=== PATIENT | male | born 1950 | race African-American/Black ===

== ENCOUNTER 2020-04-14 18:52 | Inpatient (IN) | payer MEDICARE, SELFPAY ==
[2020-04-14] VITALS (9 sets, daily range): BP systolic 111–223; BP diastolic 57–116; PULSE 92–128; RESP 15–22; TEMP 36.1–37.1; O2SAT 95–100; BMI 18.6
--- NOTE | ~2020-04-14 | CT_ITS ---
EXAMINATION: CTA brain carotid DATE: 04/14/2020 20:13 INDICATION: Altered mental status. TECHNIQUE: Computed tomographic angiography (CTA) of the head was performed with 100 mL Omnipaque-350 intravenous contrast. CTA of the neck was performed with intravenous contrast. Automated exposure co ntrol and iterative reconstruction technique were employed. The dose-length product was 1192.40 mGy-c m. Maximum intensity projection and volume rendered 3D-reconstructions were created by the [employer] st on a separate workstation. COMPARISON: Head CT 04/14/2020 FINDINGS: HEAD CTA: There are scattered areas of low attenuation in the cerebral white matter, which is within normal limits for the patient's age. There is no intracranial hemorrhage, acute infarction, or abnorm al intracranial mass lesion. The ventricles are normal in size. There is mild mucosal thickening in t he paranasal sinuses. The mastoid air cells are normal. The orbits are normal. Left vertebral artery is dominant. There is no significant stenosis of basilar artery or the posterior cerebral arteries. T here is no significant stenosis of the intracranial internal carotid arteries or anterior or middle c erebral arteries. Anterior communicating artery is normal. The posterior communicating arteries are n ormal. There is no aneurysm. NECK CTA: There is mild scarring at the lung apices. There are no pathologically enlarged lymph nodes . There is no significant stenosis of the vertebral arteries. There is plaque in the proximal interna l carotid arteries. There is 0% stenosis of the proximal right internal carotid artery relative to no rmal distal artery lumen diameter (NASCET criteria). There is 0% stenosis of the proximal left consulting intern al carotid artery relative to normal distal artery lumen diameter. There is severe cervical spondylos is. IMPRESSION: 1. Mild nonspecific cerebral white matter disease, which likely represents chronic small vessel ische [place] disease. 2. No aneurysm or significant intracranial arterial stenosis. 3. 0% stenosis of the proximal internal carotid arteries relative to normal distal artery lumen diame ters (NASCET criteria). Reviewed, dictated and finalized at location A. IMPRESSION: 1. 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 2. No aneurysm or significant intracranial arterial stenosis. 3. 0% stenosis of the proximal internal carotid arteries relative to normal dis pepe artery lumen diameters (NASCET criteria).
--- NOTE | ~2020-04-14 | US_ITS ---
EXAMINATION: US carotid duplex BI DATE: 04/15/2020 14:16 INDICATION: Transient ischemic attack. TECHNIQUE: Grayscale, color Doppler, and pulsed Doppler images of the cervical carotid arteries were obtained. The degree of vessel stenosis is placed in one of the following categories: normal, <50%, 5 0-69%, >=70% but less than near-occlusion, near-occlusion, or total occlusion. Note that percent sten osis relative to normal distal artery lumen diameter is indirectly measured from velocity measurement s as described by Pedro, et al. Radiology 2003; 229:340-346. COMPARISON: CTA 04/14/2020 FINDINGS: RIGHT: The right common carotid artery (CCA) peak systolic velocity (PSV) is 106 cm/s. The right internal ca rotid artery (ICA) PSV is 108 cm/s. The right ICA end-diastolic velocity (EDV) is 13 cm/s. The right ICA/CCA PSV ratio is 1.0. Grayscale and color Doppler images yield an estimate of <50% diameter reduc tion from plaque in the ICA. There is antegrade flow in the right vertebral artery. LEFT: The left CCA PSV is 152 cm/s. The left ICA PSV is 107 cm/s. The left ICA EDV is 16 cm/s. The left ICA /CCA PSV ratio is 0.7. Grayscale and color Doppler images yield an estimate of <50% diameter reductio n from plaque in the ICA. There is antegrade flow in the left vertebral artery. IMPRESSION: 1. <50% stenosis in the right internal carotid artery. 2. <50% stenosis in the left internal carotid artery. Reviewed, dictated and finalized at location A.
--- NOTE | ~2020-04-14 | CT_ITS ---
EXAMINATION: CT brain wo con DATE: 04/14/2020 19:28 INDICATION: Sudden onset of balance and coordination difficulties TECHNIQUE: Computed tomography (CT) of the head was performed without intravenous contrast. The mA wa s adjusted according to patient size. Iterative reconstruction technique was employed. Exam dose: 60 5.33 mGy-cm total exam DLP. COMPARISON: None FINDINGS: No intracranial mass lesion or hemorrhage or cerebrovascular accident is detected. There is no midline shift or mass effect. Normal ventricular size. No subdural or epidural hematoma. Cerebral atherosclerosis is noted. There is nonspecific diminished attenuation of the cerebral white matter, likely due to chronic small vessel ischemic changes. No fracture or bone destruction of the cranial vault. There is mild soft tissue thickening at some of the ethmoid septae. IMPRESSION: No acute intracranial finding Cerebral atherosclerosis and chronic small vessel ischemic changes of the cerebral white matter Reviewed, dictated and finalized at Location [facility]. Reviewed, dictated and finalized at location A. IMPRESSION: No acute intracranial finding Cerebral atherosclerosis and chronic small vessel ischemic changes of the cereb ral white matter
--- NOTE | ~2020-04-14 | XR_ITS ---
XR chest 1V portable DATE: 04/14/2020 19:55 INDICATION: Transient alteration of awareness. Loss of balance. TECHNIQUE: Portable upright AP chest on 04/14/2020 at 1955 hours COMPARISON: None FINDINGS: There is mild bibasilar atelectasis. No pleural effusion or pulmonary vascular congestion o r pneumothorax. Heart size is likely within upper limits of normal. Diffuse osteopenia. IMPRESSION: Mild bibasilar atelectasis Reviewed, dictated and finalized at location A. IMPRESSION: Mild bibasilar atelectasis
--- NOTE | 2020-04-14 19:12 | ECG_ITS ---
Measurements Intervals [place] Rate: 110 P: 78 NV: 148 QRS: 52 QRSD: 88 T: 43 QT: 340 QTc: 460 Interpretive Statements SINUS TACHYCARDIA POSSIBLE LEFT ATRIAL ENLARGEMENT RSR' IN V1 OR V2, CONSIDER RIGHT VENTRICULAR HYPERTROPHY OR RIGHT VCD BORDERLINE ECG Electronically Signed On 04-15-2020 7:53:37 CDT by Omari Murphy D.O.
--- NOTE | 2020-04-14 19:16 | ED.AMS ---
HPI - Altered Mental Status General Chief Complaint: Altered Mental Status Stated Complaint: ams Time Seen by Provider: 04/14/20 19:16 Source: patient and family Mode of arrival: ambulatory Limitations: no limitations History of Present Illness HPI narrative: Patient is a 70-year-old male who presents for evaluation of altered mental status. History is mostly provided by . She states that they were at dinner this evening when she noticed her had a shuffling gait and was not coordinated. He was having difficulty speaking. She did not notice any facial droop, arm or specific leg weakness. Patient was able to ambulate, and they left the restaurant. Patient was then driven here in private vehicle and was able to ambulate inside. Here, patient is not able to provide much history. He does state he has a history of hypertension, initially he identifies his as his daughter, but then corrects himself and states that she is his . He does not know the year but knows the president. The patient's states that he has had no history of alcohol use, no history of drug use. He has a history of untreated hypertension. He has a history of TIA. Related Data Home Medications Medication Instructions Recorded Confirmed naproxen sodium 220 mg PO BID PRN 04/14/20 Allergies Allergy/AdvReac Type Severity Reaction Status Date / Time diphenhydramine Allergy Unknown Abdominal Verified 04/14/20 20:26 [From Benadryl] Pain Review of Systems Review of Systems: Narrative: Unable to obtain, secondary to altered mental status PMFSH Past Medical History Medical History Amputation finger Carpal tunnel syndrome GERD (gastroesophageal reflux disease) Hematuria High blood pressure Tendinitis Family History Family History (Updated 08/17/19 @ 10:53 by Rohan Keane) Other Diabetes mellitus Heart disease Social History Social History Smoking status: Never smoker Gender identity (if verbalized by the patient): Male Exam Narrative: Exam Narrative: GENERAL: Awake, alert HEAD: Normocephalic, atraumatic. EYES: 2+ PERRLA and EOMI. ENT: Nares clear, no rhinorrhea or epistaxis. Mucous membranes moist. NECK: Supple. CHEST: No respiratory distress, breathing even and non labored HEART: Regular rate, sinus rhythm ABDOMEN:Non distended, non tender EXTREMITIES: Normal range of motion. No edema. SKIN: Warm, dry, no rash. NEURO:No focal deficits. Alert and oriented x2, patient is able to state his name, able to identify his and the president. He is not able to provide the date. When asked he states he thinks it is 1990. [id number] testing is intact, slowed bilaterally. Bilateral upper extremity strength is 5 out of 5. Bilateral lower extremity strength is 5 out of 5. Grimace is intact and symmetric. Shoulder shrug intact and symmetric bilaterally. Patient cannot complete [id number] due to difficulty following command. No arm drift. Course Vital Signs Vital signs: Vital Signs Temperature 36.8 C 04/14/20 19:05 Pulse Rate 110 H 04/14/20 19:05 Respiratory Rate 19 04/14/20 19:05 Blood Pressure 165/89 H 04/14/20 19:05 Pulse Oximetry 100 04/14/20 19:05 Temperature 37.1 C 04/14/20 20:55 Pulse Rate 113 H 04/14/20 20:55 Respiratory Rate 21 H 04/14/20 21:03 Blood Pressure 184/92 H 04/14/20 20:55 Pulse Oximetry 96 04/14/20 21:03 MDM - Altered Mental Status MDM Narrative Medical decision making narrative: Patient presented for evaluation of altered mental status, gait difficulty. At the time of assessment, patient is hypertensive, otherwise ABCs are intact. Physical exam is notable for a slightly altered patient, who can identify his name, not place or time. He states that his is his daughter, patient thinks the year is initially 1950. Otherwise no focal def
[2020-04-14 19:18] LABS: Glucose Point of Care 87 (65-105)
[2020-04-14 19:23] LABS: Basophils Percent Auto 0.2 % (0.2-1.2); Eosinophils Absolute Auto 0.1 K/mm3 (0-0.3); Eosinophils Percent Auto 1.4 % (0-4.4); Hematocrit 38.3 % (42.0-52.0); Hemoglobin 13.4 g/dL (14.0-18.0); Immature Granulocyte Absolute 0.01 K/mm3 (0.00-0.031); Immature Granulocyte Percent A 0.2 % (0-0.5); Lymphocytes Absolute Auto 1.71 K/mm3 (0.9-3.2); Lymphocytes Percent Auto 39.2 % (18.3-44.2); Mean Corpuscular Hemoglobin 26.8 pg (26-34); Mean Corpuscular Volume 76.6 fl (80-100); Mean Platelet Volume 9.8 fl (7.4-10.4); Monocytes Percent Auto 22.5 % (2.6-8.5); Neutrophils Absolute Auto 1.6 K/mm3 (1.3-6.7); Neutrophils Percent Auto 36.5 % (45.5-73.1); Nucleated Red Blood Cells Perc 0.7 % (0.0-0.2); Platelet Count Result 249 k/mm3 (150-375); Red Cell Distribution Width 16.2 % (11.5-14.5); White Blood Count 4.4 K/mm3 (4.5-10.0)
[2020-04-14 19:33] LABS: Prothrombin Time 13.2 Seconds (11.1-14.7)
[2020-04-14 19:34] LABS: Partial Thromboplastin Time 24.5 SECONDS (22.3-36.8)
[2020-04-14 19:35] LABS: Anion Gap 6 mmol/L (8-16); Blood Urea Nitrogen 14 mg/dL (9-20); Carbon Dioxide 26 mmol/L (22-30); Chloride 103 mmol/L (98-107); Estimated CRCL calculation 48 ml/min; Estimated Glomerular Filt Rate > 60; Glucose 102 mg/dL (75-110); Sodium 135 mmol/L (137-145)
[2020-04-14 19:37] LABS: Alveolar/Arterial O2 Gradient 11.7 mmHg; Base Excess ABG 1.5 mEq/l (+/-2.0); Fractional Inspired Oxygen 21 %; HCO3 ABG 25.6 mEq/l (22.0-26.0); Methemoglobin ABG 0.4 %THb (0-1.5); Oxygen Content ABG 18.6 %vol (16.0-22.0); Oxygen Saturation ABG 97.3 % (95.0-100.0); Oxyhemoglobin 96.1 % THb (90.0-100.0); PCO2 ABG 38.8 mmHg (35.0-45.0); PO2 ABG 91.6 mmHg (80.0-100.0); PO2 FiO2 Ratio Arterial Blood 4.36 %; Reduced Hemoglobin 3.5 %THb (0-5.0); Total Hemoglobin 13.7 g/dL (12.0-18.0); pH ABG 7.438 (7.350-7.450)
[2020-04-14 19:38] LABS: Device ROOM AIR; Modified Allen's Test Pass; Site Drawn RIGHT RADIAL
[2020-04-14 19:46] LABS: Troponin I 0.033 ng/mL (0.000-0.034)
[2020-04-14 19:56] LABS: Basophils Percent Auto 0.5 % (0.2-1.2); Eosinophils Absolute Auto 0.1 K/mm3 (0-0.3); Eosinophils Percent Auto 1.1 % (0-4.4); Hematocrit 37.1 % (42.0-52.0); Immature Granulocyte Absolute 0.01 K/mm3 (0.00-0.031); Immature Granulocyte Percent A 0.2 % (0-0.5); Lymphocytes Absolute Auto 1.83 K/mm3 (0.9-3.2); Lymphocytes Percent Auto 41.4 % (18.3-44.2); Mean Corpuscular Hemoglobin 26.7 pg (26-34); Mean Corpuscular Volume 76.2 fl (80-100); Monocytes Absolute Auto 0.8 K/mm3 (0.1-0.6); Monocytes Percent Auto 18.8 % (2.6-8.5); Neutrophils Absolute Auto 1.7 K/mm3 (1.3-6.7); Platelet Count Result 246 k/mm3 (150-375); Red Blood Count 4.87 M/mm3 (4.6-6.20); Red Cell Distribution Width 16.5 % (11.5-14.5); White Blood Count 4.4 K/mm3 (4.5-10.0)
[2020-04-14 19:58] LABS: Add Urine Microscopic? NO; Appearance Urine Clear (Clear); Bilirubin Urine Negative (Negative); Blood Urine Negative (Negative); Color Urine Straw (Yellow); Glucose Urine UA Negative (Negative); Ketones Urine Negative (Negative); Leukocyte Esterase Ur Negative LEU/UL (Negative); Nitrate Urine Negative (Negative); Protein Urine Negative (Negative); Urobilinogen Urine Negative mg/dL (<2.0)
--- NOTE | 2020-04-14 19:58 | PC.NURSE ---
Patient is able to perform all measures of the NIHSS. He does have difficulty starting procedures and is having difficulty following some commands. Directions must be repeated multiple times for some tasks. Additionally he is having difficulty recalling the year and has referred to his as his daughter. He is slow to answer questions. He is able to tell me where he is as well as what day and month it is. He is not able to articulate what he was doing that caused his to bring him into the hospital but he is able to tell me that he was out to dinner at the time. These symptoms seem to be unchanged in severity from when he arrived in the room until this time.
[2020-04-14 20:08] LABS: Ammonia < 9 umol/L (9-30); Ethanol < 10 mg/dL (<10); Lactic Acid Reflex 1.2 mmol/L (0.7-2.1)
[2020-04-14 20:15] LABS: Alanine Aminotransferase 44 U/L (4-50); Alkaline Phosphatase 51 U/L (38-126); Anion Gap 6 mmol/L (8-16); Aspartate Amino Transferase 43 U/L (17-59); Bilirubin,Total 0.6 mg/dL (0.2-1.3); Blood Urea Nitrogen 13 mg/dL (9-20); CRP 0.6 mg/dL (<1.0); Calcium 8.9 mg/dL (8.4-10.2); Carbon Dioxide 26 mmol/L (22-30); Chloride 104 mmol/L (98-107); Estimated CRCL calculation 48 ml/min; Estimated Glomerular Filt Rate > 60; Glucose 93 mg/dL (75-110); Potassium 3.9 mmol/L (3.4-5.0); Sodium 136 mmol/L (137-145)
[2020-04-14] MEDS: SODIUM CHLORIDE 0.9% IV 1,000 ML 999 ML IV CONT (20:20)
[2020-04-14] MEDS: hydrALAZINE HCL 20 MG/ML VIAL 10 MG IV PUSH ×2 (20:20→21:02)
[2020-04-14 20:25] LABS: Troponin I 0.032 ng/mL (0.000-0.034)
--- NOTE | 2020-04-14 22:03 | PM.IMHP ---
H&P: HPI History of Present Illness Date/Time: 04/14/20 22:03 Chief complaint: Altered mental status Narrative: This is a 70 year old male with known untreated HTN for the past 3 years who presented to the hospital with a complaint of acute altered mental status. Today was the patient's birthday and he went out to eat dinner with his . He was last seen at his baseline around 5:45 pm. While out at dinner with his she noticed that he was having difficulty ambulating as they decided to change their seating from outside to going inside. She realized he was walking with a shuffling gait. After he sat down he continued to have coordination difficulties as his noticed that he was having a hard time eating and was dropping his fork and knife multiple times. When she asked him what was wrong he attributed his symptoms to arthritis. He stated to his , I need to think, give me a moment . She realized that he was figiditing with is glasses and was not acting like himself. She didn't notice any signficiant dysarthria or aphasia. He denies any recent head trauma, falls, passing out, seizure like activity, fevers, chills, nausea, vomiting, coughing, shortness of breath, chest pain, abdominal pain, dysuria, hematuria, rectal bleeding, diarrhea or LE swelling. Additionally he also denies any neck stiffness, headache, focal weakness, numbness or tingling. No visual disturbances are reported. He has a history of a previous TIA about 7 years ago. The patient was evaluated in the ER tonight and found to have severely elevated blood pressure. His symptoms seemed to improve and resolve after being treated with IV hydralazine. On my encounter with the patient his confirms that he is now back to his baseline. He denies any other symptoms at this time. ER provider has consulted Neurology and we have been asked to admit him to the hospital for his likely hypertensive urgency. Review of Systems Review of Systems: All systems reviewed & are unremarkable except as noted in HPI and below PMFSH Past Medical History Medical History (Updated 04/15/20 @ 06:34 by Manish Schmidt MD) Amputation finger Carpal tunnel syndrome GERD (gastroesophageal reflux disease) Hematuria High blood pressure Tendinitis Surgical History Surgical History (Updated 04/14/20 @ 22:12 by Manish Schmidt MD) Hx of carpal tunnel repair Family History Family History (Updated 04/14/20 @ 23:22 by Laquita Xiao RN) Mother Alzheimer disease Sibling Heart disease Social History Social History Years smoked: 5 Smoking status: Former smoker Tobacco type: cigarettes Second hand tobacco smoke exposure: No Alcohol intake: former Substance use: never Substance use type: does not use Gender identity (if verbalized by the patient): Male Spiritual care concerns: No Meds Home Medications and Allergies Home Medications Medication Instructions Recorded Confirmed Type No Home Medications 04/14/20 04/14/20 History Allergies Allergy/AdvReac Type Severity Reaction Status Date / Time No Known Allergies Allergy Verified 04/14/20 23:53 Vital Signs Vital Signs - 24 hr 04/14/20 19:05 04/14/20 19:40 04/14/20 20:15 Temperature 36.8 C 37.0 C 37.1 C Pulse Rate 110 H 94 92 Respiratory Rate 19 21 H 18 Blood Pressure 165/89 H 190/98 H 184/116 H Pulse Oximetry 100 100 100 04/14/20 20:25 04/14/20 20:55 04/14/20 21:03 Temperature 37.1 C Pulse Rate 94 113 H Respiratory Rate 18 20 21 H Blood Pressure 223/99 H 184/92 H Pulse Oximetry 98 96 96 04/14/20 21:53 Temperature 36.9 C Pulse Rate 128 H Respiratory Rate 22 H Blood Pressure 118/64 Pulse Oximetry 95 Exam Const: General: cooperative, no acute distress, alert and awake Nutritional Appearance: well nourished Orientation/consciousness: patient oriented x3 HENMT: Head: normal to inspection Gen
--- NOTE | 2020-04-14 22:59 | PC.NURSE ---
Patient's : Lorrie Mark: [phone]
--- NOTE | 2020-04-14 23:04 | PC.NURSE ---
This patient, Frederick Flores, was admitted to IMU Room 232-01 at 2257. Patient/family oriented to hospital policies and general routines including ID bracelet, bed and alarms, visiting hours, pain management, procedures, bathroom and other care routines, personal items, smoking policy, room service/diet, and visiting hours. Valuables list has been completed. Information on how to activate the Rapid Response Team has been discussed. Patient/Family are encouraged to report perceived risks to care and to ask questions if they do not understand what they are told or what they should do.
[2020-04-14] MEDS: SODIUM CHLORIDE 0.45% 1,000 ML 100 ML IV CONT (23:41)
[2020-04-15] VITALS (15 sets, daily range): BP systolic 123–148; BP diastolic 63–99; PULSE 62–103; RESP 14–18; TEMP 35.9–36.7; O2SAT 98–100
[2020-04-15 01:22] LABS: Troponin I 0.246 ng/mL (0.000-0.034)
[2020-04-15 04:53] LABS: Basophils Percent Auto 0.4 % (0.2-1.2); Eosinophils Absolute Auto 0.1 K/mm3 (0-0.3); Eosinophils Percent Auto 1.4 % (0-4.4); Hematocrit 38.4 % (42.0-52.0); Hemoglobin 13.3 g/dL (14.0-18.0); Immature Granulocyte Absolute 0.01 K/mm3 (0.00-0.031); Immature Granulocyte Percent A 0.2 % (0-0.5); Lymphocytes Absolute Auto 1.68 K/mm3 (0.9-3.2); Lymphocytes Percent Auto 33.1 % (18.3-44.2); Mean Corpuscular HGB Conc 34.6 g/dl (32-36); Mean Corpuscular Hemoglobin 26.8 pg (26-34); Mean Corpuscular Volume 77.3 fl (80-100); Mean Platelet Volume 10.1 fl (7.4-10.4); Monocytes Absolute Auto 0.8 K/mm3 (0.1-0.6); Monocytes Percent Auto 16.5 % (2.6-8.5); Neutrophils Absolute Auto 2.5 K/mm3 (1.3-6.7); Neutrophils Percent Auto 48.4 % (45.5-73.1); Platelet Count Result 240 k/mm3 (150-375); Red Blood Count 4.97 M/mm3 (4.6-6.20); Red Cell Distribution Width 16.3 % (11.5-14.5); White Blood Count 5.1 K/mm3 (4.5-10.0)
[2020-04-15 05:04] LABS: Anion Gap 5 mmol/L (8-16); Blood Urea Nitrogen 11 mg/dL (9-20); Calcium 8.8 mg/dL (8.4-10.2); Carbon Dioxide 23 mmol/L (22-30); Chloride 110 mmol/L (98-107); Cholesterol 157 mg/dL (0-200); Estimated CRCL calculation 52 ml/min; Estimated Glomerular Filt Rate > 60; Glucose 91 mg/dL (75-110); HDL Direct 46 mg/dL; Potassium 3.9 mmol/L (3.4-5.0); Sodium 138 mmol/L (137-145); Triglycerides 68 mg/dL (<150)
[2020-04-15 05:15] LABS: LDL Cholesterol Direct 73 mg/dL
[2020-04-15 05:40] LABS: Troponin I 0.596 ng/mL (0.000-0.034)
[2020-04-15 05:54] LABS: Free T4 Free Thyroxine 0.87 ng/mL (0.78-2.19)
[2020-04-15 08:15] LABS: Troponin I 0.655 ng/mL (0.000-0.034)
[2020-04-15 08:43] LABS: Iron 49 ug/dL (49-181)
[2020-04-15 08:44] LABS: Cholesterol 155 mg/dL (0-200); HDL Direct 44 mg/dL; Triglycerides 70 mg/dL (<150)
[2020-04-15 08:52] LABS: Percent Iron Saturation 20 % (20-50)
[2020-04-15 08:55] LABS: LDL Cholesterol Direct 73 mg/dL
[2020-04-15] MEDS: METOPROLOL TARTRATE 25 MG TABLET PO ×2 (09:05→20:33)
[2020-04-15] MEDS: ASPIRIN 81 MG ENTERIC TABLET PO (09:05)
--- NOTE | 2020-04-15 10:51 | PM.CNCAR ---
Assessment and Plan Additional Plan 70-year-old gentleman presenting with symptoms concerning for a TIA. He was quite hypertensive upon arrival that is now much improved with the addition of a beta-antonio. For reasons that are not evident to me or explained in the chart a series of troponins were done with results as detailed above. There is no clinical or electrocardiographic evidence of an acute coronary syndrome and as such there is no indication to initiate an ischemia workup during this hospitalization. Please call me if further cardiac input is necessary James Chen MD [facility] History of Present Illness History of Present Illness Consult date/time: date of service:04/15/20 10:51 Reason For Visit: Altered mental status Narrative: This is a 70-year-old man I am seeing at the request of the hospitalist because of abnormalities on troponin levels that were done presumably on the order of the ED staff. He was brought to the emergency room last evening when he was noted to be having neurological symptoms when he was out to dinner with his . Apparently he was having difficulty ambulating in the restaurant and then having difficulty dropping his utensils. He also apparently by the description in the chart was having difficulty choosing words to say in response to questions. In any event he was brought to the emergency room he was not reporting any chest pain of any kind according to the notes or according to the patient at this time. His electrocardiogram showed sinus rhythm without any acute ST segment changes indicative of ischemia or injury. For reasons that are not evident a troponin series was done with levels of 0.03 rising to 0.6. He was sleeping comfortably quietly in the room when I entered the room to see him. Upon arousing he offers no complaints. He denies any history of any cardiac problems. He does have a history of longstanding hypertension he has a primary care physician and Michael who has prescribed medication for this which the patient is not taking. He has been started on a beta-antonio his blood pressure is much better. He is a retired fabrication welder he does not exercise regularly but leads an active lifestyle and does not report any knowledge or observations of exertional chest pain. He denies any symptoms of palpitations syncope orthopnea PND or accumulating edema. Review of Systems Constitutional: Constitutional: Reports no additional constitutional complaints Eyes: Eyes: Reports no additional eye complaints ENT: Reports system reviewed and no additional complaints, except as documented Cardiovascular: Cardiovascular: Reports no additional cardiovascular complaints Respiratory: Respiratory: Reports no additional respiratory complaints Gastrointestinal: Gastrointestinal: Reports no additional gastrointestinal complaints Musculoskeletal: Musculoskeletal: Reports no additional musculoskeletal complaints Integumentary/Breasts: Skin/Breast: Reports system reviewed and no additional complaints, except as docu Neurologic: Reports as per HPI Psychiatric: Psychiatric: Reports no additional psychiatric complaints Endocrine: Endocrine: Reports no additional endocrine complaints Hematologic/Lymphatic: Hematologic/Lymphatic: Reports no additional hematologic/lymphatic complaints Allergic/Immunologic: Allergic/Immunologic: Reports no additional allergic/immunologic complaints [facility] Past Medical History Medical History (Updated 04/15/20 @ 06:34 by Manish Schmidt MD) Amputation finger Carpal tunnel syndrome GERD (gastroesophageal reflux disease) Hematuria High blood pressure Tendinitis Surgical History Surgical History (Updated 04/14/20 @ 22:12 by Manish Schmidt MD) Hx of carpal tunnel repair Family History Family History (Updated 04/14/20 @ 23:22 by Laquita Xiao RN) Mother Alzheimer disease Sibling Heart disease Social History Social History (Reviewed 04/14/20 @ 22:11 by Manish Kruger
[2020-04-15] MEDS: ACETAMINOPHEN 325 MG TABLET 650 MG PO (13:20)
--- NOTE | 2020-04-15 18:11 | PC.NURSE ---
This patient, Frederick Flores, was received from [facility] on 04/15/20 at 1811. Personal belongings list checked and signed. Patient/family oriented to unit policies and routines. Report received from JASMEET Garza.
--- NOTE | 2020-04-15 18:15 | PM.IMPN ---
Progress Note: A&P Assessment and Plan (1) Altered mental status: Qualifiers: Altered mental status type: transient alteration of awareness Qualified Code(s): R40.4 - Transient alteration of awareness Code(s): R41.82 - Altered mental status, unspecified Status: Acute Assessment and Plan: Likely secondary to uncontrolled HTN. symptoms have resolved and workup today is negative with echo pending. (2) Hypertensive emergency: Code(s): I16.1 - Hypertensive emergency Status: Acute Assessment and Plan: symptoms resolved so low-dose beta-antonio has been started with good results. (3) Nonadherence to medical treatment: Code(s): Z91.19 - Patient's noncompliance with other medical treatment and regimen Status: Acute Assessment and Plan: Dr Schmidt counseled the patient on the importance of being compliant with his home medications. (4) Elevated troponin: Code(s): R79.89 - Other specified abnormal findings of blood chemistry Status: Acute Assessment and Plan: Likely secondary to tachycardia from hydralazine. The patient has not had any chest pain tonight. Cardiology feels no ischemic workup is indicated which I agree. Low-dose beta-antonio and aspirin have been started Subjective Date/time seen: 04/15/20 18:15 Interval history: date of visit 04/15. 70-year-old male with history of hypertension on treated for the past 2-3 years presented to the emergency room with balance issues and trouble focusing found to have accelerated hypertension with systolic above 200. Was given labetalol and hydralazine and pressure decrease in symptoms resolved. He feels well this a.m. with no residual symptoms Exam Narrative: Exam Narrative: blood pressure 124/64 pulse 66 saturating 100% on room air pupils equal reactive to light sclera anicteric lungs clear CV no murmurs or gallops heard abdomen is soft nontender extremities without edema cranial nerves 2-12 are intact no focal deficits, alert and oriented x4 Objective Data Vital Signs Vital Signs: Vital Signs - 24 hr 04/14/20 19:05 04/14/20 19:40 04/14/20 20:15 Temperature 36.8 C 37.0 C 37.1 C Pulse Rate 110 H 94 92 Respiratory Rate 19 21 H 18 Blood Pressure 165/89 H 190/98 H 184/116 H Pulse Oximetry 100 100 100 04/14/20 20:25 04/14/20 20:55 04/14/20 21:03 Temperature 37.1 C Pulse Rate 94 113 H Respiratory Rate 18 20 21 H Blood Pressure 223/99 H 184/92 H Pulse Oximetry 98 96 96 04/14/20 21:53 04/14/20 22:57 04/14/20 23:07 Temperature 36.9 C 36.7 C 36.1 C L Pulse Rate 128 H 108 H 121 H Respiratory Rate 22 H 15 18 Blood Pressure 118/64 111/60 124/57 L Pulse Oximetry 95 95 100 04/15/20 00:00 04/15/20 02:00 04/15/20 04:00 Temperature 36.1 C L Pulse Rate 103 H 91 87 Respiratory Rate 16 16 Blood Pressure 148/80 H 139/76 Pulse Oximetry 100 100 04/15/20 06:00 04/15/20 08:00 04/15/20 08:23 Temperature 35.9 C L Pulse Rate 82 75 74 Respiratory Rate 16 Blood Pressure 147/99 H Pulse Oximetry 100 04/15/20 09:05 04/15/20 09:52 04/15/20 11:30 Temperature 36.2 C L Pulse Rate 84 75 70 Respiratory Rate 18 Blood Pressure 130/68 Pulse Oximetry 100 04/15/20 12:00 04/15/20 14:00 04/15/20 16:09 Temperature 35.9 C L Pulse Rate 62 73 66 Respiratory Rate 16 Blood Pressure 123/64 Pulse Oximetry 100 Intake/Output Intake/Output: Intake & Output 04/12/20 04/13/20 04/14/20 04/15/20 23:59 23:59 23:59 23:59 Intake Total 1000 1490 Output Total 750 1125 Balance 250 365 Meds/Results Medications: Active Medications Generic Name Dose Route Start Last Admin Trade Name Freq PRN Reason Stop Dose Admin Acetaminophen 650 mg 04/14/20 22:27 04/15/20 13:20 Tylenol Tablet PO 650 mg Q4H PRN Administration Mild Pain (1-3) or Fever Aspirin 81 mg 04/15/20 09:00 04/15/20 09:05 [facility]in Ec [facility]
[2020-04-15] MEDS: ENOXAPARIN 40 MG/0.4 ML SYRINGE SUB-Q (20:35)
--- NOTE | 2020-04-16 | ECHO_ITS ---
Patient Info Name: Frederick Flores Age: 70 years : 1950 Gender: Male Ht: 72 in Wt: 136 lbs BSA: 1.76 m2 HR: 80 bpm BP: 146 / 70 mmHg Heart Rhythm: Sinus Rhythm Technical Quality: Good Exam Date: 04/16/2020 8:01 AM Exam Location: [facility] Pulmonary Patient Status: Inpatient Admit Date: 04/15/2020 Staff Ordering Physician: Arvind Benitez MD Roustabout Pusher: Kellie Palomo RDCS Attending Provider: Manish Schmidt MD Referring Physician: Eli LEE; Exam Type: CA echo doppler color flow Study Info Indications I10 - Essential (primary) hypertension - elevated troponin Complete two-dimensional, color flow and Doppler transthoracic echocardiogram is performed. Summary 1. There is moderate concentric increased left ventricular wall thickness. 2. Left ventricular systolic function is normal, estimated at 65-70%. 3. Trivial mitral and tricuspid regurgitation. 4. 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 Left Ventricle Left ventricular chamber dimension is normal. Left ventricular systolic function is normal, estimated at 65-70%. There is moderate concentric increased left ventricular wall thickness. The left ventricular diastolic function is grade I diastolic dysfunction. Right Ventricle Right ventricular chamber dimension is normal. Left Atria Left atrial chamber dimension is mildly enlarged. Right Atria Right atrial chamber dimension is normal. Aortic Valve The aortic valve is normal. Pulmonic Valve The pulmonic valve is normal. Mitral Valve The mitral valve has normal leaflets. Tricuspid Valve The tricuspid valve leaflets are normal. Pericardium/Pleural The pericardium appears normal. Aorta The aortic root size at the sinus of Valsalva is normal. Left Ventricular Outflow Tract Name Value Normal LVOT 2D LVOT Diameter 2.0 cm LVOT Doppler LVOT Peak Gradient 4 mmHg LVOT Mean Gradient 2 mmHg LVOT VTI 20 cm LVOT VTI/AV VTI Ratio 0.8 LVOT Stroke Volume 64 ml LVOT CO 4.4 l/min LVOT CI 2.5 l/min/m2 Pulmonic Valve Name Value Normal RVOT Doppler RVOT Peak Gradient 4 mmHg PV Doppler PV Peak Gradient 5 mmHg Mitral Valve Name Value Normal MV Doppler MV Decel Zapata 314 cm/s2 MV PHT
[2020-04-16 02:50] VITALS: BP 146/70; PULSE 72; RESP 16; TEMP 36.8; O2SAT 98
[2020-04-16] MEDS: ACETAMINOPHEN 325 MG TABLET 650 MG PO (04:49)
--- NOTE | 2020-04-16 06:25 | CONS_ITS ---
DATE OF CONSULTATION: HISTORY OF PRESENT ILLNESS: This 70 years old right-handed male has been admitted to the hospital through the emergency room with the complaint of change in mental status. Reportedly, this was the patient's birthday and he went out to eat dinner with his . He was last seen at the [facility] around 5:45 p.m. While out at dinner, his noted that he was having difficulties with ambulation, walking with a shuffling gait and hard time eating and dropping fork and knife multiple times. He attributed his symptoms to the arthritis and told his that he needed towait and asked for a moment, was fighting with the glasses, not acting by himself, though she did not notice any dysarthria or difficulties in his speech. There was no history of recent or remote trauma, seizure-like activity, or recent travel. He has had a previous TIA about 7 years ago, when he was evaluated in the emergency room and was found to be severely hypertensive. 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 FAMILY HISTORY: Mother suffers from Alzheimer disease. Sibling has heart disease. SOCIAL HISTORY: He himself is a former smoker. He smoked for about 5 years and he is a former drinker as well. No substance abuser. ALLERGIES: HE IS NOT ALLERGIC TO ANY MEDICATION. MEDICATIONS: At present, he is not taking any medication. PHYSICAL EXAMINATION: VITAL SIGNS: Initial evaluation documented him to be afebrile, pulse of 110, respiration 19, blood pressure 165/89. GENERAL: Examination revealed him to be awake, alert, cooperative, in no obvious acute distress. HEENT: Head normocephalic with no cranial bruit. Ears, nose, throat examination normal. NECK: Supple with no cervical bruit. No thyromegaly. No lymphadenopathy. HEART: Regular with no murmur. LUNGS: Clear to auscultation. ABDOMEN: Soft with normal bowel sounds. No organomegaly. NEUROLOGICAL: He is awake, alert, oriented x3. Pupils round, regular. Angela of vision full. Extraocular movements full. Face symmetrical. Tongue midline. Motor examination revealed him to have no drift of 1 side or the other side. Reflexes sluggish but symmetrical. Plantars are downgoing. There is no evidence of gross cerebellar deficit. LABORATORY DATA: Evaluation up until now includes normal CBC, normal basic metabolic panel, normal troponin. Hepatic enzymes normal. UA negative. IMAGING: Chest x-ray with mild bibasilar atelectasis. CT of the head, no acute bleed, chronic small-vessel ischemic changes. IMPRESSION AND PLAN: At this stage, the patient is receiving metoprolol 25 mg q.12h, aspirin 81 mg daily, Lovenox 40 mg subcu. We will obtain the complete studies that is the MRI of the brain, Doppler study of the carotid, echocardiogram, and cardiology consultation as well. As per the Cardiology consultation, because of his abnormal troponin level at the time of admission, troponin series was done with the rising levels up to 0.6. He was started on beta antonio. Blood pressure was improving, and further care will be provided accordingly. ANNALISA FORRESTER M.D. ARCHITECTURAL DRAFTER ARCHITECTURAL DRAFTER D I MT: Lala MEDLEY
[2020-04-16 07:46] LABS: Glucose Point of Care 98 (65-105)
[2020-04-16 08:45] VITALS: PULSE 68
[2020-04-16] MEDS: METOPROLOL TARTRATE 25 MG TABLET PO (08:45)
[2020-04-16] MEDS: ASPIRIN 81 MG ENTERIC TABLET PO (08:45)
[2020-04-16 10:00] VITALS: BP 139/73; PULSE 62; RESP 17; TEMP 36.5; O2SAT 100
--- NOTE | 2020-04-16 10:45 | PCDIET ---
Dietitian Screen for BMI 18.5. Patient states UBW is around 150 ibs. He states to being at that weight for years. He drinks Ensure at home and states to eating 1 meal per day. He states to not being a breakfast person. I did order his lunch meal today and diet supplement of Ensure Enlive providing an additional 350 kcals and 20 gms protein. Patient currently on the heart healthy diet-no diet concerns at this time. No further nutritional interventions needed.
--- NOTE | 2020-04-22 07:58 | PM.DS ---
DS: Admitting Diagnosis Admitting Diagnosis Admitting Diagnosis: Altered mental status DS: Discharge Diagnosis Discharge Diagnosis (1) Altered mental status: Qualifiers: Altered mental status type: transient alteration of awareness Qualified Code(s): R40.4 - Transient alteration of awareness Code(s): R41.82 - Altered mental status, unspecified Status: Acute Assessment and Plan: Likely secondary to uncontrolled HTN. symptoms resolved and workup was negative with echo LVH, CTA carotids and brain normal D/c with asa and metoprolollx 25 qd. and may consider statin in the future (2) Hypertensive emergency: Code(s): I16.1 - Hypertensive emergency Status: Acute Assessment and Plan: symptoms resolved so low-dose beta-antonio was started with good results. (3) Nonadherence to medical treatment: Code(s): Z91.19 - Patient's noncompliance with other medical treatment and regimen Status: Acute Assessment and Plan: Dr Schmidt counseled the patient on the importance of being compliant with his home medications. (4) Elevated troponin: Code(s): R79.89 - Other specified abnormal findings of blood chemistry Status: Acute Assessment and Plan: Likely secondary to tachycardia from hydralazine. The patient did not have any chest pain . Cardiology felt no ischemic workup was indicated which I agree. Low-dose beta-antonio and aspirin were started as above. DS: Summary Hospital Course Hospital Course: 70-year-old gentleman with history of hypertension admitted altered mental status.. No definite focal deficits on admission but blood pressure was over 200 systolic. With treatment pressure fell and symptoms quickly subsided. Echocardiogram showed EF 65% with left ventricular hypertrophy and CT a of neck and brain was negative. Patient placed on aspirin 81 mg daily and metoprolol XL 25 daily with good control of blood pressure will follow-up with primary in may consider statin in the future Time Spent with Patient Time attestation: Total time spent providing and/or coordinating discharge services:35 minutes Exam Narrative: Exam Narrative: Condition on discharge blood pressure 132/72 pulse 62 saturating 100% on room air afebrile lungs clear CV regular rate rhythm no murmurs Abd soft and nontender extrem no edema Neuro no focal deficits , alert and oriented x4 Discharge Plan Discharge Attending physician on discharge: Arvind Benitez Consulting providers: Yrn Espino ; James Chen ; Omari Murphy ; José Hansen ; Brandon Yuen V. Discharging Clinician: Arvind Benitez Patient Disposition: Home, Self-Care Activity: as tolerated Diet: low sodium Patient Instructions: Metoprolol (By mouth), Chronic Hypertension (DC), Altered Mental Status (GEN) Stand Alone Forms: General Discharge Information Follow-up/Referrals: Alverto,Manish Schmid MD [Primary Care Provider] - 2 Weeks Discharge Medications: New aspirin 81 mg Tablet,Delayed Release (Dr/Ec) 81 mg PO QAM Qty: 30 RF: 0 metoprolol succinate [Toprol XL] 25 mg tablet extended release 24 hr 25 mg PO HS Qty: 30 RF: 0 No Action No Home Medications RF: 0 Date of admission: 04/15/20 10:15 Primary Care Provider: JeffryManish Admitting Provider: Manish Schmidt Discharge Date/Time: 04/16/20 11:45 Attending physician on admission: Arvind Benitez Condition: Stable Quality VTE Prophylaxis VTE prophylaxis: mechanical ordered
== END 2020-04-16 11:45 | disposition home or self-care (01) | DRG 305 ==
LOC: ANHED 21:33 → ANHIMU 22:01 → ANH2MED 04-16 02:01 → ANHIMU 04-19 13:37
PROVIDERS: Emergency Medicine; Admitting Provider Family Medicine; Emergency Provider Emergency Medicine; PCP Family Medicine Sports Medicine; Visit Provider Internal Medicine
DX: I16.1 Hypertensive emergency (principal); G93.49 Other encephalopathy; R79.89 Other specified abnormal findings of blood chemistry; R00.0 Tachycardia, unspecified; T46.5X5A Adverse effect of other antihypertensive drugs, initial encounter; K21.9 Gastro-esophageal reflux disease without esophagitis; G56.00 Carpal tunnel syndrome, unspecified upper limb; Z91.19 Patient's noncompliance with other medical treatment and regimen; Z86.73 Personal history of transient ischemic attack (TIA), and cerebral infarction without residual deficits; Z87.891 Personal history of nicotine dependence
CPT/HCPCS: 36415; 36600; 70450; 70496; 70498; 71045; 80048; 80053; 80061; 80307; 81003; 82140; 82375; 82728; 82805; 82948; 83050; 83540; 83550; 83605; 84439; 84443; 84484; 85025; 85610; 85730; 86140; 87040; 93005; 93306; 93880; 96361; 96374; 96376; 99285; A9270; G0378; J0360; J1650; J7030; Q9967

== ENCOUNTER 2024-08-31 18:26 | Emergency (ER) | payer OTHER, SELFPAY ==
--- NOTE | ~2024-08-31 | CT_ITS ---
EXAMINATION: CT cervical spine wo con DATE: 08/31/2024 19:44 INDICATION: fall TECHNIQUE: Computed tomography (CT) of the cervical spine was performed without intravenous contrast. Automated exposure control and iterative reconstruction technique were employed. The dose-length pro duct was 131.25 mGy-cm. COMPARISON: CTA brain carotid 04/14/2020. FINDINGS: Vertebral Body Alignment: Intact. Trace multilevel degenerative listheses, stable. Craniocervical and atlantoaxial alignment: Moderate degenerative change. Alignment intact. Osseous structures/fracture: No evidence of a lytic or blastic process in the visualized spine. No e vidence of acute fracture. Mild stable chronic height loss at C5, C6, and C7. Cervical soft tissues: The paraspinal soft tissues planes are maintained. Degenerative changes: Degenerative changes, without severe neural foraminal or central canal narrowin g. IMPRESSION: No acute fracture or traumatic malalignment in the cervical spine. Reviewed, dictated and finalized at location K. FEATHER MACHINE OPERATOR
--- NOTE | ~2024-08-31 | XR_ITS ---
EXAMINATION: XR chest 2V Exam Date/Time: 08/31/2024 21:13 DRIVER SALESMAN HISTORY: generalized weakness, multiple falls Comparison: 04/14/2020. RESULT: Lines, tubes, and devices: None. Lungs and pleura: Ill-defined subsegmental bilateral lower lung airspace disease best seen in the la teral view. Cardiomediastinal silhouette: Aortic ectasia. Normal heart size. Other: No acute osseous or upper abdominal finding. IMPRESSION: Subsegmental bilateral atelectasis/consolidation. Reviewed, dictated and finalized at location K. ER SALESMAN
--- NOTE | ~2024-08-31 | CT_ITS ---
EXAMINATION: CT brain wo con DATE: 08/31/2024 19:44 INDICATION: fall . TECHNIQUE: Computed tomography (CT) of the head was performed without intravenous contrast. The mA wa s adjusted according to patient size. Iterative reconstruction technique was employed. The dose-lengt h product was 605.33 mGy-cm. COMPARISON: 04/14/2020. FINDINGS: No acute intracranial hemorrhage or extra-axial fluid collection. No hydrocephalus, mass, or herniation. No acute ischemic infarct. Unremarkable dural venous sinus attenuation. No acute osseous abnormality. The aerated spaces are clear. Mild atrophy and chronic white matter change. Atherosclerotic intracranial calcification. IMPRESSION: No acute intracranial process. Reviewed, dictated and finalized at location K. AL CHAIR ASSEMBLER
[2024-08-31 18:40] VITALS: BP 115/48; PULSE 94; RESP 16; TEMP 36.4; O2SAT 92
--- NOTE | 2024-08-31 20:16 | ECG_ITS ---
Test Date: 2024-08-31 20:23:35 Measurements Intervals [place] Rate: 77 P: 72 MO: 146 QRS: 25 QRSD: 85 T: 35 QT: 370 QTc: 420 Interpretive Statements SINUS RHYTHM VOLTAGE CRITERIA FOR LVH [MEETS CRITERIA IN ONE OF: R(aVL), S(V1), R(V5), R(V5/V6)+S(V1)] No previous ECG available for comparison Electronically Signed On 09-05-2024 10:25:00 TAPERING MACHINE OPERATOR by Evaristo Azevedo M.D.
[2024-08-31 20:49] VITALS: BP 152/86; PULSE 76; RESP 14; O2SAT 97
[2024-08-31 21:04] LABS: Basophils Percent Auto 0.2 % (0.2-1.2); Hematocrit 31.9 % (42.0-52.0); Hemoglobin 11.4 g/dL (14.0-18.0); Immature Granulocyte Absolute 0.02 K/mm3 (0.00-0.031); Immature Granulocyte Percent A 0.2 % (0-0.5); Lymphocytes Absolute Auto 0.98 K/mm3 (0.9-3.2); Lymphocytes Percent Auto 11.5 % (18.3-44.2); Mean Corpuscular HGB Conc 35.7 g/dl (32-36); Mean Corpuscular Hemoglobin 29.5 pg (26-34); Mean Corpuscular Volume 82.4 fl (80-100); Mean Platelet Volume 10.1 fl (7.4-10.4); Monocytes Absolute Auto 0.6 K/mm3 (0.1-0.6); Monocytes Percent Auto 6.8 % (2.6-8.5); Neutrophils Percent Auto 81.3 % (45.5-73.1); Platelet Count Result 219 k/mm3 (150-375); Red Blood Count 3.87 M/mm3 (4.6-6.20); Red Cell Distribution Width 15.8 % (11.5-14.5); White Blood Count 8.6 K/mm3 (4.5-10.0)
[2024-08-31 21:15] LABS: Alanine Aminotransferase 18 U/L (6-50); Albumin Level 4.5 g/dL (3.5-5.1); Alkaline Phosphatase 65 U/L (38-126); Anion Gap 6 mmol/L (4-12); Aspartate Amino Transferase 41 U/L (17-59); Bilirubin,Total 1.1 mg/dL (0.2-1.3); Blood Urea Nitrogen 32 mg/dL (9-20); Calcium 9.5 mg/dL (8.4-10.2); Carbon Dioxide 30 mmol/L (22-30); Chloride 104 mmol/L (98-107); Estimated CRCL calculation 27 ml/min; Estimated Glomerular Filt Rate 48; Glucose 104 mg/dL (65-110); Potassium 4.3 mmol/L (3.4-5.0); Sodium 140 mmol/L (137-145)
[2024-08-31 21:18] LABS: Add Urine Microscopic? YES; Appearance Urine Clear (Clear); Bacteria Urine None Seen /hpf; Bilirubin Urine Negative (Negative); Blood Urine Negative (Negative); Color Urine Yellow (Yellow); Glucose Urine UA Negative (Negative); Hyaline Casts Urine Present /lpf; Ketones Urine Trace mg/dL (Negative); Leukocyte Esterase Ur Negative LEU/UL (Negative); Nitrate Urine Negative (Negative); Protein Urine 1+ mg/dL (Negative); Specific Grav Ur 1.014 (1.001-1.035); Squamous Epithelial Cell Urine None Seen /hpf (Few); WBC Urine 0-5 /hpf (0-3); pH Urine 6.5 (5.0-9.0)
--- NOTE | 2024-08-31 21:52 | ED_ITS ---
HPI - Weakness General Chief complaint: Weakness Stated complaint: fall-possible head injury Time Seen by Provider: 08/31/24 20:57 Source: patient and family Mode of arrival: wheelchair Limitations: dementia History of Present Illness HPI Narrative: This is a 74 year old male that presents to the ER for generalized weakness. Family report he has had increasing falls the last month. He had several falls today which prompted them to bring him in for evaluation. Patient is unsure of what is causing him to fall. He does have trouble with dizziness chronically. Related Data Home Medications ?Medication ?Instructions ?Recorded ?Confirmed ?Last Taken ?Type No Home Medications 04/14/20 04/14/20 Unknown History Allergies Allergy/AdvReac Type Severity Reaction Status Date / Time No Known Allergies Allergy Verified 04/14/20 23:53 Review of Systems 2 Review of Systems: CONSTITUTIONAL: Denies fever CARDIOVASCULAR: Denies chest pain RESPIRATORY: Denies dyspnea. GASTROINTESTINAL: Denies abdominal pain, nausea, vomiting GENITOURINARY: Denies dysuria MUSCULOSKELETAL: Denies back pain, joint pain, or myalgia. All systems reviewed & are unremarkable except as noted in HPI and below PMFSH Past Medical History Medical History (Updated 08/31/24 @ 22:50 by Laquita Amador PA-C) Amputation finger Hematuria Carpal tunnel syndrome Tendinitis GERD (gastroesophageal reflux disease) High blood pressure Surgical History Surgical History (Updated 04/14/20 @ 22:12 by Manish SchmidtMD) Hx of carpal tunnel repair Family History Family History (Updated 04/14/20 @ 23:22 by Laquita Xiao RN) Mother Alzheimer disease Sibling Heart disease Social History Social History Years smoked: 5 Smoking status: Former smoker Tobacco type: cigarettes Second hand tobacco smoke exposure: No Alcohol intake: former Substance use: never Substance use type: does not use Gender identity (if verbalized by the patient): Male Spiritual care concerns: No Exam 2 Narrative: GENERAL: Elderly, well-nourished, and in no acute distress. HEAD: Normocephalic, atraumatic. EYES: PERRLA and EOMI. ENT: Nares clear, no rhinorrhea or epistaxis. Mucous membranes moist. Oropharynx without tonsillar hypertrophy exudate or other lesions. Bilateral TMs pearly beltran non-bulging NECK: Supple. No adenopathy or masses. CHEST: Clear to auscultation. No respiratory distress. No wheezes rales or rhonchi HEART: Regular rate and rhythm. No murmur heard. Normal peripheral pulses. ABDOMEN: Soft, nontender, nondistended, normal active bowel sounds. EXTREMITIES: Normal range of motion. No edema. Strength equal in bilateral upper and lower extremities (5/5) SKIN: Warm, dry, no rash. NEURO: No focal deficits. Alert and oriented x2. CN II-XII grossly intact PSYCH: Normal mood and affect Course Course Emergency Course: Patient and family updated on workup. Offered admission for further management of acute kidney injury, possible placement. They would like to take patient home at this time. They will follow-up with his primary doctor Vital Signs Vital signs: Vital Signs Temperature 97.6 F 08/31/24 18:40 Pulse Rate 94 08/31/24 18:40 Respiratory Rate 16 08/31/24 18:40 Blood Pressure 115/48 L 08/31/24 18:40 Pulse Oximetry 92 08/31/24 18:40 Oxygen Delivery Room Air 08/31/24 18:40 Temperature 97.6 F 08/31/24 18:40 Pulse Rate 76 08/31/24 20:49 Respiratory Rate 14 08/31/24 20:49 Blood Pressure 152/86 H 08/31/24 20:49 Pulse Oximetry 97 08/31/24 20:49 Oxygen Delivery Room Air 08/31/24 18:40 MDM - Weakness MDM Narrative Medical decision making narrative: Patient presents to the emergency department for multiple falls and generalized weakness. Patient is afebrile and nontoxic appearing. His vitals are stable. Neurologically intact at baseline. Cbc without leukocytosis. Shows normocytic anemia which appears chronic. Metabolic panel with possible acute kidney injury. I do not have any recent blood work for comparison. Urine without evidence of infection. CT brain and cervical spine without acute findings. Chest x-ray shows atelectasis. Patient and family updated on workup. Offered admission for further management of acute kidney injury, possible placement. They would like to take patient home at this time. They will follow-up with his primary doctor. They were given warnings to return to the ER Differential Diagnosis Differential diagnosis: Likely anemia, dehydration and other (Infection, concussion, subdural hematoma, UTI) Lab Data Attestation: I reviewed the patient's lab results. 08/31/24 20:38 08/31/24 20:38 Labs: Lab Results 08/31/24 08/31/24 Range/Units 20:38 21:36 WBC 8.6 (4.5-10.0) K/mm3 RBC 3.87 L (4.6-6.20) M/mm3 Hgb 11.4 L (14.0-18.0) g/dL Hct 31.9 L (42.0-52.0) % MCV 82.4 (80-100) fl MCH 29.5 (26-34) pg MCHC 35.7 (32-36) g/dl RDW 15.8 H (11.5-14.5) % Plt Count 219 (150-375) k/mm3 MPV 10.1 (7.4-10.4) fl Immature Gran % (Auto) 0.2 (0-0.5) % Neut % (Auto) 81.3 H (45.5-73.1) % Lymph % (Auto) 11.5 L (18.3-44.2) % [place] % (Auto) 6.8 (2.6-8.5) % Eos % (Auto) 0.0 (0-4.4) % Baso % (Auto) 0.2 (0.2-1.2) % Lymph # (Auto) 0.98 (0.9-3.2) K/mm3 [place] # (Auto) 0.6 (0.1-0.6) K/mm3 Eos # (Auto) 0.0 (0-0.3) K/mm3 Baso # (Auto) 0.0 (0.0-0.1) K/mm3 Abs Immat Gran (auto) 0.02 (0.00-0.031) K/mm3 Absolute Neuts (auto) 7.0 H (1.3-6.7) K/mm3 Absolute Nucleated RBC 0.000 (0.0-0.012) K/mm3 Nucleated RBC % 0.0 (0.0-0.2) % Sodium 140 (137-145) mmol/L Potassium 4.3 (3.4-5.0) mmol/L Chloride 104 (98-107) mmol/L Carbon Dioxide 30 (22-30) mmol/L Anion Gap 6 (4-12) mmol/L BUN 32 H D (9-20) mg/dL Creatinine 1.70 H (0.7-1.3) mg/dL Estim Creat Clear Calc 27 ml/min Estimated GFR 48 L (59 - ) Glucose 104 (65-110) mg/dL Calcium 9.5 (8.4-10.2) mg/dL Total Bilirubin 1.1 (0.2-1.3) mg/dL AST 41 (17-59) U/L ALT 18 (6-50) U/L Alkaline Phosphatase 65 (38-126) U/L Total Protein 9.0 H (6.3-8.2) g/dL Albumin 4.5 (3.5-5.1) g/dL Urine Color Yellow (Yellow) Urine Appearance Clear (Clear) Urine pH 6.5 (5.0-9.0) Ur Specific [place] 1.014 (1.001-1.035) Urine Protein 1+ H (Negative) mg/dL Urine Glucose (UA) Negative (Negative) mg/dL Urine Ketones Trace H (Negative) mg/dL Ur Blood (Man) Negative (Negative) Urine Nitrate Negative (Negative) Urine Bilirubin Negative (Negative) Urine Urobilinogen 1.0 (<2.0) mg/dL Leukocyte Esterase Rfl Negative (Negative) ASHLEY/UL Urine RBC 3-5 H (0-2) /hpf Urine WBC 0-5 (0-3) /hpf Ur Squamous Epith Cells None seen (Few) /hpf Urine Bacteria None seen /hpf Urine Casts 6-10 Hyaline Casts Present (None) /lpf Influenza A (RT-PCR) Pending Influenza B (RT-PCR) Pending RSV (RT-PCR) Pending SARS-CoV-2 RNA (RT-PCR) Pending Imaging Data Radiologist's impression: ITS Impressions Head CT 08/31/24 19:57 IMPRESSION: No acute intracranial process. Cervical Spine CT 08/31/24 19:59 IMPRESSION: No acute fracture or traumatic malalignment in the cervical spine. Chest X-Ray 08/31/24 21:51 IMPRESSION: Subsegmental bilateral atelectasis/consolidation. ECG Data EKG #1: ECG completion date: 08/31/24 EKG Interpretation: normal rate, sinus rhythm, no ST changes and normal QT Critical Care Time Critical Care Time Critical Care Time: No Discharge Plan Discharge Clinical Impression: Dehydration, Gait disturbance Patient Disposition: Home, Self-Care Condition: Stable Instructions: Dehydration (ED), Fall Prevention for Older Adults (ED) Additional Instructions: Return to the emergency department if you experience fever, chest pain, shortness of breath, abdominal pain with nausea and vomiting, weakness, numbness, or any other symptoms that are concerning to you. Your Creatinine (kidney function) was a little elevated today. You were hydrated in the ER. Follow up with your primary care doctor for further evaluation/management Patient Language: French Prescriptions: No Action No Home Medications aspirin 81 mg Tablet,Delayed Release (Dr/Ec) 81 mg PO QAM Qty: 30 0RF metoprolol succinate [Toprol XL] 25 mg tablet extended release 24 hr 25 mg PO HS Qty: 30 0RF Follow-up/Referrals: Jeffry,Manish Schmid MD [Primary Care Provider] -
[2024-08-31] MEDS: SODIUM CHLORIDE 0.9% IV 500 ML 999 ML IV CONT (21:55)
[2024-08-31 22:59] LABS: Influenza A QL RT-PCR Negative (Negative); Influenza B QL RT-PCR Negative (Negative); RSV RNA, RT-PCR Negative (Negative); SARS-CoV-2 RNA PCR Negative (Negative)
--- OUTSIDE RECORDS SUMMARY | 2024-09-07 16:25 | XMS_ITS | Encounter Summary ---
Author Organization [facility] Health Address [address] [place] [address] Care Team Providers Care Process Chemist Name Role Phone Manish Teran MD Primary Care Provider [phone] Reason for Visit * Reason Comments Refill Request Encounter Details Date Type Department Care Team (Late st Contact Info) Description 07/31/2022 Refill [facility] [address] [place] [address] Misbah Israel MD [address] [place], [place] [id number] Refill Request Social History Tobacco Use Types Packs/Day Years Used Date Smoking Tobacco: Former Smokeless Tobacco: Never Alcohol Use Standard Drinks/Week Comments Not Currently 0 (1 standard drink = 0.6 oz pur e alcohol) Sex and Gender Information Value Date Recorded Sex Assigned at Not on file Gender Identity Not on file Sexual Orientation Not on file documented as of this encounter Miscellaneous Notes * Telephone Encounter - Alison Whitney - 08/04/2022 2:19 PM CST Patients called requesting a refill for donepezil (ARICEPT) 10 MG tablet. Last OV: 05/15/22 Next OV: 11/13/22 Last Refill: 03/15/21 ER SETTER documented in this encounter Plan of Treatment Upcoming Encounters Date Type Department Care Team (Late st Contact Info) Description 10/13/2024 2:00 PM ROUTER SETTER Office Visit [facility] Neurosciences [address] [place] [address] Misbah Israel MD [address] [place] [address] documented as of this encounter Visit Diagnoses Not on filedocumented in this encounter Care Teams Process Chemist Relationship Specialty Start Date End Date Manish Teran MD [address] [place] [address] PCP - General Family Medicine 12/18/20 documented as of this encounter
--- OUTSIDE RECORDS SUMMARY | 2024-09-07 16:25 | XMS_ITS | Referral Summary ---
Author Organization [facility] Address [address] [place] [address] Care Team Providers Care Drapery Counselor Name Role Phone Manish Teran MD Primary Care Provider [phone] Source Comments [facility],non-[facility] Affiliates and Associated Physician Practices is amultiple site organization consisting of ambulatory clinics and hospital sitesin [place], [place], [place] and [place]. This disclosure is being madepursuant to the Care Everywhere program and may not contain all information available regarding this patient. Last updated 18.[facility] Digital Health Dialog Allergies No known active allergies Medications * Be aware that medications may not be up to date on this document. Alwaysverify current medications with the patient. Medication Sig Dispensed Refills Start Date End Date Status ASPIRIN LOW DOSE 81 MG tablet TK 1 T PO QAM 04/16/2020 Active meloxicam (MOBIC) 15 MG tablet Take 1 (one) tablet by mouth once daily 11/21/2020 Active atorvastatin (LIPITOR) 20 MG tablet TAKE 1 TABLET BY MOUTH EVERY DAY 90 tablet 03/05/2021 Active Celery Seed Active memantine (Namenda) 10 MG tablet Take 1 (one) tablet by mouth 2 times daily 180 tablet 3 12/26/2022 Active meclizine (Antivert) 25 MG tablet TAKE 1 TABLET BY MOUTH THREE TIMES DAILY FOR 10 DAYS NEEDED 02/16/2023 Active citalopram (CeleXA) 10 MG tablet Take 1 (one) tablet by mouth once daily 30 tablet 03/12/2023 Active donepezil (Aricept) 23 MG tablet TAKE 1 TABLET BY MOUTH EVERY DAY 90 tablet 3 09/24/2023 Active carbidopa-levodopa (Sinemet) 25-100 MG tablet Take 1 (one) tablet by mouth 3 times daily 90 tablet 2 05/16/2024 Active amLODIPine (Norvasc) 10 MG tablet Take 1 (one) tablet by mouth once daily 90 tablet 4 05/16/2024 Active Social History Tobacco Use Types Packs/Day Years Used Date Smoking Tobacco: Former Smokeless Tobacco: Never Tobacco Cessation:Counseling Given: Yes Alcohol Use Standard Drinks/Week Comments Not Currently 0 (1 standard drink = 0.6 oz pur e alcohol) Sex and Gender Information Value Date Recorded Sex Assigned at Not on file Gender Identity Not on file Sexual Orientation Not on file Last Filed Vital Signs Vital Sign Reading Time Taken Comments Blood Pressure 180/98 05/16/2024 2:54 PM CDT Pulse 70 05/16/2024 2:54 PM CDT Temperature 36.8 ??C (98.2 ??F) 04/07/2024 2:49 PM CD T Respiratory Rate - - Oxygen Saturation 99% 04/07/2024 2:49 PM CDT Inhaled Oxygen Concentration - - Weight 56.7 kg (125 lb) 05/16/2024 2:54 PM CDT Height 182.9 cm (6') 05/16/2024 2:54 PM CDT Body Mass Index 16.95 05/16/2024 2:54 PM CDT Plan of Treatment Upcoming Encounters Date Type Department Care Team (Late st Contact Info) Description 10/13/2024 2:00 PM CARPET TECHNICIAN Office Visit [facility] Health Neurosciences [address] [place] [address] Misbah Israel MD [address] [place] [address] Care Teams Drapery Counselor Relationship Specialty Start Date End Date Manish Teran MD [address] [place] [address] PCP - General Family Medicine 12/18/20
--- OUTSIDE RECORDS SUMMARY | 2024-09-07 16:25 | XMS_ITS | Encounter Summary ---
Author Organization [facility] Health Address [address] [place] [place] [address] Care Team Providers Care Blemish Remover Name Role Phone Manish Teran MD Primary Care Provider Reason for Visit * Reason Onset Date Comments Update 02/15/2021 Encounter Details Date Type Department Care Team (Late st Contact Info) Description 02/15/2021 Telephone [facility] Neurosciences [address] [place] [address] Misbah Israel MD [address] [place], [place] [id number] Update Social History Tobacco Use Types Packs/Day Years Used Date Smoking Tobacco: Former Smokeless Tobacco: Never Alcohol Use Standard Drinks/Week Comments Not Currently 0 (1 standard drink = 0.6 oz pur e alcohol) Sex and Gender Information Value Date Recorded Sex Assigned at Not on file Gender Identity Not on file Sexual Orientation Not on file COVID-19 Exposure Response Date Recorded In the last month, have you been in contact with someone who was confirmed or suspected to have Coronavirus / COVID-19? No / Unsure 01/21/2021 3:55 PM CDT documented as of this encounter Miscellaneous Notes * Telephone Encounter - Noemi Madison - 02/19/2021 1:02 PM CDT No PA required. * Telephone Encounter - Thea Barragan - 02/15/2021 8:56 AM CDT Pt needs a Vas Carotid Duplex prior authorized . documented in this encounter Plan of Treatment Upcoming Encounters Date Type Department Care Team (Late st Contact Info) Description 10/13/2024 2:00 PM PERSONNEL ASSISTANT Office Visit [facility] Health Neurosciences [address] [place] [address] Misbah Israel MD [address] [place], [place] [id number] documented as of this encounter Visit Diagnoses Not on filedocumented in this encounter Care Teams Blemish Remover Relationship Specialty Start Date End Date Manish Teran MD [address] [place] [address] PCP - General Family Medicine 12/18/20 documented as of this encounter
--- OUTSIDE RECORDS SUMMARY | 2024-09-07 16:25 | XMS_ITS | Encounter Summary ---
Author Organization [facility] Health Address [address] [place] [address] Care Team Providers Care Flame Hardening Machine Setter Name Role Phone Manish Teran MD Primary Care Provider [phone] Reason for Visit * Reason Onset Date Comments Follow-up 12/31/2022 Encounter Details Date Type Department Care Team (Late st Contact Info) Description 12/31/[address] [facility] Neurosciences [address] [place] [address] Misbah Israel MD [address] [place], [place] [phone] Follow-up Social History Tobacco Use Types Packs/Day Years [...] encounter Miscellaneous Notes * Telephone Encounter - Thea Barragan - 01/09/2023 8:15 AM CDT Mailed a letter for Chadd to call us to go over how Dr. Israel wants Frederick to take his medication * Telephone Encounter - Thea Barragan - 01/05/2023 9:00 AM CDT Left another voice message for Lorrie * Telephone Encounter - Thea Barragan - 01/01/2023 9:18 AM CDT Images from the original note were not included. Misbah Israel MD Sinovich, Angela M Caller: Unspecified (Yesterday, 12:43 PM) Take 25/100 mg 1/2 tab daily for few days and then twice a a day ??If cant tolerate then pl make a FU ?? I called Chadd and let her know I needed to speak to her regarding Frederick's medication * Telephone Encounter - Thea Barragan - 12/31/2022 12:43 PM CDT Chadd called and said that Frederick started taking the Carbidopa-levodopa on Thursday,December 28,and again on Thursday, December 29. He was taking 1/2 a tablet of the 0.5 3 times a day both days. He had to stop it Thursday night as he said it made him so dizzy both days. He wants to know if there is something else he can take? Please advise documented in this encounter Plan of Treatment Upcoming Encounters Date Type Department Care Team (Late st Contact Info) Description 10/13/2024 2:00 PM PROCUREMENT ANALYST Office Visit [facility] Neurosciences [address] [place] [address] Misbah Israel MD [address] [place] [address] documented as of this encounter Visit Diagnoses Not on filedocumented in this encounter Care Teams Flame Hardening Machine Setter Relationship Specialty [place] [address] [place], [place] [id number] PCP - General Family Medicine 12/18/20 documented as of this encounter
--- OUTSIDE RECORDS SUMMARY | 2024-09-07 16:25 | XMS_ITS | Encounter Summary ---
Author Organization [facility] Health Address [address] [place] [address] Care Team Providers Care Cardiology Technologist Name Role Phone Manish Teran MD Primary Care Provider [phone] Reason for Visit * Reason Comments Follow-up Pt present today for follow up regarding memory Encounter Details Date Type Department Care Team (Late st Contact Info) Description 04/07/2024 3:00 PM CDT Office Visit [facility] Neurosciences [address] [place] [address] Misbah Israel MD [address] [place], [place] [id number] Major neurocognitive disorder (HCC) (Primary Dx) Social History Tobacco Use Types Packs/Day Years Used Date Smoking Tobacco: Former Smokeless Tobacco: Never Alcohol Use Standard Drinks/Week Comments Not Currently 0 (1 standard drink = 0.6 oz pur e alcohol) Sex and Gender Information Value Date Recorded Sex Assigned at Not on file Gender Identity Not on file Sexual Orientation Not on file documented as of this encounter Last Filed Vital Signs Vital Sign Reading Time Taken Comments Blood Pressure 179/99 04/07/2024 2:49 PM CDT Pulse 72 04/07/2024 2:49 PM CDT Temperature 36.8 ??C (98.2 ??F) 04/07/2024 2:49 PM CD T Respiratory Rate - - Oxygen Saturation 99% 04/07/2024 2:49 PM CDT Inhaled Oxygen Concentration - - Weight 58.1 kg (128 lb) 04/07/2024 2:49 PM CDT Height 182.9 cm (6') 04/07/2024 2:49 PM CDT Body Mass Index 17.36 04/07/2024 2:49 PM CDT documented in this encounter Patient Instructions * Patient Instructions* Misbah Israel MD - 04/07/2024 3:32 PM CDT Donepezil 23 mg qD 2. Namenda 10 mg bid. 3. ASA 81 mg qD 4. BP control goal 120/80 6. MIND diet 7. Sinemet 25/100 1.5 tab tid-update 2 weeks RTC 6M [facility] documented in this encounter Progress Notes * Misbah Israel MD - 04/07/2024 3:13 PM CDT Images from the original note were not included. HISTORY 1.Chief Complaint: Forgetfulness, accompanied with Lorrie Andrew- spouse, independent historian, present at [facility] side Highest education high school+ 2.HPI: This is a 73-year-old gentleman who is returning for follow-up for neuro cognitive decline. He is accompanied with who lives with him. His symptoms started somewhere in his 70s, now he is72 almost 4 years. He has noted insidious onset slowly progressive decline in memory and other cognitive function. He lives with who takes care as slowly taking care of several of his responsibilities. No delusion hallucination. Patient now seldom drives. is managing most of the finances.According to is still in denial motor does not feel that he is having any trouble. No falls reported. No wandering away. He is able to maintain his hygiene and dress accordingly. is concerned that he is losing weight. He has poor appetite. Sometime he also have tremors. No other aggravating or relieving factors. No falls reported. No incontinence. No seizure-like activities. No delusionhallucination. Sleep is okay. 12/26/22. Lorrie said He is getting old. He does not like to go out. No socializing. Not outside family. forgot to take whole bottle of pill thinking was sleeping pills. NOW started filling pill box. does not go to grandson.. used to go in past I like to write but have not been writing, have not written anything in couple of years No falls. Sleep is not good does not sleep too good. He will turn on TV and light. Appetite - if you put infront will eat. Takes dog for walk... Relaxing thinking to be alive Decline in memory+++ 04/07/24 biannual neurocog assmt Came with Lorrie , independent history Good appetite Does not go out walks dog Shaking better on sinemet He has been tried on sinemet and stopped taking because of dizziness BP is high 179/99, has not taken BP meds he has White coat,last visit in 09/23- was 203/90 but wifechecked at home was normal No falls No visual hallucinations RBD act dream++ Dx with breast cancer on Chemo 3. Past History (Past Medical,Family&Social history): Past medical history positive for hypertension. Family history negative for early dementia. Social history negative for smoking 4. ROS- comprehensive review of systems negative except as mentioned in history of present illness. 5. Medications and allergies: Current Outpatient Medications Medication amLODIPine (NORVASC) 5 MG tablet ASPIRIN LOW DOSE 81 MG tablet atorvastatin (LIPITOR) 20 MG tablet carbidopa-levodopa (Sinemet) 25-100 MG tablet Celery Seed citalopram (CeleXA) 10 MG tablet donepezil (Aricept) 23 MG tablet meclizine (Antivert) 25 MG tablet meloxicam (MOBIC) 15 MG tablet memantine (Namenda) 10 MG tablet No current facility-administered medications for this visit. EXAMINATION: BP 179/99 Pulse 72 Temp 98.2 ??F (36.8 ??C) Ht 1.829 m (6') Wt 58.1 kg (128 lb) SpO2 99% Gen EXAM GEN : Reveals a pleasant patient in no acute distress. Vitals: Reviewed and documented in Power Chart. Eye: Ophthalmologic examination of optic disc and Posterior segments are normal. Skin : Warm and moist, no rash. Cardiovascular system examination revealed normal peripheral pulses and normal carotids. Affect: Normal. Neurologic examination Cranial Nerves: Normal EOM with mild upgaze horizontal movement normal Masked face Reduced blink Bradykinesia Rigidity++ Tremors mild rest L hand DTRs 2+ all Slow gait Normal FNF MEDICAL DECISION MAKING 1. DATA REVIEW: I independently reviewed the electronic medical informations including notes, images and labs available in system summarized in assessment and plan. , Recent Labs Component Name 02/15/21 0920 CHOL 141 TRIG 60 HDL 49 LDLCALC 80 Recent Labs Component Name 12/31/20 1620 [id number] 2. ASSESSMENT AND PLAN: ICD-10-CM 1. Major neurocognitive disorder (HCC) F03.90 1. Cognitive: I performed the Comstock cognitive assessment score which is described above . Comstock cognitive assessment testing(30)-19 1. Visual special(2)-0 2. Clock drawing(3)-1 3. Naming(3)-3 4. Attention(6)-3 5. Language(3)-2 6. Abstraction(2)-2 7. Delayed recall(5)-2 8. Orientation(6)- 6 2. Function - ADl./ IADL- Basic ADLs Ambulating: Independent and slow Feeding: can feed himself Dressing: takes time dress Personal hygiene:help reminder for shower Continence:continent no accident Instrumental ADLs- dependent in Transportation and shopping: Lorrie does take care Managing finances: Lorrie does manage Shopping and meal preparation. Lorrie does take care Housecleaning and home maintenance. Both together help clean Managing communication with others: he can make calls, no text Managing medications: Supervised pill box managed by 3. Severity of dementia: FAST score- 4 forgets bills to pay, no progression as of 04/07/24 4. Decision-making: and patient together make decision 5. Neuropsych symptoms: denies hallucination, delusions or depressions PHQ- 9 Over the last 2 weeks, how often have you been bothered by any of the following problems? None Several Days > Half days Daily 1 Little interest or pleasure in doing things 0 1 2 3 2 Feeling down, depressed, or hopeless 0 1 2 3 3 Trouble falling or staying asleep, or sleeping too much 0 1 2 3 4 Feeling tired or having little energy 0 1 2 3 5 Poor appetite or overeating 0 1 2 3 6 Feeling bad about yourself or that you are a failure or have let yourself or your family down 0 12 3 7 Trouble concentrating on things, such as reading the newspaper or watching television 0 1 2 3 8 Moving or speaking so slowly that other people could have noticed? Or the opposite -- being so fidgety or restless that you have been moving around a lot more than usual 0 1 2 3 9 Thoughts that you would be better off or of hurting yourself in some way 0 1 2 3 PHQ9 total score 0 6. Medication review and reconciliation: reviewed meds. 7. Safety: normal no concern 1. Is the patient still driving? Does not drive 2. Is the patient taking medications as prescribed? supervise his meds 3. Are there concerns about safety in the home? NO 4. Has the patient gotten lost in familiar places or wandered? NO 5. Are firearms present in the home? NO 6. Has the patient experienced unsteadiness or sustained falls? No 7. Does the patient live alone? Lives with lorrie , stable no change goes out for chemo 8. Caregiver identification and need assessment- lorrie and nurse is main caregiver but help from daughters, son in law helps no addnl help needed 9. Advanced care planning. Provided papers POA 10. Associated comorbid condition: HTN 11. Disease specific dementia Parkinson dementia complex, Lewy body dementia 12. Community support: available 13. Return to the clinic in 6 months Care Plan: Neuropsychiatric symptoms- none Neurocognitive symptoms- memory, attention, visiospatials- clock draw, stable from last visit in August, Functional limitations- dependent in IADL need help for ADL Referral to community resources as needed (for example, rehabilitation services, adult day programs, support groups) shared with the patient or caregiver, with initial education and support- family Including and others Recommendations- 1. Donepezil 23 mg qD 2. Namenda 10 mg bid. 3. ASA 81 mg qD 4. BP control goal 120/80 6. MIND diet 7. Sinemet 25/100 1.5 tab tid-update 2 weeks RTC 6M [facility] His cognitive functions are stable. 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 Box in has been linked to dementia. Overall his cognitive functions shows evidence of impairment of visuospatial memory, language, verbal memory, attention. His examination showed evidence of parkinsonism which appeared to be symmetric His cognitive impairment started 1st followed by parkinsonian symptoms which is not typical for Parkinson disease but thing that he has benefit from Sinemet. Decided to increase Sinemet and observe His scan for Alzheimer's dementia has negative Discussed skin biopsy for syneuclinopathy Discussed Mediterranean diet Discussed socialization Discussed exercise 3. COUNSELING& COORDINATION OF CARE: Discussed in detail about diagnosis, treatment and prognosis. Discussed the Risk, Benefits and alternative of medications.Explained how to contact my team , provided phone numbers. Discussed regarding notifying test results- options included discussing during follow up visit, sending normal test results in mail and notifying abnormal tests results over phone as needed. Explained what to do if symptoms get worse. Discussed the need and frequency of F/U. Discussed medication refills and sending escript.All questions were answered- verbalized understanding the content of discussion. documented in this encounter Plan of Treatment Upcoming Encounters Date Type Department Care Team (Late st Contact Info) Description 10/13/2024 2:00 PM PROJECT ENGINEERING MANAGER Office Visit [facility] Health Neurosciences [address] [place] [address] Misbah Israel MD [address] [place] [address] documented as of this encounter Visit Diagnoses Diagnosis Major neurocognitive disorder (HCC)- Primary documented in this encounter Care Teams Cardiology Technologist Relationship Specialty Start Date End Date Manish Teran MD [address] [place] [address] PCP - General Family Medicine 12/18/20 documented as of this encounter
--- OUTSIDE RECORDS SUMMARY | 2024-09-07 16:25 | XMS_ITS | Clinical Summary ---
Author Organization [facility] Address [address] [place] [address] Care Team Providers Care Internet Database Specialist Name Role Phone Glen Heart MD Primary Care Provider Encounters Date Type Department Care Team Description 08/29/2024 Telephone [facility] [address] [place] [phone] Referring, MD Ronak 08/26/2024 Telephone [facility] [address] [place] [phone] Ana Jovel 08/25/2024 Telephone [facility] [address] [place] [phone] Unknown, Notinfile 07/13/2024 7:31 PM KINESIOLOGY PROFESSOR - 07/13/2024 11:59 PM KINESIOLOGY PROFESSOR Hospital Encounter [address] [address] Alzheimer's disease (HCC); Anemia, unspecified; Hyperlipemia; Senile dementia, uncomplicated (HCC); Essential hypertension, malignant; Debility; Screening for malnutrition; Family history of diabetes mellitus; Special screening for malignant neoplasm of prostate; Avitaminosis D Discharge Disposition: Discharge to home or self care 07/13/2024 12:30 PM KINESIOLOGY PROFESSOR Lab [facility] Outpatient Lab at [address] [address] Alzheimer's disease (HCC) (Primary Dx); Anemia, unspecified; Hyperlipemia; Senile dementia, uncomplicated (HCC); Essential hypertension, malignant; Debility; Screening for malnutrition; Family history of diabetes mellitus; Special screening for malignant neoplasm of prostate; Avitaminosis D from Last 3 Months Social History Tobacco Use Types Packs/Day Years Used Date Smoking Tobacco: Never Assessed Sex and Gender Information Value Date Recorded Sex Assigned at Not on file Legal Sex Male 3:03 PM CDT Gender Identity Not on file Sexual Orientation Not on file Plan of Treatment Health Maintenance Due Date Last Done Comments Depression Screening 1948 Fall Risk Assessment 1950 Hepatitis C Screening 1950 DTaP/Tdap/Td Vaccine (1 - Tdap) 1959 Hepatitis B Screening 1966 Zoster Vaccine (1 of 2) 1998 Pneumococcal vaccine 65+ (1 of 1 - PCV) 2013 Well Visit 65+ 2013 Covid-19 Vaccine ( - 2023-2 5 season) 2024 12/11/2021, 04/05/2021, 03/15/2021 Influenza Vaccine (#1) 2024 Prostate Cancer Screening-PSA Discontinued 07/13/2024 Procedures Procedure Name Priority Date/Time Associated Diagnosis Comments URINALYSIS, MICROSCOPIC ONLY Routine 07/13/2024 12:43 PM KINESIOLOGY PROFESSOR Alzheimer's disease (HCC) Anemia, unspecified Hyperlipemia Senile dementia, uncomplicated (HCC) Essential hypertension, malignant Debility Screening for malnutrition Family history of diabetes mellitus Special screening for malignant neoplasm of prostate Avitaminosis D EGFR Routine 07/13/2024 12:43 PM KINESIOLOGY PROFESSOR Alzheimer's disease (HCC) Anemia, unspecified Hyperlipemia Senile dementia, uncomplicated (HCC) Essential hypertension, malignant Debility Screening for malnutrition Family history of diabetes mellitus Special screening for malignant neoplasm of prostate Avitaminosis D DIFFERENTIAL AUTO Routine 07/13/2024 12: 43 PM KINESIOLOGY PROFESSOR Alzheimer's disease (HCC) Anemia, unspecified Hyperlipemia Senile dementia, uncomplicated (HCC) Essential hypertension, malignant Debility Screening for malnutrition Family history of diabetes mellitus Special screening for malignant neoplasm of prostate Avitaminosis D COMPREHENSIVE METABOLIC PANEL Routine 07/13/2024 12:43 PM KINESIOLOGY PROFESSOR Alzheimer's disease (HCC) Anemia, unspecified Hyperlipemia Senile dementia, uncomplicated (HCC) Essential hypertension, malignant Debility Screening for malnutrition Family history of diabetes mellitus Special screening for malignant neoplasm of prostate Avitaminosis D CBC WITH AUTO DIFFERENTIAL Routine 07/13/2024 12:43 PM KINESIOLOGY PROFESSOR Alzheimer's disease (HCC) Anemia, unspecified Hyperlipemia Senile dementia, uncomplicated (HCC) Essential hypertension, malignant Debility Screening for malnutrition Family history of diabetes mellitus Special screening for malignant neoplasm of prostate Avitaminosis D LIPID PANEL Routine 07/13/2024 12:43 PM KINESIOLOGY PROFESSOR Alzheimer's disease (HCC) Anemia, unspecified Hyperlipemia Senile dementia, uncomplicated (HCC) Essential hypertension, malignant Debility Screening for malnutrition Family history of diabetes mellitus Special screening for malignant neoplasm of prostate Avitaminosis D TSH Routine 07/13/2024 12:43 PM KINESIOLOGY PROFESSOR Alzheimer's disease (HCC) Anemia, unspecified Hyperlipemia Senile dementia, uncomplicated (HCC) Essential hypertension, malignant Debility Screening for malnutrition Family history of diabetes mellitus Special screening for malignant neoplasm of prostate Avitaminosis D PSA DIAGNOSTIC Routine 07/13/2024 12:43 PM KINESIOLOGY PROFESSOR Alzheimer's disease (HCC) Anemia, unspecified Hyperlipemia Senile dementia, uncomplicated (HCC) Essential hypertension, malignant Debility Screening for malnutrition Family history of diabetes mellitus Special screening for malignant neoplasm of prostate Avitaminosis D VITAMIN B12 Routine 07/13/2024 12:43 PM KINESIOLOGY PROFESSOR Alzheimer's disease (HCC) Anemia, unspecified Hyperlipemia Senile dementia, uncomplicated (HCC) Essential hypertension, malignant Debility Screening for malnutrition Family history of diabetes mellitus Special screening for malignant neoplasm of prostate Avitaminosis D FOLATE Routine 07/13/2024 12:43 PM KINESIOLOGY PROFESSOR Alzheimer's disease (HCC) Anemia, unspecified Hyperlipemia Senile dementia, uncomplicated (HCC) Essential hypertension, malignant Debility Screening for malnutrition Family history of diabetes mellitus Special screening for malignant neoplasm of prostate Avitaminosis D VITAMIN D 25 HYDROXY Routine 07/13/2024 12:43 PM KINESIOLOGY PROFESSOR Alzheimer's disease (HCC) Anemia, unspecified Hyperlipemia Senile dementia, uncomplicated (HCC) Essential hypertension, malignant Debility Screening for malnutrition Family history of diabetes mellitus Special screening for malignant neoplasm of prostate Avitaminosis D IRON PROFILE W/ IBC Routine 07/13/2024 1 2:43 PM KINESIOLOGY PROFESSOR Alzheimer's disease (HCC) Anemia, unspecified Hyperlipemia Senile dementia, uncomplicated (HCC) Essential hypertension, malignant Debility Screening for malnutrition Family history of diabetes mellitus Special screening for malignant neoplasm of prostate Avitaminosis D HEMOGLOBIN A1C Routine 07/13/2024 12:43 PM KINESIOLOGY PROFESSOR Alzheimer's disease (HCC) Anemia, unspecified Hyperlipemia Senile dementia, uncomplicated (HCC) Essential hypertension, malignant Debility Screening for malnutrition Family history of diabetes mellitus Special screening for malignant neoplasm of prostate Avitaminosis D URINE CULTURE Routine 07/13/2024 12:43 PM KINESIOLOGY PROFESSOR URINALYSIS AND REFLEX TO MICROSCOPIC AND CULTURE Routine 07/13/2024 12:43 PM KINESIOLOGY PROFESSOR Alzheimer's disease (HCC) Anemia, unspecified Hyperlipemia Senile dementia, uncomplicated (HCC) Essential hypertension, malignant Debility Screening for malnutrition Family history of diabetes mellitus Special screening for malignant neoplasm of prostate Avitaminosis D from Last 3 Months Results * (ABNORMAL) eGFR (07/13/2024 12:43 PM KINESIOLOGY PROFESSOR) [facility] eGFR 47(L) >=60 mL/min/1. 73 m2 Comment: Interpretive Data Reference Interval Normal ?>/= 90 mL/min/1.73m2 Mildly decreased* ? 60 - 89 mL/min/1.73m2 Mildly to moderately decreased ?45 - 59 mL/min/1.73m2 Moderately to severely decreased ??30 - 44 mL/min/1.73m2 Severely decreased ?15 - 29 mL/min/1.73m2 Kidney Failure ?< 15 ??mL/min/1.73m2 *Relative to young adult level Estimated glomerular filtration rate is determined by the 2020 CKD-EPI equation recommended by the National Kidney Foundation (A Unifying Approach to GFR Estimation: Recommendations of the NKF-ASK Task Force on Reassessing the Inclusion of Race in Diagnosing Kidney Disease, JASN 2020). The CKD-EPI equation should not be used for patients with unstable renal function and has not been validated in children and those over 70. Current interpretive data was last reviewed 2021. Blood 07/13/2024 12:4 3 PM KINESIOLOGY PROFESSOR 07/13/2024 8:19 PM KINESIOLOGY PROFESSOR us Alison Diaz LOCAL OWNER OPERATOR TRUCK DRIVER LAB BLOOD ORDERABLES Final R esult [facility] [id number] [address] Department [place] [address] * Differential, auto (07/13/2024 12:43 PM KINESIOLOGY PROFESSOR) Neutrophil abs 2.0 1.5 - 6.5 K/cumm Imm gran abs 0.0 0.0 - 0.1 K/cumm [facility] Lymphocyte abs 1.3 0.8 - 3.3 K/cumm [facility] Monocyte abs 0.4 0.2 - 0.8 K/cumm [facility] Eosinophil abs 0.1 0.0 - 0.5 K/cumm [facility] Basophil abs 0.0 0.0 - 0.1 K/cumm [facility] Neutrophil pct 53.2 % LEE Comment: Interpretive Data Percent cell count reference ranges are not reported, since discordance with absolute values may lead to misinterpretation of CBC data. Current Interpretive Data was last revised on 2017. Imm gran pct 0.0 % [facility] Comment: Interpretive Data Percent cell count reference ranges are not reported, since discordance with absolute values may lead to misinterpretation of CBC data. Current Interpretive Data was last revised on 2017. Lymphocyte pct 34.9 % [facility] Comment: Interpretive Data Percent cell count reference ranges are not reported, since discordance with absolute values may lead to misinterpretation of CBC data. Current Interpretive Data was last revised on 2017. Monocyte pct 9.8 % [facility] Comment: Interpretive Data Percent cell count reference ranges are not reported, since discordance with absolute values may lead to misinterpretation of CBC data. Current Interpretive Data was last revised on 2017. Eosinophil pct 1.6 % [facility] Comment: Interpretive Data Percent cell count reference ranges are not reported, since discordance with absolute values may lead to misinterpretation of CBC data. Current Interpretive Data was last revised on 2017. Basophil pct 0.5 % [facility] Comment: Interpretive Data Percent cell count reference ranges are not reported, since discordance with absolute values may lead to misinterpretation of CBC data. Current Interpretive Data was last revised on 2017. Blood 07/13/2024 12:4 3 PM KINESIOLOGY PROFESSOR 07/13/2024 8:02 PM KINESIOLOGY PROFESSOR Alison Diaz NP LAB BLOOD ORDERABLES Final R ult Performing Organization Address City/[facility]/ZIP Co de Phone Number [place]EE ROACH [address] [address] [employer] [place] [address] * (ABNORMAL) Iron profile w/ IBC (07/13/2024 12:43 PM KINESIOLOGY PROFESSOR) Iron 72 50 - 150 mcg/dl TIBC 198(L) 250 - 400 mcg/dL [facility] Transferrin saturation 36 20 - 50 % [facility] Blood 07/13/2024 12:4 3 PM KINESIOLOGY PROFESSOR 07/13/2024 8:02 PM KINESIOLOGY PROFESSOR Narrative [facility] - 07/13/2024 9:08 PM KINESIOLOGY PROFESSOR Fax results to Dr Alison Diaz [phone] Alison Diaz LOCAL OWNER OPERATOR TRUCK DRIVER LAB BLOOD ORDERABLES Final R esult [place] [address] [address] Department [place] [address] * (ABNORMAL) Urinalysis reflex to microscopic and culture Urine, clean voided (07/13/2024 12:43 PM KINESIOLOGY PROFESSOR) Color, ur Yellow Yellow Clarity, ur Turbid(A) Clear [facility] Specific gravity, ur 1.016 1.003 - 1.030 [facility] pH, urine 5.5 [facility] Comment: Interpretive Data ? Urine pH is affected by diet, medications, systemic acid-base disturbances, and renal tubular function. ??pH may affect urinary stone formation. ??For example, urine pH below 6.0 may help reduce the tendency for calcium phosphate stones and pH greater than 6.0 may reduce the tendency for uric acid stone formation. Source: [facility] Current Interpretive Data was last revised on 2017 Protein, ur ql Trace Negative [facility] Glucose, ur ql Negative Negative [facility] Ketones, ur Negative Negative [facility] Bilirubin, ur Negative Negative [facility] Blood, ur Negative Negative [facility] Urobilinogen, ur <2.0 <2.0 mg/dL [facility] Nitrite, ur Negative Negative [facility] Leukocyte esterase, ur 4+(A) Negative [facility] UA reflex comment Reflex to microscopic UA will be performed. [facility] Urine, clean voided 07/13/2024 12:43 PM KINESIOLOGY PROFESSOR 07/13/2024 8:02 PM KINESIOLOGY PROFESSOR Narrative [facility] - 07/13/2024 9:17 PM KINESIOLOGY PROFESSOR Fax results to Dr Alison Diaz [phone] Alison Diaz NP LAB MICROBIOLOGY - GENERAL O RDERABLES Final Result [facility] [id number] [address] Department [place] [address] * (ABNORMAL) CBC with auto differential (07/13/2024 12:43 PM KINESIOLOGY PROFESSOR) WBC 3.8 3.8 - 9.9 K/cumm Hgb 12.7(L) 13.0 - 17.5 g/dL [facility] Hct 37.6(L) 38.9 - 50.3 % [facility] Plt 245 150 - 400 K/cumm [facility] MPV 10.2 9.1 - 12.3 fL [facility] RBC 4.60 4.30 - 5.80 M/cumm [facility] MCV 81.7 81.3 - 96.4 fL [facility] MCH 27.6 27.1 - 33.3 pg [facility] MCHC 33.8 32.3 - 35.7 g/dL [facility] RDW CV 15.9(H) 11.1 - 14.9 % [facility] RDW SD 47.5 35.7 - 48.1 fL [facility] NRBC abs 0.00 0.00 - 0.01 K/cumm [facility] Blood 07/13/2024 12:4 3 PM KINESIOLOGY PROFESSOR 07/13/2024 8:02 PM KINESIOLOGY PROFESSOR Narrative [facility] - 07/13/2024 8:28 PM KINESIOLOGY PROFESSOR Fax results to Dr Alison Diaz [phone] Alison Diaz LOCAL OWNER OPERATOR TRUCK DRIVER LAB BLOOD ORDERABLES Final R esult Performing Organization Address City/[facility] Co de Phone Number LEE ROACH [address] [address] [employer] [place] [address] * Vitamin D 25 hydroxy (07/13/2024 12:43 PM KINESIOLOGY PROFESSOR) [facility] Vitamin D 25-OH 56 30 - 80 ng/mL Blood 07/13/2024 12:4 3 PM KINESIOLOGY PROFESSOR 07/13/2024 8:02 PM KINESIOLOGY PROFESSOR Narrative [facility] - 07/13/2024 8:56 PM KINESIOLOGY PROFESSOR Fax results to Dr Alison Diaz [phone] Alison Diaz LOCAL OWNER OPERATOR TRUCK DRIVER LAB BLOOD ORDERABLES Final R esult Performing Organization Address City/[facility]/ZIP Co de Phone Number LEE ROACH [address] [address] Department of [employer] [place], [place] [id number] * (ABNORMAL) Urinalysis, microscopic only (07/13/2024 12:43 PM KINESIOLOGY PROFESSOR) [facility] WBC, ur 21-50(A) 0 - 5 /HPF RBC, ur 3-5(A) 0 - 2 /HPF [facility] Epithelial cells, squamous, ur 1-5 0 - 5 /HPF [facility] Bacteria, ur Trace(A) [facility] Mucous, ur Present(A) [facility] Hyaline casts, ur 6-10 0 - 10 /LPF [facility] Culture Reflex Comment Reflex to urine culture will be performed. [facility] Urine, clean voided 07/13/2024 12:43 PM KINESIOLOGY PROFESSOR 07/13/2024 8:02 PM KINESIOLOGY PROFESSOR us Alison Diaz NP LAB URINE ORDERABLES Final R esult Performing Organization Address [facility]/ZIP Co de Phone Number LEE ROACH [phone] [address] [place] [address] * Urine culture Urine, clean voided (07/13/2024 12:43 PM KINESIOLOGY PROFESSOR) Report Final Report: Less than 100,000 colonies/mL (clinically insignificant growth based on current clinical standards) Comment:Testing performed by : [facility], [address] [place]., [address] Organism (CLINICALLY INSIGNIFICANT GROWTH [facility] Urine, clean voided 07/13/2024 12:43 PM KINESIOLOGY PROFESSOR 07/14/2024 3:27 AM KINESIOLOGY PROFESSOR Narrative [facility] - 07/15/2024 7:02 AM KINESIOLOGY PROFESSOR Urine culture reflexed based upon urinalysis results. Testing performed by [facility] Microbiology Laboratory ([phone]) us Alison Diaz NP LAB MICROBIOLOGY - GENERAL O RDERABLES Final Result Performing Organization Address [facility]/ZIP Co de Phone Number OSEASJED ROACH [address] [address] [place] [address] * TSH (07/13/2024 12:43 PM KINESIOLOGY PROFESSOR) Thyroid Stimulating Hormone 3.07 0.30 - 4.20 mcIUnit/mL Blood (Blood, Venous) 07/13/2024 12:43 PM KINESIOLOGY PROFESSOR 07/13/2024 8:02 PM KINESIOLOGY PROFESSOR Narrative LEE - 07/13/2024 9:08 PM KINESIOLOGY PROFESSOR Fax results to Dr Alison Diaz [phone] Alison Diaz LOCAL OWNER OPERATOR TRUCK DRIVER LAB BLOOD ORDERABLES Final R esult Performing Organization Address [facility] Co de Phone Number LEE [address] [address] Department [place] [address] * PSA diagnostic (07/13/2024 12:43 PM KINESIOLOGY PROFESSOR) PSA-Total 1.14 <=6.20 ng/mL Comment: Interpretive Data ?AGE ? SEX ?REFERENCE INTERVAL 0 minutes-150 years ?Female ?None 0 minutes-49 years ? Male ?None ? 50-59 years ? Male ?0-3.90 ? 60-69 years ? Male ?0-5.40 ? 70-79 years ? Male ?0-6.20 ? 80-150 years ?Male ?0-6.20 The Deja PSA Total assay procedure was used. Results from different manufacturers or methods may not be comparable. Serial testing should be performed using the same method. Current interpretive data last revised 22. Blood (Blood, Venous) 07/13/2024 12:43 PM KINESIOLOGY PROFESSOR 07/13/2024 8:02 PM KINESIOLOGY PROFESSOR Narrative [facility] - 07/13/2024 9:08 PM KINESIOLOGY PROFESSOR Fax results to Dr Alison Diaz [phone] Alison Diaz LOCAL OWNER OPERATOR TRUCK DRIVER LAB BLOOD ORDERABLES Final R esult Performing Organization Address City/[facility] de Phone Number LEE [address] [address] [facility] [place] [address] * Hemoglobin A1c (07/13/2024 12:43 PM KINESIOLOGY PROFESSOR) [facility] Hgb A1C 5.6 4.0 - 5.6 % Estimated Average Glucose 114 mg/dL [facility] Comment: The ADA recommends reporting an estimated Average Glucose (eAG) with all Hemoglobin A1c results using the equation derived from a study of 507 normal and diabetic adults. ??Minority populations were underrepresented and children were not included. ?? (Diabetes Care 31:2202-4976, 2008). ??The eAG is not equivalent to a fasting glucose. Blood (Blood, Venous) 07/13/2024 12:43 PM KINESIOLOGY PROFESSOR 07/13/2024 8:02 PM KINESIOLOGY PROFESSOR Narrative [facility] - 07/13/2024 8:47 PM KINESIOLOGY PROFESSOR Fax results to Dr Alison Diaz [phone] Alison Diaz NP LAB BLOOD ORDERABLES Final R esult Performing Organization Address [facility] de Phone Number LEE [address] [address] [place] [address] * Folate (07/13/2024 12:43 PM KINESIOLOGY PROFESSOR) [facility] Folic acid >20.0 >=5.0 ng/mL Comment:Hemolysis present. R esults may be affected. Blood 07/13/2024 12:4 3 PM KINESIOLOGY PROFESSOR 07/13/2024 8:02 PM KINESIOLOGY PROFESSOR Narrative [facility] - 07/13/2024 9:08 PM KINESIOLOGY PROFESSOR Fax results to Dr Alison Diaz [phone] Alison Diaz NP LAB BLOOD ORDERABLES Final R esult Performing Organization Address [facility] Co de Phone Number LEE [address] [address] [place] [address] * Vitamin B12 (07/13/2024 12:43 PM KINESIOLOGY PROFESSOR) [facility] Vitamin B12 768 230 - 1,250 pg/mL Blood (Blood, Venous) 07/13/2024 12:43 PM KINESIOLOGY PROFESSOR 07/13/2024 8:02 PM KINESIOLOGY PROFESSOR Narrative [facility]EE [facility] - 07/13/2024 9:08 PM KINESIOLOGY PROFESSOR Fax results to Dr Alison Diaz [phone] Alison Diaz LOCAL OWNER OPERATOR TRUCK DRIVER LAB BLOOD ORDERABLES Final R esult LEE [address] [address] Department [place] [address] * Lipid panel (07/13/2024 12:43 PM KINESIOLOGY PROFESSOR) [facility] Cholesterol 176 30 - 199 mg/dL Comment: Interpretive Data Ages < or = 19 years ??Acceptable: ? <170 mg/dL ??Borderline high: ??170-199 mg/dL ??High: ? >or= 200 mg/dL Ages > or = 20 years ??Desirable: ?<200 mg/dL ??Borderline high: ??200-239 mg/dL ??High: ? >or= 240 mg/dL Literature References: 1. Expert Panel on Integrated Guidelines for Cardiovascular Health and Risk Reduction in Children and Adolescents. Pediatrics 2011;128:S213 2. NCEP Expert Panel. Circulation 2004;110:227 Current Interpretive Data was last revised on 2018. Triglycerides 64 <=149 mg/dL [facility] Comment: Interpretive Data Ages < or = 9 years ??Acceptable: ? <75 mg/dL ??Borderline high: ??75-99 mg/dL ??High: ? >or= 100 mg/dL Ages 10 to 20 years ??Acceptable: ? <90 mg/dL ??Borderline high: ??90-129 mg/dL ??High: ? >or= 130 mg/dL Ages > or = 20 years ??Desirable: ?<150 mg/dL ??Borderline high: ??150-199 mg/dL ??High: ? 200-499 mg/dL ?Very high: ?? >or= 499 mg/dL Literature References: 1. Expert Panel on Integrated Guidelines for Cardiovascular Health and Risk Reduction in Children and Adolescents. Pediatrics 2011;128:S213 2. NCEP Expert Panel. Circulation 2004;110:227 Current Interpretive Data was last revised on 2018. HDL 72 >=40 mg/dL [facility] Comment: Interpretive Data Ages < or = 19 years ??Acceptable: ? >45 mg/dL ??Borderline low: ?? 40-45 mg/dL ??Low: ? <40 mg/dL Ages > or = 20 years ??Desirable: ?>or= 60 mg/dL ??Low: ? <40 mg/dL Literature References: 1. Expert Panel on Integrated Guidelines for Cardiovascular Health and Risk Reduction in Children and Adolescents. Pediatrics 2011;128:S213 2. NCEP Expert Panel. Circulation 2004;110:227 Current Interpretive Data was last revised on 2018. LDL, calculated 92 <=129 mg/dL [facility] Comment: Interpretive Data Ages < or = 19 years ??Acceptable: ? <110 mg/dL ??Borderline high: ??110-129 mg/dL ??High: ?>or= 130 mg/dL Ages > or = 20 years ??Optimal: ? <100 mg/dL ??Near optimal: ?100-129 mg/dL ??Borderline high: ?? 130-159 mg/dL ??High: ?>160 mg/dL Calculated using the Coleman LDL-C estimating equation. This equation was implemented on 2024. Prior to this date LDL-C was estimated using the Friedewald equation. Literature References: 1. Expert Panel on Integrated Guidelines for Cardiovascular Health and Risk Reduction in Children and Adolescents. Pediatrics 2011;128:S213 2. NCEP Expert Panel. Circulation 2004;110:227 3. Jared M et al. BENI Cardiol. 2020 December 29;5(5):540-548. doi: 10.1001/jamacardio.2020.0013 Current Interpretive Data was last revised on 2024. Non-HDL Cholesterol 104 mg/dL [facility] Comment: Interpretive Data Ages < or = 19 years ??Acceptable: ?<120 mg/dL ??Borderline high: ??120-144 mg/dL ??High: ?>145 mg/dL Ages > or = 20 years ??When triglycerides are >200 mg/dL, Non-HDL cholesterol is a secondary target of ? therapy with treatment goals that are 30 mg/dL greater than the LDL cholesterol target. ? Literature References: 1. Expert Panel on Integrated Guidelines for Cardiovascular Health and Risk Reduction in Children and Adolescents. Pediatrics 2011;128:S213 2. NCEP Expert Panel. Circulation 2004;110:227 Current Interpretive Data was last revised on 2018. Chol/HDL ratio 2 [facility] Blood (Blood, Venous) 07/13/2024 12:43 PM KINESIOLOGY PROFESSOR 07/13/2024 8:02 PM KINESIOLOGY PROFESSOR Narrative [facility] - 07/13/2024 9:08 PM KINESIOLOGY PROFESSOR Fax results to Dr Alison Diaz [phone] Alison Diaz LOCAL OWNER OPERATOR TRUCK DRIVER LAB BLOOD ORDERABLES Final R esult LEE [address] [address] Department [place] [address] * (ABNORMAL) Comprehensive metabolic panel (07/13/2024 12:43 PM KINESIOLOGY PROFESSOR) Sodium 140 135 - 145 mmol/L Potassium, pl 4.0 3.3 - 4.9 mmol/L [facility] Chloride 100 97 - 110 mmol/L [facility] CO2 26 22 - 32 mmol/L [facility] Anion gap 14 2 - 15 mmol/L [facility] CH BUN 19 6 - 25 mg/dL [facility] Creatinine 1.53(H) 0.80 - 1.30 mg/dL [facility] Glucose 94 70 - 199 mg/dL [facility] Comment: Interpretive Data Fasting glucose >/= 126 mg/dl is diagnostic for diabetes. ?? Fasting is defined as no caloric intake for at least 8 hours. Fasting glucose between 100 mg/dl to 125 mg/dl is diagnostic of prediabetes. In a patient with classic symptoms of hyperglycemia or hyperglycemic crisis, a random glucose >/= 200 mg/dl is diagnostic for diabetes. In the absence of unequivocal hyperglycemia, results should be confirmed by repeat testing. The classification and Diagnosis of Diabetes Diabetes Care 2021; 46: S19-S40. Current interpretive data was last revised 2022. Calcium 10.0 8.5 - 10.3 mg/dL [facility] Bilirubin, total 0.8 0.1 - 1.2 mg/dL [facility] Protein, pl 8.6(H) 6.5 - 8.5 g/dL [facility] Albumin 4.4 3.5 - 5.0 g/dL [facility] Alk phos 65 40 - 130 Units/L [facility] ALT 22 7 - 55 Units/L [facility] AST 43 10 - 50 Units/L [facility] Blood (Blood, Venous) 07/13/2024 12:43 PM KINESIOLOGY PROFESSOR 07/13/2024 8:02 PM KINESIOLOGY PROFESSOR Narrative [facility] - 07/13/2024 9:08 PM KINESIOLOGY PROFESSOR Fax results to Dr Alison Diaz [phone] Alison Diaz NP LAB BLOOD ORDERABLES Final R esult LEE [id number] [address] Department [place] [address] from Last 3 Months Insurance MEDICARE [employer] MEDICARE HMO Care Teams Internet Database Specialist Relationship Specialty Start Date End Date Glen Heart MD [address] [place] [id number] PCP - General 04/23/17
--- OUTSIDE RECORDS SUMMARY | 2024-09-07 16:25 | XMS_ITS | Encounter Summary ---
Author Organization [facility] Address [address] [place] [address] Care Team Providers Care Small Parts Assembler Name Role Phone Manish Teran MD Primary Care Provider [phone] Reason for Referral * Radiology Services (Routine) - Closed Specialty Diagnoses / Procedures Referred By Jada olivares Referred To Contact Positron Emission Tomography Diagnoses Major neurocognitive disorder (HCC) Procedures PET CT BRAIN ALZHEIMER EVAL PET CT LIMITED AREA Misbah Israel MD [address] [place] [address] [facility] [place] [address] [place] [phone] Referral ID Status Reason Start Date Expiration Date Visits Re quested Visits Authorized [id number] Closed 04/08/2023 05/08/2023 1 1 Reason for Visit * Reason Comments Follow-up Pt present today for follow up regarding memory. Encounter Details Date Type Department Care Team (Late st Contact Info) Description 03/12/2023 10:00 AM CDT Office Visit [facility] [address] [place] [address] Misbah Israel MD [address] [place] [address] Major neurocognitive disorder (HCC) (Primary Dx); Current severe episode of major depressive disorder without psychotic features without prior episode (HCC) Social History Tobacco Use Types Packs/Day Years [...] Sign Reading Time Taken Comments Blood Pressure 172/80 03/12/2023 9:58 AM CDT Pulse 78 03/12/2023 9:58 AM CDT Temperature 36.3 ??C (97.4 ??F) 03/12/2023 9:58 AM CD T Respiratory Rate - - Oxygen Saturation 99% 03/12/2023 9:58 AM CDT Inhaled Oxygen Concentration - - Weight 59.9 kg (132 lb) 03/12/2023 9:58 AM CDT Height 167.6 cm (5' 6 ) 03/12/2023 9:58 AM CDT Body Mass Index 21.31 03/12/2023 9:58 AM CDT documented in this encounter Patient Instructions * Patient Instructions* Misbah Israel MD - 03/12/2023 10:42 AM CDT 1. Donepezil 23 mg qD 2. Namenda 10 mg bid. 3. ASA 81 mg qD 4. BP control goal 120/80 5. Discontinue Sienemt 6. MIND diet 7. Amyloid PET brain at [facility],verify order Celexa 10 mg qD for depression Referral to psych RTC after testing documented in this encounter Progress Notes * Misbah Israel MD - 03/12/2023 10:20 AM CDT HISTORY 1.Chief Complaint: with Lorrie to discuss depression made this appt Lorrie 2.HPI: This is a 72-year-old gentleman who is returning for follow-up for [...] thinking to be alive Decline in memory+++ . came with with special appt to discuss dizziness depression. Ever since her has been on carbidopa and levo dopa feeling Has reduced to 1/2 tab did not help Lorrie has a list of complain about him. She feels he is depressed no the patient denied on screening questions Patient does not report any symptoms of depression but then wanted to get started on medication said that he spent most times in the day in the bed He does not interact family members He is withdrawn. He does not Wanna go out His own children does not come and visit him He does not exercise Patient listened the complains carefully and responded that he does not have interest in this things He has to be a poet His to write everywhere on the wall but he has stopped doing that He feels that his gait is not great, feels imbalance He feels started after Sinemet. also complains the same thing and did not improve after cutting down Sinemet. 3. Past History (Past Medical,Family&Social history): Past medical history positive for hypertension. Family history negative for early dementia. Social history negative for smoking 4. ROS- comprehensive review of systems negative except as mentioned in history of present illness. 5. Medications and allergies: Current Outpatient Medications Medication ??? amLODIPine (NORVASC) 5 MG tablet ??? ASPIRIN LOW DOSE 81 MG tablet ??? atorvastatin (LIPITOR) 20 MG tablet ??? carbidopa-levodopa (Sinemet) 25-100 MG tablet ??? Celery Seed ??? donepezil (Aricept) 23 MG tablet ??? meclizine (Antivert) 25 MG tablet ??? meloxicam (MOBIC) 15 MG tablet ??? memantine (Namenda) 10 MG tablet No current facility-administered medications for this visit. EXAMINATION: BP 172/80 Pulse 78 Temp 97.4 ??F (36.3 ??C) Ht 1.676 m (5' 6 ) Wt 59.9 kg (132 lb) SpO2 99% Gen EXAM GEN : Reveals a pleasant patient in no acute distress. Vitals: Reviewed and documented in Power Chart. Eye: Ophthalmologic examination of optic disc and Posterior segments are normal. Skin : Warm and moist, no rash. Cardiovascular system examination revealed normal peripheral pulses and normal carotids. Affect: Normal. Neurologic examination Cranial Nerves: Examination of cognitive function including memory, attention, concentration, language, fund of knowledge revealed his recall is 0/5, he has poor attention and concentration Cranial exam 1-12 revealed no evidence of nystagmus, no gaze restriction Motor examination reveals strength 5/5, no evidence of rigidity but he has decreased arm swing and tremor of the right hand Coordination he can do [id number] Gait he can walk briskly, arm swing reduced on the right compared to the left MEDICAL DECISION MAKING 1. DATA REVIEW: I independently reviewed the electronic medical informations including notes, images and labs available in system summarized in assessment and plan. , Recent Labs Component Name 02/15/21 0920 CHOL 141 TRIG 60 HDL 49 LDLCALC 80 Recent Labs Component Name 12/31/20 1620 [id number] 2. ASSESSMENT AND PLAN: ICD-10-CM 1. Major neurocognitive disorder (CMS/HCC) F03.90 1. Cognitive: I performed the Sylvester cognitive assessment score which is described above . Sylvester cognitive assessment testing(30)-17 ( 05/22- 17 March 2021 16), score about the same without any significant change in last 1 year 1. Visual special(2)-0 2. Clock drawing(3)-2 3. Naming(3)-3 4. Attention(6)-2 5. Language(3)-3 6. Abstraction(2)-2 7. Delayed recall(5)-0 8. Orientation(6)- 5 Recommendations- 1. Donepezil 23 mg qD 2. Namenda 10 mg bid. 3. ASA 81 mg qD 4. BP control goal 120/80 5. Discontinue Sienemet 6. MIND diet 7. Amyloid PET brain RTC after testing Complex patient has a list of complained including depression, loss of activity, improper diet. says that she is young and he is old says that he does not listen says that his own children do not take care of him No hallucinations On depression questions PHQ 9 -he did not feel he is depressed Discussed dementia wanted him to get more investigations, Patient has parkinsonian symptoms but neuropsych testing suggestive of Alzheimer's dementia Patient does not have features of the Lewy body dementia Would like to obtain amyloid PET Meanwhile continue donepezil and Namenda Continue with aspirin Would discontinue Sinemet and advised to call after week if his dizziness is better Obtain a orthostatic vital Plan to see him after testing Total time spent 40 min including chart prep data review and visit. Long discussion regarding his care, appears the is getting burnt out. 3. COUNSELING& COORDINATION OF CARE: Discussed in [...] st Contact Info) Description 10/13/2024 2:00 PM TYPE INSPECTOR Office Visit [facility] [address] [place], [place] [id number] Misbah Israel MD [address] [place] [address] documented as of this encounter Results * PET CT BRAIN ALZHEIMER EVAL (04/16/2023 2:41 PM CDT) Anatomical Region Laterality Modality Head Positron Emissio n Tomography (PET) 04/16/2023 2:36 PM CDT Impressions 04/17/2023 8:41 AM CDT IMPRESSION: The scan is negative, indicating sparse to no neuritic plaques. Amyvid is indicated for PET imaging of the brain to estimate beta amyloid neuritic plaque density in adult patients with cognitive impairment who are being evaluated for Alzheimer's disease and other causes of cognitive decline. A negative Amyvid scan indicates sparse to no neuritic plaques and is inconsistent with a neuropathological diagnosis of Alzheimer's disease at the time of image acquisition; a negative scan result reduces the likelihood of the patient's cognitive impairment is due to Alzheimer's disease. A positive Amyvid scan indicates moderate to frequent amyloid neuritic plaques; neuropathological examination has shown this amount of amyloid neuritic plaque is present in patients with Alzheimer's disease, but may also be present in patients with other types of neurologic conditions as well as older people with normal cognition. Amyvid is an adjunct to other diagnostic evaluations. Limitations of use: A positive Amyvid scan does not establish a diagnosis of Alzheimer's disease or other cognitive disorder. Safety and effectiveness of Amyvid has not been established for dictating development of dementia or other neurologic condition or monitoring responses to therapies. > Dictated by Michael Varela PET/CT fellow, Mickey De Leon participated in interpretation of this study. > Dictated by Michael Varela (Medical Assembler) 04/16/2023 2:36 PM ISantino MD have personally reviewed and interpreted this examination/study. > Interpreting Provider: Santino Irvin MD on 04/17/2023 8:41 AM Narrative 04/17/2023 8:41 AM CDT PROCEDURE: ??PET CT BRAIN ALZHEIMER EVAL DATE/TIME OF EXAM: ??04/16/2023 2:41 PM Indication: F03.90: Major neurocognitive disorder (CMS/HCC) HISTORY: 72-year-old male with concern for thyroid disease.. TECHNIQUE: ??10.75 mCi of F-18 Florbetapir (Amyvid) by IV in the right AC fossa. PET/CT image acquisition from top of the head to base of the skull after approx. 75 minutes post-injection with the CT being low-dose, non-contrast. No separate report for the CT was generated since it was of non-diagnostic quality. Patient's BMI is 21.31 kg/m. FINDINGS: Brain: There is no increased Amyvid uptake seen in the cortical cerebral beltran matter. The brain shows normal beltran-white contrast. The cerebellum has no evidence of abnormal uptake. CT demonstrate soft tissue in the right maxillary sinus, likely mucous polyp. Procedure Note Santino Irvin MD - 04/17/2023 PROCEDURE: PET CT BRAIN ALZHEIMER EVAL DATE/TIME OF EXAM: 04/16/2023 2:41 PM Indication: F03.90: Major neurocognitive disorder (CMS/HCC) HISTORY: 72-year-old male with concern for thyroid disease.. TECHNIQUE: 10.75 mCi of F-18 Florbetapir (Amyvid) by IV in the right AC fossa. PET/CT image acquisition from top of the head to base of theskull after approx. 75 minutes post-injection with the CT being low-dose, non-contrast. No separate report for the CT was generated since it wasof non-diagnostic quality. Patient's BMI is 21.31 kg/m. FINDINGS: Brain: There is no increased Amyvid uptake seen in the cortical cerebral beltran matter. The brain shows normal beltran-white contrast. The cerebellumhas no evidence of abnormal uptake. CT demonstrate soft tissue in the right maxillary sinus, likely mucous polyp. IMPRESSION: The scan is negative, indicating sparse to no neuritic plaques. Amyvid is indicated for PET imaging of the brain to estimate betaamyloid neuritic plaque density in adult patients with cognitive impairment whoare being evaluated for Alzheimer's disease and other causes of cognitive decline. A negative Amyvid scan indicates sparse to no neuritic plaques and is inconsistent with a neuropathological diagnosis of Alzheimer's diseaseat the time of image acquisition; a negative scan result reduces the likelihood of the patient's cognitive impairment is due to Alzheimer's disease. A positive Amyvid scan indicates moderate to frequent amyloid neuritic plaques; neuropathological examination has shown this amount of amyloid neuritic plaque is present in patients with Alzheimer's disease, but may also be present in patients with other types of neurologic conditions as well as older people with normal cognition. Amyvid is an adjunct to other diagnostic evaluations. Limitations of use: A positive Amyvid scan does not establish a diagnosis of Alzheimer's disease or other cognitive disorder. Safety and effectiveness of Amyvid has not been established fordictating development of dementia or other neurologic condition or monitoring responses to therapies. > Dictated by Michael Varela PET/CT fellow, Mickey De Leon participated in interpretation of this study. > Dictated by Michael Varela (Medical Assembler) 04/16/2023 2:36 PM I, Santino Irvin MD have personally reviewed and interpreted this examination/study. > Interpreting Provider: Santino Irvin MD on 04/17/2023 8:41 AM Misbah Israel MD NM ORDERABLES documented in this encounter Visit Diagnoses Diagnosis Major neurocognitive disorder (HCC)- Primary Current severe episode of major depressive disorder without psychotic features without prior episode (HCC) Major neurocognitive disorder (HCC) documented in this encounter Care Teams Small Parts Assembler Relationship Specialty Start Date End Date Manish Teran MD [address] [place] [address] PCP - General Family Medicine 12/18/20 documented as of this encounter
--- OUTSIDE RECORDS SUMMARY | 2024-09-07 16:25 | XMS_ITS | Encounter Summary ---
Author Organization [facility] Health Address [address] [place] [address] Care Team Providers Care Firebreak Cutter Name Role Phone Manish Teran MD Primary Care Provider Reason for Visit * Reason Comments Follow-up 71 year old male Liane Giordano. Patient is vaccinated, received [employer]. Patient is taking medications, no side effects. He states that his memory is about the same, no significant changes, no pain. 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); Mixed hyperlipidemia; Essential hypertension; Driving safety issue; Small vessel disease (HCC) Social History Tobacco Use Types Packs/Day [...] Sign Reading Time Taken Comments Blood Pressure 124/62 07/01/2021 7:54 AM CDT Pulse 64 07/01/2021 7:54 AM CDT Temperature 36.4 ??C (97.6 ??F) 07/01/2021 7:54 AM CD T Respiratory Rate - - Oxygen Saturation 96% 07/01/2021 7:54 AM CDT Inhaled Oxygen Concentration - - Weight 62.8 kg (138 lb 6.4 oz) 07/01/2021 7:54 A M CDT Height 182.9 cm (6') 07/01/2021 7:54 AM CDT Body Mass Index 18.77 07/01/2021 7:54 AM CDT documented in this encounter Patient Instructions * Patient Instructions* Misbah Israel MD - 07/01/2021 8:37 AM CDT RTC 3-4M documented in this encounter Progress Notes * Misbah Israel MD - 07/01/2021 8:27 AM CDT Images from the original note were not included. HISTORY 1.Chief Complaint: forgetfulness 2.HPI: 70-year-old pleasant gentleman seen in consultation for evaluation of memory problem going on for at least 1-2 years. 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 He lives with his . Patient admits that his forgetting which he thinks is part of the normal aging. He gave couple of examples like he will not pick pulling machine operator his son or somebody else as promised because he will forget. Then he willsay that he is busy. Forgetting to do errands and forgetting to pay bills are other areas where he has trouble. He has to do all these activities in the past but lately over last 2 years he has noted difficulty. He used to write poems which he stopped doing that. Mostly he is sitting idle, hygiene has deteriorated like he will keep his clothes without washing them and latent by lap. noted recurrent incontinence when he will urinate in the trash scan and then denied that he has done it. has noted that. said that her father who is 10 years older than him is sharper than him. Denies delusions, denies hallucinations. No fall. Family history of dementia but his mother in 90s. Currently he is on donepezil. No improvement. Noticed has been done February 15: Returns for follow-up accompanied with his daughter. Daughter is independent historian. Hecompleted blood work and MRI brain. His going to have psychometric testing tomorrow morning, his is going to take him there. Patient continues to have memory problem. Daughter also revealed thathe may have TIA in the past. His labs including B12, MMA, RPR and TSH were normal. I reviewed the EEG which showed mild slowing. I reviewed the images of the MRI brain as well as report showing evidence of small vessel disease. I discussed with the patient and his daughter in detail how small-vessel disease can lead to memory loss. Other risk factors include hyperlipidemia, lack of exercise and di abetes. Patient blood pressure is uncontrolled systolic more than 170 he is on metoprolol 25. I discussed importance of blood pressure control with goal less than 120/80. I decided to increase his metoprolol to 50. But also advised to call primary care provider for further adjustment to bring the blood pressure at the goal. March 15: Returns for follow-up accompanied with daughter. Completed psychometric testing. I reviewed the detail testing result which is suggestive of a mild neuro cognitive impairment. Psychologist raise concern about driving. July 01: Returns for follow-up. Accompanied with daughter. He drives in his subdivision. No accidents. Memory is about the same. He takes donepezil 10 mg daily. Blood pressure is good control. 3. Past History (Past Medical,Family&Social history): Past medical history positive for TIA unsure how that presented. Family history positive for dementia in mother in her 90s. Social history negative for smoking and drinking no history of use of drugs 4. ROS- comprehensive review of systems negative except as mentioned in history of present illness. 5. Medications and allergies: Current Outpatient Medications Medication ??? amLODIPine (NORVASC) 5 MG tablet ??? ASPIRIN LOW DOSE 81 MG tablet ??? atorvastatin (LIPITOR) 20 MG tablet ??? Celery Seed ??? donepezil (ARICEPT) 10 MG tablet ??? meloxicam (MOBIC) 15 MG tablet No current facility-administered medications for this visit. EXAMINATION: Blood pressure 124/62, heart rate 64, temperature 97.6??, weight 138 lb, SpO2 96%, no pain Gen EXAM GEN : Reveals a pleasant patient in no acute distress. Eye: Ophthalmologic examination of optic disc and Posterior segments are normal. Skin : Warm and moist, no rash. Cardiovascular system examination revealed normal peripheral pulses and normal carotids. Affect: Normal. Neurologic examination Examination of orientation, attention, language memory and fund knowledge were examined in detail. He is oriented to [place], follows 3 step command he can name and repeat, recall is 1/5 at 3 min. I showed him multiple traffic signs which he was able to recognize correctly. He has normal fundknowledge knows of the president. Is able to repeat. Cranial Nerves: Cranial nerve examination 1-12 revealed symmetric face normal eye movements, normal pupillary reaction rest of the cranial nerves were normal. Motor examination reveals strength of 5/5 in both upper lower extremities normal muscle tone Tendon reflexes are 1+ symmetric in both upper extremities Normal sensation in upper lower extremity Normal coordination upper lower extremity Normal gait MEDICAL DECISION MAKING 1. DATA REVIEW: I independently reviewed the electronic medical informations including notes, images and labs available in system summarized in assessment and plan. I reviewed the clinical note from different provider patient referred for evaluation of memory. I did not see workup done for dementia. 2. ASSESSMENT AND PLAN: ICD-10-CM 1. 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 Mixed hyperlipidemia E78.2 3. Essential hypertension I10 4. Driving safety issue Z91.89 5. Small vessel disease I73.9 2+ years long history of insidious onset slowly progressive forgetfulness, a decline in his previous level of functioning affecting his activities of daily living and instrumental activities of dailyliving, his hygiene has deteriorated, he started passing urine at inappropriate places, unable to run errands and pay bills on time, forgetting conversations, forgetting important daytime in event. In Johnny cognitive assessment score he has impairment across all functions. Patient was able to answer questions related to frontal lobe including judgment normally. Based on my evaluation The patient appeared to have cognitive ability to live independent at home. He can manage his activities of daily living. He may need occasional supervision. His driving is risky and dangerous and isnot safe to drive. I have discussed earlier and today also explained that he should not be driving unless he get a tennis professional's assessment. Provided information on that. He should avoid multi tasking, so developed habits and routine so he can rely less on memory. The psychologist also mentioned that patient has tendency to deny his problem. Today during the conversation, he was denying that he has memory loss. He was also admitting that he can not drive. Returns for follow-up, no change in subject he complain, he continues to drive once bite of direction that he should not be driving. I went over the driving restriction again and explained that he isprone to have accident which can lead to further deterioration in his cognitive functions. I showedhim multiple traffic signs though he was able to recognize correctly but I mentioned that in the case of emergency he may be very compromised. Based on my evaluation 1. No driving explained again and advised not to drive at all. 2. Donepezil 10 mg daily 3. Aspirin 81 mg daily for stroke prevention 4. Atorvastatin 40 mg daily for hyperlipidemia 5. Discussed diet and exercise provided mind diet 6. Return to clinic 3-4 months Total time spent 30 min including chart prep data review and visit 3. COUNSELING& COORDINATION OF CARE: Discussed in [...] answered- verbalized understanding the content of discussion. Thanks for allowing me to participate in the care of this very interesting patient. Please feel free to contact if you have any question. Misbah PITTS,,DM,FAAN,FAHS,FAANEM Adj Associate Profession,[facility],[employer] Stroke Tool Keeper [facility], [facility] T [phone] Cc No ref. provider found documented in this encounter Plan of Treatment Upcoming Encounters Date Type Department Care Team (Late st Contact Info) Description 10/13/2024 2:00 PM DIRECTOR SOCIAL SERVICE Office Visit [facility] [address] [facility] [address] [place] [address] Misbah Israel MD [address] [facility] [address] [place] [address] documented as of this encounter Visit Diagnoses Diagnosis Amnestic MCI (mild cognitive impairment with memory loss)- Primary Mild cognitive impairment, so stated Mixed hyperlipidemia Essential hypertension Driving safety issue Other specified personal history presenting hazards to health Small vessel disease (HCC) Peripheral vascular disease, unspecified documented in this encounter Care Teams Firebreak Cutter Relationship Specialty Start Date End Date Manish Teran MD [address] [place] [address] PCP - General Family Medicine 12/18/20 documented as of this encounter
--- OUTSIDE RECORDS SUMMARY | 2024-09-07 16:25 | XMS_ITS | Encounter Summary ---
Author Organization [facility] Health Address [address] [facility] [place] [address] Care Team Providers Care Sharepoint Trainer Name Role Phone Manish Teran MD Primary Care Provider [phone] Reason for Visit * Reason Onset Date Comments Establish Care 12/18/2020 Encounter Details Date Type Department Care Team (Late Contact Info) Description 12/18/2020 Telephone [facility] [address] [place] [address] Misbah Israel MD [address] [place] [address] Establish Care Social History Tobacco Use Types Packs/Day Years Used Date Smoking Tobacco: Never Assessed Sex and Gender Information Value Date Recorded Sex Assigned at Not on file Gender Identity Not on file Sexual Orientation Not on file documented as of this encounter Miscellaneous Notes * Telephone Encounter - Noemi Madison - 12/18/2020 2:04 PM CDT REC'D REFERRAL FROM PCP FOR PATIENT TO BE SEEN FOR MEMORY ISSUES; CALLED PATIENT AND LMOR FOR PATIENT TO CALL BACK AND SCHEDULE. documented in this encounter Plan of Treatment Upcoming Encounters Date Type Department Care Team (Late Contact Info) Description 10/13/2024 2:00 PM PIE BAKERY LABORER Office Visit [facility] [address] [place] [address] Misbah Israel MD [address] [facility] [address] [place] [address] documented as of this encounter Visit Diagnoses Not on filedocumented in this encounter Care Teams Sharepoint Trainer Relationship Specialty Start Date End Date Manish Teran MD [address] [place] [address] PCP - General Family Medicine 12/18/20 documented as of this encounter
--- OUTSIDE RECORDS SUMMARY | 2024-09-07 16:25 | XMS_ITS | Encounter Summary ---
Author Organization [facility] Health Address [address] [facility] [place] [address] Care Team Providers Care Boat Detailer Name Role Phone Manish Teran MD Primary Care Provider [phone] Reason for Visit * Reason Comments Follow-up Pt here regarding Si nanci 1.5 tab tidit was making him dizzy Encounter Details Date Type Department Care Team (Late st Contact Info) Description 05/16/2024 3:00 PM CDT Office Visit [facility] Neurosciences [address] [facility] [address] [place], [place] [id number] Misbah Israel MD [address] [facility] [address] [place] [address] Major neurocognitive disorder (HCC) (Primary Dx); Driving safety issue; Small vessel disease (HCC); Severe hypertension Social History Tobacco Use Types Packs/Day Years [...] Pulse 70 05/16/2024 2:54 PM CDT Temperature - - Respiratory Rate - - Oxygen Saturation - - Inhaled Oxygen Concentration - - Weight 56.7 kg (125 lb) 05/16/2024 2:54 PM CDT Height 182.9 cm (6') 05/16/2024 2:54 PM CDT Body Mass Index 16.95 05/16/2024 2:54 PM CDT documented in this encounter Patient Instructions * Patient Instructions* Misbah Israel MD - 05/16/2024 3:32 PM CDT 1. Donepezil 23 mg qD 2. Namenda 10 mg bid. 3. ASA 81 mg qD 4. BP control goal 120/80 5. Reduce sinemet 1 tab tid 25/100 6. MIND diet 7. Increase amlodipine 10 mg qD Update in 4 weeks Keep appoint made in March( 6 months from 04/07/24) documented in this encounter Progress Notes * Misbah Israel MD - 05/16/2024 3:17 PM CDT HISTORY 1.Chief Complaint: with Lorrie to discuss depression made this appt Lorrie 2.HPI: Patients called and stated that the Sinemet increase to 1 1/2 tablets has caused patient to start having a hard time with getting his day started. Now he is sinemet 1 tab tid He is back to his base line 3. Past History (Past Medical,Family&Social history): Past [...] facility-administered medications for this visit. EXAMINATION: BP (!) 180/98 Pulse 70 Ht 1.829 m (6') Wt 56.7 kg (125 lb) Gen EXAM GEN : Reveals a pleasant patient in no acute distress. Vitals: Reviewed and documented in Power Chart. Eye: Ophthalmologic examination of optic disc and Posterior segments are normal. Skin : Warm and moist, no rash. Cardiovascular system examination revealed normal peripheral pulses and normal carotids. Affect: Normal. Neurologic examination Cranial Nerves: Loss of multiple cognitive including memory language Bradykinesia Tremor Slow gait MEDICAL DECISION MAKING 1. DATA REVIEW: I independently reviewed the electronic medical informations including notes, images and labs available in system summarized in assessment and plan. , Recent Labs Component Name 02/15/21 0920 CHOL 141 TRIG 60 HDL 49 LDLCALC 80 Recent Labs Component Name 12/31/20 1620 [id number] 314 2. ASSESSMENT AND PLAN: ICD-10-CM 1. Major neurocognitive disorder (HCC) F03.90 2. Driving safety issue Z91.89 3. Small vessel disease (HCC) I73.9 4. Severe hypertension I10 Recommendations- 1. Donepezil 23 mg qD 2. Namenda 10 mg bid. 3. ASA 81 mg qD 4. BP control goal 120/80 5. Reduce sinemet 1 tab tid 25/100 6. MIND diet 7. Increase amlodipine 10 mg qD, blood pressure elevated in the clinic 180/98 Update in 4 weeks Keep appoint made in March( 6 months from 04/07/24) He continues to have impaired cognitive function including memory, attention, language, extrapyramidal signs including bradykinesia, masked facies and after increasing Sinemet to 1 and half tablet 3 times a day he noted severe drowsiness was in bed all the time. He denies visual hallucinations PET scan for Alzheimer's as negative His MRI showed evidence of small-vessel changes from longstanding uncontrolled risk factor including hypertension He also has history of boxing in 18 Lewy body dementia remains 1. Differential diagnosis with combination of cognitive impairment and parkinsonism He is also appeared to be sensitive to medications Though he does not have visual hallucination, that is not exclusion symptom Will consider skin biopsy Discussed with who is undergoing chemo for her own cancer. 3. COUNSELING& COORDINATION OF CARE: Discussed in [...] st Contact Info) Description 10/13/2024 2:00 PM LABEL PRINTING MACHINIST Office Visit [facility] Neurosciences [address] [place] [address] Misbah Israel MD [address] [place] [address] documented as of this encounter Visit Diagnoses Diagnosis Major neurocognitive disorder (HCC)- Primary Driving safety issue Other specified personal history presenting hazards to health Small vessel disease (HCC) Peripheral vascular disease, unspecified Severe hypertension Unspecified essential hypertension documented in this encounter Care Teams Boat Detailer Relationship Specialty Start Date End Date Manish Teran MD [address] [place] [address] PCP - General Family Medicine 12/18/20 documented as of this encounter
--- OUTSIDE RECORDS SUMMARY | 2024-09-07 16:25 | XMS_ITS | Encounter Summary ---
Author Organization [facility] Health Address [address] [facility] [place] [address] Care Team Providers Care Orchid Transplanter Name Role Phone Manish Teran MD Primary Care Provider [phone] Reason for Visit * Reason Comments Refill Request Encounter Details Date Type Department Care Team (Late st Contact Info) Description 12/19/2023 Refill [facility] Neurosciences [address] [facility] [address] [place] [address] Misbah Israel MD [address] [facility] [address] [place] [address] Refill Request Social History Tobacco Use Types [...] encounter Miscellaneous Notes * Telephone Encounter - Nusrat Isbell MA - 12/21/2023 1:54 PM CDT Received a refill request for carbidopa-levodopa (Sinemet) 25-100 MG tablet Last ov- 09/25/23 Next ov- 03/25/24 Last fill- 09/25/23 documented in this encounter Plan of Treatment Upcoming Encounters Date Type Department Care Team (Late st Contact Info) Description 10/13/2024 2:00 PM COTTON BAG SEWER Office Visit [facility] Neurosciences [address] [place] [address] Misbah Israel MD [address] [place] [address] documented as of this encounter Visit Diagnoses Not on filedocumented in this encounter Care Teams Orchid Transplanter Relationship Specialty Start Date End Date Manish Teran MD [address] [place] [address] PCP - General Family Medicine 12/18/20 documented as of this encounter
--- OUTSIDE RECORDS SUMMARY | 2024-09-07 16:25 | XMS_ITS | Encounter Summary ---
Author Organization [facility] Healthcare Address [address] [place] [address] Care Team Providers Care Cheesemaker Name Role Phone Glen Heart MD Primary Care Provider [phone] Encounter Details Date Type Department Care Team (Late st Contact Info) Description 08/26/2024 Telephone [facility] Care Services [address] [place] [address] Ana Jovel Social History Tobacco Use Types Packs/Day Years Used Date Smoking Tobacco: Never Assessed Sex and Gender Information Value Date Recorded Sex Assigned at Not on file Legal Sex Male 3:03 PM CDT Gender Identity Not on file Sexual Orientation Not on file documented as of this encounter Miscellaneous Notes * Telephone Encounter - Ana Jovel - 08/26/2024 9:47 AM CST Faxcom #[phone] declined due to inability to staff patient for services in a safe and timely manner. I spoke with [place] at [facility] to inform of the decline. CARE AIDE documented in this encounter Plan of Treatment Not on file documented as of this encounter Visit Diagnoses Not on filedocumented in this encounter Care Teams Cheesemaker Relationship Specialty Start Date End Date Glen Heart MD [address] [place] [address] PCP - General 04/23/17 documented as of this encounter
--- OUTSIDE RECORDS SUMMARY | 2024-09-07 16:25 | XMS_ITS | Encounter Summary ---
Author Organization [facility] Health Address [address] [place] [address] Care Team Providers Care Terrazzo Finisher Helper Name Role Phone Manish Teran MD Primary Care Provider [phone] Reason for Visit * Reason Onset Date Comments Update 10/19/2023 Encounter Details Date Type Department Care Team ([facility] Contact Info) Description 10/19/2023 Telephone [facility] Neurosciences [address] [facility] [address] [place] [address] Misbah Israel MD [address] [facility] [address] [place] [address] Update Social History Tobacco Use Types Packs/Day [...] Telephone Encounter - Nusrat Isbell MA - 10/19/2023 1:33 PM CST Patient's called to give an update on Sinemet 25/100 mg. He is doing much better on this medication. Less shaking and confusion. OR SOFTWARE ARCHITECT documented in this encounter Plan of Treatment Upcoming Encounters Date Type Department Care Team ([facility] Contact Info) Description 10/13/2024 2:00 PM SENIOR SOFTWARE ARCHITECT Office Visit [facility] Neurosciences [address] [place] [address] Misbah Israel MD [address] [place] [address] documented as of this encounter Visit Diagnoses Not on filedocumented in this encounter Care Teams Terrazzo Finisher Helper Relationship Specialty Start Date End Date Manish Teran MD [address] [place] [address] PCP - General Family Medicine 12/18/20 documented as of this encounter
--- OUTSIDE RECORDS SUMMARY | 2024-09-07 16:25 | XMS_ITS | Clinical Summary ---
Author Organization [facility] Address [address] [place] [address] Care Team Providers Care Membership Assistant Name Role Phone Manish Terna MD Primary Care Provider [phone] Source Comments [facility],non-owned Affiliates and Associated Physician Practices is amultiple site organization consisting of ambulatory clinics and hospital sitesin [place], [place], [place] and [place]. This disclosure is being madepursuant to the Care Everywhere program and may not contain all information available regarding this patient. Last updated 18.[facility] [employer] Allergies No known active allergies Medications * [...] st Contact Info) Description 10/13/2024 2:00 PM WEIGHT ENGINEER Office Visit [facility] Neurosciences [address] [facility] [address] [place], [place] [id number] Misbah Israel MD [address] [facility] [address] [place] [address] Health Maintenance Due Date Last Done Comments HEPATITIS C SCREENING 04/10/1966 DTAP/TDAP/TD VACCINES (1 - Tdap) 1967 ZOSTER VACCINE (1 of 2) 1998 PNEUMOCOCCAL VACCINE 50+ (1 of 1 - PCV) 2013 Respiratory Syncytial Virus (RSV) Vaccine Pt: or over 60 yrs (1 - 1-dose 75+ series) 2023 COVID-19 VACCINE ( - 2023-2 5 season) 2024 INFLUENZA VACCINE (#1) 2024 DEPRESSION SCREENING 08/31/2024 MEDICARE AWV ? CALENDAR YEAR 2024 HEPATITIS B VACCINE Aged Out No longe r eligible based on patient's age to complete this topic HIB VACCINE Aged Out No longer eligi ble based on patient's age to complete this topic HPV VACCINE Aged Out No longer eligi ble based on patient's age to complete this topic MENINGOCOCCAL VACCINE Aged Out No justin mary eligible based on patient's age to complete this topic Care Teams Membership Assistant Relationship Specialty Start Date End Date Manish Teran MD [address] [place] [address] PCP - General Family Medicine 12/18/20
--- OUTSIDE RECORDS SUMMARY | 2024-09-07 16:25 | XMS_ITS | Encounter Summary ---
Author Organization [facility] Healthcare Address [address] [place] [address] Care Team Providers Care Wireworker Supervisor Name Role Phone Glen Heart MD Primary Care Provider [phone] Encounter Details Date Type Department Care Team (Late st Contact Info) Description 08/25/2024 Telephone [facility] Home Care Services [address] [place] [address] Unknown, Notinfile Social History Tobacco Use Types Packs/Day Years Used Date Smoking Tobacco: Never Assessed Sex and Gender Information Value Date Recorded Sex Assigned at Not on file Legal Sex Male 3:03 PM CDT Gender Identity Not on file Sexual Orientation Not on file documented as of this encounter Miscellaneous Notes * Telephone Encounter - aMry Cramer - 08/25/2024 2:01 PM CST I spoke to with Olga with [facility] to inform that [facility] is unable to accept the patients referral due to staffing capacity. IUM CANCELLATION CLERK documented in this encounter Plan of Treatment Not on file documented as of this encounter Visit Diagnoses Not on filedocumented in this encounter Care Teams Wireworker Supervisor Relationship Specialty [place] [address] [place] [address] PCP - General 04/23/17 documented as of this encounter
--- OUTSIDE RECORDS SUMMARY | 2024-09-07 16:25 | XMS_ITS | Encounter Summary ---
Author Organization [facility] Health Address [address] [facility] [place] [address] Care Team Providers Care Floor Covering Installer Name Role Phone Manish Teran MD Primary Care Provider [phone] Reason for Visit * Reason Comments Refill Request Encounter Details Date Type Department Care Team (Late Contact Info) Description 05/15/[address] [facility] Neurosciences [address] [facility] [address] [place] [address] Misbah Israel MD [address] [facility] [address] [place] [address] Refill Request Social History Tobacco Use Types [...] encounter Miscellaneous Notes * Telephone Encounter - Eliceo You - 05/15/2022 3:05 PM CDT Received refill request for MEMANTINE 10MG TABLETS Last OV 05/15/22 Next OV 11/13/22 Last Refill 05/15/22 90 Day Supply Request documented in this encounter Plan of Treatment Upcoming Encounters Date Type Department Care Team (Late Contact Info) Description 10/13/2024 2:00 PM LEGAL RECRUITER Office Visit [facility] Health Neurosciences [address] [place] [address] Misbah Israel MD [address] [place] [address] documented as of this encounter Visit Diagnoses Not on filedocumented in this encounter Care Teams Floor Covering Installer Relationship Specialty Start Date End Date Manish Teran MD [address] [place] [address] PCP - General Family Medicine 12/18/20 documented as of this encounter
--- OUTSIDE RECORDS SUMMARY | 2024-09-07 16:25 | XMS_ITS | Encounter Summary ---
Author Organization [facility] Health Address [address] [place] [address] Care Team Providers Care Global Manager Name Role Phone Manish Teran MD Primary Care Provider [phone] Reason for Visit * Reason Onset Date Comments Results 03/25/2021 Encounter Details Date Type Department Care Team (Late st Contact Info) Description 03/25/2021 Telephone [facility] Neurosciences [address] [facility] [address] [place] [address] Misbah Israel MD [address] [facility] [address] [place], [place] [id number] Results Social History Tobacco Use Types Packs/Day Years [...] encounter Miscellaneous Notes * Telephone Encounter - Franki Scherer - 03/25/2021 3:27 PM CDT Spoke to patient and spouse and gave normal results. Next OV 06/05/21 * Telephone Encounter - Franki Scherer - 03/25/2021 3:27 PM CDT ----- Message from Misbah Israel MD sent at 03/25/2021 11:00 AM CDT ----- I reviewed the report of the doppler carotid which is normal. documented in this encounter Plan of Treatment Upcoming Encounters Date Type Department Care Team (Late st Contact Info) Description 10/13/2024 2:00 PM SUPPLIES PACKER Office Visit [facility] Neurosciences [address] [place] [address] Misbah Israel MD [address] [place] [address] documented as of this encounter Visit Diagnoses Not on filedocumented in this encounter Care Teams Global Manager Relationship Specialty [place] [address] [place] [address] PCP - General Family Medicine 12/18/20 documented as of this encounter
--- OUTSIDE RECORDS SUMMARY | 2024-09-07 16:25 | XMS_ITS | Encounter Summary ---
Author Organization [facility] Health Address [address] [place] [address] Care Team Providers Care Market Basket Maker Name Role Phone Manish Teran MD Primary Care Provider [phone] Encounter Details Date Type Department Care Team (Late Contact Info) Description 05/19/[address] [facility] Neurosciences [address] [facility] [address] [place] [address] Misbah Israel MD [address] [facility] [address] [place], [place] [id number] Social History Tobacco Use Types Packs/Day Years Used Date Smoking Tobacco: Former Smokeless Tobacco: Never Alcohol Use Standard Drinks/Week Comments Not Currently 0 (1 standard drink = 0.6 oz pur e alcohol) Sex and Gender Information Value Date Recorded Sex Assigned at Not on file Gender Identity Not on file Sexual Orientation Not on file documented as of this encounter Progress Notes * Franki Scherer - 05/19/2022 7:59 AM CDT Received notification that there is a quantity limit for memantine (Namenda) 10 MG tablet The quantity limit for this drug is 60.00 tablet per 30 days. The submitted quantity exceeds the drugs quantity limit. Replaced script to reflect so we do not have to do an authorization. documented in this encounter Plan of Treatment Upcoming Encounters Date Type Department Care Team (Late Contact Info) Description 10/13/2024 2:00 PM IN STORE DEMONSTRATOR Office Visit [facility] Health Neurosciences [address] [place] [address] Misbah Israel MD [address] [place] [address] documented as of this encounter Visit Diagnoses Not on filedocumented in this encounter Care Teams Market Basket Maker Relationship Specialty Start Date End Date Manish Teran MD [address] [place] [address] PCP - General Family Medicine 12/18/20 documented as of this encounter
--- OUTSIDE RECORDS SUMMARY | 2024-09-07 16:25 | XMS_ITS | Encounter Summary ---
Author Organization [facility] Health Address [address] [facility] [place] [address] Care Team Providers Care Power Tool Repairer Name Role Phone Manish Teran MD Primary Care Provider [phone] Reason for Visit * Reason Comments Follow-up 70 year old male is here today to go over neuropsych eval; dopplers, and labs - patient states he is doing well; patient has daughter with him today. 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 [...] Sign Reading Time Taken Comments Blood Pressure 132/76 03/15/2021 8:30 AM CDT Pulse 64 03/15/2021 8:30 AM CDT Temperature - - Respiratory Rate - - Oxygen Saturation 100% 03/15/2021 8:30 AM CDT Inhaled Oxygen Concentration - - Weight 59.9 kg (132 lb) 03/15/2021 8:30 AM CDT Height 182.9 cm (6') 03/15/2021 8:30 AM CDT Body Mass Index 17.9 03/15/2021 8:30 AM CDT documented in this encounter Patient Instructions * Patient Instructions* Misbah Israel MD - 03/15/2021 9:04 AM CDT Increase Donepezil 10 mg daily Asa 81 mg daily Will call with result of CD Atorva 40 mg daily MIND diet RTC 3 M documented in this encounter Progress Notes * Misbah Israel MD - 03/15/2021 6:46 PM CDT Images from the original note were not included. HISTORY 1.Chief Complaint: forgetfulness 2.HPI: 70-year-old pleasant gentleman seen in consultation for evaluation of memory problem going on for at least 1-2 years. 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 He lives with his . Patient admits that his forgetting which he thinks is part of the normal aging. He gave couple of examples like he will not pick and shovel worker his son or somebody else as promised [...] cognitive impairment. Psychologist raise concern about driving. 3. Past History (Past Medical,Family&Social history): Past [...] ??? atorvastatin (LIPITOR) 20 MG tablet ??? donepezil (ARICEPT) 10 MG tablet ??? meloxicam (MOBIC) 15 MG tablet No current facility-administered medications for this visit. EXAMINATION: Gen EXAM GEN : Reveals a pleasant patient in no acute distress. Eye: Ophthalmologic examination of optic disc and Posterior segments are normal. Skin : Warm and moist, no rash. Cardiovascular system examination revealed normal peripheral pulses and normal carotids. Affect: Normal. Neurologic examination [place] cognitive assessment testing(30)-16 from last visit 1. Visual special(2)-0 2. Clock drawing(3)-1 3. Naming(3)-3 4. Attention(6)-2 5. Language(3)-3 6. Abstraction(2)-2 7. Delayed recall(5)-0 8. Orientation(6)-5 Cranial Nerves: Cranial nerve examination from 1-12 was normal. Motor examination reveals strength of 5/5, normal tone. Deep tendon reflexes are 2+ symmetric in both upper lower extremities. Normal coordination upper lower extremities Normal sensation upper lower extremity Normal gait no evidence of parkinsonism. MEDICAL DECISION MAKING 1. DATA REVIEW: I [...] not be driving unless he get a computer lab para professional's assessment. Provided information on that. He should avoid multi tasking, so developed habits and routine so he can rely less on memory. The psychologist also mentioned that patient has tendency to deny his problem. Today during the conversation, he was denying that he has memory loss. He was also admitting that he can not drive. His deficits included in mental processing speed, memory for new information and executive skills he also has poor insight. His profile is consistent with Alzheimer's disease. 1. Provided information on computer lab para professional assessment. 2. Aspirin 81 mg daily, advised to start. 3. Atorvastatin 20 mg daily 4. No driving until assessment is done 5. Daughter has a question about the new drugs for Alzheimer's. Explained that this drug is still under review. At this point the best available evidence suggests that exercise, diet, prevention of stroke by modifying risk factors are important. Discussed blood pressure goal of 120/80. Plan to see him back in 3 months. Total time spent 40 min including chart prep, data review and visit. 3. COUNSELING& COORDINATION OF CARE: Discussed in [...] contact if you have any question. Misbah PITTS MD,DM,FAAN,FAHS,FAANEM Adj Associate Profession,[facility],[employer] Stroke Gis Scientist [facility], [facility] [phone] Cc No ref. 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
--- OUTSIDE RECORDS SUMMARY | 2024-09-07 16:25 | XMS_ITS | Encounter Summary ---
Author Organization [facility] Address [address] [facility] [place] [address] Care Team Providers Care Second Vp Hr Assessment Name Role Phone Manish Teran MD Primary Care Provider [phone] Reason for Visit * Radiology Services (Routine) - Closed Specialty Diagnoses / Procedures Referred By Jada t Referred To Contact Vascular Lab Diagnoses Small vessel stroke (HCC) Procedures VAS CAROTID DUPLEX BILATERAL Misbah Israel MD [facility] [facility] [address] [place] [address] Referral ID Status Reason Start Date Expiration Date Visits Re quested Visits Authorized [id number] Closed 02/15/2021 02/15/2022 1 1 Encounter Details Date Type Department Care Team (Latest Contact Info) Description 03/06/2021 8:33 AM CDT - 03/06/2021 11:59 PM CDT Hospital Encounter [facility] Heart & Vascular Care [facility] [facility], [address] [place] [address] [place] [address] [place] [address] [address] [place] [address] Discharge Disposition: Home or Self Care Social History Tobacco Use Types Packs/Day Years Used Date Smoking Tobacco: Former Smokeless Tobacco: Never Alcohol Use Standard Drinks/Week Comments Not Currently 0 (1 standard drink = 0.6 oz pur e alcohol) Sex and Gender Information Value Date Recorded Sex Assigned at Not on file Gender Identity Not on file Sexual Orientation Not on file documented as of this encounter Medications at Time of Discharge Medication Sig Dispensed Refills Start Date End Date ASPIRIN LOW DOSE 81 MG tablet TK 1 T PO QAM 04/16/2020 atorvastatin (LIPITOR) 20 MG tablet TAKE 1 TABLET BY MOUTH EVERY DAY 90 tablet 03/05/2021 meloxicam (MOBIC) 15 MG tablet Take 1 (one) tablet by mouth once daily 11/21/2020 amLODIPine (NORVASC) 5 MG tablet Take 1 (one) tablet by mouth once daily 02/21/2021 05/16/2024 donepezil (ARICEPT) 5 MG tablet Take 5 mg by mouth once daily 11/21/2020 03/15/2021 metoprolol succinate XL 24hr (TOPROL XL) 50 MG tablet Take 1 (one) tablet by mouth once daily 30 tablet 02/15/2021 03/15/2021 documented as of this encounter Progress Notes * Misbah Israel MD - 03/06/2021 11:59 PM CDT I reviewed the report of the doppler carotid which is normal. documented in this encounter Plan of Treatment Upcoming Encounters Date Type Department Care Team (Late st Contact Info) Description 10/13/2024 2:00 PM SUPERVISOR RICE MILLING Office Visit [facility] Health Neurosciences [address] [place] [address] Misbah Israel MD [address] [place] [address] documented as of this encounter Procedures Procedure Name Priority Date/Time Associated Diagnosis Comments VAS CAROTID DUPLEX BILATERAL Routine 03/06/2021 9:30 AM CDT Small vessel stroke (HCC) documented in this encounter Results * VAS CAROTID DUPLEX BILATERAL (03/06/2021 9:30 AM CDT) Anatomical Region Laterality Modality Neck Echo 03/06/2021 8:37 AM CDT Narrative Procedure Note Dawood Lynch MD - 03/22/2021 [facility] [place] [address] [place] [address] [facility] Car[facility] Ul[facility]ound Report Pat.Name: FREDERICK ALANIZ.ID: [id number] St.Date: 03/06/2021 Exam Time: 8:37:00 AM Study Type:Carotid Age: 8 1950,70Y Sex: MALE Sonogrphr: Phyllis Boyer RD, RVT CPT - 4: [id number] Reason for Study: small vessel stroke History / Clinical: forgetfulness Procedures: Carotid Duplex - Bilateral Visit ID: [id number] ++++++++++++++++++++++++++++++++++++ SUMMARY: ++++++++++++++++++++++++++++++++++++ No evidence of hemodynamically significant stenosis of either right or left extracranial carotid arterial system. Atherosclerotic plaque as described in Findings Section of this report. Normal, bilateral antegrade vertebral arterial flow. ++++++++++++++++++++++++++++++++++++ FINDINGS: ++++++++++++++++++++++++++++++++++++ Procedure: The extracranial carotid systems were examined bilaterally with duplex and color flow imaging as well as spectral Doppler analysis. Study Quality: This study is of adequate technical quality. Rt CCA: Intimal thickening is present Rt Bulb: Soft and dense plaque noted in right bulb. Rt ICA: Calcified plaque visualized within the mid right ICA. Rt ECA: plaque visualized within the right external carotid artery. Rt Vert: Antegrade flow within the right vertebral Artery. Lt CCA: Soft and dense plaque visualized in the mid common carotid artery. Lt Bulb: Soft and dense plaque noted in left bulb. Lt ICA: Mixed calcified and dense plaque visualized within the proximal left ICA. Lt Vert: Antegrade flow within the left vertebral Artery. ++++++++++++++++++++++++++++++++++++ MEASUREMENTS: ++++++++++++++++++++++++++++++++++++ DOPPLER Left CCA Dist CCA Dist PSV 94 cm/s CCA Dist EDV 20 cm/s Left CCA Prox CCA Prox PSV 75 cm/s CCA Prox EDV 9 cm/s Left ECA ECA PSV 107 cm/s Left ICA Dist ICA Dist PSV 107 cm/s ICA Dist EDV 32 cm/s Left ICA Mid ICA Mid PSV 107 cm/s ICA Mid EDV 31 cm/s Left ICA Prox ICA Prox PSV 71 cm/s ICA Prox EDV 7.9 cm/s Left ICA/CCA ICA/CCA PSV 1.1 Left Vertebral Vertebral PSV 84 cm/s Right CCA Dist CCA Dist PSV 89 cm/s CCA Dist EDV 15 cm/s Right CCA Prox CCA Prox PSV 108 cm/s CCA Prox EDV 15 cm/s Right ECA ECA PSV 115 cm/s ECA EDV 12 cm/s Right ICA Dist ICA Dist PSV 85 cm/s ICA Dist EDV 20 cm/s Right ICA Mid ICA Mid PSV 99 cm/s ICA Mid EDV 14 cm/s Right ICA Prox ICA Prox PSV 66 cm/s ICA Prox EDV 10 cm/s Right ICA/CCA ICA/CCA PSV 0.91 Right Vertebral Vertebral PSV 64 cm/s Signed 03/22/2021 06:10 PM Dawood Lynch MD Misbah Israel MD VASCULAR LAB ORDERAB LES documented in this encounter Visit Diagnoses Diagnosis Small vessel stroke (HCC) Unspecified cerebral artery occlusion with cerebral infarction documented in this encounter Care Teams Second Vp Hr Assessment Relationship Specialty Start Date End Date Manish Teran MD [address] [place] [address] PCP - General Family Medicine 12/18/20 documented as of this encounter
--- OUTSIDE RECORDS SUMMARY | 2024-09-07 16:25 | XMS_ITS | Continuity of Care Document ---
Author Name [facility] Organization [facility] Care Team Providers Care Automobile Seat Cover Installer Name Role Phone [facility] Unavailable Unavailable Social History Combined list of available smoking, tobacco, and other social history from Department of Defense and Veterans Affairs facilities. Social History Type Response Date Comment Sourc e This section is an empty social history section. [facility]
--- OUTSIDE RECORDS SUMMARY | 2024-09-07 16:25 | XMS_ITS | Encounter Summary ---
Author Organization [facility] Address [address] [facility] [place] [address] Care Team Providers Care Stone Planer Name Role Phone Manish Teran MD Primary Care Provider [phone] Reason for Referral * Radiology Services (Routine) - Closed Specialty Diagnoses / Procedures Referred By Jada olivares Referred To Contact MRI Diagnoses Forgetfulness Procedures MRI BRAIN WO CONTRAST Misbah Israel MD [address] [address] Referral ID Status Reason Start Date Expiration Date Visits Re quested Visits Authorized [id number] Closed 02/06/2021 03/08/2021 1 1 Reason for Visit * Radiology Services (Routine) - Closed Specialty Diagnoses / Procedures Referred By Jada olivares Referred To Contact MRI Diagnoses Forgetfulness Procedures MRI BRAIN WO CONTRAST Misbah Israel MD [address] [facility] [address] [place] [address] [address] Referral ID Status Reason Start Date Expiration Date Visits Re quested Visits Authorized [id number] Closed 02/06/2021 03/08/2021 1 1 Encounter Details Date Type Department Care Team (Latest Contact Info) Description 02/06/2021 9:45 AM CDT - 02/06/2021 10:18 AM CDT Hospital Encounter [facility] Health Imaging Services - MRI [address] [place] [address] Misbah Israel MD [address] [facility] [address] [place] [address] Discharge Disposition: Home or Self Care Social [...] PM CDT documented as of this encounter Medications at Time of Discharge Medication Sig Dispensed Refills Start Date End Date ASPIRIN LOW DOSE 81 MG tablet TK 1 T PO QAM 04/16/2020 meloxicam (MOBIC) 15 MG tablet Take 1 (one) tablet by mouth once daily 11/21/2020 donepezil (ARICEPT) 5 MG tablet Take 5 mg by mouth once daily 11/21/2020 03/15/2021 metoprolol succinate XL 24hr (TOPROL XL) 25 MG tablet Take 25 mg by mouth once daily 11/20/2020 02/15/2021 documented as of this encounter Plan of Treatment Upcoming Encounters Date Type Department Care Team (Late st Contact Info) Description 10/13/2024 2:00 PM SALES FLOOR TEAM LEADER Office Visit [facility] Health Neurosciences [address] [facility] [address] [place] [address] [place] [address] [place] [address] [address] [place] [address] documented as of this encounter Procedures Procedure Name Priority Date/Time Associated Diagnosis Comments MRI BRAIN WO CONTRAST Routine 02/06/2021 10:12 AM CDT Forgetfulness documented in this encounter Results * MRI BRAIN WO CONTRAST (02/06/2021 10:12 AM CDT) Anatomical Region Laterality Modality Head Magnetic Resonan ce 02/06/2021 10:1 7 AM CDT Impressions 02/06/2021 11:05 AM CDT White matter changes. Right maxillary sinus polyp or retention cyst. Edited by Milly Wolfe on 02/06/2021 10:43 AM *Reading Radiologist: Manish Martins on 02/06/2021 at 11:05 AM Narrative 02/06/2021 11:05 AM CDT MRI brain without contrast. HISTORY: Forgetfulness. Images are obtained using T1 and T2-weighted sequences. Diffusion-weighted images are also reviewed. The diffusion-weighted study shows no evidence for a recent infarct. No mass or hemorrhage is present. White matter changes are apparent. No extracerebral fluid collections are seen. Visible cerebral vessels have normal flow void. There is a polyp or retention cyst in the right maxillary sinus. Procedure Note Manish Martins MD - 02/06/2021 MRI brain without contrast. HISTORY: Forgetfulness. Images are obtained using T1 and T2-weighted sequences. Diffusion-weighted images are also reviewed. The diffusion-weighted study shows no evidence for a recent infarct. No mass or hemorrhage is present. White matter changes are apparent. No extracerebral fluid collections are seen. Visible cerebral vessels have normal flow void. There is a polyp or retention cyst in the right maxillary sinus. IMPRESSION White matter changes. Right maxillary sinus polyp or retention cyst. Edited by Milly Wolfe on 02/06/2021 10:43 AM *Reading Radiologist: Manish Martins on 02/06/2021 at 11:05 AM Misbah Israel MD MR ORDERABLES documented in this encounter Visit Diagnoses Diagnosis Forgetfulness Other general symptoms documented in this encounter Care Teams Stone Planer Relationship Specialty Start Date End Date Manish Teran MD [address] [place] [address] PCP - General Family Medicine 12/18/20 documented as of this encounter
--- OUTSIDE RECORDS SUMMARY | 2024-09-07 16:25 | XMS_ITS | Encounter Summary ---
Author Organization [facility] Health Address [address] [place] [address] Care Team Providers Care Presiding Steward Name Role Phone Manish Teran MD Primary Care Provider [phone] Reason for Visit * Reason Comments Follow-up Pt present today for follow up, pt has been experiencing some tremors/shakes. Encounter Details Date Type Department Care Team (Late st Contact Info) Description 05/15/2022 1:20 PM CDT Office Visit [facility] Neurosciences [address] [facility] [address] [place], [place] [id number] Misbah Israel MD [address] [facility] [address] [place] [address] Major neurocognitive disorder (HCC) (Primary Dx); Mixed hyperlipidemia; Essential hypertension; Driving safety issue; Small vessel disease (HCC); Change in behavior Social History Tobacco Use Types Packs/Day Years [...] Sign Reading Time Taken Comments Blood Pressure 110/85 05/15/2022 1:19 PM CDT Pulse 101 05/15/2022 1:19 PM CDT Temperature 36.4 ??C (97.5 ??F) 05/15/2022 1:19 PM CD T Respiratory Rate - - Oxygen Saturation 98% 05/15/2022 1:19 PM CDT Inhaled Oxygen Concentration - - Weight 63 kg (139 lb) 05/15/2022 1:19 PM CDT Height 167.6 cm (5' 6 ) 05/15/2022 1:19 PM CDT Body Mass Index 22.44 05/15/2022 1:19 PM CDT documented in this encounter Patient Instructions * Patient Instructions* Misbah Israel MD - 05/15/2022 2:07 PM CDT Namenda- 10 mg hs Donepezil 10 mg daily Asa 81 mg daily RTC 6 months Sinemet 0.5 tab of 25/100 tid documented in this encounter Progress Notes * Misbah Israel MD - 05/15/2022 1:51 PM CDT Images from the original note were not included. HISTORY 1.Chief Complaint: Forgetfulness, accompanied with Lorrie- spouse, independent historian Highest education high school 2.HPI: This is a 72-year-old gentleman who [...] seizure-like activities. No delusionhallucination. Sleep is okay. 3. Past History (Past Medical,Family&Social history): Past [...] facility-administered medications for this visit. EXAMINATION: BP 110/85 Pulse 101 Temp 97.5 ??F (36.4 ??C) Ht 1.676 m (5' 6 ) Wt 63 kg (139 lb) SpO2 98% Gen EXAM GEN : Reveals a pleasant patient in no acute distress. Vitals: Reviewed and documented in Power Chart. Eye: Ophthalmologic examination of optic disc and Posterior segments are normal. Skin : Warm and moist, no rash. Cardiovascular system examination revealed normal peripheral pulses and normal carotids. Affect: Normal. Neurologic examination Cranial Nerves: II: Fundi normal. III, IV, : Pupils equal,round & reactive to light. Extraocular movements intact. V: Jaw muscles strong.VII: No facial asymmetry. VIII: Hearing Normal to conversation IX-X: Uvula midline. XI: Shoulder shrug equal. XII: Tongue midline. Motor examination in both Upper and lower extremities showed normal bulk and tone with 5 over 5 strength on MRC grading. All deep tendon reflexes are 2+ and symmetric . No atrophy and fasics Sensory examination showed normal pinprick and fine touch. Coordination normal in both upper and lower extremities. Gait normal including negative Romberg???s. Mild rigidity in the hands Mild decreased arm swing Mild resting tremor in right MEDICAL DECISION MAKING 1. DATA REVIEW: I independently reviewed the electronic medical informations including notes, images and labs available in system summarized in assessment and plan. , Recent Labs Component Name 02/15/21 0920 CHOL 141 TRIG 60 HDL 49 LDLCALC 80 Recent Labs Component Name 12/31/20 1620 [id number] 314 2. ASSESSMENT AND PLAN: ICD-10-CM 1. Major neurocognitive disorder F03.90 2. Mixed hyperlipidemia E78.2 3. Essential hypertension I10 4. Driving safety issue Z91.89 5. Small vessel disease I73.9 6. Change in behavior R46.89 1. Cognitive: I performed the [place] cognitive assessment score which is described above . [place] cognitive assessment testing(30)-18 ( February 2021), score about the same without any significant change in last 1 year 1. Visual special(2)-0 2. Clock drawing(3)-2 3. Naming(3)-3 4. Attention(6)-4 5. Language(3)-1 6. Abstraction(2)-1 7. Delayed recall(5)-1 8. Orientation(6)- 6 2. Function - ADl./ IADL- Basic ADLs 1. Ambulating: Independent 2. Feeding: independent 3. Dressing: independent 4. Personal hygiene: independent 5. Continence: independent Instrumental ADLs- dependent in 1. Transportation and shopping: spouse 2. Managing finances: spouse 3. Shopping and meal preparation. Sometime he will go to [employer] and flower buncher or picker stuff 4. Housecleaning and home maintenance. Both together 5. Managing communication with others: 6. Managing medications: helps 3. Severity of dementia: FAST score- 4 forget paying bills 4. Decision-making: and patient together make decision 5. Neuropsych symptoms: Sometimes feels but he says not PHQ- 9 Over the last 2 weeks, [...] review and reconciliation: reviewed meds. 7. Safety: No safety concern at home 1. Is the patient still driving? Just to [employer], no major driving. 2. Is the patient taking medications as prescribed? yes 3. Are there concerns about safety in the home? No 4. Has the patient gotten lost in familiar places or wandered? Yes 5. Are firearms present in the home? No 6. Has the patient experienced unsteadiness or sustained falls? No 7. Does the patient live alone? Lives with 8. Caregiver identification and need assessment- , she does not need any help in a 9. Advanced care planning. going to make 1 not on file yet 10. Associated comorbid condition: HTN 11. Disease specific dementia Alzheimer disease 12. Community support: available 13. Return to the clinic in 6 months Care Plan: 1. Neuropsychiatric symptoms-no evidence of depression hallucination delusion 2. Neurocognitive symptoms forgetfulness, attention deficit, mild behavior problem including denial 3. Functional limitations-patient require help cannot live independent 4. Referral to community resources as needed (for example, rehabilitation services, adult day programs, support groups) shared with the patient or caregiver, with initial education and support 1. Major neuro cognitive disorder: In the beginning his symptoms were meeting the diagnostic criteria for mild neuro cognitive impairment but not according , he cannot live by himself and requirehelp for several functioning. Discussed diagnosis. Discussed progression. Patient has completed workup for reversible causes LV is a MRI brain an EEG study. He has normal B12 MMA RPR and TSH. I have discussed medication including disease modifying medication with him and his because ofside effects. No consideration. Discussed importance of exercise and mind diet as most important 2. Currently he is on donepezil 10 mg daily which I recommended to continue. I would like to add Namenda 10 mg daily. Discussed side effects 2. Mild tremor: Patient does have mild feature of parkinsonism which can be seen with dementia or can be a Parkinson disease. Will give a trial of Sinemet, start on 25 mg/100 mg half tablet t.i.d. 3. Continue aspirin 81 mg daily 4. Discussed importance of exercise, weight 150 minutes every week he walks his dog 5. Return to clinic in 6 months 3. COUNSELING& COORDINATION OF CARE: Discussed in [...] st Contact Info) Description 10/13/2024 2:00 PM AIRCRAFT ARMORER Office Visit [facility] Health Neurosciences [address] [place] [address] Misbah Israel MD [address] [place] [address] documented as of this encounter Visit Diagnoses Diagnosis Major neurocognitive disorder (HCC)- Primary Mixed hyperlipidemia Essential hypertension Driving safety issue Other specified personal history presenting hazards to health Small vessel disease (HCC) Peripheral vascular disease, unspecified Change in behavior Unspecified disturbance of conduct documented in this encounter Care Teams Presiding Steward Relationship Specialty Start Date End Date Manish Teran MD [address] [place] [address] PCP - General Family Medicine 12/18/20 documented as of this encounter
--- OUTSIDE RECORDS SUMMARY | 2024-09-07 16:25 | XMS_ITS | Encounter Summary ---
Author Organization [facility] Address [address] [facility] [place] [address] Care Team Providers Care First Press Operator Name Role Phone Manish Teran MD Primary Care Provider [phone] Reason for Visit * Radiology Services (Routine) - Closed Specialty Diagnoses / Procedures Referred By Jada t Referred To Contact Positron Emission Tomography Diagnoses Major neurocognitive disorder (HCC) Procedures PET CT BRAIN ALZHEIMER EVAL PET CT LIMITED AREA Misbah Israel MD [address] [place] [address] [facility] Pet Op [address] [place] [address] Referral ID Status Reason Start Date Expiration Date Visits Re quested Visits Authorized [id number] Closed 04/08/2023 05/08/2023 1 1 Encounter Details Date Type Department Care Team (Latest Contact Info) Description 04/16/2023 1:16 PM CDT - 04/16/2023 11:59 PM CDT Hospital Encounter [facility] PET [address] [place] [address] Misbah Israel MD [address] [place] [address] Discharge Disposition: Home or Self [...] BY MOUTH EVERY DAY 90 tablet 03/05/2021 Cel[employer] Seed citalopram (CeleXA) 10 MG tablet Take 1 (one) tablet by mouth once daily 30 tablet 03/12/2023 meclizine (Antivert) 25 MG tablet TAKE 1 TABLET BY MOUTH THREE TIMES DAILY FOR 10 DAYS NEEDED 02/16/2023 meloxicam (MOBIC) 15 MG tablet Take 1 (one) tablet by mouth once daily 11/21/2020 memantine (Namenda) 10 MG tablet Take 1 (one) tablet by mouth 2 times daily 180 tablet 3 12/26/2022 amLODIPine (NORVASC) 5 MG tablet Take 1 (one) tablet by mouth once daily 02/21/2021 05/16/2024 donepezil (Aricept) 23 MG tablet Take 1 (one) tablet by mouth once daily 90 tablet 2 12/26/2022 09/24/2023 documented as of this encounter Plan of Treatment Upcoming Encounters Date Type Department Care Team (Late st Contact Info) Description 10/13/2024 2:00 PM KILN BURNER Office Visit [facility] Health Neurosciences [address] [facility] [address] [place] [address] Misbah Israel MD [address] [facility] [address] [place] [address] documented as of this encounter Procedures Procedure Name Priority Date/Time Associated Diagnosis Comments PET CT BRAIN ALZHEIMER EVAL Routine 04/16/2023 2:41 PM CDT Major neurocognitive disorder (HCC) documented in this encounter Results * PET CT BRAIN [...] this study. > Dictated by Michael Varela (Mica Washer Gluer) 04/16/2023 2:36 PM I, Santino Irvin MD [...] this study. > Dictated by Michael Varela (Mica Washer Gluer) 04/16/2023 2:36 PM I, Santino Irvin MD have personally reviewed and interpreted this examination/study. > Interpreting Provider: Santino Irvin MD on 04/17/2023 8:41 AM Misbah Israel MD NM ORDERABLES documented in this encounter Visit Diagnoses Not on filedocumented in this encounter Care Teams First Press Operator Relationship Specialty Start Date End Date Manish Teran MD [facility] [place] [address] PCP - General Family Medicine 12/18/20 documented as of this encounter
--- OUTSIDE RECORDS SUMMARY | 2024-09-07 16:25 | XMS_ITS | Encounter Summary ---
Author Organization [facility] Health Address [address] [place] [address] Care Team Providers Care Inverform Machine Operator Name Role Phone Manish Teran MD Primary Care Provider [phone] Encounter Details Date Type Department Care Team (Latest Contact Info) Description 01/21/2021 Travel Social History Tobacco Use Types Packs/Day Years [...] PM CDT documented as of this encounter Plan of Treatment Upcoming Encounters Date Type Department Care Team (Late st Contact Info) Description 10/13/2024 2:00 PM REGISTERED NURSE CARDIAC Office Visit [facility] Health Neurosciences [address] [facility] [address] [place] [address] Misbah Israel MD [address] [facility] [address] [place] [address] documented as of this encounter Visit Diagnoses Not on filedocumented in this encounter Care Teams Inverform Machine Operator Relationship Specialty Start Date End Date Manish Teran MD [address] [place] [address] PCP - General Family Medicine 12/18/20 documented as of this encounter
--- OUTSIDE RECORDS SUMMARY | 2024-09-07 16:25 | XMS_ITS | Encounter Summary ---
Author Organization [facility] Health Address [address] [facility] [place] [address] Care Team Providers Care Charge Nurse Name Role Phone Manish Teran MD Primary Care Provider [phone] Reason for Visit * Reason Comments Refill Request Encounter Details Date Type Department Care Team (Late st Contact Info) Description 09/24/2023 Refill [facility] Neurosciences [address] [facility] [address] [place] [address] Misbah Israel MD [address] [facility] [address] [place] [address] Refill Request Social History Tobacco Use Types [...] encounter Miscellaneous Notes * Telephone Encounter - Viviane Appiah - 09/24/2023 11:26 AM CST donepezil (Aricept) 23 MG tablet Last ov:03/12/23 Next ov:09/25/23 Last refilll:12/26/22 INSPECTOR documented in this encounter Plan of Treatment Upcoming Encounters Date Type Department Care Team (Late Contact Info) Description 10/13/2024 2:00 PM HULL INSPECTOR Office Visit [facility] Health Neurosciences [address] [place] [address] Misbah Israel MD [address] [place] [address] documented as of this encounter Visit Diagnoses Not on filedocumented in this encounter Care Teams Charge Nurse Relationship Specialty Start Date End Date Manish Teran MD [address] [place] [address] PCP - General Family Medicine 12/18/20 documented as of this encounter
--- OUTSIDE RECORDS SUMMARY | 2024-09-07 16:25 | XMS_ITS | Encounter Summary ---
Author Organization [facility] Health Address [address] [place] [address] Care Team Providers Care Log Inspector Name Role Phone Manish Teran MD Primary Care Provider [phone] Reason for Visit * Reason Onset Date Comments MEDICATION REFILL 08/04/2022 Encounter Details Date Type Department Care Team (Late Contact Info) Description 08/04/2022 Refill [facility] [employer] [address] [place] [address] Misbah Israel MD [address] [place] [address] MEDICATION REFILL Social History Tobacco Use Types Packs/Day Years [...] Telephone Encounter - Alison Whitney - 08/04/2022 2:14 PM CST Opened by error AR STARCHER documented in this encounter Plan of Treatment Upcoming Encounters Date Type Department Care Team (Late Contact Info) Description 10/13/2024 2:00 PM COLLAR STARCHER Office Visit [facility] [employer] [address] [place] [address] Misbah Israel MD [address] [place] [address] documented as of this encounter Visit Diagnoses Not on filedocumented in this encounter Care Teams Log Inspector Relationship Specialty Start Date End Date Manish Teran MD [address] [place] [address] PCP - General Family Medicine 12/18/20 documented as of this encounter
--- OUTSIDE RECORDS SUMMARY | 2024-09-07 16:25 | XMS_ITS | Patient Health Summary ---
Author Organization [facility] Address [address] [facility] [address] [place] [address] Care Team Providers Care Pharmacy Analyst Name Role Phone Manish Teran MD Primary Care Provider [phone] Note from [facility],non-owned Affiliates and Associated Physician Practices is amultiple site organization consisting of ambulatory clinics and hospital sitesin [place], [place], [place] and [place]. This disclosure is being madepursuant to the Care Everywhere program and may not contain all information available regarding this patient. Last updated 18.[facility] Allergies No known active allergies Medications * Be aware that medications may not be up to date on this document. Alwaysverify current medications with the patient. * ASPIRIN LOW DOSE 81 MG tablet(Started 04/16/2020) TK 1 T PO QAM * meloxicam (MOBIC) 15 MG tablet(Started 11/21/2020) Take 1 (one) tablet by mouth once daily * atorvastatin (LIPITOR) 20 MG tablet(Started 03/05/2021) TAKE 1 TABLET BY MOUTH EVERY DAY * Celery Seed * memantine (Namenda) 10 MG tablet(Started 12/26/2022) Take 1 (one) tablet by mouth 2 times daily 3 refills by 12/26/2023 * meclizine (Antivert) 25 MG tablet(Started 02/16/2023) TAKE 1 TABLET BY MOUTH THREE TIMES DAILY FOR 10 DAYS NEEDED * citalopram (CeleXA) 10 MG tablet(Started 03/12/2023) Take 1 (one) tablet by mouth once daily * donepezil (Aricept) 23 MG tablet(Started 09/24/2023) TAKE 1 TABLET BY MOUTH EVERY DAY 3 refills by 09/23/2024 * carbidopa-levodopa (Sinemet) 25-100 MG tablet(Started 05/16/2024) Take 1 (one) tablet by mouth 3 times daily 2 refills by 05/16/2025 * amLODIPine (Norvasc) 10 MG tablet(Started 05/16/2024) Take 1 (one) tablet by mouth once daily 4 refills by 05/16/2025 Social History Tobacco Use Types Packs/Day Years [...] Mass Index 16.95 05/16/2024 2:54 PM CDT Procedures * PET CT BRAIN ALZHEIMER EVAL(Performed 04/16/2023) Performed for Major neurocognitive disorder (HCC) * VAS CAROTID DUPLEX BILATERAL(Performed 03/06/2021) Performed for Small vessel stroke (HCC) * LIPID PROFILE(Performed 02/15/2021) Performed for Small vessel stroke (HCC) * EEG(Performed 02/06/2021) Performed for Forgetfulness * MRI BRAIN WO CONTRAST(Performed 02/06/2021) Performed for Forgetfulness * TSH(Performed 12/31/2020) Performed for Forgetfulness * RPR(Performed 12/31/2020) Performed for Forgetfulness * METHYLMALONIC ACID BLOOD(Performed 12/31/2020) Performed for Forgetfulness * VITAMIN B12(Performed 12/31/2020) Performed for Forgetfulness Results * PET CT BRAIN ALZHEIMER EVAL [...] this study. > Dictated by Michael Varela (Extra Gang Supervisor) 04/16/2023 2:36 PM I, Santino Irvin MD [...] this study. > Dictated by Michael Varela (Extra Gang Supervisor) 04/16/2023 2:36 PM I, Santino Irvin MD have personally reviewed and interpreted this examination/study. > Interpreting Provider: Santino Irvin MD on 04/17/2023 8:41 AM Misbah Israel MD NM ORDERABLES * VAS CAROTID DUPLEX BILATERAL (03/06/2021 9:30 AM CDT) Anatomical Region Laterality Modality Neck Echo 03/06/2021 8:37 AM CDT Narrative Procedure Note Dawood Lynch MD - 03/22/2021 [place] [address] [facility]. [address] [place] [address] [facility]heart Carotid Ultrasound Report Pat.Name: FREDERICK ALANIZ Robyn.ID: [id number] St.Date: 03/06/2021 Exam Time: 8:37:00 AM Study Type:Carotid Age: 8 1950,70Y Sex: MALE Sonogrphr: Phyllis Boyer RDCS, RVT CPT - 4: 06002 Reason for Study: small vessel stroke History / Clinical: forgetfulness Procedures: Carotid Duplex - Bilateral Visit ID: [id number] ++++++++++++++++++++++++++++++++++++ SUMMARY: ++++++++++++++++++++++++++++++++++++ No evidence of hemodynamically [...] Misbah Israel MD VASCULAR LAB ORDERAB LES * LIPID PROFILE (02/15/2021 9:20 AM CDT) [facility] Signature Cholesterol 141 <200 mg/dL [facility] INSURANCE BILL Triglycerides 60 <150 mg/dL [facility] INSURANCE BILL HDL Cholesterol 49 >40 mg/dL [facility] INSURANCE BILL VLDL Calculated 12 <=30 mg/dL [facility] INSURANCE BILL LDL Calculated 80 <130 mg/dL [facility] INSURANCE BILL Blood BLOOD SPECIMEN / Unknown 02/15/2021 9:20 AM CDT 02/15/2021 Narrative Resulting Agency Comment Lab Testing performed at: [facility] [address] [place] [address] ??[facility] [id number] Misbah Israel MD LAB - CHEMISTRY [facility] INSURANCE BILL [address] [place] [address] * EEG (02/06/2021 11:59 PM CDT) Narrative [facility] - 02/06/2021 11:59 PM CDT Misbah Israel MD ? 02/07/2021 ??5:16 PM [facility] EMG/EEG [address] [place] [id number] Electroencephalogram Frederick Alaniz Routine EEG with Video EEG was recorded in standard multichannel format. Electrode placement was as per the 10/20 system of Electrode placement. The record was reviewed in its entirety, utilizing both bipolar and referential montages. The quality of the recording is good. Indication: ??forgetfulness Current Outpatient Medications Medication ? ? ASPIRIN LOW DOSE 81 MG tablet ? ? donepezil (ARICEPT) 5 MG tablet ? ? meloxicam (MOBIC) 15 MG tablet ? ? metoprolol succinate XL 24hr (TOPROL XL) 25 MG tablet No current facility-administered medications for this encounter. Summary: 1. ??Background - 7 hz theta , medium amplitude, sym 2. ??Posterior dominant rhythm- absent 3. ??Sleep and drowsiness- stage I 4. ??Activation procedure including photic stimulation and hyperventilation - ??PS WNL 5. ??EKG showed sinus rhythm. Abnormality: 1. ??No evidence of epileptiform discharges, electrographic seizures 2. ??No evidence of triphasic waves Comments: EEG ??Abnormal ??With mild global slowing which is non specific. EEG diagnosis Mild Encephalopathy. Misbah PITTS,,DM,FAAN,FAHS,FAANEM NSI, [facility] T [phone] Misbah Israel MD NEUROLOGY ORDERABLES [facility] MEDQU[facility] * MRI BRAIN WO CONTRAST (02/06/2021 10:12 [...] 11:05 AM Misbah Israel MD MR ORDERABLES * RPR (12/31/2020 4:20 PM CDT) RPR Non Reactive Non Reactive [facility] INSURANCE BILL Comment:FASTING Blood BLOOD SPECIMEN / Unknown 12/31/2020 4:20 PM CDT 12/31/2020 Narrative Resulting Agency Comment Lab Testing performed at: [address] ??[facility] [id number] Misbah Israel MD LAB - CHEMISTRY TIRSO HAZEL Performing Organization Address [facility] Co de Phone Number [facility] INSURANCE BILL [address] [place] [address] * METHYLMALONIC ACID BLOOD (12/31/2020 4:20 PM CDT) Methylmalonic Acid 156 0 - 378 nmol/L [facility] INSURANCE BILL Disclaimer [facility] INSURANCE BILL Comment: This test was developed and its performance characteristics determined by [facility]. It has not been cleared or approved by the Food and Drug Administration. FASTING Blood BLOOD SPECIMEN / Unknown 12/31/2020 4:20 PM CDT 12/31/2020 Narrative Resulting Agency Comment Lab Testing performed at: [address] ??[facility] [id number] Misbah Israel MD LAB - CHEMISTRY TIRSO HAZEL Performing Organization Address City/[facility]/ZIP Co de Phone Number [facility] INSURANCE BILL [address] [place] [address] * VITAMIN B12 (12/31/2020 4:20 PM CDT) Vitamin B12 314 213 - 816 pg/mL [facility] INSURANCE BILL Comment: FASTING Blood BLOOD SPECIMEN / Unknown 12/31/2020 4:20 PM CDT 12/31/2020 Narrative Resulting Agency Comment Lab Testing performed at: [address] ??[facility] [phone] Misbah Israel MD LAB - CHEMISTRY TIRSO HAZEL [facility] INSURANCE BILL [address] [place] [address] * TSH (12/31/2020 4:20 PM CDT) TSH 2.1843 0.35 - 4.94 uIU/mL [facility] INSURANCE BILL Comment: FASTING Blood BLOOD SPECIMEN / Unknown 12/31/2020 4:20 PM CDT 12/31/2020 Narrative Resulting Agency Comment Lab Testing performed at: [address] ??[facility] [id number] Misbah Israel MD LAB - CHEMISTRY TIRSO HAZEL [facility] INSURANCE BILL [address] [place] [address] Care Teams Pharmacy Analyst Relationship Specialty Start Date End Date Manish Teran MD [address] [place] [address] PCP - General Family Medicine 12/18/20
--- OUTSIDE RECORDS SUMMARY | 2024-09-07 16:25 | XMS_ITS | Referral Summary ---
Author Organization [facility] Address [address] [place] [address] Care Team Providers Care Medical Imaging Technician Name Role Phone Glen Heart MD Primary Care Provider [phone] Encounters Date Type Department Care Team Description 08/29/[address] [facility] Home Care Services [address] [place] [phone] Referring, MD Ronak 08/26/[address] [facility] Home Care Services [address] [place] [phone] Ana Jovel 08/25/[address] [facility] Home Care Services [address] [place] [phone] Unknown, Notinfile 07/13/2024 7:31 PM CONTRACTS DIRECTOR - 07/13/2024 11:59 PM CONTRACTS DIRECTOR Hospital Encounter [address] [address] Alzheimer's disease (HCC); Anemia, unspecified; Hyperlipemia; Senile dementia, uncomplicated (HCC); Essential hypertension, malignant; Debility; Screening for malnutrition; Family history of diabetes mellitus; Special screening for malignant neoplasm of prostate; Avitaminosis D Discharge Disposition: Discharge to home or self care 07/13/2024 12:30 PM CONTRACTS DIRECTOR Lab [facility] Outpatient Lab at [address] [address] Alzheimer's disease (HCC) (Primary Dx); [...] Orientation Not on file Plan of Treatment Not on file Procedures Procedure Name Priority Date/Time Associated Diagnosis Comments URINALYSIS, MICROSCOPIC ONLY Routine 07/13/2024 12:43 PM CONTRACTS DIRECTOR Alzheimer's disease (HCC) Anemia, unspecified Hyperlipemia Senile dementia, uncomplicated (HCC) Essential hypertension, malignant Debility Screening for malnutrition Family history of diabetes mellitus Special screening for malignant neoplasm of prostate Avitaminosis D EGFR Routine 07/13/2024 12:43 PM CONTRACTS DIRECTOR Alzheimer's disease (HCC) Anemia, unspecified Hyperlipemia Senile dementia, uncomplicated (HCC) Essential hypertension, malignant Debility Screening for malnutrition Family history of diabetes mellitus Special screening for malignant neoplasm of prostate Avitaminosis D DIFFERENTIAL AUTO Routine 07/13/2024 12: 43 PM CONTRACTS DIRECTOR Alzheimer's disease (HCC) Anemia, unspecified Hyperlipemia Senile dementia, uncomplicated (HCC) Essential hypertension, malignant Debility Screening for malnutrition Family history of diabetes mellitus Special screening for malignant neoplasm of prostate Avitaminosis D COMPREHENSIVE METABOLIC PANEL Routine 07/13/2024 12:43 PM CONTRACTS DIRECTOR Alzheimer's disease (HCC) Anemia, unspecified Hyperlipemia Senile dementia, uncomplicated (HCC) Essential hypertension, malignant Debility Screening for malnutrition Family history of diabetes mellitus Special screening for malignant neoplasm of prostate Avitaminosis D CBC WITH AUTO DIFFERENTIAL Routine 07/13/2024 12:43 PM CONTRACTS DIRECTOR Alzheimer's disease (HCC) Anemia, unspecified Hyperlipemia Senile dementia, uncomplicated (HCC) Essential hypertension, malignant Debility Screening for malnutrition Family history of diabetes mellitus Special screening for malignant neoplasm of prostate Avitaminosis D LIPID PANEL Routine 07/13/2024 12:43 PM CONTRACTS DIRECTOR Alzheimer's disease (HCC) Anemia, unspecified Hyperlipemia Senile dementia, uncomplicated (HCC) Essential hypertension, malignant Debility Screening for malnutrition Family history of diabetes mellitus Special screening for malignant neoplasm of prostate Avitaminosis D TSH Routine 07/13/2024 12:43 PM CONTRACTS DIRECTOR Alzheimer's disease (HCC) Anemia, unspecified Hyperlipemia Senile dementia, uncomplicated (HCC) Essential hypertension, malignant Debility Screening for malnutrition Family history of diabetes mellitus Special screening for malignant neoplasm of prostate Avitaminosis D PSA DIAGNOSTIC Routine 07/13/2024 12:43 PM CONTRACTS DIRECTOR Alzheimer's disease (HCC) Anemia, unspecified Hyperlipemia Senile dementia, uncomplicated (HCC) Essential hypertension, malignant Debility Screening for malnutrition Family history of diabetes mellitus Special screening for malignant neoplasm of prostate Avitaminosis D VITAMIN B12 Routine 07/13/2024 12:43 PM CONTRACTS DIRECTOR Alzheimer's disease (HCC) Anemia, unspecified Hyperlipemia Senile dementia, uncomplicated (HCC) Essential hypertension, malignant Debility Screening for malnutrition Family history of diabetes mellitus Special screening for malignant neoplasm of prostate Avitaminosis D FOLATE Routine 07/13/2024 12:43 PM CONTRACTS DIRECTOR Alzheimer's disease (HCC) Anemia, unspecified Hyperlipemia Senile dementia, uncomplicated (HCC) Essential hypertension, malignant Debility Screening for malnutrition Family history of diabetes mellitus Special screening for malignant neoplasm of prostate Avitaminosis D VITAMIN D 25 HYDROXY Routine 07/13/2024 12:43 PM CONTRACTS DIRECTOR Alzheimer's disease (HCC) Anemia, unspecified Hyperlipemia Senile dementia, uncomplicated (HCC) Essential hypertension, malignant Debility Screening for malnutrition Family history of diabetes mellitus Special screening for malignant neoplasm of prostate Avitaminosis D IRON PROFILE W/ IBC Routine 07/13/2024 1 2:43 PM CONTRACTS DIRECTOR Alzheimer's disease (HCC) Anemia, unspecified Hyperlipemia Senile dementia, uncomplicated (HCC) Essential hypertension, malignant Debility Screening for malnutrition Family history of diabetes mellitus Special screening for malignant neoplasm of prostate Avitaminosis D HEMOGLOBIN A1C Routine 07/13/2024 12:43 PM CONTRACTS DIRECTOR Alzheimer's disease (HCC) Anemia, unspecified Hyperlipemia Senile dementia, uncomplicated (HCC) Essential hypertension, malignant Debility Screening for malnutrition Family history of diabetes mellitus Special screening for malignant neoplasm of prostate Avitaminosis D URINE CULTURE Routine 07/13/2024 12:43 PM CONTRACTS DIRECTOR URINALYSIS AND REFLEX TO MICROSCOPIC AND CULTURE Routine 07/13/2024 12:43 PM CONTRACTS DIRECTOR Alzheimer's disease (HCC) Anemia, unspecified Hyperlipemia Senile dementia, uncomplicated (HCC) Essential hypertension, malignant Debility Screening for malnutrition Family history of diabetes mellitus Special screening for malignant neoplasm of prostate Avitaminosis D from Last 3 Months Results * (ABNORMAL) eGFR (07/13/2024 12:43 PM CONTRACTS DIRECTOR) eGFR 47(L) >=60 mL/min/1. 73 m2 Comment: [...] reviewed 2021. Blood 07/13/2024 12:4 3 PM CONTRACTS DIRECTOR 07/13/2024 8:19 PM CONTRACTS DIRECTOR us Alison Diaz RADIOLOGICAL TECHNICIAN LAB BLOOD ORDERABLES Final R esult [facility] [id number] [place] [address] * Differential, auto (07/13/2024 12:43 PM CONTRACTS DIRECTOR) Neutrophil abs 2.0 1.5 - 6.5 K/cumm Imm gran abs 0.0 0.0 - 0.1 K/cumm [facility] Lymphocyte abs 1.3 0.8 - 3.3 K/cumm [facility] Monocyte abs 0.4 0.2 - 0.8 K/cumm [facility] Eosinophil abs 0.1 0.0 - 0.5 K/cumm [facility] Basophil abs 0.0 0.0 - 0.1 K/cumm [facility] Neutrophil pct 53.2 % [facility] Comment: Interpretive Data Percent cell count reference ranges are not reported, since discordance with absolute values may lead to misinterpretation of CBC data. Current Interpretive Data was last revised on 2017. Imm gran pct 0.0 % [facility] Comment: Interpretive Data Percent cell count reference ranges are not reported, since discordance with absolute values may lead to misinterpretation of CBC data. Current Interpretive Data was last revised on 2017. Lymphocyte pct 34.9 % [facility] Comment: Interpretive Data Percent cell count reference ranges are not reported, since discordance with absolute values may lead to misinterpretation of CBC data. Current Interpretive Data was last revised on 2017. Monocyte pct 9.8 % [facility] Comment: Interpretive Data Percent cell count reference ranges are not reported, since discordance with absolute values may lead to misinterpretation of CBC data. Current Interpretive Data was last revised on 2017. Eosinophil pct 1.6 % [facility] Comment: Interpretive Data Percent cell count reference ranges are not reported, since discordance with absolute values may lead to misinterpretation of CBC data. Current Interpretive Data was last revised on 2017. Basophil pct 0.5 % [facility] Comment: Interpretive Data Percent cell count reference ranges are not reported, since discordance with absolute values may lead to misinterpretation of CBC data. Current Interpretive Data was last revised on 2017. Blood 07/13/2024 12:4 3 PM CONTRACTS DIRECTOR 07/13/2024 8:02 PM CONTRACTS DIRECTOR Alison Diaz RADIOLOGICAL TECHNICIAN LAB BLOOD ORDERABLES Final R [facility] Performing Organization Address [facility] de Phone Number [facility] [phone] [place] [address] * (ABNORMAL) Iron profile w/ IBC (07/13/2024 12:43 PM CONTRACTS DIRECTOR) Pathologist [facility] Iron 72 50 - 150 mcg/dl TIBC 198(L) 250 - 400 mcg/dL [facility] Transferrin saturation 36 20 - 50 % [facility] Blood 07/13/2024 12:4 3 PM CONTRACTS DIRECTOR 07/13/2024 8:02 PM CONTRACTS DIRECTOR Narrative [facility] - 07/13/2024 9:08 PM CONTRACTS DIRECTOR Fax results to Dr Alison Diaz [phone] Alison Diaz RADIOLOGICAL TECHNICIAN LAB BLOOD ORDERABLES Final R [facility] Performing Organization Address [facility] de Phone Number [facility] [phone] [place] [address] * (ABNORMAL) Urinalysis reflex to microscopic and culture Urine, clean voided (07/13/2024 12:43 PM CONTRACTS DIRECTOR) Color, ur Yellow Yellow Clarity, ur Turbid(A) Clear [facility] Specific gravity, ur 1.016 1.003 - 1.030 [facility] pH, urine 5.5 [facility] Comment: Interpretive Data ? Urine pH is affected by diet, medications, systemic acid-base disturbances, and renal tubular function. ??pH may affect urinary stone formation. ??For example, urine pH below 6.0 may help reduce the tendency for calcium phosphate stones and pH greater than 6.0 may reduce the tendency for uric acid stone formation. Source: [facility] Current Interpretive Data was last revised on [...] [facility] Urine, clean voided 07/13/2024 12:43 PM CONTRACTS DIRECTOR 07/13/2024 8:02 PM CONTRACTS DIRECTOR Narrative [facility] - 07/13/2024 9:17 PM CONTRACTS DIRECTOR Fax results to Dr Alison Diaz [phone] Alison Diaz RADIOLOGICAL TECHNICIAN LAB MICROBIOLOGY - GENERAL O RDERABLES Final Result [facility] [phone] Department [place] [address] * (ABNORMAL) CBC with auto differential (07/13/2024 12:43 PM CONTRACTS DIRECTOR) WBC 3.8 3.8 - 9.9 K/cumm Hgb 12.7(L) 13.0 - 17.5 g/dL C[facility] CH Hct 37.6(L) 38.9 - 50.3 % CERNER Plt 245 150 - 400 K/cumm C[facility] CH MPV 10.2 9.1 - 12.3 fL CERNER RBC 4.60 4.30 - 5.80 M/cumm [facility] CH MCV 81.7 81.3 - 96.4 fL CERNER MCH 27.6 27.1 - 33.3 pg CERNER CH MCHC 33.8 32.3 - 35.7 g/dL CERNER CH RDW CV 15.9(H) 11.1 - 14.9 % CERNER CH RDW SD 47.5 35.7 - 48.1 fL [facility] CH NRBC abs 0.00 0.00 - 0.01 K/cumm [facility] Blood 07/13/2024 12:4 3 PM CONTRACTS DIRECTOR 07/13/2024 8:02 PM CONTRACTS DIRECTOR Narrative [facility] - 07/13/2024 8:28 PM CONTRACTS DIRECTOR Fax results to Dr Alison Diaz [phone] Alison Diaz NP LAB BLOOD ORDERABLES Final R esult Performing Organization Address [facility]/ZIP Co de Phone Number LEE ROACH [address] [address] [facility] [place] [address] * Vitamin D 25 hydroxy (07/13/2024 12:43 PM CONTRACTS DIRECTOR) Vitamin D 25-OH 56 30 - 80 ng/mL Blood 07/13/2024 12:4 3 PM CONTRACTS DIRECTOR 07/13/2024 8:02 PM CONTRACTS DIRECTOR Narrative [facility] - 07/13/2024 8:56 PM CONTRACTS DIRECTOR Fax results to Dr Alison Diaz [phone] Alison Diaz NP LAB BLOOD ORDERABLES Final R esult Performing Organization Address [facility] de Phone Number LEE ROACH [phone] [address] [facility] [place] [address] * (ABNORMAL) Urinalysis, microscopic only (07/13/2024 12:43 PM CONTRACTS DIRECTOR) WBC, ur 21-50(A) 0 - 5 /HPF RBC, ur 3-5(A) 0 - 2 /HPF [facility] Epithelial cells, squamous, ur 1-5 0 - 5 /HPF [facility] Bacteria, ur Trace(A) [facility] Mucous, ur Present(A) [facility] Hyaline casts, ur 6-10 0 - 10 /LPF [facility] Culture Reflex Comment Reflex to urine culture will be performed. [facility] Urine, clean voided 07/13/2024 12:43 PM CONTRACTS DIRECTOR 07/13/2024 8:02 PM CONTRACTS DIRECTOR Alison Diaz RADIOLOGICAL TECHNICIAN LAB URINE ORDERABLES Final R esult Performing Organization Address [facility]/ZIP Co de Phone Number LEE ROACH [phone] [place] [address] * Urine culture Urine, clean voided (07/13/2024 12:43 PM CONTRACTS DIRECTOR) Report Final Report: Less than 100,000 colonies/mL (clinically insignificant growth based on current clinical standards) Comment:Testing performed by : [facility], [address] [place]., [address] Organism (CLINICALLY INSIGNIFICANT GROWTH [facility] Urine, clean voided 07/13/2024 12:43 PM CONTRACTS DIRECTOR 07/14/2024 3:27 AM CONTRACTS DIRECTOR Narrative LEE - 07/15/2024 7:02 AM CONTRACTS DIRECTOR Urine culture reflexed based upon urinalysis results. Testing performed by [facility] ([phone]) us Alison Diaz NP LAB MICROBIOLOGY - GENERAL O RDERABLES Final Result Performing Organization Address [facility] Co de Phone Number OSEASJED ROACH [phone] [place] [address] * TSH (07/13/2024 12:43 PM CONTRACTS DIRECTOR) Pathologist [facility] Thyroid Stimulating Hormone 3.07 0.30 - 4.20 mcIUnit/mL Blood (Blood, Venous) 07/13/2024 12:43 PM CONTRACTS DIRECTOR 07/13/2024 8:02 PM CONTRACTS DIRECTOR Narrative LEE - 07/13/2024 9:08 PM CONTRACTS DIRECTOR Fax results to Dr Alison Diaz [phone] us Alison Diaz NP LAB BLOOD ORDERABLES Final R esult Performing Organization Address [facility]/ZIP Co de Phone Number LEE ROACH [phone] [address] [place] [address] * PSA diagnostic (07/13/2024 12:43 PM CONTRACTS DIRECTOR) Pathologist [facility] PSA-Total 1.14 <=6.20 ng/mL Comment: Interpretive Data [...] 22. Blood (Blood, Venous) 07/13/2024 12:43 PM CONTRACTS DIRECTOR 07/13/2024 8:02 PM CONTRACTS DIRECTOR Narrative LEE ROACH - 07/13/2024 9:08 PM CONTRACTS DIRECTOR Fax results to Dr Alison Diaz [phone] Alison Diaz RADIOLOGICAL TECHNICIAN LAB BLOOD ORDERABLES Final R esult LEE [address] [address] [place] [address] * Hemoglobin A1c (07/13/2024 12:43 PM CONTRACTS DIRECTOR) Hgb A1C 5.6 4.0 - 5.6 % Estimated Average Glucose 114 mg/dL LEE ROACH Comment: The ADA recommends reporting an estimated Average Glucose (eAG) with all Hemoglobin A1c results using the equation derived from a study of 507 normal and diabetic adults. ??Minority populations were underrepresented and children were not included. ?? (Diabetes Care 31:5830-6090, 2008). ??The eAG is not equivalent to a fasting glucose. Blood (Blood, Venous) 07/13/2024 12:43 PM CONTRACTS DIRECTOR 07/13/2024 8:02 PM CONTRACTS DIRECTOR Narrative [facility] - 07/13/2024 8:47 PM CONTRACTS DIRECTOR Fax results to Dr Alison Diaz [phone] Alison Diaz RADIOLOGICAL TECHNICIAN LAB BLOOD ORDERABLES Final R esult Performing Organization Address [facility] Co de Phone Number LEE ROACH [phone] [address] [facility] [place] [address] * Folate (07/13/2024 12:43 PM CONTRACTS DIRECTOR) Folic acid >20.0 >=5.0 ng/mL Comment:Hemolysis present. R esults may be affected. Blood 07/13/2024 12:4 3 PM CONTRACTS DIRECTOR 07/13/2024 8:02 PM CONTRACTS DIRECTOR Narrative LEE - 07/13/2024 9:08 PM CONTRACTS DIRECTOR Fax results to Dr Alison Diaz [phone] Alison Diaz RADIOLOGICAL TECHNICIAN LAB BLOOD ORDERABLES Final R esult Performing Organization Address [facility] Co de Phone Number OSEASJED ROACH [phone] [address] [facility] [place] [address] * Vitamin B12 (07/13/2024 12:43 PM CONTRACTS DIRECTOR) Pathologist [facility] Vitamin B12 768 230 - 1,250 pg/mL Blood (Blood, Venous) 07/13/2024 12:43 PM CONTRACTS DIRECTOR 07/13/2024 8:02 PM CONTRACTS DIRECTOR Narrative [facility] - 07/13/2024 9:08 PM CONTRACTS DIRECTOR Fax results to Dr Alison Diaz [phone] Alison Diaz RADIOLOGICAL TECHNICIAN LAB BLOOD ORDERABLES Final R esult Performing Organization Address City/[facility]/ZIP Co de Phone Number LEE ROACH [phone] [address] [facility] [place] [address] * Lipid panel (07/13/2024 12:43 PM CONTRACTS DIRECTOR) [facility] Signature Cholesterol 176 30 - 199 mg/dL Comment: [...] revised on 2018. Triglycerides 64 <=149 mg/dL LEE ROACH Comment: Interpretive Data Ages < or = [...] on 2018. HDL 72 >=40 mg/dL LEE ROACH Comment: Interpretive Data Ages < or = [...] 2018. LDL, calculated 92 <=129 mg/dL LEE ROACH Comment: Interpretive Data Ages < or = 19 years ??Acceptable: ? <110 mg/dL ??Borderline high: ??110-129 mg/dL ??High: ?>or= 130 mg/dL Ages > or = 20 years ??Optimal: ? <100 mg/dL ??Near optimal: ?100-129 mg/dL ??Borderline high: ?? 130-159 mg/dL ??High: ?>160 mg/dL Calculated using the Jared LDL-C estimating equation. This equation was implemented on 2024. Prior to this date LDL-C was estimated using the Friedewald equation. Literature References: 1. Expert Panel on Integrated Guidelines for Cardiovascular Health and Risk Reduction in Children and Adolescents. Pediatrics 2011;128:S213 2. NCEP Expert Panel. Circulation 2004;110:227 3. Jared Gutierrez et al. BENI Cardiol. 2020 December 29;5(5):540-548. doi: 10.1001/jamacardio.2020.0013 Current Interpretive Data was last revised on 2024. Non-HDL Cholesterol 104 mg/dL LEE ROACH Comment: Interpretive Data Ages < or = [...] CH Blood (Blood, Venous) 07/13/2024 12:43 PM CONTRACTS DIRECTOR 07/13/2024 8:02 PM CONTRACTS DIRECTOR Narrative [facility] - 07/13/2024 9:08 PM CONTRACTS DIRECTOR Fax results to Dr Alison Diaz [phone] Alison Diaz RADIOLOGICAL TECHNICIAN LAB BLOOD ORDERABLES Final R esult [facility] [address] [address] [place] [address] * (ABNORMAL) Comprehensive metabolic panel (07/13/2024 12:43 PM CONTRACTS DIRECTOR) Sodium 140 135 - 145 mmol/L Potassium, [...] CH Blood (Blood, Venous) 07/13/2024 12:43 PM CONTRACTS DIRECTOR 07/13/2024 8:02 PM CONTRACTS DIRECTOR Narrative [facility] - 07/13/2024 9:08 PM CONTRACTS DIRECTOR Fax results to Dr Alison Diaz [phone] Alison Diaz RADIOLOGICAL TECHNICIAN LAB BLOOD ORDERABLES Final R esult [facility] [address] [address] [place] [address] from Last 3 Months Insurance MEDICARE [facility] MEDICARE O Care Teams Medical Imaging Technician Relationship Specialty Start Date End Date Glen Heart MD [address] [place] [address] PCP - General 04/23/17
--- OUTSIDE RECORDS SUMMARY | 2024-09-07 16:25 | XMS_ITS | Encounter Summary ---
Author Organization [facility] Health Address [address] [facility] [facility] [place] [address] Care Team Providers Care Visor Installer Name Role Phone Manish Teran MD Primary Care Provider Encounter Details Date Type Department Care Team (Late st Contact Info) Description 09/25/2023 11:20 AM PUTTY MAKER Office Visit [facility] [address] [place] [address] Misbah Israel MD [address] [facility] [address] [place], [place] [id number] Major neurocognitive disorder (HCC) (Primary Dx); Small vessel disease (HCC); Severe hypertension Social [...] Sign Reading Time Taken Comments Blood Pressure 203/91 09/25/2023 11:19 AM PUTTY MAKER checked mannually 170/100 Pulse 72 09/25/2023 11:19 AM PUTTY MAKER Temperature - - Respiratory Rate - - Oxygen Saturation - - Inhaled Oxygen Concentration - - Weight 55.3 kg (122 lb) 09/25/2023 11:1 9 AM PUTTY MAKER Height 182.9 cm (6') 09/25/2023 11:19 AM PUTTY MAKER Body Mass Index 16.55 09/25/2023 11:19 AM PUTTY MAKER documented in this encounter Patient Instructions * Patient Instructions* Misbah Israel MD - 09/25/2023 11:55 AM PUTTY MAKER 1. Donepezil 23 mg qD 2. Namenda 10 mg bid. 3. ASA 81 mg qD 4. BP control goal 120/80 6. MIND diet 7. Sinemet 25/100 mg 1/5 tab tid x 1 week then 1 tab tid , update in 2 weeks RTC 6M [facility] Y MAKER documented in this encounter Progress Notes * Misbah Israel MD - 09/25/2023 11:42 AM CST Images from the original note were not included. HISTORY 1.Chief Complaint: Forgetfulness, accompanied with Lorrie Andrew- spouse, independent historian, present at bed side Highest education high school+ 2.HPI: This is a 72-year-old gentleman who [...] thinking to be alive Decline in memory+++ 09/25/23. biannual neurocog assmt Came with Appetite good but food has to be in front He can lane oat meal No going out He is embarrassed about shakiness He has been tried on sinemet and stopped taking because of dizziness BP is high Wanted POA custodial memory good No falls No visual hallucinations 3. Past History (Past Medical,Family&Social history): Past [...] 20 MG tablet ??? Celery Seed ??? citalopram (CeleXA) 10 MG tablet ??? donepezil (Aricept) 23 MG tablet ??? meclizine (Antivert) 25 MG tablet ??? meloxicam (MOBIC) 15 MG tablet ??? memantine (Namenda) 10 MG tablet No current facility-administered medications for this visit. EXAMINATION: BP (!) 203/91 Comment: checked mannually 170/100 Pulse 72 Ht 1.829 m (6') Wt 55.3 kg (122 lb) Gen EXAM GEN : Reveals a pleasant patient in no acute distress. Vitals: Reviewed and documented in Power Chart. Eye: Ophthalmologic examination of optic disc and Posterior segments are normal. Skin : Warm and moist, no rash. Cardiovascular system examination revealed normal peripheral pulses and normal carotids. Affect: Normal. Neurologic examination Cranial Nerves: Cranial examination 1-12 revealed no evidence of gaze palsy Decreased facial expression Motor exam reveals strength 5/5 in both upper lower extremity Rigidity present in both upper extremity No significant tremors Tendon reflexes are 2+ and symmetric without hyperreflexia Coordination slow in both upper lower extremity Normal touch in upper lower extremity Can ambulate but slow, shuffling MEDICAL DECISION MAKING 1. DATA REVIEW: I independently reviewed the electronic medical informations including notes, images and labs available in system summarized in assessment and plan. , Recent Labs Component Name 02/15/21 0920 CHOL 141 TRIG 60 HDL 49 LDLCALC 80 Recent Labs Component Name 12/31/20 1620 [id number] 2. ASSESSMENT AND PLAN: ICD-10-CM 1. Major neurocognitive disorder ([facility]) F03.90 2. Small vessel disease ([facility]) I73.9 3. Severe hypertension I10 1. Cognitive: I performed the Johnny cognitive assessment score which is described above . [place] cognitive assessment testing(30)-18 1. Visual special(2)-0 2. Clock drawing(3)-0 3. Naming(3)-2 4. Attention(6)-4 5. Language(3)-2 6. Abstraction(2)-2 7. Delayed recall(5)-3 8. Orientation(6)- 5 2. Function - ADl./ IADL- Basic ADLs 1. Ambulating: Independent 2. Feeding: can feed if served 3. Dressing: slow mild help 4. Personal hygiene:help reminder 5. Continence:continent Instrumental ADLs- dependent in 1. Transportation and shopping: Lorrie does 2. Managing finances: Lorrie does 3. Shopping and meal preparation. Lorrie does 4. Housecleaning and home maintenance. Both together 5. Managing communication with others: Does not write, can make calls 6. Managing medications: Supervised pill box 3. Severity of dementia: FAST score- 4 forgets bills to pay, no progression 4. Decision-making: and patient together make decision [...] home 1. Is the patient still driving? Does not 2. Is the patient taking medications as prescribed? supervise 3. Are there concerns about safety in the home? No 4. Has the patient gotten lost in familiar places or wandered? No 5. Are firearms present in the home? No 6. Has the patient experienced unsteadiness or sustained falls? no 7. Does the patient live alone? Lives with lorrie , no change 8. Caregiver identification and need assessment- Lorrie, daughters and father, grand sons andson in law, no help is a nurse took care of PD 9. Advanced care planning. Provided papers 10. Associated comorbid condition: HTN 11. Disease specific dementia Alzheimer disease /PPS 12. Community support: available 13. Return to the clinic in 6 months Care Plan: 1. Neuropsychiatric symptoms- none 2. Neurocognitive symptoms- memory, attention, visio spatials clock draw 3. Functional limitations- some help able to manage 4. Referral to community resources as needed (for example, rehabilitation services, adult day programs, support groups) shared with the patient or caregiver, with initial education and support- family Recommendations- 1. Donepezil 23 mg qD 2. Namenda 10 mg bid. 3. ASA 81 mg qD 4. BP control goal 120/80 6. MIND diet 7. Sinemet 25/100 mg 1/5 tab tid x 1 week then 1 tab tid , update in 2 weeks RTC 6M MoCA His cognitive functions are preserved. He has generalized parkinsonian feature including decreased facial expression, decreased blink, rigidity, parkinsonian gait. In the past I have recommended to try Sinemet give a prescription, it tookfor few days then stopped because he was feeling dizzy. Looking back in the history his cognitive and behavioral symptoms started 1st before motor symptoms. His cognitive functions are stable Parkinson disease presents with motor symptoms, symmetric, non motor cognitive symptoms are late usually take few years up to 5 years. In his case the cognitive symptoms were 1st present. His PET scan is negative for Alzheimer's His blood pressure is elevated, says because of anxiety and white coat hypertension, but I strongly recommend to monitor at home with such a high blood pressure of 203/91 he is at risk of havingstroke. I explained that I send patient to the ER with this high blood pressure She is going to monitor blood pressure at home if not better will take to the ER She will give a trial of Sinemet and call my office with the response. If needed I will seen between Meanwhile continue donepezil, Namenda along with aspirin. Continue with mind diet. This is high complexity of decision making because of unconfirmed diagnosis, he does have evidence of cognitive impairment but also have features of parkinsonism. He does not fit into Parkinson disease. He does not have typical feature of Parkinson plus syndrome without involvement of other long tracts. He also has been boxer in the past, parkinsonism has been reported in boxer's. He also worked with acetylene fumes in the steel industry There are evidence of association between boxing as well as welding. Discussed diet. 3. COUNSELING& COORDINATION OF CARE: Discussed in [...] answered- verbalized understanding the content of discussion. Y MAKER documented in this encounter Plan of Treatment Upcoming Encounters Date Type Department Care Team (Late st Contact Info) Description 10/13/2024 2:00 PM PUTTY MAKER Office Visit [facility] [address] [place], [place] [id number] Misbah Israel MD [address] [place] [address] documented as of this encounter Visit Diagnoses Diagnosis Major neurocognitive disorder (HCC)- Primary Small vessel disease (HCC) Peripheral vascular disease, unspecified Severe hypertension Unspecified essential hypertension documented in this encounter Care Teams Visor Installer Relationship Specialty Start Date End Date Manish Teran MD [address] [place] [address] PCP - General Family Medicine 12/18/20 documented as of this encounter
--- OUTSIDE RECORDS SUMMARY | 2024-09-07 16:25 | XMS_ITS | Encounter Summary ---
Author Organization [facility] Health Address [address] [place] [address] Care Team Providers Care Biology Faculty Member Name Role Phone Manish Teran MD Primary Care Provider [phone] Reason for Visit * Reason Onset Date Comments Results 02/07/2021 Encounter Details Date Type Department Care Team (Late st Contact Info) Description 02/07/2021 Telephone [facility] [address] [facility] [address] [place] [address] Misbah Israel MD [address] [facility] [address] [place], [place] [phone] Results Social History Tobacco Use Types Packs/Day [...] encounter Miscellaneous Notes * Telephone Encounter - Mary Corona - 02/07/2021 8:39 AM CDT Called patient spoke with spouse to give test results, She expressed understanding. FU scheduled 02/15/2021 * Telephone Encounter - MayrajacquieMary - 02/07/2021 8:38 AM CDT ----- Message from Misbah Israel MD sent at 02/06/2021 2:26 PM CDT ----- I reviewed the results of MRI which is abnormal. Please make a follow-up in in 1 week to discuss. documented in this encounter Plan of Treatment Upcoming Encounters Date Type Department Care Team (Late st Contact Info) Description 10/13/2024 2:00 PM CHILD CARE PROVIDER Office Visit [facility] Neurosc[facility] [address] [place] [address] Misbah Israel MD [address] [place] [address] documented as of this encounter Visit Diagnoses Not on filedocumented in this encounter Care Teams Biology Faculty Member Relationship Specialty Start Date End Date Manish Teran MD [address] [place] [id number] PCP - General Family Medicine 12/18/20 documented as of this encounter
--- OUTSIDE RECORDS SUMMARY | 2024-09-07 16:25 | XMS_ITS | Encounter Summary ---
Author Organization [facility] Health Address [address] [facility] [place] [address] Care Team Providers Care Contact Center Associate Name Role Phone Manish Teran MD Primary Care Provider [phone] Reason for Visit * Reason Comments Follow-up 71 year old male Liane Giordano. Patient is taking medications, no side effects. He states that his memory is about the same, no significant changes, no pain. 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 [...] Sign Reading Time Taken Comments Blood Pressure 144/82 11/07/2021 11:33 AM JUICE STANDARDIZER Pulse 86 11/07/2021 11:33 AM JUICE STANDARDIZER Temperature 36.5 ??C (97.7 ??F) 11/07/2021 11:[address] Respiratory Rate - - Oxygen Saturation 98% 11/07/2021 11:33 AM JUICE STANDARDIZER Inhaled Oxygen Concentration - - Weight 64.2 kg (141 lb 9.6 oz) 11/07/2021 11:33 AM JUICE STANDARDIZER Height 167.6 cm (5' 6 ) 11/07/2021 11:33 AM JUICE STANDARDIZER Body Mass Index 22.85 11/07/2021 11:33 AM JUICE STANDARDIZER documented in this encounter Patient Instructions * Patient Instructions* Misbah Israel MD - 11/07/2021 12:05 PM JUICE STANDARDIZER 1. Donepezil 10 mg daily 2. ASA 81 mg daily 3. MIND diet 4. Exercise 5. RTC 6 months E STANDARDIZER documented in this encounter Progress Notes * Misbah Israel MD - 11/07/2021 11:54 AM CST Images from the original note were not included. HISTORY 1.Chief Complaint: forgetfulness 2.HPI: 70-year-old pleasant gentleman seen in consultation for evaluation of memory problem going on for at least 1-2 years. Independent history includes his who is a nurse and a nice historian.Patient has a high school grade education mostly worked as a forestry laborer. He lives with his . Patient admits that his forgetting which he thinks is part of the normal aging. 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 Blood pressure is good control. November 07: Returns for follow-up accompanied with daughter. He lives with his and father. He continues to be independent in his activities of daily living, require some help for handling finances shopping from his . Patient is active, he can fix his mail, sleep is okay. No falls reported. 3. Past History (Past Medical,Family&Social history): Past [...] current facility-administered medications for this visit. EXAMINATION: 144/82, heart rate 86, respiratory 12, SpO2 99% room air, 0 pain, weight 64.2 kg Gen EXAM GEN : Reveals a pleasant patient in no acute distress. Eye: Ophthalmologic examination of optic disc and Posterior segments are normal. Skin : Warm and moist, no rash. Cardiovascular system examination revealed normal peripheral pulses and normal carotids. Affect: Normal. Neurologic examination Examination of orientation, attention, language and fund knowledge revealed he is oriented to [email or web address] November 07, 2021 which are correct, he follows 3 step command he can name and repeat His recall at 3 minutes for 3 words showed 2/3 correct He can repeat He has normal judgment and abstract thinking Cranial exam 1-12 revealed symmetric face normal eye movements, no gaze restriction relatively decreased in facial expression 2 Motor exam reveals strength of 5/5 in both upper and both lower extremity normal muscle tone Bradykinesia No rigidity Deep tendon reflexes are 1+ symmetric in both upper and both extremity Coordination [id number] rapid alternative movement and tandem are normal Gait independent Sensory exam revealed normal touch in both upper and both lower extremities MEDICAL DECISION MAKING 1. DATA REVIEW: I [...] not be driving unless he get a sales professional bilingual's assessment. Provided information on that. He should avoid multi tasking, so developed habits and routine so he can rely less on memory. The psychologist also mentioned that patient has tendency to deny his problem. Today during the conversation, he was denying that he has memory loss. He was also admitting that he can not drive. 1. Mild neuro cognitive impairment: Patient continues to be independent in activities of daily living. Discuss diet and exercise including mind diet. Continue donepezil 10 mg daily. Discuss how patient from [facility] can converting to Alzheimer's dementia. Discussed various medication which can be used during MCI and during dementia. Discussed safety precautions. Discussed driving restrictions. 2. Small-vessel stroke: Aspirin 81 mg daily, discussed blood pressure control, currently in goal 120/80. 3. Hypertension: Continue amlodipine 5 mg daily 4. Patient does not take atorvastatin, I will recommend atorvastatin 40 mg daily 5. Diet and exercise 6. Return to clinic in 6 months 3. [...] any question. Misbah PITTS MD,DM,FAAN,FAHS,FAANEM Adj Associate Profession,[facility],[employer] Stroke Cold Type Artist [facility], [facility] T [phone] Cc No ref. 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
--- OUTSIDE RECORDS SUMMARY | 2024-09-07 16:25 | XMS_ITS | Encounter Summary ---
Author Organization [facility] Address [address] [place] [address] Care Team Providers Care Dog Handler Or Trainer Name Role Phone Manish Teran MD Primary Care Provider [phone] Reason for Referral * Neurology (Routine) - Closed Specialty Diagnoses / Procedures Referred By Jada olivares Referred To Contact Neuroscience Diagnoses Forgetfulness Procedures EEG Misbah Israel MD [address] [place] [address] [facility] [address] [place] [address] Referral ID Status Reason Start Date Expiration Date Visits Re quested Visits Authorized [id number] Closed 12/31/2020 12/31/2021 1 1 * Radiology Services (Routine) - Closed Specialty Diagnoses / Procedures Referred By Jada olivares Referred To Contact MRI Diagnoses Forgetfulness Procedures MRI BRAIN WO CONTRAST Misbah Israel MD [address] [place] [address] [facility] [address] [place] [address] Referral ID Status Reason Start Date Expiration Date Visits Re quested Visits Authorized [id number] Closed 02/06/2021 03/08/2021 1 1 Reason for Visit * Reason Comments Establish Care 70 year old male Liane Giordano. History obtained from , she states that she has noticed some gradual changes with memory over thye last two years, sleepwwalking, delayed speaking and thought progess. Patient often forgets. Patient is able to drive short distances, clean, lacking in hygeiene. Patient would like to discuss medication options, treatments, and next steps. No pain Encounter Details Date Type Department Care Team (Late st Contact Info) Description 12/31/2020 3:00 PM CDT Office Visit [facility] Neurosciences [address] [place], [place] [id number] Misbah Israel MD [address] [place], [place] [id number] Forgetfulness (Primary Dx); Change in behavior Social History Tobacco Use Types Packs/Day Years Used Date Smoking Tobacco: Former Smokeless Tobacco: Never Alcohol Use Standard Drinks/Week Comments Not Currently 0 (1 standard drink = 0.6 oz pur e alcohol) Sex and Gender Information Value Date Recorded Sex Assigned at Not on file Gender Identity Not on file Sexual Orientation Not on file documented as of this encounter Patient Instructions * Patient Instructions* Misbah Israel MD - 12/31/2020 3:34 PM CDT MRI brain WO EEG B12, MMA, RPR TSH Psychometric testing RTC after MRI( psychometric testing review in3rd visit) documented in this encounter Progress Notes * Misbah Israel MD - 01/07/2021 12:48 PM CDT I have reviewed the lab results which are essentially normal. I will discuss in detail during follow-up. * Franki Scherer - 12/31/2020 3:[address] Ge Gann to call patient and schedule neuropsych evaluation. Told spouse to call us and schedule a follow up once they have scheduled the MRI and EEG. They walked down to [facility] to complete labs today. * Misbah Israel MD - 12/31/2020 3:37 PM CDT Images from the original note were not included. HISTORY 1.Chief Complaint: forgetfulness 2.HPI: 70-year-old pleasant gentleman seen in consultation for evaluation of memory problem going on for at least 1-2 years. 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 He lives with his . Patient admits that his forgetting which he thinks is part of the normal aging. He gave couple of examples like he will not picking belt operator his son or somebody else as [...] donepezil. No improvement. Noticed has been done 3. Past History (Past Medical,Family&Social history): Past medical history positive for TIA unsure how that presented. Family history positive for dementia in mother in her 90s. Social history negative for smoking and drinking no history of use of drugs 4. ROS- comprehensive review of systems negative except as mentioned in history of present illness. 5. Medications and allergies: Current Outpatient Medications Medication ??? ASPIRIN LOW DOSE 81 MG tablet ??? donepezil (ARICEPT) 5 MG tablet ??? meloxicam (MOBIC) 15 MG tablet ??? metoprolol succinate XL 24hr (TOPROL XL) 25 MG tablet No current facility-administered medications for this visit. EXAMINATION: 136/86, HR 87 RR 12, spo2 98% RA no pain Gen EXAM GEN : Reveals a pleasant patient in no acute distress. Vitals: Reviewed and documented in Power Chart. Eye: Ophthalmologic examination of optic disc and Posterior segments are normal. Skin : Warm and moist, no rash. Cardiovascular system examination revealed normal peripheral pulses and normal carotids. Affect: Normal. Neurologic examination Johnny cognitive assessment testing(30)-16 1. Visual special(2)-0 2. Clock drawing(3)-1 3. Naming(3)-3 4. Attention(6)-2 5. Language(3)-3 6. Abstraction(2)-2 7. Delayed recall(5)-0 8. Orientation(6)-5 Cranial Nerves: II: Fundi normal. III, IV, [...] MRC grading. All deep tendon reflexes are + and symmetric . No atrophy and fasics Sensory examination showed normal pinprick and fine touch. Coordination normal in both upper and lower extremities. Gait normal including negative Romberg???s. MEDICAL DECISION MAKING 1. DATA REVIEW: I independently reviewed the electronic medical informations including notes, images and labs available in system summarized in assessment and plan. I reviewed the clinical note from different provider patient referred for evaluation of memory. I did not see workup done for dementia. 2. ASSESSMENT AND PLAN: ICD-10-CM 1. Forgetfulness R68.89 2. Change in behavior R46.89 2+ years long history of insidious onset [...] including judgment normally. Based on my evaluation 1. MRI of the brain without contrast looking for structural lesion 2. EEG study looking for evidence of discharges 3. B12, MMA, RPR TSH looking for reversible causes 4. Psychometric testing to better characterize his memory loss pattern 5. Return to the clinic after MRI and other labs. Orders Placed This Encounter ??? MRI BRAIN WO CONTRAST ??? VITAMIN B12 ??? METHYLMALONIC ACID BLOOD ??? RPR ??? TSH ??? AMB REFERRAL TO NEUROPSYCHOLOGY ??? EEG 3. COUNSELING& COORDINATION OF CARE: Discussed in [...] have any question. Misbah PITTS,,DM,FAAN,FAHS,FAANEM Adj Associate Profession,[facility],[employer] of [employer] Stroke Utility Forester [facility], [facility] [phone] Cc No ref. provider found documented in this encounter Plan of Treatment Upcoming Encounters Date Type Department Care Team (Late st Contact Info) Description 10/13/2024 2:00 PM DYE CAN OPERATOR Office Visit [facility] Health Neurosciences [address] [place] [address] Misbah Israel MD [address] [facility] [address] [place] [address] documented as of this encounter Procedures Procedure Name Priority Date/Time Associated Diagnosis Comments RPR Routine 12/31/2020 4:20 PM CDT Forgetfulness METHYLMALONIC ACID BLOOD Routine 12/31/2020 4:20 PM CDT Forgetfulness VITAMIN B12 Routine 12/31/2020 4:20 PM CDT Forgetfulness TSH Routine 12/31/2020 4:20 PM CDT Forgetfulness documented in this encounter Results * EEG (02/06/2021 11:59 PM CDT) [facility]ative [facility] 02/06/2021 11:59 PM CDT Misbah Israel MD ? 02/07/2021 ??5:16 PM [facility] EMG/EEG [address] [facility] [address] Electroencephalogram Frederick Mark Routine EEG with Video EEG was recorded [...] diagnosis Mild Encephalopathy. Misbah PITTS,,DM,FAAN,FAHS,FAANEM NSI, [facility] T [phone] Misbah Israel MD NEUROLOGY ORDERABLES [facility] * MRI BRAIN WO CONTRAST (02/06/2021 10:12 [...] polyp or retention cyst. Edited by Milly Wlofe on 02/06/2021 10:43 AM *Reading Radiologist: Manish Martins on 02/06/2021 at 11:05 AM Misbah Israel MD MR ORDERABLES * TSH (12/31/2020 4:20 PM CDT) TSH 2.1843 0.35 - 4.94 uIU/mL [facility] INSURANCE BILL Comment: FASTING Blood BLOOD SPECIMEN / Unknown 12/31/2020 4:20 PM CDT 12/31/2020 Narrative Resulting Agency Comment Lab Testing performed at: [address] ??[facility] [id number] Misbah Israel MD LAB - CHEMISTRY TIRSO HAZEL Performing Organization Address City/[facility]/ZIP Co de Phone Number [facility] INSURANCE BILL [address] [place] [address] * RPR (12/31/2020 4:20 PM CDT) RPR Non Reactive Non Reactive [facility] INSURANCE BILL Comment:FASTING Blood BLOOD SPECIMEN / Unknown 12/31/2020 4:20 PM CDT 12/31/2020 Narrative Resulting Agency Comment Lab Testing performed at: [address] ??[facility] [phone] Misbah Israel MD LAB - CHEMISTRY TIRSO HAZEL Performing Organization Address [facility] Co de Phone Number [facility] INSURANCE BILL [address] [place] [address] * METHYLMALONIC ACID BLOOD (12/31/2020 4:20 PM CDT) Methylmalonic Acid 156 0 - 378 nmol/L [facility] INSURANCE BILL Disclaimer [facility] INSURANCE BILL Comment: This test was developed and its performance characteristics determined by [facility]. It has not been cleared or approved by the Food and Drug Administration. FASTING Blood BLOOD SPECIMEN / Unknown 12/31/2020 4:20 PM CDT 12/31/2020 Narrative Resulting Agency Comment Lab Testing performed at: [address] ??[facility] [phone] Misbah Israel MD LAB - CHEMISTRY TIRSO HAZEL [facility] INSURANCE BILL [address] [place] [address] * VITAMIN B12 (12/31/2020 4:20 PM CDT) Vitamin B12 314 213 - 816 pg/mL [facility] INSURANCE BILL Comment: FASTING Blood BLOOD SPECIMEN / Unknown 12/31/2020 4:20 PM CDT 12/31/2020 Narrative Resulting Agency Comment Lab Testing performed at: [facility] [place][note 2] [address] [facility] ??[facility] [phone] Misbah Israel MD LAB - CHEMISTRY TIRSO HAZEL [facility] INSURANCE BILL [address] [place] [address] documented in this encounter Visit Diagnoses Diagnosis Forgetfulness- Primary Other general symptoms Change in behavior Unspecified disturbance of conduct Forgetfulness Other general symptoms Forgetfulness Other general symptoms documented in this encounter Care Teams Dog Handler Or Trainer Relationship Specialty Start Date End Date Manish Teran MD [address] [place] [address] PCP - General Family Medicine 12/18/20 documented as of this encounter
--- OUTSIDE RECORDS SUMMARY | 2024-09-07 16:25 | XMS_ITS | Encounter Summary ---
Author Organization [facility] Address [address] [facility] [place] [address] Care Team Providers Care Environmental Projects Advisor Name Role Phone Manish Teran MD Primary Care Provider [phone] Reason for Visit * Reason Comments Follow-up Pt present today for memory. Encounter Details Date Type Department Care Team (Late st Contact Info) Description 12/26/2022 8:40 AM CDT Office Visit [facility] Neurosciences [address] [place] [address] Misbah Israel MD [address] [place], [place] [id number] Major neurocognitive disorder (HCC) (Primary Dx); Mixed hyperlipidemia; Small vessel disease (HCC); Driving safety issue Social History Tobacco Use Types Packs/Day Years [...] Sign Reading Time Taken Comments Blood Pressure 164/90 12/26/2022 8:43 AM CDT Pulse 98 12/26/2022 8:43 AM CDT Temperature - - Respiratory Rate - - Oxygen Saturation 99% 12/26/2022 8:43 AM CDT Inhaled Oxygen Concentration - - Weight 63 kg (139 lb) 12/26/2022 8:43 AM CDT Height 167.6 cm (5' 6 ) 12/26/2022 8:43 AM CDT Body Mass Index 22.44 12/26/2022 8:43 AM CDT documented in this encounter Patient Instructions * Patient Instructions* Misbah Israel MD - 12/26/2022 9:26 AM CDT Recommendations- 1. Increase donepezil 23 mg qD 2. Namenda 10 mg bid. 3. ASA 81 mg qD 4. BP control goal 120/80 5. Sinemet 25/100 1/2 tab tid- update in 2 weeks 6. MIND diet 7. Discussed newer dementia meds, dosing and side effects- declined. RTC 6M [facility] Call in 2 weeks Re starting antidepressant documented in this encounter Progress Notes * Misbah Israel MD - 12/26/2022 8:58 AM CDT Images from the original note were not included. HISTORY 1.Chief Complaint: Forgetfulness, accompanied with Lorrie Andrew- spouse, independent historian, present at [facility] side Highest education high school+ 2.HPI: This [...] thinking to be alive Decline in memory+++ 3. Past History (Past Medical,Family&Social history): Past [...] tablet ??? Celery Seed ??? donepezil (Aricept) 10 MG tablet ??? meloxicam (MOBIC) 15 MG tablet ??? memantine (Namenda) 10 MG tablet No current facility-administered medications for this visit. EXAMINATION: BP 164/90 Pulse 98 Ht 1.676 m (5' 6 ) Wt 63 kg (139 lb) SpO2 99% Gen EXAM GEN : Reveals a pleasant patient in no acute distress. Vitals: Reviewed and documented in Power Chart. Eye: Ophthalmologic examination of optic disc and Posterior segments are normal. Skin : Warm and moist, no rash. Cardiovascular system examination revealed normal peripheral pulses and normal carotids. Affect: Normal. Neurologic examination Cranial Nerves: I examination of cranial nerve 1-12 revealed symmetric face, normal eye movements, no gaze restriction. Pupils are reactive. Motor examination reveals strength of 5/5 in upper lower extremities, normal hudson Muscle tone mild rigidity in the right hand No evidence of tremors at rest. Coordination normal in upper and lower extremities Tendon reflexes are 1+ and symmetric in upper lower extremity Sensory exam revealed mild touch abnormality in fingertips otherwise normal in upper lower extremity Gait independent but slow Evidence of bradykinesia MEDICAL DECISION MAKING 1. DATA REVIEW: I independently reviewed the electronic medical informations including notes, images and labs available in system summarized in assessment and plan. , Recent Labs Component Name 02/15/21 0920 CHOL 141 TRIG 60 HDL 49 LDLCALC 80 Recent Labs Component Name 12/31/20 1620 [id number] 314 2. ASSESSMENT AND PLAN: ICD-10-CM 1. Major neurocognitive disorder (CMS/HCC) F03.90 2. Mixed hyperlipidemia E78.2 3. Small vessel disease (CMS/HCC) I73.9 4. Driving safety issue Z91.89 1. Cognitive: I performed the Johnny cognitive assessment score which is described above . Johnny cognitive assessment testing(30)-18 ( 05/22- 17 March 2021 16), score about the same without any significant change in last 1 year 1. Visual special(2)-0 2. Clock drawing(3)-1 3. Naming(3)-3 4. Attention(6)-4 5. Language(3)-2 6. Abstraction(2)-1 7. Delayed recall(5)-0 8. Orientation(6)- 6 2. Function - ADl./ IADL- Basic ADLs 1. Ambulating: Independent 2. Feeding: independent 3. Dressing: independent 4. Personal hygiene:indepedent 5. Continence:continent Instrumental ADLs- dependent in 1. Transportation and shopping: [employer] 2. Managing finances: [employer] 3. Shopping and meal preparation. occ driving to [employer] 4. Housecleaning and home maintenance. Both together 5. Managing communication with others: Can make phone calls, does not write used to write opetry 6. Managing medications: Supervised pill box 3. Severity of dementia: FAST score- 4 forgets bills 4. Decision-making: and patient together make [...] home 1. Is the patient still driving? [employer] right across street 2. Is the patient taking medications as prescribed? No now using pill box 3. Are there concerns about safety in the home? No 4. Has the patient gotten lost in familiar places or wandered? No 5. Are firearms present in the home? No 6. Has the patient experienced unsteadiness or sustained falls? no 7. Does the patient live alone? Lives with lorrie 8. Caregiver identification and need assessment- Lorrie, daughters and father, grand sons andson in law 9. Advanced care planning. Provided papers 10. Associated comorbid condition: HTN 11. Disease specific dementia Alzheimer disease 12. Community support: available 13. Return to the clinic in 6 months Care Plan: 1. Neuropsychiatric symptoms- No delusions, hallucinations 2. Neurocognitive symptoms- memory, attention, visiospatials 3. Functional limitations- requires supervision If task given will complete 4. Referral to community resources as needed (for example, rehabilitation services, adult day programs, support groups) shared with the patient or caregiver, with initial education and support- family Recommendations- 1. Increase donepezil 23 mg qD 2. Namenda 10 mg bid. 3. ASA 81 mg qD 4. BP control goal 120/80 5. Sinemet 25/100 1/2 tab tid- update in 2 weeks 6. MIND diet 7. Discussed newer dementia meds, dosing and side effects- declined. RTC 6M [facility] Recently patient found to not be taking Namenda it was detected by his now in the pillbox. Discussed Alzheimer's dementia and other causes including Lewy body and vascular Patient denies visual hallucination typical for Lewy body dementia Discussed frontotemporal dementia His blood pressure elevated in the clinic recommended control, said that always happen in the clinic and will check at home discussed goal of 120/80 During last visit I started on Sinemet which he has not tried, recommended to try and call our office in 2 weeks Discussed importance of mind diet Discussed importance of good sleep Would like to increase donepezil as well, discussed dosing and side effects Discussed newer dementia medication dosing and side effects not interested Discuss future course with progression Discussed feature testing which may include a repeat MRI or PET scan as needed He still drives to [employer] which is nearby, recommended against Recommend to take aspirin 81 mg daily. Plan to see him 6 months with Cornelius 3. COUNSELING& COORDINATION OF CARE: Discussed in [...] st Contact Info) Description 10/13/2024 2:00 PM FEED MIXER Office Visit [facility] Neurosciences [address] [place] [address] Misbah Israel MD [address] [place] [address] documented as of this encounter Visit Diagnoses Diagnosis Major neurocognitive disorder (HCC)- Primary Mixed hyperlipidemia Small vessel disease (HCC) Peripheral vascular disease, unspecified Driving safety issue Other specified personal history presenting hazards to health documented in this encounter Care Teams Environmental Projects Advisor Relationship Specialty Start Date End Date Manish Teran MD [address] [place] [address] PCP - General Family Medicine 12/18/20 documented as of this encounter
--- OUTSIDE RECORDS SUMMARY | 2024-09-07 16:25 | XMS_ITS | Encounter Summary ---
Author Organization [facility] Address [address] [facility] [place] [address] Care Team Providers Care Diesel Locomotive Firer Name Role Phone Manish Teran MD Primary Care Provider [phone] Reason for Visit * Reason Comments Refill Request Encounter Details Date Type Department Care Team (Late Contact Info) Description 09/09/2022 Refill [facility] Neurosciences [address] [facility] [facility] [address] [place] [address] Misbah Israel MD [address] [facility] [address] [place], [place] [id number] Refill Request Social History Tobacco Use Types [...] * Telephone Encounter - Franki Scherer - 09/10/2022 9:39 AM CST Received refill request for memantine (Namenda) 10 MG tablet Last OV 05/15/22 Next OV 11/13/22 Last refill 05/19/22 Requesting 90 day refill ITY CONSULTANT documented in this encounter Plan of Treatment Upcoming Encounters Date Type Department Care Team (Late st Contact Info) Description 10/13/2024 2:00 PM QUALITY CONSULTANT Office Visit [facility] Neurosciences [address] [place] [address] Misbah Israel MD [address] [place] [address] documented as of this encounter Visit Diagnoses Not on filedocumented in this encounter Care Teams Diesel Locomotive Firer Relationship Specialty Start Date End Date Manish Teran MD [address] [place] [address] PCP - General Family Medicine 12/18/20 documented as of this encounter
--- OUTSIDE RECORDS SUMMARY | 2024-09-07 16:25 | XMS_ITS | Encounter Summary ---
Author Organization [facility] Address [address] [place] [address] Care Team Providers Care Gas Plumbing Inspector Name Role Phone Manish Teran MD Primary Care Provider [phone] Reason for Referral * Radiology Services (Routine) - Closed Specialty Diagnoses / Procedures Referred By Jada olivares Referred To Contact Vascular Lab Diagnoses Small vessel stroke (HCC) Procedures VAS CAROTID DUPLEX BILATERAL Misbah Israel MD [address] [place] [address] Referral ID Status Reason Start Date Expiration Date Visits Re quested Visits Authorized [id number] Closed 02/15/2021 02/15/2022 1 1 Reason for Visit * Reason Comments Follow-up 70 year old male Liane Giordano. MRI/EEG/Labs Complete. Patient is taking medications, no side effects. Patient states that his memory is about the same, no new complaints, no pain. Patient wouldl annabella to discuss test results and next steps. Encounter Details Date Type Department Care Team (Late st Contact Info) Description 02/15/2021 8:20 AM CDT Office Visit [facility] [address] [place] [address] Misbah Israel MD [address] [place] [address] Forgetfulness (Primary Dx); Change in behavior; Essential hypertension; Small vessel stroke (HCC) Social History Tobacco Use Types Packs/Day [...] PM CDT documented as of this encounter Last Filed Vital Signs Vital Sign Reading Time Taken Comments Blood Pressure 176/100 02/15/2021 8:20 AM CDT Pulse 84 02/15/2021 8:20 AM CDT Temperature 37 ??C (98.6 ??F) 02/15/2021 8:20 AM CDT Respiratory Rate - - Oxygen Saturation 98% 02/15/2021 8:20 AM CDT Inhaled Oxygen Concentration - - Weight 62.2 kg (137 lb 3.2 oz) 02/15/2021 8:20 A M CDT Height 172.7 cm (5' 8 ) 02/15/2021 8:20 AM CDT Body Mass Index 20.86 02/15/2021 8:20 AM CDT documented in this encounter Patient Instructions * Patient Instructions* Misbah Israel MD - 02/15/2021 8:45 AM CDT Asa 81 Atorva 20 mg Donepezil 5 Neuropsych Lipids panel Carotid doppler RTC 4 weeks documented in this encounter Progress Notes * Misbah Israel MD - 02/15/2021 8:35 AM CDT Images from the original note were not included. HISTORY 1.Chief Complaint: forgetfulness 2.HPI: 70-year-old pleasant gentleman seen in consultation for evaluation of memory problem going on for at least 1-2 years. 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 He lives with his . Patient admits that his forgetting which he thinks is part of the normal aging. He gave couple of examples like he will not miner pick his son or somebody else as promised [...] bring the blood pressure at the goal. 3. Past History (Past Medical,Family&Social history): Past [...] Normal. Neurologic examination Johnny cognitive assessment testing(30)-16 from last visit 1. Visual special(2)-0 2. Clock drawing(3)-1 3. Naming(3)-3 4. Attention(6)-2 5. Language(3)-3 6. Abstraction(2)-2 7. Delayed recall(5)-0 8. Orientation(6)-5 Cranial Nerves: Cranial nerve examination 2-12 reveal symmetric face, normal eye exam with eye movements. Rest of the exam is normal. Motor examination reveals strength of 5/5, some bradykinesia and mild rigidity. Deep tendon reflexes are 1+ symmetric in both upper lower extremities Sensory examination normal in both upper lower extremities Coordination normal in upper lower extremities Gait slow with normal arm swing, normal turn. Daughter says he walks like this all the time in his life MEDICAL DECISION MAKING 1. DATA REVIEW: I independently reviewed the electronic medical informations including notes, images and labs available in system summarized in assessment and plan. I reviewed the clinical note from different provider patient referred for evaluation of memory. I did not see workup done for dementia. 2. ASSESSMENT AND PLAN: ICD-10-CM 1. Forgetfulness R68.89 2. Change in behavior R46.89 3. Essential hypertension I10 4. Small vessel stroke I63.9 2+ years long history of insidious onset slowly progressive forgetfulness, a decline in his previous level of functioning affecting his activities of daily living and instrumental activities of dailyliving, his hygiene has deteriorated, he started passing urine at inappropriate places, unable to run errands and pay bills on time, forgetting conversations, forgetting important daytime in event. In [place] cognitive assessment score he has impairment across all functions. Patient was able to answer questions related to frontal lobe including judgment normally. Based on my evaluation 1. Reviewed images of MRI brain showing presence of deep white matter small vessel disease likely from uncontrolled blood pressure. This can definitely to memory impairment. He may have other region for memory impairment including Alzheimer's. Await psychometric testing. Meanwhile increase metoprolol to 50 mg, further direction from the primary care provider to bring the blood pressure systolic less than 130-120. Discussed importance of exercise walking a mi a day. 2. Provided mind diet FLYER explained what to eat what not to eat 3. Also started on atorvastatin 20 mg daily and ordered lipid panel for hyperlipidemia 4. Due to small vessel disease, ordered carotid Doppler looking for atherosclerosis and stenosis 5. Discussed small-vessel disease and how that affect memory as well as Alzheimer's disease. Currently patient is losing independence, his driving though does not have accident but discussed that he may have accident as he goes downhill. Also advised that tomorrow when he go for psychometric analysis, driving and independence question can be further answered with detailed testing. Total time spent 40 min including chart prep, data review, visit, obtaining additional history fromindependent historian his daughter. 3. COUNSELING& COORDINATION OF CARE: Discussed in [...] have any question. Misbah PITTS,,DM,FAAN,FAHS,FAANEM Adj Associate Profession,[facility],[employer] Stroke Supervisor [employer] [facility], [facility] [place] T [phone] Cc No ref. provider found documented in this encounter Plan of Treatment Upcoming Encounters Date Type Department Care Team (Late st Contact Info) Description 10/13/2024 2:00 PM RESOURCE DEVELOPMENT MANAGER Office Visit [address] [place] [address] Misbah Israel MD [address] [place] [address] documented as of this encounter Procedures Procedure Name Priority Date/Time Associated Diagnosis Comments LIPID PROFILE Routine 02/15/2021 9:20 AM CDT Small vessel stroke (HCC) documented in this encounter Results * VAS CAROTID DUPLEX BILATERAL (03/06/2021 9:30 AM CDT) Anatomical Region Laterality Modality Neck Echo 03/06/2021 8:37 AM CDT Narrative Procedure Note Dawood Lynch MD - 03/22/2021 [facility] [place] [address] [facility] [place] [address] [facility] Carotid Ultrasound Report Pat.Name: FREDERICK ALANIZ Pat.ID: [id number] .Date: 03/06/2021 Exam Time: 8:37:00 AM Study Type:Carotid Age: 8 1950,70Y Sex: MALE Sonogrphr: Phyllis Boyer RDCS, RVT CPT - 4: 62747 Reason for Study: small vessel stroke History / Clinical: forgetfulness Procedures: Carotid Duplex - Bilateral Visit ID: [id number] ++++++++++++++++++++++++++++++++++++ SUMMARY: ++++++++++++++++++++++++++++++++++++ No evidence of hemodynamically [...] * LIPID PROFILE (02/15/2021 9:20 AM CDT) Cholesterol 141 <200 mg/dL [facility] INSURANCE BILL Triglycerides 60 <150 mg/dL [facility] INSURANCE BILL HDL Cholesterol 49 >40 mg/dL [facility] INSURANCE BILL VLDL Calculated 12 <=30 mg/dL [facility] INSURANCE BILL LDL Calculated 80 <130 mg/dL [facility] INSURANCE BILL Blood BLOOD SPECIMEN / Unknown 02/15/2021 9:20 AM CDT 02/15/2021 Narrative Resulting Agency Comment Lab Testing performed at: [address] ??[facility] [id number] Misbah Israel MD LAB - CHEMISTRY TIRSO HAZEL [facility] Organization Address City/State/ZIP Co de Phone Number [facility] INSURANCE BILL [address] [place] [address] documented in this encounter Visit Diagnoses Diagnosis Forgetfulness- Primary Other general symptoms Change in behavior Unspecified disturbance of conduct Essential hypertension Small vessel stroke (HCC) Unspecified cerebral artery occlusion with cerebral infarction Small vessel stroke (HCC) Unspecified cerebral artery occlusion with cerebral infarction documented in this encounter Care Teams Gas Plumbing Inspector Relationship Specialty Start Date End Date Manish Teran MD [address] [place] [address] PCP - General Family Medicine 12/18/20 documented as of this encounter
--- OUTSIDE RECORDS SUMMARY | 2024-09-07 16:25 | XMS_ITS | Encounter Summary ---
Author Organization [facility] Healthcare Address [address] [place] [address] Care Team Providers Care Power Electronics Engineer Name Role Phone Glen Heart MD Primary Care Provider [phone] Encounter Details Date Type Department Care Team (Late st Contact Info) Description 08/29/2024 Telephone [facility] Home Care Services [address] [place] [address] Referring, MD Ronak Social History Tobacco Use Types Packs/Day Years Used Date Smoking Tobacco: Never Assessed Sex and Gender Information Value Date Recorded Sex Assigned at Not on file Legal Sex Male 3:03 PM CDT Gender Identity Not on file Sexual Orientation Not on file documented as of this encounter Miscellaneous Notes * Telephone Encounter - Tanvi Collins - 08/29/2024 8:13 AM CST I SPOKE TO KAMILA FROM M[employer]BILE HOME MECHANIC , UNABLE TO SEE PATIENT IN A SAFE AND TIMELY MANNER DUE TO LIMITED STAFFING AND CAPACITY. DECLINED X RAY ELECTRONICS WIREMAN documented in this encounter Plan of Treatment Not on file documented as of this encounter Visit Diagnoses Not on filedocumented in this encounter Care Teams Power Electronics Engineer Relationship Specialty Start Date End Date Glen Heart MD [address] [place] [address] PCP - General 04/23/17 documented as of this encounter
--- OUTSIDE RECORDS SUMMARY | 2024-09-07 16:25 | XMS_ITS | Encounter Summary ---
Author Organization [facility] Address [address] [place] [address] Care Team Providers Care Glass Processing Worker Name Role Phone Manish Teran MD Primary Care Provider [phone] Reason for Referral * Radiology Services (Routine) - Closed Specialty Diagnoses / Procedures Referred By Contac t Referred To Contact Positron Emission Tomography Diagnoses Major neurocognitive disorder (HCC) Procedures PET CT BRAIN ALZHEIMER EVAL PET CT LIMITED AREA Misbah Israel MD [address] [place] [address] [facility] [address] [place] [address] Referral ID Status Reason Start Date Expiration Date Visits Re quested Visits Authorized [id number] Closed 04/08/2023 05/08/2023 1 1 Reason for Visit * Radiology Services (Routine) - Closed Specialty Diagnoses / Procedures Referred By Contac t Referred To Contact Positron Emission Tomography Diagnoses Major neurocognitive disorder (HCC) Procedures PET CT BRAIN ALZHEIMER EVAL PET CT LIMITED AREA Misbah Israel MD [address] [place] [address] [facility] [address] [place] [address] Referral ID Status Reason Start Date Expiration Date Visits Re quested Visits Authorized [id number] Closed 04/08/2023 05/08/2023 1 1 Encounter Details Date Type Department Care Team (Latest Contact Info) Description 04/16/2023 1:12 PM CDT - 04/16/2023 1:15 PM CDT Hospital Encounter [facility] PET [address] [place] [address] Misbah Israel MD [address] [facility] [address] [place] [address] Discharge Disposition: Home or Self Care Social [...] st Contact Info) Description 10/13/2024 2:00 PM SENIOR SQL DBA Office Visit [facility] [address] [place] [address] Misbah Israel MD [address] [place] [address] documented as of this encounter Procedures Procedure [...] this study. > Dictated by Michael Varela (Refractory Grinder Operator) 04/16/2023 2:36 PM Santino Murray MD have personally reviewed and interpreted this [...] this study. > Dictated by Michael Varela (Refractory Grinder Operator) 04/16/2023 2:36 PM I, Santino Irvin MD have personally reviewed and interpreted this examination/study. > Interpreting Provider: Santino Irvin MD on 04/17/2023 8:41 AM Misbah Israel MD NM ORDERABLES documented in this encounter Visit Diagnoses Diagnosis Major neurocognitive disorder (HCC) documented in this encounter Administered Medications Inactive Administered Medications - up to 3 most recent administrations Medication Order MAR Action Action Date Dose Rate Site Florbetapir F 18 (Amyvid) 500-1900 MBQ/ML injection SOLN 10.75 millicurie 10.75 millicurie, Intravenous, ONCE, 1 dose, On Ana 04/16/23 at 1330 $ Given 04/16/2023 1:20 PM CDT 10.75 millicuries documented in this encounter Care Teams Glass Processing Worker Relationship Specialty Start Date End Date Manish Teran MD [address] [place] [address] PCP - General Family Medicine 12/18/20 documented as of this encounter
--- OUTSIDE RECORDS SUMMARY | 2024-09-07 16:25 | XMS_ITS | Encounter Summary ---
Author Organization [facility] Health Address [address] [facility] [place] [address] Care Team Providers Care Curtain Inspector Name Role Phone Manish Teran MD Primary Care Provider [phone] Reason for Visit * Reason Onset Date Comments Results 01/07/2021 Encounter Details Date Type Department Care Team (Late st Contact Info) Description 01/07/2021 Telephone [facility] [address] [facility] [address] [place] [address] Misbah Israel MD [address] [facility] [address] [place], [place] [id number] Results Social History Tobacco Use Types Packs/Day [...] * Telephone Encounter - Mary Corona - 01/09/2021 11:11 AM CDT Left final voice message for patient to call back regarding result notes * Telephone Encounter - Mary Corona - 01/08/2021 9:53 AM CDT Unable to LVM * Telephone Encounter - Mary Corona - 01/07/2021 3:37 PM CDT LVM for patient to call back regarding result notes * Telephone Encounter - Mary Corona - 01/07/2021 3:35 PM CDT ----- Message from Misbah Israel MD sent at 01/07/2021 12:48 PM CDT ----- I have reviewed the lab results which are essentially normal. I will discuss in detail during follow-up. documented in this encounter Plan of Treatment Upcoming Encounters Date Type Department Care Team (Late st Contact Info) Description 10/13/2024 2:00 PM PROCESS DEVELOPMENT MANAGER Office Visit [facility] Health Neurosciences [address] [place] [address] Misbah Israel MD [address] [place] [address] documented as of this encounter Visit Diagnoses Not on filedocumented in this encounter Care Teams Curtain Inspector Relationship Specialty [place] [address] [place] [address] PCP - General Family Medicine 12/18/20 documented as of this encounter
--- OUTSIDE RECORDS SUMMARY | 2024-09-07 16:25 | XMS_ITS | Encounter Summary ---
Author Organization [facility] Address [address] [place] [address] Care Team Providers Care Gift Shop Assistant Name Role Phone Manish Teran MD Primary Care Provider [phone] Reason for Referral * Neurology (Routine) - Closed Specialty Diagnoses / Procedures Referred By Contac t Referred To Contact Neuroscience Diagnoses Forgetfulness Procedures EEG Misbah Israel MD [address] [place] [address] [facility] [address] [place], [place] [address] [address] [place] [address] Referral ID Status Reason Start Date Expiration Date Visits Re quested Visits Authorized [id number] Closed 12/31/2020 12/31/2021 1 1 Reason for Visit * Neurology (Routine) - Closed Specialty Diagnoses / Procedures Referred By Contac t Referred To Contact Neuroscience Diagnoses Forgetfulness Procedures EEG Misbah Israel MD [address] [place] [address] [facility] [address] [place] [address] Referral ID Status Reason Start Date Expiration Date Visits Re quested Visits Authorized [id number] Closed 12/31/2020 12/31/2021 1 1 Encounter Details Date Type Department Care Team (Latest Contact Info) Description 02/06/2021 10:19 AM CDT - 02/06/2021 11:59 PM CDT Hospital Encounter [facility] EMG/EEG [address] [place] [address] Misbah Israel MD [address] [facility] [address] [place] [address] Discharge Disposition: Home or Self Care Social [...] 11/20/2020 02/15/2021 documented as of this encounter Progress Notes * Fátima Amaya EEG T. - 02/06/2021 11:08 AM CDT Routine EEG completed . documented in this encounter Procedure Notes * Misbah Israel MD - 02/06/2021 11:59 PM CDTAssociated Order(s): EEG [facility] EMG/EEG [address] [facility] [address] Electroencephalogram Frederick Flores Routine EEG with Video EEG was recorded in standard multichannel format. Electrode placement was as per the 10/20 system of Electrode placement. The record was reviewed in its entirety, utilizing both bipolar and referential montages. The quality of the recording is good. Indication: forgetfulness Current Outpatient Medications Medication ??? ASPIRIN LOW DOSE 81 MG tablet ??? donepezil (ARICEPT) 5 MG tablet ??? meloxicam (MOBIC) 15 MG tablet ??? metoprolol succinate XL 24hr (TOPROL XL) 25 MG tablet No current facility-administered medications for this encounter. Summary: 1. Background - 7 hz theta , medium amplitude, sym 2. Posterior dominant rhythm- absent 3. Sleep and drowsiness- stage I 4. Activation procedure including photic stimulation and hyperventilation - PS WNL 5. EKG showed sinus rhythm. Abnormality: 1. No evidence of epileptiform discharges, electrographic seizures 2. No evidence of triphasic waves Comments: EEG Abnormal With mild global slowing which is non specific. EEG diagnosis Mild Encephalopathy. Misbah PITTS,,DM,FAAN,FAHS,FAANEM [facility], [facility] T [phone] documented in this encounter Plan of Treatment Upcoming Encounters Date Type Department Care Team (Late st Contact Info) Description 10/13/2024 2:00 PM INVESTMENT ANALYST Office Visit [facility] [address] [facility] [address] [place] [address] Misbah Israel MD [address] [facility] [address] [place] [address] documented as of this encounter Procedures Procedure Name Priority Date/Time Associated Diagnosis Comments EEG Routine 02/06/2021 11:59 PM CDT Forgetfulness documented in this encounter Results * EEG (02/06/2021 11:59 PM CDT) Narrative [facility] MEDQUIST - 02/06/2021 11:59 PM CDT Misbah Israel MD ? 02/07/2021 ??5:16 PM [facility] EMG/EEG [address] [facility] [address] Electroencephalogram Frederick Flores Routine EEG with Video EEG was recorded [...] non specific. EEG diagnosis Mild Encephalopathy. Misbah PITTS MD,DM,FAAN,FAHS,FAANEM [facility], [facility] T [phone] Misbah Israel MD NEUROLOGY ORDERABLES Performing Organization Address City/State/[facility] Co de Phone Number [facility] documented in this encounter Visit Diagnoses Diagnosis Forgetfulness Other general symptoms documented in this encounter Care Teams Gift Shop Assistant Relationship Specialty Start Date End Date Manish Teran MD [address] [place] [address] PCP - General Family Medicine 12/18/20 documented as of this encounter
--- OUTSIDE RECORDS SUMMARY | 2024-09-07 16:25 | XMS_ITS | Encounter Summary ---
Author Organization [facility] Health Address [address] [facility] [place] [address] Care Team Providers Care Stockroom Supervisor Name Role Phone Manish Teran MD Primary Care Provider [phone] Reason for Visit * Reason Comments Refill Request Encounter Details Date Type Department Care Team (Late Contact Info) Description 03/03/2021 Refill [facility]iences [address] [facility] [address] [place] [address] Misbah Israel MD [address] [facility] [address] [place] [address] Refill Request Social History Tobacco Use Types [...] * Telephone Encounter - Mary Corona - 03/05/2021 7:51 AM CDT Received refill request for atorvastatin (LIPITOR) 20 MG tablet Last OV: 02/15/2021 Next OV: 03/15/2021 Last Refill: 02/15/2021 documented in this encounter Plan of Treatment Upcoming Encounters Date Type Department Care Team (Late st Contact Info) Description 10/13/2024 2:00 PM SERVICE STATION MANAGER Office Visit [facility] Health Neurosciences [address] [place] [address] Misbah Israel MD [address] [place] [address] documented as of this encounter Visit Diagnoses Not on filedocumented in this encounter Care Teams Stockroom Supervisor Relationship Specialty Start Date End Date Manish Teran MD [address] [place] [address] PCP - General Family Medicine 12/18/20 documented as of this encounter
--- OUTSIDE RECORDS SUMMARY | 2024-09-07 16:26 | XMS_ITS | Encounter Summary ---
Author Organization [facility] Address [address] [facility] [address] [place] [address] Care Team Providers Care Barytes Grinder Name Role Phone Glen Heart MD Primary Care Provider [phone] Encounter Details Date Type Department Care Team (Late st Contact Info) Description 04/16/2020 Orders Only [facility] Cardiology [address] [place] [address] Frederick Her MD [address] [facility] [address] [place] [address] Social History Tobacco Use Types Packs/Day Years Used Date Smoking Tobacco: Never Assessed Sex and Gender Information Value Date Recorded Sex Assigned at Not on file Legal Sex Male 3:03 PM CDT Gender Identity Not on file Sexual Orientation Not on file documented as of this encounter Plan of Treatment Not on file documented as of this encounter Procedures Procedure Name Priority Date/Time Associated Diagnosis Comments CARDIOLOGY DOCUMENT SCAN Routine 04/16/2020 documented in this encounter Results * SCAN - CARDIOLOGY (04/16/2020) Anatomical Region Laterality Modality Other us Frederick Her MD CV CARDIAC SERVICES PROC EDURES Final Result documented in this encounter Visit Diagnoses Not on filedocumented in this encounter Care Teams Barytes Grinder Relationship Specialty Start Date End Date Glen Heart MD [address] [place] [address] PCP - General 04/23/17 documented as of this encounter
--- OUTSIDE RECORDS SUMMARY | 2024-09-07 16:26 | XMS_ITS | Encounter Summary ---
Author Organization [facility] Address [address] [place] [address] Care Team Providers Care Cut File Clerk Name Role Phone Glen Heart MD Primary Care Provider [phone] Encounter Details Date Type Department Care Team (Late st Contact Info) Description 04/16/2020 Orders Only [facility] Cardiology [address] [address] [address] [place] [address] James Chen MD [address] [place] [address] Social History Tobacco Use Types Packs/Day Years [...] CARDIOLOGY (04/16/2020) Anatomical Region Laterality Modality Other James Chen MD CV CARDIAC SERVICES PROC EDURES Final Result documented in this encounter Visit Diagnoses Not on filedocumented in this encounter Care Teams Cut File Clerk Relationship Specialty Start Date End Date Glen Heart MD [facility] [place] [address] PCP - General 8/24/17 documented as of this encounter
--- OUTSIDE RECORDS SUMMARY | 2024-09-07 16:26 | XMS_ITS | Encounter Summary ---
Author Organization [facility] Address [address] [place] [address] Care Team Providers Care Litigation Legal Assistant Name Role Phone Glen Heart MD Primary Care Provider [phone] Encounter Details Date Type Department Care Team (Late st Contact Info) Description 04/15/2020 Orders Only [facility] Cardiology [address] [address] [address] [place] [address] James Chen MD [address] [place] [address] Social History Tobacco Use Types Packs/Day Years [...] Associated Diagnosis Comments CARDIOLOGY DOCUMENT SCAN Routine 04/15/2020 documented in this encounter Results * SCAN - CARDIOLOGY (04/15/2020) Anatomical Region Laterality Modality Other James Chen MD CV CARDIAC SERVICES PROC EDURES Final Result documented in this encounter Visit Diagnoses Not on filedocumented in this encounter Care Teams Litigation Legal Assistant Relationship Specialty Start Date End Date Glen Heart MD [facility] [place] [address] PCP - General 8/24/17 documented as of this encounter
--- OUTSIDE RECORDS SUMMARY | 2024-09-07 16:26 | XMS_ITS | Encounter Summary ---
Author Organization [facility] Address [address] [place] [address] Care Team Providers Care Parachute/Combatant Diver Officer Name Role Phone Glen Heart MD Primary Care Provider [phone] Encounter Details Date Type Department Care Team (Late st Contact Info) Description 07/13/2024 12:30 PM NANOTECHNOLOGY ENGINEERING TECHNICIAN Lab [facility] Outpatient Lab at [address] [address] Alzheimer's disease (HCC) (Primary Dx); Anemia, unspecified; Hyperlipemia; Senile dementia, uncomplicated (HCC); Essential hypertension, malignant; Debility; Screening for malnutrition; Family history of diabetes mellitus; Special screening for malignant neoplasm of prostate; Avitaminosis D Social History Tobacco Use Types Packs/Day Years Used Date Smoking Tobacco: Never Assessed Sex and Gender Information Value Date Recorded Sex Assigned at Not on file Legal Sex Male 3:03 PM CDT Gender Identity Not on file Sexual Orientation Not on file documented as of this encounter Plan of Treatment Not on file documented as of this encounter Results * Hemoglobin A1c (07/13/2024 12:43 PM NANOTECHNOLOGY ENGINEERING TECHNICIAN) Hgb A1C 5.6 4.0 - 5.6 % Estimated Average Glucose 114 mg/dL LEE ROACH Comment: The ADA recommends reporting an estimated Average Glucose (eAG) with all Hemoglobin A1c results using the equation derived from a study of 507 normal and diabetic adults. ??Minority populations were underrepresented and children were not included. ?? (Diabetes Care 31:1012-9772, 2007). ??The eAG is not equivalent to a fasting glucose. Blood (Blood, Venous) 07/13/2024 12:43 PM NANOTECHNOLOGY ENGINEERING TECHNICIAN 07/13/2024 8:02 PM NANOTECHNOLOGY ENGINEERING TECHNICIAN Narrative [facility] - 07/13/2024 8:47 PM NANOTECHNOLOGY ENGINEERING TECHNICIAN Fax results to Dr Alison Diaz [phone] Alison Diaz FILM SPOOLER LAB BLOOD ORDERABLES Final R esult Performing Organization Address [facility] Co de Phone Number LEE ROACH [address] [address] [facility] [place] [address] * (ABNORMAL) Iron profile w/ IBC (07/13/2024 12:43 PM NANOTECHNOLOGY ENGINEERING TECHNICIAN) [facility] Iron 72 50 - 150 mcg/dl TIBC 198(L) 250 - 400 mcg/dL [facility] Transferrin saturation 36 20 - 50 % [facility] Blood 07/13/2024 12:4 3 PM NANOTECHNOLOGY ENGINEERING TECHNICIAN 07/13/2024 8:02 PM NANOTECHNOLOGY ENGINEERING TECHNICIAN Narrative [facility] - 07/13/2024 9:08 PM NANOTECHNOLOGY ENGINEERING TECHNICIAN Fax results to Dr Alison Diaz [phone] Alison Diaz FILM SPOOLER LAB BLOOD ORDERABLES Final R esult Performing Organization Address [facility] de Phone Number LEE ROACH [address] [address] [facility] [place] [address] * Vitamin D 25 hydroxy (07/13/2024 12:43 PM NANOTECHNOLOGY ENGINEERING TECHNICIAN) [facility] Vitamin D 25-OH 56 30 - 80 ng/mL Blood 07/13/2024 12:4 3 PM NANOTECHNOLOGY ENGINEERING TECHNICIAN 07/13/2024 8:02 PM NANOTECHNOLOGY ENGINEERING TECHNICIAN Narrative [facility] - 07/13/2024 8:56 PM NANOTECHNOLOGY ENGINEERING TECHNICIAN Fax results to Dr Alison Diaz [phone] Alison Diaz NP LAB BLOOD ORDERABLES Final R esult Performing Organization Address [facility] Co de Phone Number LEE ROACH [address] [address] [facility] [place] [address] * Folate (07/13/2024 12:43 PM NANOTECHNOLOGY ENGINEERING TECHNICIAN) Pathologist [facility] Folic acid >20.0 >=5.0 ng/mL Comment:Hemolysis present. R esults may be affected. Blood 07/13/2024 12:4 3 PM NANOTECHNOLOGY ENGINEERING TECHNICIAN 07/13/2024 8:02 PM NANOTECHNOLOGY ENGINEERING TECHNICIAN Narrative [facility] - 07/13/2024 9:08 PM NANOTECHNOLOGY ENGINEERING TECHNICIAN Fax results to Dr Alison Diaz [phone] Alison Diaz FILM SPOOLER LAB BLOOD ORDERABLES Final R esult Performing Organization Address [facility] Co de Phone Number LEE [address] [address] [facility] [place], [place] [id number] * Vitamin B12 (07/13/2024 12:43 PM NANOTECHNOLOGY ENGINEERING TECHNICIAN) [facility] Vitamin B12 768 230 - 1,250 pg/mL Blood (Blood, Venous) 07/13/2024 12:43 PM NANOTECHNOLOGY ENGINEERING TECHNICIAN 07/13/2024 8:02 PM NANOTECHNOLOGY ENGINEERING TECHNICIAN Narrative [facility] 07/13/2024 9:08 PM NANOTECHNOLOGY ENGINEERING TECHNICIAN Fax results to Dr Alison Diaz [phone] Alison Diaz FILM SPOOLER LAB BLOOD ORDERABLES Final R esult Performing Organization Address [facility] de Phone Number [facility] [address] [address] [facility] [place], [place] [id number] * PSA diagnostic (07/13/2024 12:43 PM NANOTECHNOLOGY ENGINEERING TECHNICIAN) Pathologist [facility] PSA-Total 1.14 <=6.20 ng/mL Comment: Interpretive Data [...] 22. Blood (Blood, Venous) 07/13/2024 12:43 PM NANOTECHNOLOGY ENGINEERING TECHNICIAN 07/13/2024 8:02 PM NANOTECHNOLOGY ENGINEERING TECHNICIAN Narrative [facility] - 07/13/2024 9:08 PM NANOTECHNOLOGY ENGINEERING TECHNICIAN Fax results to Dr Alison Diaz [phone] Alison Diaz FILM SPOOLER LAB BLOOD ORDERABLES Final R esult [facility] [address] [address] Department [place] [address] * (ABNORMAL) Urinalysis reflex to microscopic and culture Urine, clean voided (07/13/2024 12:43 PM NANOTECHNOLOGY ENGINEERING TECHNICIAN) Color, ur Yellow Yellow Clarity, ur Turbid(A) [...] tendency for uric acid stone formation. Source: [facility] Studio Current Interpretive Data was last revised on [...] to microscopic UA will be performed. [facility] Urine, clean voided 07/13/2024 12:43 PM NANOTECHNOLOGY ENGINEERING TECHNICIAN 07/13/2024 8:02 PM NANOTECHNOLOGY ENGINEERING TECHNICIAN Narrative [facility] - 07/13/2024 9:17 PM NANOTECHNOLOGY ENGINEERING TECHNICIAN Fax results to Dr Alison Diaz [phone] Alison Diaz NP LAB MICROBIOLOGY - GENERAL O RDERABLES Final Result Performing Organization Address [facility] de Phone Number LEE [address] [address] Department of [address] [place], [place] [id number] * TSH (07/13/2024 12:43 PM NANOTECHNOLOGY ENGINEERING TECHNICIAN) Thyroid Stimulating Hormone 3.07 0.30 - 4.20 mcIUnit/mL Blood (Blood, Venous) 07/13/2024 12:43 PM NANOTECHNOLOGY ENGINEERING TECHNICIAN 07/13/2024 8:02 PM NANOTECHNOLOGY ENGINEERING TECHNICIAN Narrative [facility] - 07/13/2024 9:08 PM NANOTECHNOLOGY ENGINEERING TECHNICIAN Fax results to Dr Alison Diaz [phone] Alison Diaz NP LAB BLOOD ORDERABLES Final R esult Performing Organization Address [facility] de Phone Number [facility] [address] [address] Department of [address] [place], [place] [id number] * Lipid panel (07/13/2024 12:43 PM NANOTECHNOLOGY ENGINEERING TECHNICIAN) Cholesterol 176 30 - 199 mg/dL Comment: [...] on 2018. Triglycerides 64 <=149 mg/dL LEE Comment: Interpretive Data Ages < [...] last revised on 2018. Chol/HDL ratio 2 LEE Blood (Blood, Venous) 07/13/2024 12:43 PM NANOTECHNOLOGY ENGINEERING TECHNICIAN 07/13/2024 8:02 PM NANOTECHNOLOGY ENGINEERING TECHNICIAN Narrative [facility] - 07/13/2024 9:08 PM NANOTECHNOLOGY ENGINEERING TECHNICIAN Fax results to Dr Alison Diaz [phone] Alison Diaz FILM SPOOLER LAB BLOOD ORDERABLES Final R esult Performing Organization Address City/[facility]/ZIP Co de Phone Number LEE ROACH [address] [place] [address] * (ABNORMAL) CBC with auto differential (07/13/2024 12:43 PM NANOTECHNOLOGY ENGINEERING TECHNICIAN) WBC 3.8 3.8 - 9.9 K/cumm Hgb 12.7(L) 13.0 - 17.5 g/dL [facility] Hct 37.6(L) 38.9 - 50.3 % [facility] Plt 245 150 - 400 K/cumm [facility] MPV 10.2 9.1 - 12.3 fL [facility] RBC 4.60 4.30 - 5.80 M/cumm [facility] MCV 81.7 81.3 - 96.4 fL [facility] MCH 27.6 27.1 - 33.3 pg [facility]ERNER MCHC 33.8 32.3 - 35.7 g/dL [facility] RDW CV 15.9(H) 11.1 - 14.9 % [facility] RDW SD 47.5 35.7 - 48.1 fL [facility] CH NRBC abs 0.00 0.00 - 0.01 K/cumm [facility] Blood 07/13/2024 12:4 3 PM NANOTECHNOLOGY ENGINEERING TECHNICIAN 07/13/2024 8:02 PM NANOTECHNOLOGY ENGINEERING TECHNICIAN Narrative [facility] - 07/13/2024 8:28 PM NANOTECHNOLOGY ENGINEERING TECHNICIAN Fax results to Dr Alison Diaz [phone] Alison Diaz FILM SPOOLER LAB BLOOD ORDERABLES Final R esult [facility]EE ROACH [address] [place] [address] * (ABNORMAL) Comprehensive metabolic panel (07/13/2024 12:43 PM NANOTECHNOLOGY ENGINEERING TECHNICIAN) Sodium 140 135 - 145 mmol/L Potassium, [...] CH Blood (Blood, Venous) 07/13/2024 12:43 PM NANOTECHNOLOGY ENGINEERING TECHNICIAN 07/13/2024 8:02 PM NANOTECHNOLOGY ENGINEERING TECHNICIAN Narrative [facility] - 07/13/2024 9:08 PM NANOTECHNOLOGY ENGINEERING TECHNICIAN Fax results to Dr Alison Diaz [phone] Alison Diaz NP LAB BLOOD ORDERABLES Final R esult [facility] ROACH [address] [address] Department [place] [address] documented in this encounter Visit Diagnoses Diagnosis Alzheimer's disease (HCC)- Primary Alzheimer's disease Anemia, unspecified Hyperlipemia Other and unspecified hyperlipidemia Senile dementia, uncomplicated (HCC) Senile dementia, uncomplicated Essential hypertension, malignant Debility Unspecified debility Screening for malnutrition Family history of diabetes mellitus Special screening for malignant neoplasm of prostate Avitaminosis D Unspecified vitamin D deficiency Alzheimer's disease (HCC) Alzheimer's disease Anemia, unspecified Hyperlipemia Other and unspecified hyperlipidemia Senile dementia, uncomplicated (HCC) Senile dementia, uncomplicated Essential hypertension, malignant Debility Unspecified debility Screening for malnutrition Family history of diabetes mellitus Special screening for malignant neoplasm of prostate Avitaminosis D Unspecified vitamin D deficiency documented in this encounter Care Teams Parachute/Combatant Diver Officer Relationship Specialty Start Date End Date Glen Heart MD [facility] [place] [address] PCP - General 04/23/17 documented as of this encounter
--- OUTSIDE RECORDS SUMMARY | 2024-09-07 16:26 | XMS_ITS | Encounter Summary ---
Author Organization [facility] Healthcare Address [address] [place] [address] Care Team Providers Care Vice Admiral Name Role Phone Glen Heart MD Primary Care Provider [phone] Encounter Details Date Type Department Care Team (Latest Contact Info) Description 07/13/2024 7:31 PM BRUSHER WARP - 07/13/2024 11:59 PM [facility]HER WARP Hospital Encounter [address] [address] Alzheimer's disease (HCC); Anemia, unspecified; Hyperlipemia; Senile dementia, uncomplicated (HCC); Essential hypertension, malignant; Debility; Screening for malnutrition; Family history of diabetes mellitus; Special screening for malignant neoplasm of prostate; Avitaminosis D Discharge Disposition: Discharge to home or self care Social History Tobacco Use Types Packs/Day Years Used Date Smoking Tobacco: Never Assessed Sex and Gender Information Value Date Recorded Sex Assigned at Not on file Legal Sex Male 3:03 PM CDT Gender Identity Not on file Sexual Orientation Not on file documented as of this encounter Discharge Disposition Disposition Code Departure Means Destination Discharge to home or self care documented in this encounter Plan of Treatment Not on file documented as of this encounter Procedures Procedure Name Priority Date/Time Associated Diagnosis Comments EGFR Routine 07/13/2024 12:43 PM BRUSHER WARP Alzheimer's disease (HCC) Anemia, unspecified Hyperlipemia Senile dementia, uncomplicated (HCC) Essential hypertension, malignant Debility Screening for malnutrition Family history of diabetes mellitus Special screening for malignant neoplasm of prostate Avitaminosis D DIFFERENTIAL AUTO Routine 07/13/2024 12: 43 PM BRUSHER WARP Alzheimer's disease (HCC) Anemia, unspecified Hyperlipemia Senile dementia, uncomplicated (HCC) Essential hypertension, malignant Debility Screening for malnutrition Family history of diabetes mellitus Special screening for malignant neoplasm of prostate Avitaminosis D IRON PROFILE W/ IBC Routine 07/13/2024 1 2:43 PM BRUSHER WARP Alzheimer's disease (HCC) Anemia, unspecified Hyperlipemia Senile dementia, uncomplicated (HCC) Essential hypertension, malignant Debility Screening for malnutrition Family history of diabetes mellitus Special screening for malignant neoplasm of prostate Avitaminosis D URINALYSIS AND REFLEX TO MICROSCOPIC AND CULTURE Routine 07/13/2024 12:43 PM [facility]HER WARP Alzheimer's disease (HCC) Anemia, unspecified Hyperlipemia Senile dementia, uncomplicated (HCC) Essential hypertension, malignant Debility Screening for malnutrition Family history of diabetes mellitus Special screening for malignant neoplasm of prostate Avitaminosis D CBC WITH AUTO DIFFERENTIAL Routine 07/13/2024 12:43 PM BR[facility]HER WARP Alzheimer's disease (HCC) Anemia, unspecified Hyperlipemia Senile dementia, uncomplicated (HCC) Essential hypertension, malignant Debility Screening for malnutrition Family history of diabetes mellitus Special screening for malignant neoplasm of prostate Avitaminosis D VITAMIN D 25 HYDROXY Routine 07/13/2024 12:43 PM [facility]HER WARP Alzheimer's disease (HCC) Anemia, unspecified Hyperlipemia Senile dementia, uncomplicated (HCC) Essential hypertension, malignant Debility Screening for malnutrition Family history of diabetes mellitus Special screening for malignant neoplasm of prostate Avitaminosis D URINALYSIS, MICROSCOPIC ONLY Routine 07/13/2024 12:43 PM [facility]ARP Alzheimer's disease (HCC) Anemia, unspecified Hyperlipemia Senile dementia, uncomplicated (HCC) Essential hypertension, malignant Debility Screening for malnutrition Family history of diabetes mellitus Special screening for malignant neoplasm of prostate Avitaminosis D URINE CULTURE Routine 07/13/2024 12:43 PM BRUSHER WARP TSH Routine 07/13/2024 12:43 PM BR[facility]HER WARP Alzheimer's disease (HCC) Anemia, unspecified Hyperlipemia Senile dementia, uncomplicated (HCC) Essential hypertension, malignant Debility Screening for malnutrition Family history of diabetes mellitus Special screening for malignant neoplasm of prostate Avitaminosis D PSA DIAGNOSTIC Routine 07/13/2024 12:43 PM [facility]HER WARP Alzheimer's disease (HCC) Anemia, unspecified Hyperlipemia Senile dementia, uncomplicated (HCC) Essential hypertension, malignant Debility Screening for malnutrition Family history of diabetes mellitus Special screening for malignant neoplasm of prostate Avitaminosis D HEMOGLOBIN A1C Routine 07/13/2024 12:43 PM [facility]HER WARP Alzheimer's disease (HCC) Anemia, unspecified Hyperlipemia Senile dementia, uncomplicated (HCC) Essential hypertension, malignant Debility Screening for malnutrition Family history of diabetes mellitus Special screening for malignant neoplasm of prostate Avitaminosis D FOLATE Routine 07/13/2024 12:43 PM BR[facility]HER WARP Alzheimer's disease (HCC) Anemia, unspecified Hyperlipemia Senile dementia, uncomplicated (HCC) Essential hypertension, malignant Debility Screening for malnutrition Family history of diabetes mellitus Special screening for malignant neoplasm of prostate Avitaminosis D VITAMIN B12 Routine 07/13/2024 12:43 PM [facility]HER WARP Alzheimer's disease (HCC) Anemia, unspecified Hyperlipemia Senile dementia, uncomplicated (HCC) Essential hypertension, malignant Debility Screening for malnutrition Family history of diabetes mellitus Special screening for malignant neoplasm of prostate Avitaminosis D LIPID PANEL Routine 07/13/2024 12:43 PM BR[facility]HER WARP Alzheimer's disease (HCC) Anemia, unspecified Hyperlipemia Senile dementia, uncomplicated (HCC) Essential hypertension, malignant Debility Screening for malnutrition Family history of diabetes mellitus Special screening for malignant neoplasm of prostate Avitaminosis D COMPREHENSIVE METABOLIC PANEL Routine 07/13/2024 12:43 PM [facility] WARP Alzheimer's disease (HCC) Anemia, unspecified Hyperlipemia Senile dementia, uncomplicated (HCC) Essential hypertension, malignant Debility Screening for malnutrition Family history of diabetes mellitus Special screening for malignant neoplasm of prostate Avitaminosis D documented in this encounter Results * Urine culture Urine, clean voided (07/13/2024 12:43 PM BRUSHER WARP) Report Final Report: Less than 100,000 colonies/mL (clinically insignificant growth based on current clinical standards) Comment:Testing performed by : [facility], [address] [place] [address] Organism (CLINICALLY INSIGNIFICANT GROWTH [facility] Urine, clean voided 07/13/2024 12:43 PM BRUSHER WARP 07/14/2024 3:27 AM BR[facility]HER WARP Narrative [facility] - 07/15/2024 7:02 AM BR[facility]HER WARP Urine culture reflexed based upon urinalysis results. Testing performed by [facility] Microbiology Laboratory ([phone]) Alison Diaz NP LAB MICROBIOLOGY - GENERAL O RDERABLES Final Result Performing Organization Address City/[facility]/ZIP Co de Phone Number LEE ROACH [address] [address] [employer] [place] [address] * (ABNORMAL) Urinalysis, microscopic only (07/13/2024 12:43 PM BRUSHER WARP) WBC, ur 21-50(A) 0 - 5 /HPF RBC, ur 3-5(A) 0 - 2 /HPF [facility] Epithelial cells, squamous, ur 1-5 0 - 5 /HPF [facility] Bacteria, ur Trace(A) [facility] Mucous, ur Present(A) [facility] Hyaline casts, ur 6-10 0 - 10 /LPF [facility] Culture Reflex Comment Reflex to urine culture will be performed. [facility] Urine, clean voided 07/13/2024 12:43 PM BR[facility]HER WARP 07/13/2024 8:02 PM [facility]HER WARP Alison Diaz NP LAB URINE ORDERABLES Final R esult LEE [place]ACH [address] [address] [place] [address] * (ABNORMAL) eGFR (07/13/2024 12:43 PM BRUSHER WARP) Pathologist [facility] eGFR 47(L) >=60 mL/min/1. 73 m2 Comment: [...] reviewed 2021. Blood 07/13/2024 12:4 3 PM BRUSHER WARP 07/13/2024 8:19 PM BR[facility]HER WARP Alison Diaz NP LAB BLOOD ORDERABLES Final R esult LEE [address] [address] Department [place] [address] * Differential, auto (07/13/2024 12:43 PM BRUSHER WARP) Pathologist [facility] Neutrophil abs 2.0 1.5 - 6.5 K/cumm Imm gran abs 0.0 0.0 - 0.1 K/cumm [facility] Lymphocyte abs 1.3 0.8 - 3.3 K/cumm [facility] Monocyte abs 0.4 0.2 - 0.8 K/cumm [facility] Eosinophil abs 0.1 0.0 - 0.5 K/cumm [facility] Basophil abs 0.0 0.0 - 0.1 K/cumm [facility] Neutrophil pct 53.2 % [facility] Comment: Interpretive Data Percent cell count reference ranges are not reported, since discordance with absolute values may lead to misinterpretation of CBC data. Current Interpretive Data was last revised on 2017. Imm gran pct 0.0 % [facility] Comment: Interpretive Data Percent cell count reference ranges are not reported, since discordance with absolute values may lead to misinterpretation of CBC data. Current Interpretive Data was last revised on 2017. Lymphocyte pct 34.9 % [facility] Comment: Interpretive Data Percent cell count reference ranges are not reported, since discordance with absolute values may lead to misinterpretation of CBC data. Current Interpretive Data was last revised on 2017. Monocyte pct 9.8 % [facility] Comment: Interpretive Data Percent cell count reference ranges are not reported, since discordance with absolute values may lead to misinterpretation of CBC data. Current Interpretive Data was last revised on 2017. Eosinophil pct 1.6 % [facility] Comment: Interpretive Data Percent cell count reference ranges are not reported, since discordance with absolute values may lead to misinterpretation of CBC data. Current Interpretive Data was last revised on 2017. Basophil pct 0.5 % [facility] Comment: Interpretive Data Percent cell count reference ranges are not reported, since discordance with absolute values may lead to misinterpretation of CBC data. Current Interpretive Data was last revised on 2017. Blood 07/13/2024 12:4 3 PM [facility]HER WARP 07/13/2024 8:02 PM BRUSHER WARP us Alison Diaz [employer] LAB BLOOD ORDERABLES Final R esult O[place]JED [place] [address] [address] Department [place] [address] * (ABNORMAL) Comprehensive metabolic panel (07/13/2024 12:43 PM BRUSHER WARP) Sodium 140 135 - 145 mmol/L Potassium, [...] CH Blood (Blood, Venous) 07/13/2024 12:43 PM [facility]HER WARP 07/13/2024 8:02 PM [facility]HER WARP Narrative [facility] - 07/13/2024 9:08 PM BR[facility]HER WARP Fax results to Dr Alison Diaz [phone] Alison Diaz NP LAB BLOOD ORDERABLES Final R esult [place] [address] [address] Department [place] [address] * (ABNORMAL) CBC with auto differential (07/13/2024 12:43 PM BRUSHER WARP) WBC 3.8 3.8 - 9.9 K/cumm Hgb [...] SD 47.5 35.7 - 48.1 fL [facility] NRBC abs 0.00 0.00 - 0.01 K/cumm [facility] Blood 07/13/2024 12:4 3 PM [facility]HER WARP 07/13/2024 8:02 PM [facility]ARP Narrative [facility] - 07/13/2024 8:28 PM BR[facility]HER WARP Fax results to Dr Alison Diaz [phone] Alison Diaz [employer] LAB BLOOD ORDERABLES Final R esult LEE [address] [address] Department [place] [address] * Lipid panel (07/13/2024 12:43 PM BRUSHER WARP) [facility] Cholesterol 176 30 - 199 mg/dL Comment: [...] on 2024. Non-HDL Cholesterol 104 mg/dL LEE Comment: Interpretive Data Ages < [...] LEE Blood (Blood, Venous) 07/13/2024 12:43 PM [facility]HER WARP 07/13/2024 8:02 PM [facility]HER WARP Narrative LEE - 07/13/2024 9:08 PM BR[facility]HER WARP Fax results to Dr Alison Diaz [phone] Alison Diaz NP LAB BLOOD ORDERABLES Final R esrust Performing Organization Address [facility] Co de Phone Number LEE [address] [address] [facility] [place] [address] * TSH (07/13/2024 12:43 PM BRUSHER WARP) Thyroid Stimulating Hormone 3.07 0.30 - 4.20 mcIUnit/mL Blood (Blood, Venous) 07/13/2024 12:43 PM [facility]HER WARP 07/13/2024 8:02 PM [facility] Narrative [facility] - 07/13/2024 9:08 PM BR[facility]HER WARP Fax results to Dr Alison Diaz [phone] Alison Diaz [employer] LAB BLOOD ORDERABLES Final R pending sale to [facility] Performing Organization Address [facility] de Phone Number LEE ROACH [address] [address] [facility] [place] [address] * (ABNORMAL) Urinalysis reflex to microscopic and culture Urine, clean voided (07/13/2024 12:43 PM BRUSHER WARP) Pathologist [facility] Color, ur Yellow Yellow Clarity, ur Turbid(A) Clear [facility] Specific gravity, ur 1.016 1.003 - 1.030 [facility] pH, urine 5.5 [facility] Comment: Interpretive Data ? Urine pH is affected by diet, medications, systemic acid-base disturbances, and renal tubular function. ??pH may affect urinary stone formation. ??For example, urine pH below 6.0 may help reduce the tendency for calcium phosphate stones and pH greater than 6.0 may reduce the tendency for uric acid stone formation. Source: [facility] [employer] Current Interpretive Data was last revised on 2017 Protein, ur ql Trace Negative [facility] Glucose, ur ql Negative Negative [facility] Ketones, ur Negative Negative [facility] Bilirubin, ur Negative Negative [facility] Blood, ur Negative Negative [facility] Urobilinogen, ur <2.0 <2.0 mg/dL [facility] Nitrite, ur Negative Negative [facility] Leukocyte esterase, ur 4+(A) Negative [facility] UA reflex comment Reflex to microscopic UA will be performed. [facility] Urine, clean voided 07/13/2024 12:43 PM [facility]HER WARP 07/13/2024 8:02 PM [facility]HER WARP Narrative [facility] - 07/13/2024 9:17 PM BR[facility]HER WARP Fax results to Dr Alison Diaz [phone] Alison Diaz NP LAB MICROBIOLOGY - GENERAL O RDERABLES Final Result [facility] [address] [address] Department [place] [address] * PSA diagnostic (07/13/2024 12:43 PM BRUSHER WARP) PSA-Total 1.14 <=6.20 ng/mL Comment: Interpretive Data [...] 22. Blood (Blood, Venous) 07/13/2024 12:43 PM [facility]HER WARP 07/13/2024 8:02 PM [facility]HER [facility]ARP Narrative [facility] - 07/13/2024 9:08 PM BR[facility]HER WARP Fax results to Dr Alison Diaz [phone] Alison Diaz [employer] LAB BLOOD ORDERABLES Final R esult Performing Organization Address City/[facility]/ZIP Co de Phone Number LEE ROACH [address] [address] [facility] [place] [address] * Vitamin B12 (07/13/2024 12:43 PM BRUSHER WARP) Vitamin B12 768 230 - 1,250 pg/mL Blood (Blood, Venous) 07/13/2024 12:43 PM [facility]HER WARP 07/13/2024 8:02 PM [facility] Narrative [facility] - 07/13/2024 9:08 PM BR[facility]HER WARP Fax results to Dr Alison Diaz [phone] Alison Diaz [employer] LAB BLOOD ORDERABLES Final R esult Performing Organization Address [facility] de Phone Number LEE ROACH [address] [place] [address] * Folate (07/13/2024 12:43 PM BRUSHER WARP) [facility] Folic acid >20.0 >=5.0 ng/mL Comment:Hemolysis present. R esults may be affected. Blood 07/13/2024 12:4 3 PM BRUSHER WARP 07/13/2024 8:02 PM [facility]HER WARP Narrative [facility] - 07/13/2024 9:08 PM BRUSHER WARP Fax results to Dr Alison Diaz [phone] Alison Diaz [employer] LAB BLOOD ORDERABLES Final R esult Performing Organization Address City/[facility] Co de Phone Number LEE ROACH [address] [place] [address] * Vitamin D 25 hydroxy (07/13/2024 12:43 PM BRUSHER WARP) Vitamin D 25-OH 56 30 - 80 ng/mL Blood 07/13/2024 12:4 3 PM BR[facility]HER WARP 07/13/2024 8:02 PM [facility]HER WARP Narrative [facility] - 07/13/2024 8:56 PM BR[facility]HER WARP Fax results to Dr Alison Diaz [phone] Alison Diaz [employer] LAB BLOOD ORDERABLES Final R esult Performing Organization Address City/[facility]/ZIP Co de Phone Number [facility] [address] [address] [place] [address] * (ABNORMAL) Iron profile w/ IBC (07/13/2024 12:43 PM BRUSHER WARP) [facility] Iron 72 50 - 150 mcg/dl TIBC 198(L) 250 - 400 mcg/dL [facility] Transferrin saturation 36 20 - 50 % [facility] Blood 07/13/2024 12:4 3 PM BR[facility]HER WARP 07/13/2024 8:02 PM [facility]HER WARP Narrative [facility] - 07/13/2024 9:08 PM BRUSHER WARP Fax results to Dr Alison Diaz [phone] Alison Diaz [employer] LAB BLOOD ORDERABLES Final R esult Performing Organization Address City/[facility] Co de Phone Number [facility] [address] [address] [facility] [place] [address] * Hemoglobin A1c (07/13/2024 12:43 PM BRUSHER WARP) [facility] Hgb A1C 5.6 4.0 - 5.6 % Estimated Average Glucose 114 mg/dL [facility] Comment: The ADA recommends reporting an estimated Average Glucose (eAG) with all Hemoglobin A1c results using the equation derived from a study of 507 normal and diabetic adults. ??Minority populations were underrepresented and children were not included. ?? (Diabetes Care 31:6907-5235, 2008). ??The eAG is not equivalent to a fasting glucose. Blood (Blood, Venous) 07/13/2024 12:43 PM [facility]USHER WARP 07/13/2024 8:02 PM [facility]HER WARP Narrative [facility] - 07/13/2024 8:47 PM BRUSHER WARP Fax results to Dr Alison Diaz [phone] Alison Diaz [employer] LAB BLOOD ORDERABLES Final R esult LEE [address] [address] Department [place] [address] documented in this encounter Visit Diagnoses Diagnosis Alzheimer's disease (HCC) Alzheimer's disease Anemia, unspecified Hyperlipemia Other and unspecified hyperlipidemia Senile dementia, uncomplicated (HCC) Senile dementia, uncomplicated Essential hypertension, malignant Debility Unspecified debility Screening for malnutrition Family history of diabetes mellitus Special screening for malignant neoplasm of prostate Avitaminosis D Unspecified vitamin D deficiency documented in this encounter Care Teams Vice Admiral Relationship Specialty Start Date End Date Glen Heart MD [address] [place] [address] PCP - General 04/23/17 documented as of this encounter
--- OUTSIDE RECORDS SUMMARY | 2024-09-07 16:26 | XMS_ITS | Encounter Summary ---
Author Organization [facility] Healthcare Address [address] [place] [address] Care Team Providers Care Documentation Improvement Specialist Name Role Phone Stephanie Heart MD Primary Care Provider [phone] Encounter Details Date Type Department Care Team (Late st Contact Info) Description 04/23/2017 11:59 AM CDT - 04/23/2017 11:59 PM CDT Hospital Encounter [facility]IM Mickey Bond MD [address] [facility] [address] [address] Discharge Disposition: Discharge to home or self [...] Procedure Name Priority Date/Time Associated Diagnosis Comments DISCHARGE LABORATORY CUMULATIVE REPORT 04/24/2017 12:00 AM CDT UROGRAM W WO KUB W WO TOMOGRAM Routine 04/23/2017 5:47 PM CDT CREATININE, WHOLE BLOOD STAT 04/23/2017 12:10 PM CDT documented in this encounter Results * DISCHARGE LABORATORY CUMULATIVE REPORT (04/24/2017 12:00 AM CDT) Narrative 04/24/2017 12:00 AM CDT Ordered by an unspecified provider. us Historical Provider LAB BLOOD ORDERABLES Tammi caban Result * Urogram W WO Kub W WO Tomogram (04/23/2017 5:47 PM CDT) Anatomical Region Laterality Modality Body, Abdomen N/A Radiographic Elly ging 04/23/2017 5:47 PM CDT Narrative 04/23/2017 5:[address] IVP Urogram W/WO [id number] ??Acc#: ??[id number] DATE OF EXAM: ??Apr 23 2017 ?? CT IVP Urogram W/WO [id number] HISTORY: gross hematuria. TECHNIQUE: Serial axial images of the abdomen and pelvis were obtained without contrast followed by a CT study of the abdomen and pelvis with 100 mL Optiray 320. ??Delayed images were then obtained from the top of the kidneys through the urinary bladder per CT urography protocol. ??Coronal reformatted images of the precontrast exam and sagittal and coronal reformatted images of the delayed postcontrast exam were created. COMPARISON: None available. FINDINGS: There is a 4 mm nonobstructing stone in the mid 3rd of the left kidney. ??There are a few other nonobstructing bilateral 2 mm or less renal stones. ??No ureter or bladder stone is seen. ??There are simple bilateral renal cysts the largest on the right arising from the inferior pole of the kidney measuring 3.3 cm in maximal transverse dimension and the largest on the left in the upper to mid pole measuring 3.1 cm in maximal transverse dimension. ??No solid renal masses are seen. ??The opacified segments of the intrarenal collecting systems appear normal bilaterally. ??The opacified segments of the ureters appear normal bilaterally. There is moderate diffuse thickening of the wall of the urinary bladder. ??There is moderate to advanced enlargement of the prostate gland that exerts significant mass effect upon the base of the urinary bladder. ??There are multiple bladder diverticula more numerous and larger on the right with the largest individual diverticulum measuring approximately 2 cm. There are couple small blebs in the lung bases as well as a small amount of atelectasis in the right lower lung zone. ??There is no pleural or pericardial effusion. ?? There is mild to moderate atherosclerotic plaque in a normal caliber abdominal aorta. There are no focal hepatic lesions. ??There are no dilated intrahepatic or extrahepatic ducts. The gallbladder is normal. The spleen is normal. The adrenal glands are normal. The pancreas is normal. There are no dilated loops of small or large bowel. ??There are moderate scattered colon diverticula within the sigmoid, left and transverse colon with no CT changes of diverticulitis. There is no adenopathy free fluid or free air identified. There are a few sclerotic foci in the pelvis and sacrum that are most likely bone islands. ??There are mild to moderate degenerative changes of the lumbar spine. IMPRESSION: 1. ??BILATERAL NONOBSTRUCTING RENAL STONES THE LARGEST MEASURING 4 MM ON THE LEFT. 2. ??MULTIPLE BLADDER DIVERTICULA WITH MODERATE THICKENING OF THE URINARY BLADDER WALL DIFFUSELY. ??THIS IS BELIEVED TO BE ON THE BASIS OF BLADDER OUTLET OBSTRUCTIVE TYPE CHANGES IN VIEW OF THE MODERATE TO ADVANCED ENLARGEMENT OF THE PROSTATE GLAND. 3. ??MODERATE COLON DIVERTICULA. 4. ??SMALL SCLEROTIC FOCI IN THE PELVIS AND SACRUM LIKELY BONE ISLANDS. Electronically signed by: Stephanie Kiser M.D. Interpreting Physician: ??STEPHANIE KISER M.D. ??Read on: ??Apr 24 2017 12:47A Transcribed by: ??PSC ??On: Apr 24 2017 12:45A Approved Electronically by: ??STEPHANIE KISER M.D. ??on: ??Apr 24 2017 12:45A Ordering DR: DR MICKEY BOND Attending DR: DR MICKEY BOND Attending: ??DR MICKEY BOND Requesting: ??DR MICKEY BOND Requesting Fax: ??[phone] Attending Fax: ??[phone] Attending ID: ??[id number] Requesting ID: ??[id number] Report To 1 ID: ??[id number] Report To 1 Name: ??DR MICKEY BOND Report To 1 FAX: ??[phone] NextGen Order #: ?? Procedure Note Miscellaneous, Not In File / Provider, MD Norma - 05/15/2017 CT IVP Urogram W/WO [id number] Acc#: [id number] DATE OF EXAM: Apr [address] IVP Urogram W/WO [id number] HISTORY: gross hematuria. TECHNIQUE: Serial axial images of the abdomen and pelvis were obtained without contrast followed by a CT study of the abdomen and pelvis with 100 mL Optiray 320. Delayed images were then obtained from the top of the kidneys through the urinary bladder per CT urography protocol. Coronal reformatted images of the precontrast exam and sagittal and coronal reformatted images of the delayed postcontrast exam were created. COMPARISON: None available. FINDINGS: There is a 4 mm nonobstructing stone in the mid 3rd of the left kidney. There are a few other nonobstructing bilateral 2 mm or less renal stones. No ureter or bladder stone is seen. There are simple bilateral renal cysts the largest on the right arising from the inferior pole of the kidney measuring 3.3 cm in maximal transverse dimension and the largest on the left in the upper to mid pole measuring 3.1 cm in maximal transverse dimension. No solid renal masses are seen. The opacified segments of the intrarenal collecting systems appear normal bilaterally. The opacified segments of the ureters appear normal bilaterally. There is moderate diffuse thickening of the wall of the urinary bladder. There is moderate to advanced enlargement of the prostate gland that exerts significant mass effect upon the base of the urinary bladder. There are multiple bladder diverticula more numerous and larger on the right with the largest individual diverticulum measuring approximately 2 cm. There are couple small blebs in the lung bases as well as a small amount of atelectasis in the right lower lung zone. There is no pleural or pericardial effusion. There is mild to moderate atherosclerotic plaque in a normal caliber abdominal aorta. There are no focal hepatic lesions. There are no dilated intrahepatic or extrahepatic ducts. The gallbladder is normal. The spleen is normal. The adrenal glands are normal. The pancreas is normal. There are no dilated loops of small or large bowel. There are moderate scattered colon diverticula within the sigmoid, left and transverse colon with no CT changes of diverticulitis. There is no adenopathy free fluid or free air identified. There are a few sclerotic foci in the pelvis and sacrum that are most likely bone islands. There are mild to moderate degenerative changes of the lumbar spine. IMPRESSION: 1. BILATERAL NONOBSTRUCTING RENAL STONES THE LARGEST MEASURING 4 MM ON THE LEFT. 2. MULTIPLE BLADDER DIVERTICULA WITH MODERATE THICKENING OF THE URINARY BLADDER WALL DIFFUSELY. THIS IS BELIEVED TO BE ON THE BASIS OF BLADDER OUTLET OBSTRUCTIVE TYPE CHANGES IN VIEW OF THE MODERATE TO ADVANCED ENLARGEMENT OF THE PROSTATE GLAND. 3. MODERATE COLON DIVERTICULA. 4. SMALL SCLEROTIC FOCI IN THE PELVIS AND SACRUM LIKELY BONE ISLANDS. Electronically signed by: Stephanie Kiser M.D. Interpreting Physician: STEPHANIE KISER M.D. Read on: Apr 24 2017 12:47A Transcribed by: [facility] On: Apr 24 2017 12:45A Approved Electronically by: STEPHANIE KISER M.D. on: Apr 24 2017 12:45A Ordering DR: DR MICKEY BOND Attending DR: DR MICKEY BOND Attending: DR MICKEY BOND Requesting: DR MICKEY BOND Requesting Attending Attending ID: [id number] Requesting ID: [id number] Report To 1 ID: [id number] Report To 1 Name: DR MICKEY BOND Report To 1 FAX: [phone] NextGen Order #: Mickey Bond MD IMG FLUOROSCOPY PROCED URES Edited Result - Final * Creatinine, whole blood (04/23/2017 12:10 PM CDT) Creatinine, bld 1.18 0.60 - 1.30 mg/dL LEE CADET (MOLLY) Blood specimen (specimen) 04/23/2017 12:10 PM CDT 04/23/2017 12:16 PM CDT Mickey Bond MD LAB BLOOD ORDERABLES F inal Result LEE CADET (MOLLY) 1 [facility] Department [place] [address] documented in this encounter Visit Diagnoses Not on filedocumented in this encounter Care Teams Documentation Improvement Specialist Relationship Specialty Start Date End Date Stephanie Heart MD [address] [place] [address] PCP - General 04/23/17 documented as of this encounter
--- OUTSIDE RECORDS SUMMARY | 2024-09-07 17:50 | XMS_ITS | Encounter Summary ---
Author Organization [facility] Health Address [address] [place] [address] Care Team Providers Care Airport Operations Officer Name Role Phone Manish Teran MD Primary Care Provider [phone] Reason for Visit * Reason Comments Refill Request Encounter Details Date Type Department Care Team (Late st Contact Info) Description 12/19/2023 Refill [facility] Neurosciences [address] [facility] [address] [place] [address] Misbah Israel MD [address] [facility] [address] [place] [address] Refill Request Social History Tobacco Use Types [...] st Contact Info) Description 10/13/2024 2:00 PM SUBMARINE CABLE EQUIPMENT TECHNICIAN Office Visit [facility] Health Neurosciences [address] [place] [address] Misbah Israel MD [address] [place] [address] documented as of this encounter Visit Diagnoses Not on filedocumented in this encounter Care Teams Airport Operations Officer Relationship Specialty Start Date End Date Manish Teran MD [address] [place] [address] PCP - General Family Medicine 12/18/20 documented as of this encounter
--- OUTSIDE RECORDS SUMMARY | 2024-09-07 17:50 | XMS_ITS | Encounter Summary ---
Author Organization [facility] Health Address [address] [facility] [place] [address] Care Team Providers Care Conductor Road Freight Name Role Phone Manish Teran MD Primary Care Provider [phone] Reason for Visit * Reason Comments Refill Request Encounter Details Date Type Department Care Team (Late st Contact Info) Description 09/24/2023 Refill [facility] Neurosciences [address] [facility] [address] [place] [address] Misbah Israel MD [address] [facility] [address] [place] [address] Refill Request Social History Tobacco Use Types [...] tablet Last ov:03/12/23 Next ov:09/25/23 Last refilll:12/26/22 ET CLEANING TECHNICIAN documented in this encounter Plan of Treatment Upcoming Encounters Date Type Department Care Team (Late Contact Info) Description 10/13/2024 2:00 PM CARPET CLEANING TECHNICIAN Office Visit [facility] Health Neurosciences [address] [place] [address] Misbah Israel MD [address] [place] [address] documented as of this encounter Visit Diagnoses Not on filedocumented in this encounter Care Teams Conductor Road Freight Relationship Specialty Start Date End Date Manish Teran MD [address] [place] [address] PCP - General Family Medicine 12/18/20 documented as of this encounter
--- OUTSIDE RECORDS SUMMARY | 2024-09-07 17:50 | XMS_ITS | Encounter Summary ---
Author Organization [facility] Address [address] [facility] [place] [address] Care Team Providers Care Echometer Engineer Name Role Phone Manish Teran MD Primary Care Provider [phone] Reason for Visit * Radiology Services (Routine) - Closed Specialty Diagnoses / Procedures Referred By Jada t Referred To Contact Positron Emission Tomography Diagnoses Major neurocognitive disorder (HCC) Procedures PET CT BRAIN ALZHEIMER EVAL PET CT LIMITED AREA Misbah Israel MD [address] [place] [address] [facility] Pet Op [address] [place] [address] Referral ID Status Reason Start Date Expiration Date Visits Re quested Visits Authorized [id number] Closed 04/08/2023 05/08/2023 1 1 Encounter Details Date Type Department Care Team (Latest Contact Info) Description 04/16/2023 1:16 PM CDT - 04/16/2023 11:59 PM CDT Hospital Encounter [facility] PET [address] [place] [address] Misbah Israel MD [address] [place] [address] Discharge Disposition: Home or Self [...] st Contact Info) Description 10/13/2024 2:00 PM COLLECTOR OF AQUARIUM SPECIMENS Office Visit [facility] Health Neurosciences [address] [facility] [address] [place] [address] Misbah Israel MD [address] [facility] [address] [place] [address] documented as of this encounter Procedures Procedure [...] this study. > Dictated by Michael Varela (Community Relations Director) 04/16/2023 2:36 PM I, Santino Irvin MD [...] this study. > Dictated by Michael Varela (Community Relations Director) 04/16/2023 2:36 PM I, Santino Irvin MD have personally reviewed and interpreted this examination/study. > Interpreting Provider: Santino Irvin MD on 04/17/2023 8:41 AM Misbah Isreal MD [place] ORDERABLES documented in this encounter Visit Diagnoses Not on filedocumented in this encounter Care Teams Echometer Engineer Relationship Specialty Start Date End Date Manish Teran MD [facility] [place] [address] PCP - General Family Medicine 12/18/20 documented as of this encounter
--- OUTSIDE RECORDS SUMMARY | 2024-09-07 17:50 | XMS_ITS | Referral Summary ---
Author Organization [facility] Address [address] [place] [address] Care Team Providers Care Wire Hanger Name Role Phone Manish Teran MD Primary Care Provider [phone] Source Comments [facility],non-cass medical center Affiliates and Associated Physician Practices is amultiple site organization consisting of ambulatory clinics and hospital sitesin [place], [place], [place] and [place]. This disclosure is being madepursuant to the Care Everywhere program and may not contain all information available regarding this patient. Last updated 18.[facility] Rootdown Allergies No known active allergies Medications * [...] st Contact Info) Description 10/13/2024 2:00 PM MANAGER ALLIANCE Office Visit [facility] Health Neurosciences [address] [facility] [address] [place] [address] Misbah Israel MD [address] [place] [address] Care Teams Wire Hanger Relationship Specialty Start Date End Date Manish Teran MD [address] [place] [address] PCP - General Family Medicine 12/18/20
--- OUTSIDE RECORDS SUMMARY | 2024-09-07 17:50 | XMS_ITS | Continuity of Care Document ---
Author Name [facility] Organization [facility] Care Team Providers Care Associate Professor Of Literature Name Role Phone [facility] Unavailable Unavailable Social History Combined list of available smoking, tobacco, and other social history from Department of Defense and Veterans Affairs facilities. Social History Type Response Date Comment Sourc e This section is an empty social history section. [facility]
--- OUTSIDE RECORDS SUMMARY | 2024-09-07 17:50 | XMS_ITS | Clinical Summary ---
Author Organization [facility] Address [address] [place] [address] Care Team Providers Care Pattern Painter Name Role Phone Manish Teran MD Primary Care Provider [phone] Source Comments [facility],non-owned Affiliates and Associated Physician Practices is amultiple site organization consisting of ambulatory clinics and hospital sitesin [place], [place], [place] and [place]. This disclosure is being madepursuant to the Care Everywhere program and may not contain all information available regarding this patient. Last updated 18.[facility] Reviews42 Allergies No known active allergies Medications * [...] Contact Info) Description 10/13/2024 2:00 PM MANAGER STRATEGY & ACCOUNT Office Visit [facility] Health Neurosciences [address] [facility] [address] [place], [place] [id number] Misbah Israel MD [address] [facility] [address] [place] [address] Health Maintenance Due Date Last Done Comments [...] age to complete this topic Care Teams Pattern Painter Relationship Specialty Start Date End Date Manish Teran MD [address] [place] [address] PCP - General Family Medicine 12/18/20
--- OUTSIDE RECORDS SUMMARY | 2024-09-07 17:50 | XMS_ITS | Encounter Summary ---
Author Organization [facility] Health Address [address] [facility] [place] [address] Care Team Providers Care High Man Name Role Phone Manish Teran MD Primary Care Provider [phone] Reason for Visit * Reason Comments Follow-up Pt present today for follow up regarding memory Encounter Details Date Type Department Care Team (Late st Contact Info) Description 04/07/2024 3:00 PM CDT Office Visit [facility] Neurosciences [address] [facility] [address] [place] [address] Misbah Israel MD [address] [facility] [address] [place], [place] [id number] Major neurocognitive disorder (HCC) (Primary Dx) Social [...] Lorrie Andrew- spouse, independent historian, present at [facility] side Highest education high school+ 2.HPI: [...] 80 Recent Labs Component Name 12/31/20 1620 [id number] 2. ASSESSMENT AND PLAN: ICD-10-CM 1. Major neurocognitive disorder (HCC) F03.90 1. Cognitive: I performed the Dunn Loring cognitive assessment score which is described above . Dunn Loring cognitive assessment testing(30)-19 1. Visual special(2)-0 2. [...] st Contact Info) Description 10/13/2024 2:00 PM NON DESTRUCTIVE TESTING TECHNICIAN Office Visit [facility] Health Neurosciences [address] [place] [address] Misbah Israel MD [address] [place] [address] documented as of this encounter Visit Diagnoses Diagnosis Major neurocognitive disorder (HCC)- Primary documented in this encounter Care Teams High Man Relationship Specialty Start Date End Date Manish Teran MD [address] [place] [address] PCP - General Family Medicine 12/18/20 documented as of this encounter
--- OUTSIDE RECORDS SUMMARY | 2024-09-07 17:50 | XMS_ITS | Patient Health Summary ---
Author Organization [facility] Address [address] [place] [address] Care Team Providers Care Server Support Technician Name Role Phone Manish Teran MD Primary Care Provider [phone] Note from [facility],non-owned Affiliates and Associated Physician Practices is amultiple site organization consisting of ambulatory clinics and hospital sitesin [place], [place], [place] and [place]. This disclosure is being madepursuant to the Care Everywhere program and may not contain all information available regarding this patient. Last updated 18.[facility] Allergies No known active allergies Medications * [...] this study. > Dictated by Michael Varela (Yard Loader Operator) 04/16/2023 2:36 PM I, Santino Irvin [...] this study. > Dictated by Michael Varela (Yard Loader Operator) 04/16/2023 2:36 PM I, Santino Irvin MD have personally reviewed and interpreted this examination/study. > Interpreting Provider: Santino Irvin MD on 04/17/2023 8:41 AM Misbah Israle MD NM ORDERABLES * VAS CAROTID DUPLEX BILATERAL (03/06/2021 9:30 AM CDT) Anatomical Region Laterality Modality Neck Echo 03/06/2021 8:37 AM CDT Narrative Procedure Note Dawood Lynch MD - 03/22/2021 Heart [place] [id number] [facility]. [address] [place] [address] [facility]/heart Carotid Ultrasound Report Pat.Name: FREDERICK ALANIZ Robyn.ID: [id number] St.Date: 03/06/2021 Exam Time: 8:37:00 AM Study Type:Carotid Age: 8 1950,70Y Sex: MALE Sonogrphr: Phyllis Boyer RDCS, RVT CPT - 4: 78622 Reason for Study: small vessel stroke History / Clinical: forgetfulness Procedures: Carotid Duplex - Bilateral Visit ID: [id number] ++++++++++++++++++++++++++++++++++++ SUMMARY: ++++++++++++++++++++++++++++++++++++ No evidence of hemodynamically [...] * LIPID PROFILE (02/15/2021 9:20 AM CDT) [facility] Signature Cholesterol 141 <200 mg/dL [facility] INSURANCE BILL Triglycerides 60 <150 mg/dL [facility] INSURANCE BILL HDL Cholesterol 49 >40 mg/dL [facility] INSURANCE BILL VLDL Calculated 12 <=30 mg/dL [facility] INSURANCE BILL LDL Calculated 80 <130 mg/dL [facility] INSURANCE BILL Blood BLOOD SPECIMEN / Unknown 02/15/2021 9:20 AM CDT 02/15/2021 Narrative Resulting Agency Comment Lab Testing performed at: [facility] [address] [place] [address] ??[facility] [id number] Misbah Israel MD LAB - CHEMISTRY [facility] INSURANCE BILL [address] [place] [address] * EEG (02/06/2021 11:59 PM CDT) Narrative [facility] - 02/06/2021 11:59 PM CDT Misbah Israel MD ? 02/07/2021 ??5:16 PM [facility] EMG/EEG [address] [place] [address] Electroencephalogram Frederick Alaniz Routine EEG with Video [...] EEG diagnosis Mild Encephalopathy. Misbah PITTS,,DM,FAAN,FAHS,FAANEM NSI, [facility] T [phone] Misbah Israel MD NEUROLOGY ORDERABLES HC MEDQUIST * MRI BRAIN WO CONTRAST (02/06/2021 10:12 AM CDT) Anatomical Region Laterality Modality Head Magnetic Resonan ce 02/06/2021 10:1 7 AM CDT Impressions 02/06/2021 11:05 AM CDT White matter changes. Right maxillary sinus polyp or retention cyst. Edited by Milly Wolfe on 02/06/2021 10:43 AM *Reading Radiologist: Manish Mratins on 02/06/2021 at 11:05 AM Narrative 02/06/2021 [...] Resulting Agency Comment Lab Testing performed at: [address] ??[facility] [id number] Misbah Israel MD LAB - CHEMISTRY [facility]EL Performing Organization Address [facility] Co de Phone Number [facility] INSURANCE BILL [address] [place] [address] * METHYLMALONIC ACID BLOOD (12/31/2020 4:20 PM CDT) Methylmalonic Acid 156 0 - 378 nmol/L [facility] INSURANCE BILL Disclaimer [facility] INSURANCE BILL Comment: This test was developed and its performance characteristics determined by [facility]. It has not been cleared or approved by the Food and Drug Administration. FASTING Blood BLOOD SPECIMEN / Unknown 12/31/2020 4:20 PM CDT 12/31/2020 Narrative Resulting Agency Comment Lab Testing performed at: [address] ??[facility] [id number] Misbah Israel MD LAB - CHEMISTRY TIRSO HAZEL Performing Organization Address City/[facility]/ZIP Co de Phone Number [facility] INSURANCE BILL [address] [place] [address] * VITAMIN B12 (12/31/2020 4:20 PM CDT) Vitamin B12 314 213 - 816 pg/mL [facility] INSURANCE BILL Comment: FASTING Blood BLOOD SPECIMEN / Unknown 12/31/2020 4:20 PM CDT 12/31/2020 Narrative Resulting Agency Comment Lab Testing performed at: [address] ??[facility] [id number] Misbah Israel MD LAB - CHEMISTRY TIRSO [place]ZEL [facility] INSURANCE BILL [address] [place] [address] * TSH (12/31/2020 4:20 PM CDT) TSH 2.1843 0.35 - 4.94 uIU/mL [facility] INSURANCE BILL Comment: FASTING Blood BLOOD SPECIMEN / Unknown 12/31/2020 4:20 PM CDT 12/31/2020 Narrative Resulting Agency Comment Lab Testing performed at: [address] ??[facility] [id number] Misbah Israel MD LAB - CHEMISTRY TIRSO HAZEL [facility] INSURANCE BILL [address] [place] [address] Care Teams Server Support Technician Relationship Specialty Start Date End Date Manish Teran MD [address] [place] [address] PCP - General Family Medicine 12/18/20
--- OUTSIDE RECORDS SUMMARY | 2024-09-07 17:50 | XMS_ITS | Encounter Summary ---
Author Organization [facility] Health Address [address] [facility] [place] [address] Care Team Providers Care Center Specialists Name Role Phone Manish Teran MD Primary Care Provider [phone] Reason for Visit * Reason Onset Date Comments Update 10/19/2023 Encounter Details Date Type Department Care Team ([facility] Contact Info) Description 10/19/2023 Telephone [facility] Neurosciences [address] [facility] [address] [place] [address] Misbah Israel MD [address] [facility] [address] [place] [address] Update Social History Tobacco Use Types Packs/Day [...] on this medication. Less shaking and confusion. RULES PRINTING MACHINE OPERATOR documented in this encounter Plan of Treatment Upcoming Encounters Date Type Department Care Team ([facility] Contact Info) Description 10/13/2024 2:00 PM TAPE RULES PRINTING MACHINE OPERATOR Office Visit [facility] Health Neurosciences [address] [place] [address] Misbah Israel MD [address] [place] [address] documented as of this encounter Visit Diagnoses Not on filedocumented in this encounter Care Teams Center Specialists Relationship Specialty Start Date End Date Manish Teran MD [address] [place] [address] PCP - General Family Medicine 12/18/20 documented as of this encounter
--- OUTSIDE RECORDS SUMMARY | 2024-09-07 17:50 | XMS_ITS | Encounter Summary ---
Author Organization [facility] Health Address [address] [facility] [place] [address] Care Team Providers Care Furnace Combustion Tester Name Role Phone Manish Teran MD Primary Care Provider [phone] Reason for Visit * Reason Comments Follow-up Pt here regarding Si nanci 1.5 tab tidit was making him dizzy Encounter Details Date Type Department Care Team (Late st Contact Info) Description 05/16/2024 3:00 PM CDT Office Visit [facility] Neurosciences [address] [facility] [address] [place], [place] [id number] Misbah Israel MD [address] [facility] [address] [place] [address] Major neurocognitive disorder (HCC) (Primary Dx); Driving [...] 80 Recent Labs Component Name 12/31/20 1620 [id number] 2. ASSESSMENT AND PLAN: ICD-10-CM 1. [...] st Contact Info) Description 10/13/2024 2:00 PM HYDRAULIC ASSEMBLER Office Visit [facility] Health Neurosciences [address] [place] [address] Misbah Israel MD [address] [place] [address] documented as of this encounter Visit Diagnoses Diagnosis Major neurocognitive disorder (HCC)- Primary Driving safety issue Other specified personal history presenting hazards to health Small vessel disease (HCC) Peripheral vascular disease, unspecified Severe hypertension Unspecified essential hypertension documented in this encounter Care Teams Furnace Combustion Tester Relationship Specialty Start Date End Date Manish Teran MD [address] [place] [address] PCP - General Family Medicine 12/18/20 documented as of this encounter
--- OUTSIDE RECORDS SUMMARY | 2024-09-07 17:50 | XMS_ITS | Encounter Summary ---
Author Organization [facility] Health Address [address] [facility] [place] [address] Care Team Providers Care Router Operator Pin Name Role Phone Manish Teran MD Primary Care Provider [phone] Encounter Details Date Type Department Care Team (Late st Contact Info) Description 09/25/2023 11:20 AM EMAIL MARKETING PROCESSOR Office Visit [facility] [address] [facility] [address] [place] [address] Misbah Israel MD [address] [facility] [address] [place], [place] [id number] Major neurocognitive disorder (HCC) (Primary Dx); Small [...] Comments Blood Pressure 203/91 09/25/2023 11:19 AM EMAIL MARKETING PROCESSOR checked mannually 170/100 Pulse 72 09/25/2023 11:19 AM EMAIL MARKETING PROCESSOR Temperature - - Respiratory Rate - - Oxygen Saturation - - Inhaled Oxygen Concentration - - Weight 55.3 kg (122 lb) 09/25/2023 11:1 9 AM EMAIL MARKETING PROCESSOR Height 182.9 cm (6') 09/25/2023 11:19 AM EMAIL MARKETING PROCESSOR Body Mass Index 16.55 09/25/2023 11:19 AM EMAIL MARKETING PROCESSOR documented in this encounter Patient Instructions * Patient Instructions* Misbah Israel MD - 09/25/2023 11:55 AM EMAIL MARKETING PROCESSOR 1. Donepezil 23 mg qD 2. Namenda 10 mg bid. 3. ASA 81 mg qD 4. BP control goal 120/80 6. MIND diet 7. Sinemet 25/100 mg 1/5 tab tid x 1 week then 1 tab tid , update in 2 weeks RTC 6M [facility] L MARKETING PROCESSOR documented in this encounter Progress Notes * [...] of dizziness BP is high Wanted POA longterm memory good No falls No visual hallucinations [...] 80 Recent Labs Component Name 12/31/20 1620 [id number] 2. ASSESSMENT AND PLAN: ICD-10-CM 1. Major neurocognitive disorder ([facility]) F03.90 2. Small vessel disease ([facility]) I73.9 3. Severe hypertension I10 1. Cognitive: I performed the Johnny cognitive assessment score which is described above . [place] cognitive assessment testing(30)-18 1. Visual special(2)-0 2. [...] answered- verbalized understanding the content of discussion. L MARKETING PROCESSOR documented in this encounter Plan of Treatment Upcoming Encounters Date Type Department Care Team (Late st Contact Info) Description 10/13/2024 2:00 PM EMAIL MARKETING PROCESSOR Office Visit [facility] Neurosciences [address] [place], [place] [id number] Misbah Israel MD [address] [facility] [address] [place] [address] documented as of this encounter Visit Diagnoses Diagnosis Major neurocognitive disorder (HCC)- Primary Small vessel disease (HCC) Peripheral vascular disease, unspecified Severe hypertension Unspecified essential hypertension documented in this encounter Care Teams Router Operator Pin Relationship Specialty Start Date End Date Manish Teran MD [address] [place] [address] PCP - General Family Medicine 12/18/20 documented as of this encounter
--- OUTSIDE RECORDS SUMMARY | 2024-09-07 17:51 | XMS_ITS | Encounter Summary ---
Author Organization [facility] Address [address] [facility] [place] [address] Care Team Providers Care Documentum Consultant Name Role Phone Manish Teran MD Primary Care Provider [phone] Reason for Referral * Radiology Services (Routine) - Closed Specialty Diagnoses / Procedures Referred By Jada olivares Referred To Contact MRI Diagnoses Forgetfulness Procedures MRI BRAIN WO CONTRAST Misbah Israel MD [address] [address] Referral ID Status Reason Start Date Expiration Date Visits Re quested Visits Authorized [id number] Closed 02/06/2021 03/08/2021 1 1 Reason for Visit * Radiology Services (Routine) - Closed Specialty Diagnoses / Procedures Referred By Jada olivares Referred To Contact MRI Diagnoses Forgetfulness Procedures MRI BRAIN WO CONTRAST Misbah Israel MD [address] [facility] [address] [place] [address] [address] Referral ID Status Reason Start Date Expiration Date Visits Re quested Visits Authorized [id number] Closed 02/06/2021 03/08/2021 1 1 Encounter Details Date Type Department Care Team (Latest Contact Info) Description 02/06/2021 9:45 AM CDT - 02/06/2021 10:18 AM CDT Hospital Encounter [facility] Health Imaging Services - MRI [address] [place] [address] Misbah Israel MD [address] [facility] [address] [place] [address] Discharge Disposition: Home or Self Care Social [...] st Contact Info) Description 10/13/2024 2:00 PM WIRE ROPE SLING MAKER Office Visit [facility] Health Neurosciences [address] [facility] [address] [place] [address] [place] [address] [place] [address] [address] [place] [address] documented as of this encounter Procedures Procedure [...] symptoms documented in this encounter Care Teams Documentum Consultant Relationship Specialty Start Date End Date Manish Teran MD [address] [place] [address] PCP - General Family Medicine 12/18/20 documented as of this encounter
--- OUTSIDE RECORDS SUMMARY | 2024-09-07 17:51 | XMS_ITS | Encounter Summary ---
Author Organization [facility] Address [address] [place] [address] Care Team Providers Care Agronomy Professor Name Role Phone Manish Teran MD Primary Care Provider [phone] Reason for Referral * Radiology Services (Routine) - Closed Specialty Diagnoses / Procedures Referred By Jada olivares Referred To Contact Vascular Lab Diagnoses Small vessel stroke (HCC) Procedures VAS CAROTID DUPLEX BILATERAL Misbah Israel MD [address] [place] [address] Referral ID Status Reason Start Date Expiration Date Visits Re quested Visits Authorized [id number] Closed 02/15/2021 02/15/2022 1 1 Reason for [...] Description 02/15/2021 8:20 AM CDT Office Visit [facility] Neurosciences [address] [place] [address] Misbah Israel MD [address] [place] [address] Forgetfulness (Primary Dx); Change in [...] school grade 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 He lives with his . Patient admits that his forgetting which he thinks is part of the normal aging. He gave couple of examples like he will not nut picker his son or somebody else as promised [...] conversations, forgetting important daytime in event. In [place] cognitive assessment score he has impairment across [...] have any question. Misbah PITTS,,DM,FAAN,FAHS,FAANEM Adj Associate Profession,[facility],[employer] of Medicine Stroke Manager Acute [facility], [facility] T [phone] Cc No ref. provider found documented in this encounter Plan of Treatment Upcoming Encounters Date Type Department Care Team (Late st Contact Info) Description 10/13/2024 2:00 PM MANAGER SAS Office Visit [address] [place] [address] Misbah Israel MD [address] [place] [address] documented as of this encounter Procedures Procedure Name Priority Date/Time Associated Diagnosis Comments LIPID PROFILE Routine 02/15/2021 9:20 AM CDT Small vessel stroke (HCC) documented in this encounter Results * VAS CAROTID DUPLEX BILATERAL (03/06/2021 9:30 AM CDT) Anatomical Region Laterality Modality Neck Echo 03/06/2021 8:37 AM CDT Narrative Procedure Note Dawood Lynch MD - 03/22/2021 Heart [place] [address] [facility] [place] [address] [facility] Carotid Ultrasound Report Pat.Name: FREDERICK ALANIZ Pat.ID: [id number] .Date: 03/06/2021 Exam Time: 8:37:00 AM Study Type:Carotid Age: 8 1950,70Y Sex: MALE Sonogrphr: Phyllis Boyer RDCS, RVT CPT - 4: 19894 Reason for Study: small vessel stroke History / Clinical: forgetfulness Procedures: Carotid Duplex - Bilateral Visit ID: [id number] ++++++++++++++++++++++++++++++++++++ SUMMARY: ++++++++++++++++++++++++++++++++++++ No evidence of hemodynamically [...] Resulting Agency Comment Lab Testing performed at: [address] ??[facility] [id number] Misbah Israel MD LAB - CHEMISTRY TIRSO HAZEL [facility] Organization Address City/State/ZIP Co de Phone Number [facility] INSURANCE BILL [address] [place] [address] documented in this encounter Visit Diagnoses Diagnosis Forgetfulness- Primary Other general symptoms Change in behavior Unspecified disturbance of conduct Essential hypertension 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
--- OUTSIDE RECORDS SUMMARY | 2024-09-07 17:51 | XMS_ITS | Encounter Summary ---
Author Organization [facility] Health Address [address] [facility] [place] [address] Care Team Providers Care Clinical Specialty Rep Name Role Phone Manish Teran MD Primary Care Provider [phone] Reason for Visit * Reason Comments Follow-up 70 year old male is here today to go over neuropsych eval; dopplers, and labs - patient states he is doing well; patient has daughter with him today. 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 Patient admits that his forgetting which he thinks is part of the normal aging. He gave couple of examples like he will not crop picker his son or somebody else as [...] and normal carotids. Affect: Normal. Neurologic examination [place] cognitive assessment testing(30)-16 from last visit 1. [...] not be driving unless he get a communications professional's assessment. Provided information on that. He [...] with Alzheimer's disease. 1. Provided information on communications professional assessment. 2. Aspirin 81 mg daily, [...] any question. Misbah PITTS MD,DM,FAAN,FAHS,FAANEM Adj Associate Profession,[facility],School of Medicine Stroke Dag Coater [facility], [facility] [phone] Cc No ref. 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
--- OUTSIDE RECORDS SUMMARY | 2024-09-07 17:51 | XMS_ITS | Encounter Summary ---
Author Organization [facility] Health Address [address] [facility] [place] [address] Care Team Providers Care Learning Engineer Name Role Phone Manish Teran MD Primary Care Provider [phone] Reason for Visit * Reason Onset Date Comments Results 03/25/2021 Encounter Details Date Type Department Care Team (Late st Contact Info) Description 03/25/2021 Telephone [facility] Neurosciences [address] [facility] [address] [place] [address] Misbah Israel MD [address] [facility] [address] [place], [place] [id number] Results Social History Tobacco Use Types Packs/Day [...] st Contact Info) Description 10/13/2024 2:00 PM ALTERATIONS MANAGER Office Visit [facility] Neurosciences [address] [place] [address] Misbah Israel MD [address] [place] [address] documented as of this encounter Visit Diagnoses Not on filedocumented in this encounter Care Teams Learning Engineer Relationship Specialty [place] [address] [place] [address] PCP - General Family Medicine 12/18/20 documented as of this encounter
--- OUTSIDE RECORDS SUMMARY | 2024-09-07 17:51 | XMS_ITS | Clinical Summary ---
Author Organization [facility] Address [address] [place] [address] Care Team Providers Care Residential Real Estate Sales Manager Name Role Phone Glen Heart MD Primary Care Provider [phone] Encounters Date Type Department Care Team Description 08/29/2024 Telephone [facility] [address] [place] [phone] Referring, MD Ronak 08/26/2024 Telephone [facility] [address] [place] [phone] Ana Jovel 08/25/2024 Telephone [facility] [address] [place] [phone] Unknown, Notinfile 07/13/2024 7:31 PM PROCESS CONTROL PROGRAMMER - 07/13/2024 11:59 PM PROCESS CONTROL PROGRAMMER Hospital Encounter [address] [address] Alzheimer's disease (HCC); Anemia, unspecified; Hyperlipemia; Senile dementia, uncomplicated (HCC); Essential hypertension, malignant; Debility; Screening for malnutrition; Family history of diabetes mellitus; Special screening for malignant neoplasm of prostate; Avitaminosis D Discharge Disposition: Discharge to home or self care 07/13/2024 12:30 PM PROCESS CONTROL PROGRAMMER Lab [facility] Out[facility] Lab at [address] [address] Alzheimer's disease (HCC) (Primary Dx); [...] URINALYSIS, MICROSCOPIC ONLY Routine 07/13/2024 12:43 PM PROCESS CONTROL PROGRAMMER Alzheimer's disease (HCC) Anemia, unspecified Hyperlipemia Senile dementia, uncomplicated (HCC) Essential hypertension, malignant Debility Screening for malnutrition Family history of diabetes mellitus Special screening for malignant neoplasm of prostate Avitaminosis D EGFR Routine 07/13/2024 12:43 PM PROCESS CONTROL PROGRAMMER Alzheimer's disease (HCC) Anemia, unspecified Hyperlipemia Senile dementia, uncomplicated (HCC) Essential hypertension, malignant Debility Screening for malnutrition Family history of diabetes mellitus Special screening for malignant neoplasm of prostate Avitaminosis D DIFFERENTIAL AUTO Routine 07/13/2024 12: 43 PM PROCESS CONTROL PROGRAMMER Alzheimer's disease (HCC) Anemia, unspecified Hyperlipemia Senile dementia, uncomplicated (HCC) Essential hypertension, malignant Debility Screening for malnutrition Family history of diabetes mellitus Special screening for malignant neoplasm of prostate Avitaminosis D COMPREHENSIVE METABOLIC PANEL Routine 07/13/2024 12:43 PM PROCESS CONTROL PROGRAMMER Alzheimer's disease (HCC) Anemia, unspecified Hyperlipemia Senile dementia, uncomplicated (HCC) Essential hypertension, malignant Debility Screening for malnutrition Family history of diabetes mellitus Special screening for malignant neoplasm of prostate Avitaminosis D CBC WITH AUTO DIFFERENTIAL Routine 07/13/2024 12:43 PM PROCESS CONTROL PROGRAMMER Alzheimer's disease (HCC) Anemia, unspecified Hyperlipemia Senile dementia, uncomplicated (HCC) Essential hypertension, malignant Debility Screening for malnutrition Family history of diabetes mellitus Special screening for malignant neoplasm of prostate Avitaminosis D LIPID PANEL Routine 07/13/2024 12:43 PM PROCESS CONTROL PROGRAMMER Alzheimer's disease (HCC) Anemia, unspecified Hyperlipemia Senile dementia, uncomplicated (HCC) Essential hypertension, malignant Debility Screening for malnutrition Family history of diabetes mellitus Special screening for malignant neoplasm of prostate Avitaminosis D TSH Routine 07/13/2024 12:43 PM PROCESS CONTROL PROGRAMMER Alzheimer's disease (HCC) Anemia, unspecified Hyperlipemia Senile dementia, uncomplicated (HCC) Essential hypertension, malignant Debility Screening for malnutrition Family history of diabetes mellitus Special screening for malignant neoplasm of prostate Avitaminosis D PSA DIAGNOSTIC Routine 07/13/2024 12:43 PM PROCESS CONTROL PROGRAMMER Alzheimer's disease (HCC) Anemia, unspecified Hyperlipemia Senile dementia, uncomplicated (HCC) Essential hypertension, malignant Debility Screening for malnutrition Family history of diabetes mellitus Special screening for malignant neoplasm of prostate Avitaminosis D VITAMIN B12 Routine 07/13/2024 12:43 PM PROCESS CONTROL PROGRAMMER Alzheimer's disease (HCC) Anemia, unspecified Hyperlipemia Senile dementia, uncomplicated (HCC) Essential hypertension, malignant Debility Screening for malnutrition Family history of diabetes mellitus Special screening for malignant neoplasm of prostate Avitaminosis D FOLATE Routine 07/13/2024 12:43 PM PROCESS CONTROL PROGRAMMER Alzheimer's disease (HCC) Anemia, unspecified Hyperlipemia Senile dementia, uncomplicated (HCC) Essential hypertension, malignant Debility Screening for malnutrition Family history of diabetes mellitus Special screening for malignant neoplasm of prostate Avitaminosis D VITAMIN D 25 HYDROXY Routine 07/13/2024 12:43 PM PROCESS CONTROL PROGRAMMER Alzheimer's disease (HCC) Anemia, unspecified Hyperlipemia Senile dementia, uncomplicated (HCC) Essential hypertension, malignant Debility Screening for malnutrition Family history of diabetes mellitus Special screening for malignant neoplasm of prostate Avitaminosis D IRON PROFILE W/ IBC Routine 07/13/2024 1 2:43 PM PROCESS CONTROL PROGRAMMER Alzheimer's disease (HCC) Anemia, unspecified Hyperlipemia Senile dementia, uncomplicated (HCC) Essential hypertension, malignant Debility Screening for malnutrition Family history of diabetes mellitus Special screening for malignant neoplasm of prostate Avitaminosis D HEMOGLOBIN A1C Routine 07/13/2024 12:43 PM PROCESS CONTROL PROGRAMMER Alzheimer's disease (HCC) Anemia, unspecified Hyperlipemia Senile dementia, uncomplicated (HCC) Essential hypertension, malignant Debility Screening for malnutrition Family history of diabetes mellitus Special screening for malignant neoplasm of prostate Avitaminosis D URINE CULTURE Routine 07/13/2024 12:43 PM PROCESS CONTROL PROGRAMMER URINALYSIS AND REFLEX TO MICROSCOPIC AND CULTURE Routine 07/13/2024 12:43 PM PROCESS CONTROL PROGRAMMER Alzheimer's disease (HCC) Anemia, unspecified Hyperlipemia Senile dementia, uncomplicated (HCC) Essential hypertension, malignant Debility Screening for malnutrition Family history of diabetes mellitus Special screening for malignant neoplasm of prostate Avitaminosis D from Last 3 Months Results * (ABNORMAL) eGFR (07/13/2024 12:43 PM PROCESS CONTROL PROGRAMMER) [facility] eGFR 47(L) >=60 mL/min/1. 73 m2 Comment: [...] reviewed 2021. Blood 07/13/2024 12:4 3 PM PROCESS CONTROL PROGRAMMER 07/13/2024 8:19 PM PROCESS CONTROL PROGRAMMER us Alison Diaz MINING ENGINEER LAB BLOOD ORDERABLES Final R esult [facility] [address] [place] [address] * Differential, auto (07/13/2024 12:43 PM PROCESS CONTROL PROGRAMMER) Neutrophil abs 2.0 1.5 - 6.5 K/cumm Imm gran abs 0.0 0.0 - 0.1 K/cumm [facility] Lymphocyte abs 1.3 0.8 - 3.3 K/cumm [facility] Monocyte abs 0.4 0.2 - 0.8 K/cumm [facility] Eosinophil abs 0.1 0.0 - 0.5 K/cumm [facility] Basophil abs 0.0 0.0 - 0.1 K/cumm [facility] Neutrophil pct 53.2 % LEE Comment: Interpretive [...] revised on 2017. Lymphocyte pct 34.9 % [facility] Comment: Interpretive Data Percent cell count reference ranges are not reported, since discordance with absolute values may lead to misinterpretation of CBC data. Current Interpretive Data was last revised on 2017. Monocyte pct 9.8 % [facility] Comment: Interpretive Data Percent cell count reference ranges are not reported, since discordance with absolute values may lead to misinterpretation of CBC data. Current Interpretive Data was last revised on 2017. Eosinophil pct 1.6 % [facility] Comment: Interpretive Data Percent cell count reference ranges are not reported, since discordance with absolute values may lead to misinterpretation of CBC data. Current Interpretive Data was last revised on 2017. Basophil pct 0.5 % [facility] Comment: Interpretive Data Percent cell count reference ranges are not reported, since discordance with absolute values may lead to misinterpretation of CBC data. Current Interpretive Data was last revised on 2017. Blood 07/13/2024 12:4 3 PM PROCESS CONTROL PROGRAMMER 07/13/2024 8:02 PM PROCESS CONTROL PROGRAMMER Alison Diaz NP LAB BLOOD ORDERABLES Final R ult Performing Organization Address City/[facility]/ZIP Co de Phone Number LEE [place] [address] [address] [place] [address] * (ABNORMAL) Iron profile w/ IBC (07/13/2024 12:43 PM PROCESS CONTROL PROGRAMMER) Iron 72 50 - 150 mcg/dl TIBC 198(L) 250 - 400 mcg/dL [facility] Transferrin saturation 36 20 - 50 % [facility] Blood 07/13/2024 12:4 3 PM PROCESS CONTROL PROGRAMMER 07/13/2024 8:02 PM PROCESS CONTROL PROGRAMMER Narrative [facility] - 07/13/2024 9:08 PM PROCESS CONTROL PROGRAMMER Fax results to Dr Alison Diaz [phone] Alison Diaz MINING ENGINEER LAB BLOOD ORDERABLES Final R esult [place] [address] [address] [place] [address] * (ABNORMAL) Urinalysis reflex to microscopic and culture Urine, clean voided (07/13/2024 12:43 PM PROCESS CONTROL PROGRAMMER) Color, ur Yellow Yellow Clarity, ur Turbid(A) [...] tendency for uric acid stone formation. Source: [facility] [employer] Current Interpretive Data was last revised on [...] CERNER Urine, clean voided 07/13/2024 12:43 PM PROCESS CONTROL PROGRAMMER 07/13/2024 8:02 PM PROCESS CONTROL PROGRAMMER Narrative [facility] - 07/13/2024 9:17 PM PROCESS CONTROL PROGRAMMER Fax results to Dr Alison Diaz [phone] Alison Diaz NP LAB MICROBIOLOGY - GENERAL O RDERABLES Final Result [facility] [address] [address] [place] [address] * (ABNORMAL) CBC with auto differential (07/13/2024 12:43 PM PROCESS CONTROL PROGRAMMER) WBC 3.8 3.8 - 9.9 K/cumm Hgb 12.7(L) 13.0 - 17.5 g/dL CERN[facility] CH Hct 37.6(L) 38.9 - 50.3 % [facility] Plt 245 150 - 400 K/cumm [facility] MPV 10.2 9.1 - 12.3 fL [facility] RBC 4.60 4.30 - 5.80 M/cumm [facility] MCV 81.7 81.3 - 96.4 fL [facility] MCH 27.6 27.1 - 33.3 pg [facility] MCHC 33.8 32.3 - 35.7 g/dL [facility] RDW CV 15.9(H) 11.1 - 14.9 % [facility] RDW SD 47.5 35.7 - 48.1 fL [facility] NRBC abs 0.00 0.00 - 0.01 K/cumm [facility] Blood 07/13/2024 12:4 3 PM PROCESS CONTROL PROGRAMMER 07/13/2024 8:02 PM PROCESS CONTROL PROGRAMMER Narrative [facility] - 07/13/2024 8:28 PM PROCESS CONTROL PROGRAMMER Fax results to Dr Alison Diaz [phone] Alison Diaz MINING ENGINEER LAB BLOOD ORDERABLES Final R esult Performing Organization Address City/[facility] Co de Phone Number [place]EE [place] [address] [place] [address] * Vitamin D 25 hydroxy (07/13/2024 12:43 PM PROCESS CONTROL PROGRAMMER) [facility] Vitamin D 25-OH 56 30 - 80 ng/mL Blood 07/13/2024 12:4 3 PM PROCESS CONTROL PROGRAMMER 07/13/2024 8:02 PM PROCESS CONTROL PROGRAMMER Narrative [facility] - 07/13/2024 8:56 PM PROCESS CONTROL PROGRAMMER Fax results to Dr Alison Diaz [phone] Alison Diaz MINING ENGINEER LAB BLOOD ORDERABLES Final R esult Performing Organization Address City/[facility]/ZIP Co de Phone Number LEE ROACH [address] [address] Department of [employer] [place], [place] [id number] * (ABNORMAL) Urinalysis, microscopic only (07/13/2024 12:43 PM PROCESS CONTROL PROGRAMMER) [facility] WBC, ur 21-50(A) 0 - 5 /HPF RBC, ur 3-5(A) 0 - 2 /HPF [facility] Epithelial cells, squamous, ur 1-5 0 - 5 /HPF [facility] Bacteria, ur Trace(A) [facility] Mucous, ur Present(A) [facility] Hyaline casts, ur 6-10 0 - 10 /LPF [facility] Culture Reflex Comment Reflex to urine culture will be performed. [facility] Urine, clean voided 07/13/2024 12:43 PM PROCESS CONTROL PROGRAMMER 07/13/2024 8:02 PM PROCESS CONTROL PROGRAMMER us Alison Diaz NP LAB URINE ORDERABLES Final R esult Performing Organization Address [facility]/ZIP Co de Phone Number [place]EE [place] [address] [address] [place] [address] * Urine culture Urine, clean voided (07/13/2024 12:43 PM PROCESS CONTROL PROGRAMMER) Report Final Report: Less than 100,000 colonies/mL (clinically insignificant growth based on current clinical standards) Comment:Testing performed by : [facility], [address] [place]., [address] Organism (CLINICALLY INSIGNIFICANT GROWTH [facility] Urine, clean voided 07/13/2024 12:43 PM PROCESS CONTROL PROGRAMMER 07/14/2024 3:27 AM PROCESS CONTROL PROGRAMMER Narrative [facility] - 07/15/2024 7:02 AM PROCESS CONTROL PROGRAMMER Urine culture reflexed based upon urinalysis results. Testing performed by [facility] Microbiology Laboratory ([phone]) us Alison Diaz NP LAB MICROBIOLOGY - GENERAL O RDERABLES Final Result Performing Organization Address [facility]/ZIP Co de Phone Number OSEASJED RO[place] [address] [address] [place] [address] * TSH (07/13/2024 12:43 PM PROCESS CONTROL PROGRAMMER) Thyroid Stimulating Hormone 3.07 0.30 - 4.20 mcIUnit/mL Blood (Blood, Venous) 07/13/2024 12:43 PM PROCESS CONTROL PROGRAMMER 07/13/2024 8:02 PM PROCESS CONTROL PROGRAMMER Narrative LEE - 07/13/2024 9:08 PM PROCESS CONTROL PROGRAMMER Fax results to Dr Alison Diaz [phone] Alison Diaz MINING ENGINEER LAB BLOOD ORDERABLES Final R esult Performing Organization Address [facility] Co de Phone Number LEE [address] [address] Department [place] [address] * PSA diagnostic (07/13/2024 12:43 PM PROCESS CONTROL PROGRAMMER) PSA-Total 1.14 <=6.20 ng/mL Comment: Interpretive Data [...] 22. Blood (Blood, Venous) 07/13/2024 12:43 PM PROCESS CONTROL PROGRAMMER 07/13/2024 8:02 PM PROCESS CONTROL PROGRAMMER Narrative LEE - 07/13/2024 9:08 PM PROCESS CONTROL PROGRAMMER Fax results to Dr Alison Diaz [phone] Alison Diaz MINING ENGINEER LAB BLOOD ORDERABLES Final R esult Performing Organization Address City/[facility] de Phone Number LEE [address] [address] [facility] [place] [address] * Hemoglobin A1c (07/13/2024 12:43 PM PROCESS CONTROL PROGRAMMER) [facility] Hgb A1C 5.6 4.0 - 5.6 % Estimated Average Glucose 114 mg/dL [facility] Comment: The ADA recommends reporting an estimated Average Glucose (eAG) with all Hemoglobin A1c results using the equation derived from a study of 507 normal and diabetic adults. ??Minority populations were underrepresented and children were not included. ?? (Diabetes Care 31:6607-5806, 2008). ??The eAG is not equivalent to a fasting glucose. Blood (Blood, Venous) 07/13/2024 12:43 PM PROCESS CONTROL PROGRAMMER 07/13/2024 8:02 PM PROCESS CONTROL PROGRAMMER Narrative [facility] - 07/13/2024 8:47 PM PROCESS CONTROL PROGRAMMER Fax results to Dr Alison Diaz [phone] Alison Diaz NP LAB BLOOD ORDERABLES Final R esult Performing Organization Address [facility] de Phone Number LEE [address] [address] [place] [address] * Folate (07/13/2024 12:43 PM PROCESS CONTROL PROGRAMMER) [facility] Folic acid >20.0 >=5.0 ng/mL Comment:Hemolysis present. R esults may be affected. Blood 07/13/2024 12:4 3 PM PROCESS CONTROL PROGRAMMER 07/13/2024 8:02 PM PROCESS CONTROL PROGRAMMER Narrative [facility] - 07/13/2024 9:08 PM PROCESS CONTROL PROGRAMMER Fax results to Dr Alison Diaz [phone] Alison Diaz NP LAB BLOOD ORDERABLES Final R esult Performing Organization Address [facility] Co de Phone Number LEE [address] [address] [place] [address] * Vitamin B12 (07/13/2024 12:43 PM PROCESS CONTROL PROGRAMMER) [facility] Vitamin B12 768 230 - 1,250 pg/mL Blood (Blood, Venous) 07/13/2024 12:43 PM PROCESS CONTROL PROGRAMMER 07/13/2024 8:02 PM PROCESS CONTROL PROGRAMMER Narrative [facility]EE ROACH - 07/13/2024 9:08 PM PROCESS CONTROL PROGRAMMER Fax results to Dr Alison Diaz [phone] Alison Diaz MINING ENGINEER LAB BLOOD ORDERABLES Final R esult LEE [address] [address] [place] [address] * Lipid panel (07/13/2024 12:43 PM PROCESS CONTROL PROGRAMMER) [facility] Cholesterol 176 30 - 199 mg/dL Comment: [...] revised on 2018. Triglycerides 64 <=149 mg/dL [facility] Comment: Interpretive Data Ages < or = [...] CH Blood (Blood, Venous) 07/13/2024 12:43 PM PROCESS CONTROL PROGRAMMER 07/13/2024 8:02 PM PROCESS CONTROL PROGRAMMER Narrative [facility] - 07/13/2024 9:08 PM PROCESS CONTROL PROGRAMMER Fax results to Dr Alison Diaz [phone] Alison Diaz MINING ENGINEER LAB BLOOD ORDERABLES Final R esult LEE [address] [address] [place] [address] * (ABNORMAL) Comprehensive metabolic panel (07/13/2024 12:43 PM PROCESS CONTROL PROGRAMMER) Sodium 140 135 - 145 mmol/L Potassium, [...] CH Blood (Blood, Venous) 07/13/2024 12:43 PM PROCESS CONTROL PROGRAMMER 07/13/2024 8:02 PM PROCESS CONTROL PROGRAMMER Narrative [facility] - 07/13/2024 9:08 PM PROCESS CONTROL PROGRAMMER Fax results to Dr Alison Diaz [phone] Alison Diaz NP LAB BLOOD ORDERABLES Final R esult LEE [address] [address] [place] [address] from Last 3 Months Insurance MEDICARE [employer] MEDICARE HMO Care Teams Residential Real Estate Sales Manager Relationship Specialty Start Date End Date Glen Heart MD [address] [place] [address] PCP - General 04/23/17
--- OUTSIDE RECORDS SUMMARY | 2024-09-07 17:51 | XMS_ITS | Encounter Summary ---
Author Organization [facility] Health Address [address] [place] [address] Care Team Providers Care Dietary Manager Name Role Phone Manish Teran MD Primary Care Provider Reason for Visit * Reason Onset Date Comments Follow-up 12/31/2022 Encounter Details Date Type Department Care Team (Late st Contact Info) Description 12/31/2022 Telephone [facility] Neurosciences [address] [place] [address] Misbah Israel MD [address] [place], [place] [phone] Follow-up Social History Tobacco Use Types Packs/Day [...] st Contact Info) Description 10/13/2024 2:00 PM LINE SUPPLY Office Visit [facility] [address] [place] [address] Misbah Israel MD [address] [place] [address] documented as of this encounter Visit Diagnoses Not on filedocumented in this encounter Care Teams Dietary Manager Relationship Specialty [place] [address] [place], [place] [phone] PCP - General Family Medicine 12/18/20 documented as of this encounter
--- OUTSIDE RECORDS SUMMARY | 2024-09-07 17:51 | XMS_ITS | Encounter Summary ---
Author Organization [facility] Address [address] [place] [address] Care Team Providers Care Work Environment Safety Inspector Name Role Phone Manish Teran MD Primary Care Provider [phone] Reason for Referral * Neurology (Routine) - Closed Specialty Diagnoses / Procedures Referred By Contac t Referred To Contact Neuroscience Diagnoses Forgetfulness Procedures EEG Misbah Israel MD [address] [place] [address] [facility] [address] [place], [place] [address] [address] [place] [address] Referral ID Status Reason Start Date Expiration Date Visits Re quested Visits Authorized [id number] Closed 12/31/2020 12/31/2021 1 1 Reason for Visit * Neurology (Routine) - Closed Specialty Diagnoses / Procedures Referred By Contac t Referred To Contact Neuroscience Diagnoses Forgetfulness Procedures EEG Misbah Israel MD [address] [place] [address] [facility] [address] [place] [address] Referral ID Status Reason Start Date Expiration Date Visits Re quested Visits Authorized [id number] Closed 12/31/2020 12/31/2021 1 1 Encounter Details Date Type Department Care Team (Latest Contact Info) Description 02/06/2021 10:19 AM CDT - 02/06/2021 11:59 PM CDT Hospital Encounter [facility] EMG/EEG [address] [place] [address] Misbah Israel MD [address] [facility] [facility] [address] [place] [address] Discharge Disposition: Home or Self Care Social [...] - 02/06/2021 11:59 PM CDTAssociated Order(s): EEG [facility] EMG/EEG [address] [facility] [address] Electroencephalogram Frederick Flores Routine EEG with Video [...] specific. EEG diagnosis Mild Encephalopathy. Misbah PITTS,,DM,FAAN,FAHS,FAANEM [facility], [facility] T [phone] documented in this encounter Plan of Treatment Upcoming Encounters Date Type Department Care Team (Late st Contact Info) Description 10/13/2024 2:00 PM MANAGER ED Office Visit [facility] Neurosciences [address] [place] [address] Misbah Israel MD [address] [place] [address] documented as of this encounter Procedures Procedure Name Priority Date/Time Associated Diagnosis Comments EEG Routine 02/06/2021 11:59 PM CDT Forgetfulness documented in this encounter Results * EEG (02/06/2021 11:59 PM CDT) Narrative [facility] MEDQUIST - 02/06/2021 11:59 PM CDT Misbah Israel MD ? 02/07/2021 ??5:16 PM [facility] EMG/EEG [address] [facility] [address] Electroencephalogram Frederick Flores Routine EEG with Video [...] EEG diagnosis Mild Encephalopathy. Misbah PITTS MD,DM,FAAN,FAHS,FAANEM [facility], [facility] T [phone] Misbah Israel MD NEUROLOGY ORDERABLES Performing Organization Address City/State/[facility] Co de Phone Number [facility] documented in this encounter Visit Diagnoses Diagnosis Forgetfulness Other general symptoms documented in this encounter Care Teams Work Environment Safety Inspector Relationship Specialty Start Date End Date Manish Teran MD [address] [place] [address] PCP - General Family Medicine 12/18/20 documented as of this encounter
--- OUTSIDE RECORDS SUMMARY | 2024-09-07 17:51 | XMS_ITS | Encounter Summary ---
Author Organization [facility] Address [address] [facility] [place] [address] Care Team Providers Care Mathematics Technician Name Role Phone Manish Teran MD Primary Care Provider [phone] Reason for Referral * Radiology Services (Routine) - Closed Specialty Diagnoses / Procedures Referred By Jada olivares Referred To Contact Positron Emission Tomography Diagnoses Major neurocognitive disorder (HCC) Procedures PET CT BRAIN ALZHEIMER EVAL PET CT LIMITED AREA Misbah Israel MD [address] [place] [address] [facility] Pet Op [address] [place] [phone] Referral ID Status Reason Start Date Expiration Date Visits Re quested Visits Authorized [id number] Closed 04/08/2023 05/08/2023 1 1 Reason for Visit * Reason Comments Follow-up Pt present today for follow up regarding memory. Encounter Details Date Type Department Care Team (Late st Contact Info) Description 03/12/2023 10:00 AM CDT Office Visit [facility] [address] [place] [address] Misbah Israel MD [address] [place] [address] Major neurocognitive disorder (HCC) (Primary [...] MIND diet 7. Amyloid PET brain at [facility],verify order Celexa 10 mg qD for depression [...] the right hand Coordination he can do [id number]-mpar-[id number] Gait he can walk briskly, arm swing reduced on the right compared to the left MEDICAL DECISION MAKING 1. DATA REVIEW: I independently reviewed the electronic medical informations including notes, images and labs available in system summarized in assessment and plan. , Recent Labs Component Name 02/15/21 0920 CHOL 141 TRIG 60 HDL 49 LDLCALC 80 Recent Labs Component Name 12/31/20 1620 [id number] 2. ASSESSMENT AND PLAN: ICD-10-CM 1. Major neurocognitive disorder (CMS/HCC) F03.90 1. Cognitive: I performed the Helena cognitive assessment score which is described above . Helena cognitive assessment testing(30)-17 ( 05/22- 17 March [...] Contact Info) Description 10/13/2024 2:00 PM CHILD NUTRITION MANAGER Office Visit [facility] [address] [place], [place] [id number] Misbah Israel MD [address] [place] [address] documented as of this encounter Results * [...] this study. > Dictated by Michael Varela (Laminated Plastics Assembler And Gluer) 04/16/2023 2:36 PM ISantino MD have personally [...] interpretation of this study. > Dictated by Michale Varela (Laminated Plastics Assembler And Gluer) 04/16/2023 2:36 PM I, Santino Irvin [...] (HCC) documented in this encounter Care Teams Mathematics Technician Relationship Specialty Start Date End Date Manish Teran MD [address] [place] [address] PCP - General Family Medicine 12/18/20 documented as of this encounter
--- OUTSIDE RECORDS SUMMARY | 2024-09-07 17:51 | XMS_ITS | Encounter Summary ---
Author Organization [facility] Health Address [address] [place] [address] Care Team Providers Care Web Weaver Name Role Phone Manish Teran MD Primary Care Provider Reason for Visit * Reason Comments Refill Request Encounter Details Date Type Department Care Team (Late st Contact Info) Description 07/31/2022 Refill [facility] [address] [facility] [address] [place] [address] Misbah Israel MD [address] [facility] [address] [place], [place] [id number] Refill Request Social History Tobacco Use Types [...] 05/15/22 Next OV: 11/13/22 Last Refill: 03/15/21 HER CRAFTER documented in this encounter Plan of Treatment Upcoming Encounters Date Type Department Care Team (Late st Contact Info) Description 10/13/2024 2:00 PM LEATHER CRAFTER Office Visit [facility] Health Neurosciences [address] [place] [address] Misbah Israel MD [address] [place] [address] documented as of this encounter Visit Diagnoses Not on filedocumented in this encounter Care Teams Web Weaver Relationship Specialty Start Date End Date Manish Teran MD [address] [place] [address] PCP - General Family Medicine 12/18/20 documented as of this encounter
--- OUTSIDE RECORDS SUMMARY | 2024-09-07 17:51 | XMS_ITS | Encounter Summary ---
Author Organization [facility] Health Address [address] [facility] [place] [address] Care Team Providers Care Building Code Administrator Name Role Phone Manish Teran MD Primary Care Provider [phone] Reason for Visit * Reason Onset Date Comments Results 01/07/2021 Encounter Details Date Type Department Care Team (Late st Contact Info) Description 01/07/[address] [facility] Neurosciences [address] [facility] [address] [place] [address] Misbah Israel MD [address] [facility] [address] [place], [place] [id number] Results Social History Tobacco Use Types Packs/Day [...] st Contact Info) Description 10/13/2024 2:00 PM APARTMENT LEASING AGENT Office Visit [facility] Health Neurosciences [address] [place] [address] Misbah Israel MD [address] [place] [address] documented as of this encounter Visit Diagnoses Not on filedocumented in this encounter Care Teams Building Code Administrator Relationship Specialty [place] [address] [place] [address] PCP - General Family Medicine 12/18/20 documented as of this encounter
--- OUTSIDE RECORDS SUMMARY | 2024-09-07 17:51 | XMS_ITS | Encounter Summary ---
Author Organization [facility] Health Address [address] [facility] [place] [address] Care Team Providers Care Molecular Technologist Name Role Phone Manish Teran MD Primary Care Provider [phone] Reason for Visit * Reason Comments Follow-up 71 year old male Liane Giordano. Patient is vaccinated, received farmhopping. Patient is taking medications, no side effects. He states that his memory is about the same, no significant changes, no pain. 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 He lives with his . Patient admits that his forgetting which he thinks is part of the normal aging. He gave couple of examples like he will not continuous pickling line pickler helper his son or somebody else as promised [...] examined in detail. He is oriented to [employer], follows 3 step command he can name [...] not be driving unless he get a direct service professional's assessment. Provided information on that. He [...] have any question. Misbah PITTS,,DM,FAAN,FAHS,FAANEM Adj Associate Profession,[facility],School of Medicine Stroke Corporate Consultant [facility], [facility] T [phone] Cc No ref. 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
--- OUTSIDE RECORDS SUMMARY | 2024-09-07 17:51 | XMS_ITS | Encounter Summary ---
Author Organization [facility] Health Address [address] [facility] [place] [address] Care Team Providers Care Cloth Neutralizer Name Role Phone Manish Teran MD Primary Care Provider [phone] Reason for Visit * Reason Onset Date Comments MEDICATION REFILL 08/04/2022 Encounter Details Date Type Department Care Team (Late Contact Info) Description 08/04/2022 Refill [facility] [address] [place] [address] Misbah Israel MD [address] [place] [address] MEDICATION REFILL Social History Tobacco Use Types [...] 08/04/2022 2:14 PM CST Opened by error IT COLLECTIONS CLERK documented in this encounter Plan of Treatment Upcoming Encounters Date Type Department Care Team (Late Contact Info) Description 10/13/2024 2:00 PM CREDIT COLLECTIONS CLERK Office Visit [facility] [address] [place] [address] Misbah Israel MD [address] [place] [address] documented as of this encounter Visit Diagnoses Not on filedocumented in this encounter Care Teams Cloth Neutralizer Relationship Specialty Start Date End Date Manish Teran MD [address] [place] [address] PCP - General Family Medicine 12/18/20 documented as of this encounter
--- OUTSIDE RECORDS SUMMARY | 2024-09-07 17:51 | XMS_ITS | Encounter Summary ---
Author Organization [facility] Health Address [address] [facility] [place] [address] Care Team Providers Care Home Care Administrator Name Role Phone Manish Teran MD Primary Care Provider [phone] Reason for Visit * Reason Comments Follow-up Pt present today for memory. Encounter Details Date Type Department Care Team (Late st Contact Info) Description 12/26/2022 8:40 AM CDT Office Visit [facility]sciences [address] [facility] [address] [place] [address] Misbah Israel MD [address] [facility] [address] [place], [place] [id number] Major neurocognitive disorder (HCC) (Primary Dx); Mixed [...] Lorrie Andrew- spouse, independent historian, present at [facility] side Highest education high school+ 2.HPI: [...] 80 Recent Labs Component Name 12/31/20 1620 [id number] 2. ASSESSMENT AND PLAN: ICD-10-CM 1. [...] ADLs- dependent in 1. Transportation and shopping: [employer] 2. Managing finances: [employer] 3. Shopping and meal preparation. occ driving to [employer] 4. Housecleaning and home maintenance. Both together [...] home 1. Is the patient still driving? [employer] right across street 2. Is the patient [...] scan as needed He still drives to [place] which is nearby, recommended against Recommend to take aspirin 81 mg daily. Plan to see him 6 months with [place] 3. COUNSELING& COORDINATION OF CARE: Discussed in [...] st Contact Info) Description 10/13/2024 2:00 PM HOST HOSTESS Office Visit [facility] Health Neurosciences [address] [place] [address] Misbah Israel MD [address] [place] [address] documented as of this encounter Visit Diagnoses Diagnosis Major neurocognitive disorder (HCC)- Primary Mixed hyperlipidemia Small vessel disease (HCC) Peripheral vascular disease, unspecified Driving safety issue Other specified personal history presenting hazards to health documented in this encounter Care Teams Home Care Administrator Relationship Specialty Start Date End Date Manish Teran MD [address] [place] [address] PCP - General Family Medicine 12/18/20 documented as of this encounter
--- OUTSIDE RECORDS SUMMARY | 2024-09-07 17:51 | XMS_ITS | Encounter Summary ---
Author Organization [facility] Health Address [address] [facility] [place] [address] Care Team Providers Care Director Of Casework Department Name Role Phone Manish Teran MD Primary Care Provider [phone] Encounter Details Date Type Department Care Team (Late Contact Info) Description 05/19/2022 Orders Only [facility] Neurosciences [address] [facility] [address] [place] [address] Misbah Israel MD [address] [facility] [address] [place], [place] [id number] Social History Tobacco Use Types Packs/Day Years [...] (Late Contact Info) Description 10/13/2024 2:00 PM COIN TELLER Office Visit [facility] Health Neurosciences [address] [place] [address] Misbah Israel MD [address] [place] [address] documented as of this encounter Visit Diagnoses Not on filedocumented in this encounter Care Teams Director Of Casework Department Relationship Specialty Start Date End Date Manish Teran MD [address] [place] [address] PCP - General Family Medicine 12/18/20 documented as of this encounter
--- OUTSIDE RECORDS SUMMARY | 2024-09-07 17:51 | XMS_ITS | Encounter Summary ---
Author Organization [facility] Address [address] [facility] [place] [address] Care Team Providers Care Vocal Artist Name Role Phone Manish Teran MD Primary Care Provider [phone] Reason for Referral * Neurology (Routine) - Closed Specialty Diagnoses / Procedures Referred By Jada olivares Referred To Contact Neuroscience Diagnoses Forgetfulness Procedures EEG Misbah Israel MD [address] [place] [address] [facility] [address] [place] [address] Referral ID Status Reason Start Date Expiration Date Visits Re quested Visits Authorized [id number] Closed 12/31/2020 12/31/2021 1 1 * Radiology Services (Routine) - Closed Specialty Diagnoses / Procedures Referred By Jada olivares Referred To Contact MRI Diagnoses Forgetfulness Procedures MRI BRAIN WO CONTRAST Misbah Israel MD [address] [place] [address] [facility] Mri [address] [place] [address] Referral ID Status Reason Start Date Expiration Date Visits Re quested Visits Authorized [id number] Closed 02/06/2021 03/08/2021 1 1 Reason for [...] Description 12/31/2020 3:00 PM CDT Office Visit [facility] Neurosciences [address] [place], [place] [id number] Misbah Israel MD [address] [place], [place] [id number] Forgetfulness (Primary Dx); Change in behavior Social [...] MRI and EEG. They walked down to [facility] to complete labs today. 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 Patient admits that his forgetting which he thinks is part of the normal aging. He gave couple of examples like he will not olive picker his son or somebody else as [...] have any question. Misbah PITTS,,DM,FAAN,FAHS,FAANEM Adj Associate Profession,[facility],[employer] of Medicine Stroke Spinning Frame Changer [facility], [facility] [phone] Cc No ref. provider found documented in this encounter Plan of Treatment Upcoming Encounters Date Type Department Care Team (Late st Contact Info) Description 10/13/2024 2:00 PM SITE INSPECTOR Office Visit [facility] Neurosciences [address] [place] [address] Misbah Israel MD [address] [facility] [address] [place] [address] documented as of this encounter Procedures Procedure Name Priority Date/Time Associated Diagnosis Comments RPR Routine 12/31/2020 4:20 PM CDT Forgetfulness METHYLMALONIC ACID BLOOD Routine 12/31/2020 4:20 PM CDT Forgetfulness VITAMIN B12 Routine 12/31/2020 4:20 PM CDT Forgetfulness TSH Routine 12/31/2020 4:20 PM CDT Forgetfulness documented in this encounter Results * EEG (02/06/2021 11:59 PM CDT) [facility]ative [facility]06/2021 11:59 PM CDT Misbah Israel MD ? 02/07/2021 ??5:16 PM [facility] EMG/EEG [address] [facility] [address] Electroencephalogram Frederick Mark Routine EEG with Video [...] EEG diagnosis Mild Encephalopathy. Misbah PITTS,,DM,FAAN,FAHS,FAANEM NSI, [facility] T [phone] Misbah Israel MD NEUROLOGY ORDERABLES [facility] * MRI BRAIN WO CONTRAST (02/06/2021 [...] Resulting Agency Comment Lab Testing performed at: [address] ??[facility] [id number] Misbah Israel MD LAB - CHEMISTRY TIRSO HAZEL Performing Organization Address City/[facility]/ZIP Co de Phone Number [facility] INSURANCE BILL [address] [place] [address] * RPR (12/31/2020 4:20 PM CDT) RPR Non Reactive Non Reactive LAB ORP INSURANCE BILL Comment:FASTING Blood BLOOD SPECIMEN / Unknown 12/31/2020 4:20 PM CDT 12/31/2020 Narrative Resulting Agency Comment Lab Testing performed at: [address] ??[facility] [id number] Misbah Israel MD LAB - CHEMISTRY TIRSO HAZEL Performing Organization Address [facility] Co de Phone Number [facility] INSURANCE BILL [address] [place] [address] * METHYLMALONIC ACID BLOOD (12/31/2020 4:20 PM CDT) Methylmalonic Acid 156 0 - 378 nmol/L [facility] INSURANCE BILL Disclaimer [facility] INSURANCE BILL Comment: This test was developed and its performance characteristics determined by [facility]. It has not been cleared or approved by the Food and Drug Administration. FASTING Blood BLOOD SPECIMEN / Unknown 12/31/2020 4:20 PM CDT 12/31/2020 Narrative Resulting Agency Comment Lab Testing performed at: [address] ??[facility] [id number] Misbah Israel MD LAB - CHEMISTRY TIRSO HAZEL [facility] INSURANCE BILL [address] [place] [address] * VITAMIN B12 (12/31/2020 4:20 PM CDT) Vitamin B12 314 213 - 816 pg/mL [facility] INSURANCE BILL Comment: FASTING Blood BLOOD SPECIMEN / Unknown 12/31/2020 4:20 PM CDT 12/31/2020 Narrative Resulting Agency Comment Lab Testing performed at: [facility] [address] [facility] ??[facility] [id number] Misbah Israel MD LAB - CHEMISTRY TIRSO HAZEL [facility] INSURANCE BILL [address] [place] [address] documented in this encounter Visit Diagnoses Diagnosis Forgetfulness- Primary Other general symptoms Change in behavior Unspecified disturbance of conduct Forgetfulness Other general symptoms Forgetfulness Other general symptoms documented in this encounter Care Teams Vocal Artist Relationship Specialty Start Date End Date Manish Teran MD [address] [place] [address] PCP - General Family Medicine 12/18/20 documented as of this encounter
--- OUTSIDE RECORDS SUMMARY | 2024-09-07 17:51 | XMS_ITS | Encounter Summary ---
Author Organization [facility] Health Address [address] [place] [address] Care Team Providers Care Cna Hha Name Role Phone Manish Teran MD Primary Care Provider [phone] Reason for Visit * Reason Comments Follow-up Pt present today for follow up, pt has been experiencing some tremors/shakes. Encounter Details Date Type Department Care Team (Late st Contact Info) Description 05/15/2022 1:20 PM CDT Office Visit [facility]sciences [address] [facility] [address] [place], [place] [id number] Misbah Israel MD [address] [facility] [address] [place] [address] Major neurocognitive disorder (HCC) (Primary Dx); Mixed [...] 80 Recent Labs Component Name 12/31/20 1620 [id number] 2. ASSESSMENT AND PLAN: ICD-10-CM 1. Major neurocognitive disorder F03.90 2. Mixed hyperlipidemia E78.2 3. Essential hypertension I10 4. Driving safety issue Z91.89 5. Small vessel disease I73.9 6. Change in behavior R46.89 1. Cognitive: I performed the Ryder cognitive assessment score which is described above . Ryder cognitive assessment testing(30)-18 ( February 2021), score [...] meal preparation. Sometime he will go to [employer] and diamond picker stuff 4. Housecleaning and home maintenance. [...] Is the patient still driving? Just to [employer], no major driving. 2. Is the patient [...] st Contact Info) Description 10/13/2024 2:00 PM FABRICATING MACHINE OPERATOR Office Visit [facility] Health Neurosciences [address] [place] [address] Misbah Israel MD [address] [place] [address] documented as of this encounter Visit Diagnoses Diagnosis Major neurocognitive disorder (HCC)- Primary Mixed hyperlipidemia Essential hypertension Driving safety issue Other specified personal history presenting hazards to health Small vessel disease (HCC) Peripheral vascular disease, unspecified Change in behavior Unspecified disturbance of conduct documented in this encounter Care Teams Cna Hha Relationship Specialty Start Date End Date Manish Teran MD [address] [place] [address] PCP - General Family Medicine 12/18/20 documented as of this encounter
--- OUTSIDE RECORDS SUMMARY | 2024-09-07 17:51 | XMS_ITS | Encounter Summary ---
Author Organization [facility] Address [address] [place] [place] [address] Care Team Providers Care Mirror Finishing Machine Operator Name Role Phone Manish Teran MD Primary Care Provider [phone] Reason for Visit * Radiology Services (Routine) - Closed Specialty Diagnoses / Procedures Referred By Jada t Referred To Contact Vascular Lab Diagnoses Small vessel stroke (HCC) Procedures VAS CAROTID DUPLEX BILATERAL Misbah Israel MD [facility] [address] [place] [address] Referral ID Status Reason Start Date Expiration Date Visits Re quested Visits Authorized [id number] Closed 02/15/2021 02/15/2022 1 1 Encounter Details Date Type Department Care Team (Latest Contact Info) Description 03/06/2021 8:33 AM CDT - 03/06/2021 11:59 PM CDT Hospital Encounter [facility] Heart & Vascular Care [facility], [address] [place] [address] [place] [address] [place] [address] [address] [place] [address] Discharge Disposition: Home or Self [...] of this encounter Progress Notes * Misbah Israle MD - 03/06/2021 11:59 PM CDT I reviewed the report of the doppler carotid which is normal. documented in this encounter Plan of Treatment Upcoming Encounters Date Type Department Care Team (Late st Contact Info) Description 10/13/2024 2:00 PM TIMBER SUPERVISOR Office Visit [facility] Health Neurosciences [address] [place] [address] Misbah Israel MD [address] [place] [address] documented as of this encounter Procedures Procedure Name Priority Date/Time Associated Diagnosis Comments VAS CAROTID DUPLEX BILATERAL Routine 03/06/2021 9:30 AM CDT Small vessel stroke (HCC) documented in this encounter Results * VAS CAROTID DUPLEX BILATERAL (03/06/2021 9:30 AM CDT) Anatomical Region Laterality Modality Neck Echo 03/06/2021 8:37 AM CDT Narrative Procedure Note Dawood Lynch MD - 03/22/2021 [facility] [address] [place] [address] [facility] Carot[facility] Ultrasound Report Pat.Name: FREDERICK ALANIZ.ID: [id number] St.Date: 03/06/2021 Exam Time: 8:37:00 AM Study Type:Carotid Age: 8 1950,70Y Sex: MALE Sonogrphr: Phyllis Boyer RD, RVT CPT - 4: 71084 Reason for Study: small vessel stroke History / Clinical: forgetfulness Procedures: Carotid Duplex - Bilateral Visit ID: [id number] ++++++++++++++++++++++++++++++++++++ SUMMARY: ++++++++++++++++++++++++++++++++++++ No evidence of hemodynamically [...] infarction documented in this encounter Care Teams Mirror Finishing Machine Operator Relationship Specialty Start Date End Date Manish Teran MD [address] [place] [address] PCP - General Family Medicine 12/18/20 documented as of this encounter
--- OUTSIDE RECORDS SUMMARY | 2024-09-07 17:51 | XMS_ITS | Encounter Summary ---
Author Organization [facility] Health Address [address] [facility] [place] [address] Care Team Providers Care Molded Candles Wicker Name Role Phone Manish Teran MD Primary Care Provider [phone] Encounter Details Date Type Department Care Team [...] st Contact Info) Description 10/13/2024 2:00 PM AGRICULTURE LABORER Office Visit [facility] Health Neurosciences [address] [place] [address] Misbah Israel MD [address] [facility] [address] [place] [address] documented as of this encounter Visit Diagnoses Not on filedocumented in this encounter Care Teams Molded Candles Wicker Relationship Specialty Start Date End Date Manish Teran MD [address] [place] [address] PCP - General Family Medicine 12/18/20 documented as of this encounter
--- OUTSIDE RECORDS SUMMARY | 2024-09-07 17:51 | XMS_ITS | Encounter Summary ---
Author Organization [facility] Health Address [address] [facility] [place] [address] Care Team Providers Care Efficiency Manager Name Role Phone Manish Teran MD Primary Care Provider [phone] Reason for Visit * Reason Comments Refill Request Encounter Details Date Type Department Care Team (Late Contact Info) Description 09/09/2022 Refill [facility] Neurosciences [address] [facility] [address] [place] [address] Misbah Israel MD [address] [facility] [address] [place], [place] [id number] Refill Request Social History Tobacco Use Types [...] Last refill 05/19/22 Requesting 90 day refill CARE RN documented in this encounter Plan of Treatment Upcoming Encounters Date Type Department Care Team (Late st Contact Info) Description 10/13/2024 2:00 PM HOME CARE RN Office Visit [facility] Health Neurosciences [address] [place] [address] Misbah Israel MD [address] [place] [address] documented as of this encounter Visit Diagnoses Not on filedocumented in this encounter Care Teams Efficiency Manager Relationship Specialty Start Date End Date Manish Teran MD [address] [place] [address] PCP - General Family Medicine 12/18/20 documented as of this encounter
--- OUTSIDE RECORDS SUMMARY | 2024-09-07 17:51 | XMS_ITS | Encounter Summary ---
Author Organization [facility] Health Address [address] [facility] [place] [address] Care Team Providers Care Mononitrotoluene Operator Name Role Phone Manish Teran MD Primary Care Provider [phone] Reason for Visit * Reason Onset Date Comments Results 02/07/2021 Encounter Details Date Type Department Care Team (Late st Contact Info) Description 02/07/2021 Telephone [facility] Neurosciences [address] [facility] [address] [place] [address] Misbah Israel MD [address] [facility] [address] [place], [place] [id number] Results Social History Tobacco Use Types Packs/Day [...] st Contact Info) Description 10/13/2024 2:00 PM WHEEL BUFFER Office Visit [facility] Health Neurosciences [address] [place] [address] Misbah Israel MD [address] [place] [address] documented as of this encounter Visit Diagnoses Not on filedocumented in this encounter Care Teams Mononitrotoluene Operator Relationship Specialty Start Date End Date Manish Teran MD [address] [place] [address] PCP - General Family Medicine 12/18/20 documented as of this encounter
--- OUTSIDE RECORDS SUMMARY | 2024-09-07 17:51 | XMS_ITS | Encounter Summary ---
Author Organization [facility] Address [address] [place] [address] Care Team Providers Care Printing Technician Name Role Phone Manish Teran MD Primary Care Provider [phone] Reason for Referral * Radiology Services (Routine) - Closed Specialty Diagnoses / Procedures Referred By Contac t Referred To Contact Positron Emission Tomography Diagnoses Major neurocognitive disorder (HCC) Procedures PET CT BRAIN ALZHEIMER EVAL PET CT LIMITED AREA Misbah Israel MD [address] [place] [address] [facility] Pet Op [address] [place] [address] Referral ID Status Reason Start Date Expiration Date Visits Re quested Visits Authorized [id number] Closed 04/08/2023 05/08/2023 1 1 Reason for Visit * Radiology Services (Routine) - Closed Specialty Diagnoses / Procedures Referred By Contac t Referred To Contact Positron Emission Tomography Diagnoses Major neurocognitive disorder (HCC) Procedures PET CT BRAIN ALZHEIMER EVAL PET CT LIMITED AREA Misbah Israel MD [address] [place] [address] [facility] Pet Op [address] [place] [address] Referral ID Status Reason Start Date Expiration Date Visits Re quested Visits Authorized [id number] Closed 04/08/2023 05/08/2023 1 1 Encounter Details Date Type Department Care Team (Latest Contact Info) Description 04/16/2023 1:12 PM CDT - 04/16/2023 1:15 PM CDT Hospital Encounter SL PET [address] [place] [address] Misbah Israel MD [address] [facility] [address] [place] [address] Discharge Disposition: Home or Self Care Social [...] st Contact Info) Description 10/13/2024 2:00 PM OTR OWNER OPERATOR Office Visit [facility] Neurosciences [address] [place] [address] Misbah Israel MD [address] [place] [address] documented as of this encounter Procedures Procedure [...] this study. > Dictated by Michael Varela (Director Of Exhibits) 04/16/2023 2:36 PM Santino Murray MD have [...] this study. > Dictated by Michael Varela (Director Of Exhibits) 04/16/2023 2:36 PM I, Santino Irvin MD [...] millicuries documented in this encounter Care Teams Printing Technician Relationship Specialty Start Date End Date Manish Teran MD [address] [place] [address] PCP - General Family Medicine 12/18/20 documented as of this encounter
--- OUTSIDE RECORDS SUMMARY | 2024-09-07 17:51 | XMS_ITS | Encounter Summary ---
Author Organization [facility] Health Address [address] [facility] [place] [address] Care Team Providers Care Carpentry Specialist Name Role Phone Manish Teran MD Primary Care Provider [phone] Reason for Visit * Reason Comments Refill Request Encounter Details Date Type Department Care Team (Late Contact Info) Description 03/03/2021 Refill [facility] Neurosciences [address] [facility] [address] [place] [address] Misbah Israel MD [address] [facility] [address] [place] [address] Refill Request Social History Tobacco Use Types [...] st Contact Info) Description 10/13/2024 2:00 PM SHERIFF'S OFFICER Office Visit [facility] Health Neurosciences [address] [place] [address] Misbah Israel MD [address] [place] [address] documented as of this encounter Visit Diagnoses Not on filedocumented in this encounter Care Teams Carpentry Specialist Relationship Specialty Start Date End Date Manish Teran MD [address] [place] [address] PCP - General Family Medicine 12/18/20 documented as of this encounter
--- OUTSIDE RECORDS SUMMARY | 2024-09-07 17:51 | XMS_ITS | Encounter Summary ---
Author Organization [facility] Health Address [address] [facility] [place] [address] Care Team Providers Care Chairperson Anesthesiology Name Role Phone Manish Teran MD Primary Care Provider [phone] Reason for Visit * Reason Comments Refill Request Encounter Details Date Type Department Care Team (Late Contact Info) Description 05/15/2022 Refill [facility] Neurosciences [address] [facility] [address] [place] [address] Misbah Israel MD [address] [facility] [address] [place] [address] Refill Request Social History Tobacco Use Types [...] (Late Contact Info) Description 10/13/2024 2:00 PM RN OBGYN Office Visit [facility] Health Neurosciences [address] [place] [address] Misbah Israel MD [address] [place] [address] documented as of this encounter Visit Diagnoses Not on filedocumented in this encounter Care Teams Chairperson Anesthesiology Relationship Specialty Start Date End Date Manish Teran MD [address] [place] [address] PCP - General Family Medicine 12/18/20 documented as of this encounter
--- OUTSIDE RECORDS SUMMARY | 2024-09-07 17:51 | XMS_ITS | Encounter Summary ---
Author Organization [facility] Health Address [address] [facility] [place] [address] Care Team Providers Care Senior Risk Analyst Name Role Phone Manish Teran MD Primary Care Provider [phone] Reason for Visit * Reason Onset Date Comments Establish Care 12/18/2020 Encounter Details Date Type Department Care Team (Late Contact Info) Description 12/18/2020 Telephone [facility] [employer] [address] [place] [address] Misbah Israel MD [address] [place] [address] Establish Care Social History Tobacco Use Types [...] (Late Contact Info) Description 10/13/2024 2:00 PM PHOTOENGRAVING HELPER Office Visit [facility] [employer] [address] [place] [address] Misbah Israel MD [address] [facility] [address] [place] [address] documented as of this encounter Visit Diagnoses Not on filedocumented in this encounter Care Teams Senior Risk Analyst Relationship Specialty Start Date End Date Manish Teran MD [address] [place] [address] PCP - General Family Medicine 12/18/20 documented as of this encounter
--- OUTSIDE RECORDS SUMMARY | 2024-09-07 17:51 | XMS_ITS | Encounter Summary ---
Author Organization [facility] Health Address [address] [facility] [place] [address] Care Team Providers Care Food Order Delivery Runner Name Role Phone Manish Teran MD Primary Care Provider [phone] Reason for Visit * Reason Onset Date Comments Update 02/15/2021 Encounter Details Date Type Department Care Team (Late st Contact Info) Description 02/15/2021 Telephone [facility] [employer] Neurosciences [address] [facility] [address] [place] [address] Misbah Israel MD [address] [facility] [address] [place], [place] [id number] Update Social History Tobacco Use Types Packs/Day [...] st Contact Info) Description 10/13/2024 2:00 PM MIND READER Office Visit [facility] Health Neurosciences [address] [place] [address] Misbah Israel MD [address] [place], [place] [id number] documented as of this encounter Visit Diagnoses Not on filedocumented in this encounter Care Teams Food Order Delivery Runner Relationship Specialty Start Date End Date Manish Teran MD [address] [place] [address] PCP - General Family Medicine 12/18/20 documented as of this encounter
--- OUTSIDE RECORDS SUMMARY | 2024-09-07 17:51 | XMS_ITS | Encounter Summary ---
Author Organization [facility] Health Address [address] [facility] [place] [address] Care Team Providers Care Set Up Mechanic Coating Machines Name Role Phone Manish Teran MD Primary Care Provider [phone] Reason for Visit * Reason Comments Follow-up 71 year old male Liane Giordano. Patient is taking medications, no side effects. He states that his memory is about the same, no significant changes, no pain. Encounter Details Date Type Department Care Team (Late st Contact Info) Description 11/07/2021 11:20 AM INFORMATICA MDM DEVELOPER Office Visit [facility] Neurosciences [address] [facility] [address] [place], [place] [id number] Misbah Israel MD [address] [facility] [address] [place], [place] [id number] Amnestic MCI (mild cognitive impairment with memory [...] Comments Blood Pressure 144/82 11/07/2021 11:33 AM INFORMATICA MDM DEVELOPER Pulse 86 11/07/2021 11:33 AM INFORMATICA MDM DEVELOPER Temperature 36.5 ??C (97.7 ??F) 11/07/2021 11:[address] Respiratory Rate - - Oxygen Saturation 98% 11/07/2021 11:33 AM INFORMATICA MDM DEVELOPER Inhaled Oxygen Concentration - - Weight 64.2 kg (141 lb 9.6 oz) 11/07/2021 11:33 AM INFORMATICA MDM DEVELOPER Height 167.6 cm (5' 6 ) 11/07/2021 11:33 AM INFORMATICA MDM DEVELOPER Body Mass Index 22.85 11/07/2021 11:33 AM INFORMATICA MDM DEVELOPER documented in this encounter Patient Instructions * Patient Instructions* Misbah Israel MD - 11/07/2021 12:05 PM INFORMATICA MDM DEVELOPER 1. Donepezil 10 mg daily 2. ASA 81 mg daily 3. MIND diet 4. Exercise 5. 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 He lives with his . Patient admits that his forgetting which he thinks is part of the normal aging. He gave couple of examples like he will not quill picking machine operator his son or somebody else [...] fund knowledge revealed he is oriented to [employer] November 07, 2021 which are correct, he [...] in both upper and both extremity Coordination ucpbor-[id number]-[id number] rapid alternative movement and tandem are normal [...] not be driving unless he get a development professional's assessment. Provided information on that. He [...] 10 mg daily. Discuss how patient from [facility] can converting to Alzheimer's dementia. Discussed various [...] any question. Misbah PITTS MD,DM,FAAN,FAHS,FAANEM Adj Associate Profession,[facility],[employer] Stroke Mandarin Teacher [facility], [facility] T [phone] Cc No ref. provider found RMATICA MDM DEVELOPER documented in this encounter Plan of Treatment Upcoming Encounters Date Type Department Care Team (Late st Contact Info) Description 10/13/2024 2:00 PM INFORMATICA MDM DEVELOPER Office Visit 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
--- OUTSIDE RECORDS SUMMARY | 2024-09-07 17:52 | XMS_ITS | Encounter Summary ---
Author Organization [facility] Healthcare Address [address] [place] [address] Care Team Providers Care Livestock Laborer Name Role Phone Glen Heart MD Primary Care Provider [phone] Encounter Details Date Type Department Care Team (Late st Contact Info) Description 08/25/[address] [facility] Home Care Services [address] [place] [address] Unknown, Notinfile Social History Tobacco Use Types Packs/Day Years Used Date Smoking Tobacco: Never Assessed Sex and Gender Information Value Date Recorded Sex Assigned at Not on file Legal Sex Male 3:03 PM CDT Gender Identity Not on file Sexual Orientation Not on file documented as of this encounter Miscellaneous Notes * Telephone Encounter - Mary Cramer - 08/25/2024 2:01 PM CST I spoke to with Olga with [facility] to inform that [facility] is unable to accept the patients referral due to staffing capacity. O INTENSIVIST PHYSICIAN documented in this encounter Plan of Treatment Not on file documented as of this encounter Visit Diagnoses Not on filedocumented in this encounter Care Teams Livestock Laborer Relationship Specialty [place] [address] [place] [address] PCP - General 04/23/17 documented as of this encounter
--- OUTSIDE RECORDS SUMMARY | 2024-09-07 17:52 | XMS_ITS | Encounter Summary ---
Author Organization [facility] Address [address] [facility] [address] [place] [address] Care Team Providers Care Game And Fish Protector Name Role Phone Glen Heart MD Primary Care Provider [phone] Encounter Details Date Type Department Care Team (Late st Contact Info) Description 04/16/2020 Orders Only [facility] Cardiology [address] [place] [address] Frederick Her MD [address] [facility] [address] [place] [address] Social History Tobacco Use Types Packs/Day Years [...] on filedocumented in this encounter Care Teams Game And Fish Protector Relationship Specialty Start Date End Date Glen Heart MD [address] [place] [address] PCP - General 04/23/17 documented as of this encounter
--- OUTSIDE RECORDS SUMMARY | 2024-09-07 17:52 | XMS_ITS | Encounter Summary ---
Author Organization [facility] Healthcare Address [address] [place] [address] Care Team Providers Care Database Administration Associate Name Role Phone Glen Heart MD Primary Care Provider [phone] Encounter Details Date Type Department Care Team (Latest Contact Info) Description 07/13/2024 7:31 PM [employer] PLANT HELPER - 07/13/2024 11:59 PM [employer] PLANT HELPER Hospital Encounter [address] [address] Alzheimer's disease (HCC); Anemia, unspecified; Hyperlipemia; Senile [...] Diagnosis Comments EGFR Routine 07/13/2024 12:43 PM [employer] PL[employer] HELPER Alzheimer's disease (HCC) Anemia, unspecified Hyperlipemia Senile dementia, uncomplicated (HCC) Essential hypertension, malignant Debility Screening for malnutrition Family history of diabetes mellitus Special screening for malignant neoplasm of prostate Avitaminosis D DIFFERENTIAL AUTO Routine 07/13/2024 12: 43 PM [employer] PL[employer] HELPER Alzheimer's disease (HCC) Anemia, unspecified Hyperlipemia Senile dementia, uncomplicated (HCC) Essential hypertension, malignant Debility Screening for malnutrition Family history of diabetes mellitus Special screening for malignant neoplasm of prostate Avitaminosis D IRON PROFILE W/ IBC Routine 07/13/2024 1 2:43 PM [employer] PL[employer] HELPER Alzheimer's disease (HCC) Anemia, unspecified Hyperlipemia Senile dementia, uncomplicated (HCC) Essential hypertension, malignant Debility Screening for malnutrition Family history of diabetes mellitus Special screening for malignant neoplasm of prostate Avitaminosis D URINALYSIS AND REFLEX TO MICROSCOPIC AND CULTURE Routine 07/13/2024 12:43 PM [employer] PL[employer] HEL[employer] Alzheimer's disease (HCC) Anemia, unspecified Hyperlipemia Senile dementia, uncomplicated (HCC) Essential hypertension, malignant Debility Screening for malnutrition Family history of diabetes mellitus Special screening for malignant neoplasm of prostate Avitaminosis D CBC WITH AUTO DIFFERENTIAL Routine 07/13/2024 12:43 PM [employer] PL[employer] HELPER Alzheimer's disease (HCC) Anemia, unspecified Hyperlipemia Senile dementia, uncomplicated (HCC) Essential hypertension, malignant Debility Screening for malnutrition Family history of diabetes mellitus Special screening for malignant neoplasm of prostate Avitaminosis D VITAMIN D 25 HYDROXY Routine 07/13/2024 12:43 PM [employer] PL[employer] HELPER Alzheimer's disease (HCC) Anemia, unspecified Hyperlipemia Senile dementia, uncomplicated (HCC) Essential hypertension, malignant Debility Screening for malnutrition Family history of diabetes mellitus Special screening for malignant neoplasm of prostate Avitaminosis D URINALYSIS, MICROSCOPIC ONLY Routine 07/13/2024 12:43 PM [employer] PL[employer] HELPER Alzheimer's disease (HCC) Anemia, unspecified Hyperlipemia Senile dementia, uncomplicated (HCC) Essential hypertension, malignant Debility Screening for malnutrition Family history of diabetes mellitus Special screening for malignant neoplasm of prostate Avitaminosis D URINE CULTURE Routine 07/13/2024 12:43 PM ACID PLANT HELPER TSH Routine 07/13/2024 12:43 PM [employer] PL[employer] HELPER Alzheimer's disease (HCC) Anemia, unspecified Hyperlipemia Senile dementia, uncomplicated (HCC) Essential hypertension, malignant Debility Screening for malnutrition Family history of diabetes mellitus Special screening for malignant neoplasm of prostate Avitaminosis D PSA DIAGNOSTIC Routine 07/13/2024 12:43 PM [employer] PL[employer] HELPER Alzheimer's disease (HCC) Anemia, unspecified Hyperlipemia Senile dementia, uncomplicated (HCC) Essential hypertension, malignant Debility Screening for malnutrition Family history of diabetes mellitus Special screening for malignant neoplasm of prostate Avitaminosis D HEMOGLOBIN A1C Routine 07/13/2024 12:43 PM [employer] PL[employer] HELPER Alzheimer's disease (HCC) Anemia, unspecified Hyperlipemia Senile dementia, uncomplicated (HCC) Essential hypertension, malignant Debility Screening for malnutrition Family history of diabetes mellitus Special screening for malignant neoplasm of prostate Avitaminosis D FOLATE Routine 07/13/2024 12:43 PM [employer] PL[employer] HELPER Alzheimer's disease (HCC) Anemia, unspecified Hyperlipemia Senile dementia, uncomplicated (HCC) Essential hypertension, malignant Debility Screening for malnutrition Family history of diabetes mellitus Special screening for malignant neoplasm of prostate Avitaminosis D VITAMIN B12 Routine 07/13/2024 12:43 PM [employer] PL[employer] HELPER Alzheimer's disease (HCC) Anemia, unspecified Hyperlipemia Senile dementia, uncomplicated (HCC) Essential hypertension, malignant Debility Screening for malnutrition Family history of diabetes mellitus Special screening for malignant neoplasm of prostate Avitaminosis D LIPID PANEL Routine 07/13/2024 12:43 PM [employer] HELPER Alzheimer's disease (HCC) Anemia, unspecified Hyperlipemia Senile dementia, uncomplicated (HCC) Essential hypertension, malignant Debility Screening for malnutrition Family history of diabetes mellitus Special screening for malignant neoplasm of prostate Avitaminosis D COMPREHENSIVE METABOLIC PANEL Routine 07/13/2024 12:43 PM [employer] HELPER Alzheimer's disease (HCC) Anemia, unspecified Hyperlipemia Senile dementia, uncomplicated (HCC) Essential hypertension, malignant Debility Screening for malnutrition Family history of diabetes mellitus Special screening for malignant neoplasm of prostate Avitaminosis D documented in this encounter Results * Urine culture Urine, clean voided (07/13/2024 12:43 PM [employer] PL[employer] HELPER) Report Final Report: Less than 100,000 colonies/mL (clinically insignificant growth based on current clinical standards) Comment:Testing performed by : [facility], [address] [place]., [address] Organism (CLINICALLY INSIGNIFICANT GROWTH [facility] Urine, clean voided 07/13/2024 12:43 PM [employer]ID PLANT HELPER 07/14/2024 3:27 AM ACID PLANT HELPER Narrative [facility]ERNER [facility] - 07/15/2024 7:02 AM ACID PLANT HELPER Urine culture reflexed based upon urinalysis results. Testing performed by [facility] Microbiology Laboratory ([phone]) Alison Diaz NP LAB MICROBIOLOGY - GENERAL O RDERABLES Final Result Performing Organization Address City/[facility] [address]/ZIP Co de Phone Number LEE ROACH [address] [place] [address] * (ABNORMAL) Urinalysis, microscopic only (07/13/2024 12:43 PM [employer] PL[employer] HELPER) WBC, ur 21-50(A) 0 - 5 /HPF RBC, ur 3-5(A) 0 - 2 /HPF [facility] Epithelial cells, squamous, ur 1-5 0 - 5 /HPF [facility] Bacteria, ur Trace(A) [facility] Mucous, ur Present(A) CERFORMERLY NAMED [facility] Hyaline casts, ur 6-10 0 - 10 /LPF [facility] Culture Reflex Comment Reflex to urine culture will be performed. [facility] Urine, clean voided 07/13/2024 12:43 PM [employer] PL[employer] HELPER 07/13/2024 8:02 PM [employer] PL[employer] HELPER Alison Diaz NP LAB URINE ORDERABLES Final R esult LEE ROACH [address] [address] [place] [address] * (ABNORMAL) eGFR (07/13/2024 12:43 PM [employer] PL[employer] HELPER) Pathologist [facility] eGFR 47(L) >=60 mL/min/1. 73 m2 Comment: [...] reviewed 2021. Blood 07/13/2024 12:4 3 PM [employer] HELPER 07/13/2024 8:19 PM [employer]ID PL[employer] HELPER Alison Diaz NP LAB BLOOD ORDERABLES Final R esult LEE [address] [address] [place] [address] * Differential, auto (07/13/2024 12:43 PM [employer] PL[employer] HELPER) Pathologist [facility] Neutrophil abs 2.0 1.5 - 6.5 K/cumm Imm gran abs 0.0 0.0 - 0.1 K/cumm [facility] Lymphocyte abs 1.3 0.8 - 3.3 K/cumm [facility] Monocyte abs 0.4 0.2 - 0.8 K/cumm [facility] Eosinophil abs 0.1 0.0 - 0.5 K/cumm [facility] Basophil abs 0.0 0.0 - 0.1 K/cumm [facility] Neutrophil pct 53.2 % [facility] Comment: Interpretive Data Percent cell count reference ranges are not reported, since discordance with absolute values may lead to misinterpretation of CBC data. Current Interpretive Data was last revised on 2017. Imm gran pct 0.0 % [facility] Comment: Interpretive Data Percent cell count reference ranges are not reported, since discordance with absolute values may lead to misinterpretation of CBC data. Current Interpretive Data was last revised on 2017. Lymphocyte pct 34.9 % [facility] Comment: Interpretive Data Percent cell count reference ranges are not reported, since discordance with absolute values may lead to misinterpretation of CBC data. Current Interpretive Data was last revised on 2017. Monocyte pct 9.8 % [facility] Comment: Interpretive Data Percent cell count reference ranges are not reported, since discordance with absolute values may lead to misinterpretation of CBC data. Current Interpretive Data was last revised on 2017. Eosinophil pct 1.6 % [facility] Comment: Interpretive Data Percent cell count reference ranges are not reported, since discordance with absolute values may lead to misinterpretation of CBC data. Current Interpretive Data was last revised on 2017. Basophil pct 0.5 % [facility] Comment: Interpretive Data Percent cell count reference ranges are not reported, since discordance with absolute values may lead to misinterpretation of CBC data. Current Interpretive Data was last revised on 2017. Blood 07/13/2024 12:4 3 PM [employer] HELPER 07/13/2024 8:02 PM ACID PLANT HELPER us Alison Diaz MANAGEMENT SPECIALIST LAB BLOOD ORDERABLES Final R esult OSEASJED ROACH [address] [address] [place] [address] * (ABNORMAL) Comprehensive metabolic panel (07/13/2024 12:43 PM [employer] PL[employer] HELPER) Sodium 140 135 - 145 mmol/L Potassium, [...] CH Blood (Blood, Venous) 07/13/2024 12:43 PM [employer] PL[employer] HELPER 07/13/2024 8:02 PM ACID PLANT HELPER Narrative [facility]ERNER CH - 07/13/2024 9:08 PM [employer] PLANT HELPER Fax results to Dr Alison Diaz [phone] Alison Diaz NP LAB BLOOD ORDERABLES Final R esult LEE [place]ACH [address] [address] [place] [address] * (ABNORMAL) CBC with auto differential (07/13/2024 12:43 PM [employer] PL[employer] HELPER) WBC 3.8 3.8 - 9.9 K/cumm Hgb [...] K/cumm CERNER Blood 07/13/2024 12:4 3 PM [employer] PL[employer] HELPER 07/13/2024 8:02 PM ACID PLANT HELPER Narrative [facility] - 07/13/2024 8:28 PM [employer] PL[employer] HELPER Fax results to Dr Alison Diaz [phone] Alison Diaz MANAGEMENT SPECIALIST LAB BLOOD ORDERABLES Final R esult LEE [address] [address] [place] [address] * Lipid panel (07/13/2024 12:43 PM ACID PL[employer] HELPER) [facility] Cholesterol 176 30 - 199 mg/dL [...] LEE Blood (Blood, Venous) 07/13/2024 12:43 PM [employer] PL[employer] HELPER 07/13/2024 8:02 PM ACID PLANT HELPER Narrative LEE - 07/13/2024 9:08 PM ACID PLANT HELPER Fax results to Dr Alison Diaz [phone] Alison Diaz NP LAB BLOOD ORDERABLES [facility] Performing Organization Address [facility] [address]/[facility] Co de Phone Number LEE [address] [address] [facility] [employer] [place] [address] * TSH (07/13/2024 12:43 PM AC[employer] PL[employer] HELPER) Thyroid Stimulating Hormone 3.07 0.30 - 4.20 mcIUnit/mL Blood (Blood, Venous) 07/13/2024 12:43 PM [employer] PLANT HELPER 07/13/2024 8:02 PM ACID PLANT HELPER Narrative OSEASFORMERLY NAMED [facility] - 07/13/2024 9:08 PM ACID PLANT HELPER Fax results to Dr Alison Diaz [phone] Alison Diaz MANAGEMENT SPECIALIST LAB BLOOD ORDERABLES Final R [facility] Performing Organization Address [facility] [address]/[facility] de Phone Number LEE ROACH [address] [address] [facility] [employer] [place] [address] * (ABNORMAL) Urinalysis reflex to microscopic and culture Urine, clean voided (07/13/2024 12:43 PM [employer]ID PL[employer] HELPER) Pathologist [facility] Color, ur Yellow Yellow Clarity, ur Turbid(A) [...] tendency for uric acid stone formation. Source: [facility] [employer] Current Interpretive Data was last revised on 2017 Protein, ur ql Trace Negative [facility] Glucose, ur ql Negative Negative [facility] Ketones, ur Negative Negative [facility] Bilirubin, ur Negative Negative [facility] Blood, ur Negative Negative [facility] Urobilinogen, ur <2.0 <2.0 mg/dL [facility] Nitrite, ur Negative Negative [facility] Leukocyte esterase, ur 4+(A) Negative [facility] UA reflex comment Reflex to microscopic UA will be performed. [facility] Urine, clean voided 07/13/2024 12:43 PM AC[employer] PLANT HELPER 07/13/2024 8:02 PM ACID PLANT HELPER Narrative [facility] - 07/13/2024 9:17 PM AC[employer] PLANT HELPER Fax results to Dr Alison Diaz [phone] Alison Diaz NP LAB MICROBIOLOGY - GENERAL O RDERABLES Final Result [facility] [address] [address] Department [place] [address] * PSA diagnostic (07/13/2024 12:43 PM AC[employer] PLANT HELPER) PSA-Total 1.14 <=6.20 ng/mL Comment: Interpretive Data [...] 22. Blood (Blood, Venous) 07/13/2024 12:43 PM [employer] PL[employer] HELPER 07/13/2024 8:02 PM ACID PLANT HELPER Narrative [facility] - 07/13/2024 9:08 PM ACID PLANT HELPER Fax results to Dr Alison Diaz [phone] Alison Diaz MANAGEMENT SPECIALIST LAB BLOOD ORDERABLES Final R esult Performing Organization Address City/[facility] [address]/ZIP Co de Phone Number LEE ROACH [address] [address] [facility] [employer] [place] [address] * Vitamin B12 (07/13/2024 12:43 PM AC[employer] PL[employer] HELPER) Vitamin B12 768 230 - 1,250 pg/mL Blood (Blood, Venous) 07/13/2024 12:43 PM ACID PLANT HELPER 07/13/2024 8:02 PM ACID PLANT HELPER Narrative OSEASFORMERLY NAMED [facility] - 07/13/2024 9:08 PM ACID PLANT HELPER Fax results to Dr Alison Diaz [phone] Alison Diaz MANAGEMENT SPECIALIST LAB BLOOD ORDERABLES Final R esult Performing Organization Address [facility] [address]/[facility] de Phone Number LEE ROACH [address] [place] [address] * Folate (07/13/2024 12:43 PM ACID PLANT HELPER) [facility] Folic acid >20.0 >=5.0 ng/mL Comment:Hemolysis present. R esults may be affected. Blood 07/13/2024 12:4 3 PM [employer] PL[employer] HELPER 07/13/2024 8:02 PM ACID PLANT HELPER Narrative OSEASFORMERLY NAMED [facility] - 07/13/2024 9:08 PM ACID PLANT HELPER Fax results to Dr Alison Diaz [phone] Alison Diaz MANAGEMENT SPECIALIST LAB BLOOD ORDERABLES Final R esult Performing Organization Address City/[facility] [address]/[facility] Co de Phone Number LEE ROACH [address] [place] [address] * Vitamin D 25 hydroxy (07/13/2024 12:43 PM ACID PLANT HELPER) Vitamin D 25-OH 56 30 - 80 ng/mL Blood 07/13/2024 12:4 3 PM AC[employer] PLANT HELPER 07/13/2024 8:02 PM ACID PLANT HELPER Narrative [facility] - 07/13/2024 8:56 PM ACID PLANT HELPER Fax results to Dr Alison Diaz [phone] Alison Diaz MANAGEMENT SPECIALIST LAB BLOOD ORDERABLES Final R esult Performing Organization Address City/[facility] [address]/ZIP Co de Phone Number [facility] [address] [address] [employer] [place] [address] * (ABNORMAL) Iron profile w/ IBC (07/13/2024 12:43 PM ACID PLANT HELPER) [facility] Iron 72 50 - 150 mcg/dl TIBC 198(L) 250 - 400 mcg/dL [facility] Transferrin saturation 36 20 - 50 % [facility] Blood 07/13/2024 12:4 3 PM [employer] PLANT HELPER 07/13/2024 8:02 PM ACID PLANT HELPER Narrative [facility] - 07/13/2024 9:08 PM ACID PLANT HELPER Fax results to Dr Alison Diaz [phone] Alison Diaz MANAGEMENT SPECIALIST LAB BLOOD ORDERABLES Final R esult Performing Organization Address City/[facility] [address]/[facility] Co de Phone Number [facility] [address] [address] [facility] [employer] [place] [address] * Hemoglobin A1c (07/13/2024 12:43 PM ACID PLANT HELPER) [facility] Hgb A1C 5.6 4.0 - 5.6 % Estimated Average Glucose 114 mg/dL [facility] Comment: The ADA recommends reporting an estimated Average Glucose (eAG) with all Hemoglobin A1c results using the equation derived from a study of 507 normal and diabetic adults. ??Minority populations were underrepresented and children were not included. ?? (Diabetes Care 31:0212-5647, 2008). ??The eAG is not equivalent to a fasting glucose. Blood (Blood, Venous) 07/13/2024 12:43 PM ACID PLANT HELPER 07/13/2024 8:02 PM ACID PLANT HELPER Narrative OSEASFORMERLY NAMED [facility] - 07/13/2024 8:47 PM ACID PLANT HELPER Fax results to Dr Alison Diaz [phone] Alison Diaz MANAGEMENT SPECIALIST LAB BLOOD ORDERABLES Final R esult LEE [address] [address] Department [place] [address] documented in this encounter Visit Diagnoses Diagnosis Alzheimer's disease (HCC) Alzheimer's disease Anemia, unspecified Hyperlipemia Other and unspecified hyperlipidemia Senile dementia, uncomplicated (HCC) Senile dementia, uncomplicated Essential hypertension, malignant Debility Unspecified debility Screening for malnutrition Family history of diabetes mellitus Special screening for malignant neoplasm of prostate Avitaminosis D Unspecified vitamin D deficiency documented in this encounter Care Teams Database Administration Associate Relationship Specialty Start Date End Date Glen Heart MD [address] [place] [address] PCP - General 04/23/17 documented as of this encounter
--- OUTSIDE RECORDS SUMMARY | 2024-09-07 17:52 | XMS_ITS | Referral Summary ---
Author Organization [facility] Address [address] [place] [address] Care Team Providers Care Crystal Flat Grinder Name Role Phone Glen Heart MD Primary Care Provider [phone] Encounters Date Type Department Care Team Description 08/29/2024 Telephone [facility] Home Care Services [address] [place] [address] Referring, MD Ronak 08/26/2024 Telephone [facility] Home Care Services [address] [place] [address] Ana Jovel 08/25/2024 Telephone [facility] Services [address] [place] [address] Unknown, Notinfile 07/13/2024 7:31 PM TUNNEL HEADING SUPERVISOR - 07/13/2024 11:59 PM TUNNEL HEADING SUPERVISOR Hospital Encounter [address] [address] Alzheimer's disease (HCC); Anemia, unspecified; Hyperlipemia; Senile dementia, uncomplicated (HCC); Essential hypertension, malignant; Debility; Screening for malnutrition; Family history of diabetes mellitus; Special screening for malignant neoplasm of prostate; Avitaminosis D Discharge Disposition: Discharge to home or self care 07/13/2024 12:30 PM TUNNEL HEADING SUPERVISOR Lab [facility] Outpatient Lab at [address] [address] Alzheimer's disease (HCC) (Primary Dx); [...] URINALYSIS, MICROSCOPIC ONLY Routine 07/13/2024 12:43 PM TUNNEL HEADING SUPERVISOR Alzheimer's disease (HCC) Anemia, unspecified Hyperlipemia Senile dementia, uncomplicated (HCC) Essential hypertension, malignant Debility Screening for malnutrition Family history of diabetes mellitus Special screening for malignant neoplasm of prostate Avitaminosis D EGFR Routine 07/13/2024 12:43 PM TUNNEL HEADING SUPERVISOR Alzheimer's disease (HCC) Anemia, unspecified Hyperlipemia Senile dementia, uncomplicated (HCC) Essential hypertension, malignant Debility Screening for malnutrition Family history of diabetes mellitus Special screening for malignant neoplasm of prostate Avitaminosis D DIFFERENTIAL AUTO Routine 07/13/2024 12: 43 PM TUNNEL HEADING SUPERVISOR Alzheimer's disease (HCC) Anemia, unspecified Hyperlipemia Senile dementia, uncomplicated (HCC) Essential hypertension, malignant Debility Screening for malnutrition Family history of diabetes mellitus Special screening for malignant neoplasm of prostate Avitaminosis D COMPREHENSIVE METABOLIC PANEL Routine 07/13/2024 12:43 PM TUNNEL HEADING SUPERVISOR Alzheimer's disease (HCC) Anemia, unspecified Hyperlipemia Senile dementia, uncomplicated (HCC) Essential hypertension, malignant Debility Screening for malnutrition Family history of diabetes mellitus Special screening for malignant neoplasm of prostate Avitaminosis D CBC WITH AUTO DIFFERENTIAL Routine 07/13/2024 12:43 PM TUNNEL HEADING SUPERVISOR Alzheimer's disease (HCC) Anemia, unspecified Hyperlipemia Senile dementia, uncomplicated (HCC) Essential hypertension, malignant Debility Screening for malnutrition Family history of diabetes mellitus Special screening for malignant neoplasm of prostate Avitaminosis D LIPID PANEL Routine 07/13/2024 12:43 PM TUNNEL HEADING SUPERVISOR Alzheimer's disease (HCC) Anemia, unspecified Hyperlipemia Senile dementia, uncomplicated (HCC) Essential hypertension, malignant Debility Screening for malnutrition Family history of diabetes mellitus Special screening for malignant neoplasm of prostate Avitaminosis D TSH Routine 07/13/2024 12:43 PM TUNNEL HEADING SUPERVISOR Alzheimer's disease (HCC) Anemia, unspecified Hyperlipemia Senile dementia, uncomplicated (HCC) Essential hypertension, malignant Debility Screening for malnutrition Family history of diabetes mellitus Special screening for malignant neoplasm of prostate Avitaminosis D PSA DIAGNOSTIC Routine 07/13/2024 12:43 PM TUNNEL HEADING SUPERVISOR Alzheimer's disease (HCC) Anemia, unspecified Hyperlipemia Senile dementia, uncomplicated (HCC) Essential hypertension, malignant Debility Screening for malnutrition Family history of diabetes mellitus Special screening for malignant neoplasm of prostate Avitaminosis D VITAMIN B12 Routine 07/13/2024 12:43 PM TUNNEL HEADING SUPERVISOR Alzheimer's disease (HCC) Anemia, unspecified Hyperlipemia Senile dementia, uncomplicated (HCC) Essential hypertension, malignant Debility Screening for malnutrition Family history of diabetes mellitus Special screening for malignant neoplasm of prostate Avitaminosis D FOLATE Routine 07/13/2024 12:43 PM TUNNEL HEADING SUPERVISOR Alzheimer's disease (HCC) Anemia, unspecified Hyperlipemia Senile dementia, uncomplicated (HCC) Essential hypertension, malignant Debility Screening for malnutrition Family history of diabetes mellitus Special screening for malignant neoplasm of prostate Avitaminosis D VITAMIN D 25 HYDROXY Routine 07/13/2024 12:43 PM TUNNEL HEADING SUPERVISOR Alzheimer's disease (HCC) Anemia, unspecified Hyperlipemia Senile dementia, uncomplicated (HCC) Essential hypertension, malignant Debility Screening for malnutrition Family history of diabetes mellitus Special screening for malignant neoplasm of prostate Avitaminosis D IRON PROFILE W/ IBC Routine 07/13/2024 1 2:43 PM TUNNEL HEADING SUPERVISOR Alzheimer's disease (HCC) Anemia, unspecified Hyperlipemia Senile dementia, uncomplicated (HCC) Essential hypertension, malignant Debility Screening for malnutrition Family history of diabetes mellitus Special screening for malignant neoplasm of prostate Avitaminosis D HEMOGLOBIN A1C Routine 07/13/2024 12:43 PM TUNNEL HEADING SUPERVISOR Alzheimer's disease (HCC) Anemia, unspecified Hyperlipemia Senile dementia, uncomplicated (HCC) Essential hypertension, malignant Debility Screening for malnutrition Family history of diabetes mellitus Special screening for malignant neoplasm of prostate Avitaminosis D URINE CULTURE Routine 07/13/2024 12:43 PM TUNNEL HEADING SUPERVISOR URINALYSIS AND REFLEX TO MICROSCOPIC AND CULTURE Routine 07/13/2024 12:43 PM TUNNEL HEADING SUPERVISOR Alzheimer's disease (HCC) Anemia, unspecified Hyperlipemia Senile dementia, uncomplicated (HCC) Essential hypertension, malignant Debility Screening for malnutrition Family history of diabetes mellitus Special screening for malignant neoplasm of prostate Avitaminosis D from Last 3 Months Results * (ABNORMAL) eGFR (07/13/2024 12:43 PM TUNNEL HEADING SUPERVISOR) eGFR 47(L) >=60 mL/min/1. 73 m2 Comment: [...] reviewed 2021. Blood 07/13/2024 12:4 3 PM TUNNEL HEADING SUPERVISOR 07/13/2024 8:19 PM TUNNEL HEADING SUPERVISOR us Alison Diaz SPACE TECHNOLOGIST LAB BLOOD ORDERABLES Final R esult [facility] [address] [address] Department [place] [address] * Differential, auto (07/13/2024 12:43 PM TUNNEL HEADING SUPERVISOR) Neutrophil abs 2.0 1.5 - 6.5 K/cumm Imm gran abs 0.0 0.0 - 0.1 K/cumm [facility] Lymphocyte abs 1.3 0.8 - 3.3 K/cumm [facility] Monocyte abs 0.4 0.2 - 0.8 K/cumm [facility] Eosinophil abs 0.1 0.0 - 0.5 K/cumm [facility] Basophil abs 0.0 0.0 - 0.1 K/cumm [facility] Neutrophil pct 53.2 % [facility] Comment: Interpretive Data Percent cell count reference ranges are not reported, since discordance with absolute values may lead to misinterpretation of CBC data. Current Interpretive Data was last revised on 2017. Imm gran pct 0.0 % [facility] Comment: Interpretive Data Percent cell count reference ranges are not reported, since discordance with absolute values may lead to misinterpretation of CBC data. Current Interpretive Data was last revised on 2017. Lymphocyte pct 34.9 % [facility] Comment: Interpretive Data Percent cell count reference ranges are not reported, since discordance with absolute values may lead to misinterpretation of CBC data. Current Interpretive Data was last revised on 2017. Monocyte pct 9.8 % [facility] Comment: Interpretive Data Percent cell count reference ranges are not reported, since discordance with absolute values may lead to misinterpretation of CBC data. Current Interpretive Data was last revised on 2017. Eosinophil pct 1.6 % [facility] Comment: Interpretive Data Percent cell count reference ranges are not reported, since discordance with absolute values may lead to misinterpretation of CBC data. Current Interpretive Data was last revised on 2017. Basophil pct 0.5 % [facility] Comment: Interpretive Data Percent cell count reference ranges are not reported, since discordance with absolute values may lead to misinterpretation of CBC data. Current Interpretive Data was last revised on 2017. Blood 07/13/2024 12:4 3 PM TUNNEL HEADING SUPERVISOR 07/13/2024 8:02 PM TUNNEL HEADING SUPERVISOR Alison Diaz SPACE TECHNOLOGIST LAB BLOOD ORDERABLES Final R [facility] Performing Organization Address [facility] de Phone Number [facility] [address] Department [place] [address] * (ABNORMAL) Iron profile w/ IBC (07/13/2024 12:43 PM TUNNEL HEADING SUPERVISOR) Pathologist [facility] Iron 72 50 - 150 mcg/dl TIBC 198(L) 250 - 400 mcg/dL [facility] Transferrin saturation 36 20 - 50 % [facility] Blood 07/13/2024 12:4 3 PM TUNNEL HEADING SUPERVISOR 07/13/2024 8:02 PM TUNNEL HEADING SUPERVISOR Narrative [facility] - 07/13/2024 9:08 PM TUNNEL HEADING SUPERVISOR Fax results to Dr Alison Diaz [phone] Alison Diaz SPACE TECHNOLOGIST LAB BLOOD ORDERABLES Final R [facility] Performing Organization Address [facility] de Phone Number [facility] [address] [place] [address] * (ABNORMAL) Urinalysis reflex to microscopic and culture Urine, clean voided (07/13/2024 12:43 PM TUNNEL HEADING SUPERVISOR) Color, ur Yellow Yellow Clarity, ur Turbid(A) Clear [facility] Specific gravity, ur 1.016 1.003 - 1.030 [facility] pH, urine 5.5 [facility] Comment: Interpretive Data ? Urine pH is affected by diet, medications, systemic acid-base disturbances, and renal tubular function. ??pH may affect urinary stone formation. ??For example, urine pH below 6.0 may help reduce the tendency for calcium phosphate stones and pH greater than 6.0 may reduce the tendency for uric acid stone formation. Source: [facility] Current Interpretive Data was last revised [...] CERNER Urine, clean voided 07/13/2024 12:43 PM TUNNEL HEADING SUPERVISOR 07/13/2024 8:02 PM TUNNEL HEADING SUPERVISOR Narrative [facility] - 07/13/2024 9:17 PM TUNNEL HEADING SUPERVISOR Fax results to Dr Alison Diaz [phone] Alison Diaz SPACE TECHNOLOGIST LAB MICROBIOLOGY - GENERAL O RDERABLES Final Result [facility] [address] [address] Department [place] [address] * (ABNORMAL) CBC with auto differential (07/13/2024 12:43 PM TUNNEL HEADING SUPERVISOR) WBC 3.8 3.8 - 9.9 K/cumm Hgb [...] CERNER CH Blood 07/13/2024 12:4 3 PM TUNNEL HEADING SUPERVISOR 07/13/2024 8:02 PM TUNNEL HEADING SUPERVISOR Narrative [facility] - 07/13/2024 8:28 PM TUNNEL HEADING SUPERVISOR Fax results to Dr Alison Diaz [phone] Alison Diaz NP LAB BLOOD ORDERABLES Final R esult Performing Organization Address [facility]/ZIP Co de Phone Number [facility] [address] [address] [facility] [place] [address] * Vitamin D 25 hydroxy (07/13/2024 12:43 PM TUNNEL HEADING SUPERVISOR) Vitamin D 25-OH 56 30 - 80 ng/mL Blood 07/13/2024 12:4 3 PM TUNNEL HEADING SUPERVISOR 07/13/2024 8:02 PM TUNNEL HEADING SUPERVISOR Narrative [facility] - 07/13/2024 8:56 PM TUNNEL HEADING SUPERVISOR Fax results to Dr Alison Diaz [phone] Alison Diaz NP LAB BLOOD ORDERABLES Final R esult Performing Organization Address [facility] de Phone Number [facility] [address] [address] [facility] [place] [address] * (ABNORMAL) Urinalysis, microscopic only (07/13/2024 12:43 PM TUNNEL HEADING SUPERVISOR) WBC, ur 21-50(A) 0 - 5 /HPF RBC, ur 3-5(A) 0 - 2 /HPF [facility] Epithelial cells, squamous, ur 1-5 0 - 5 /HPF [facility] Bacteria, ur Trace(A) [facility] Mucous, ur Present(A) [facility] Hyaline casts, ur 6-10 0 - 10 /LPF [facility] Culture Reflex Comment Reflex to urine culture will be performed. [facility] Urine, clean voided 07/13/2024 12:43 PM TUNNEL HEADING SUPERVISOR 07/13/2024 8:02 PM TUNNEL HEADING SUPERVISOR Alison Diaz SPACE TECHNOLOGIST LAB URINE ORDERABLES Final R esult Performing Organization Address [facility]/ZIP Co de Phone Number [facility] [place] [address] [address] Department [place] [address] * Urine culture Urine, clean voided (07/13/2024 12:43 PM TUNNEL HEADING SUPERVISOR) Report Final Report: Less than 100,000 colonies/mL (clinically insignificant growth based on current clinical standards) Comment:Testing performed by : [facility], [address] [place]., [address] Organism (CLINICALLY INSIGNIFICANT GROWTH [facility] Urine, clean voided 07/13/2024 12:43 PM TUNNEL HEADING SUPERVISOR 07/14/2024 3:27 AM TUNNEL HEADING SUPERVISOR Narrative LEE - 07/15/2024 7:02 AM TUNNEL HEADING SUPERVISOR Urine culture reflexed based upon urinalysis results. Testing performed by [facility] Microbiology Laboratory ([phone]) us Alison Diaz NP LAB MICROBIOLOGY - GENERAL O RDERABLES Final Result Performing Organization Address [facility] Co de Phone Number [facility] [address] [address] Department [place] [address] * TSH (07/13/2024 12:43 PM TUNNEL HEADING SUPERVISOR) Pathologist [facility] Thyroid Stimulating Hormone 3.07 0.30 - 4.20 mcIUnit/mL Blood (Blood, Venous) 07/13/2024 12:43 PM TUNNEL HEADING SUPERVISOR 07/13/2024 8:02 PM TUNNEL HEADING SUPERVISOR Narrative LEE - 07/13/2024 9:08 PM TUNNEL HEADING SUPERVISOR Fax results to Dr Alison Diaz [phone] us Alison Diaz NP LAB BLOOD ORDERABLES Final R esult Performing Organization Address [facility]/ZIP Co de Phone Number [place] [place] [address] [address] Department [place] [address] * PSA diagnostic (07/13/2024 12:43 PM TUNNEL HEADING SUPERVISOR) Pathologist [facility] PSA-Total 1.14 <=6.20 ng/mL Comment: Interpretive Data [...] 22. Blood (Blood, Venous) 07/13/2024 12:43 PM TUNNEL HEADING SUPERVISOR 07/13/2024 8:02 PM TUNNEL HEADING SUPERVISOR Narrative [facility] - 07/13/2024 9:08 PM TUNNEL HEADING SUPERVISOR Fax results to Dr Alison Diaz [phone] Alison Diaz SPACE TECHNOLOGIST LAB BLOOD ORDERABLES Final R esult LEE [address] [address] Department [place] [address] * Hemoglobin A1c (07/13/2024 12:43 PM TUNNEL HEADING SUPERVISOR) Hgb A1C 5.6 4.0 - 5.6 % Estimated Average Glucose 114 mg/dL [facility] Comment: The ADA recommends reporting an estimated Average Glucose (eAG) with all Hemoglobin A1c results using the equation derived from a study of 507 normal and diabetic adults. ??Minority populations were underrepresented and children were not included. ?? (Diabetes Care 31:5261-9614, 2008). ??The eAG is not equivalent to a fasting glucose. Blood (Blood, Venous) 07/13/2024 12:43 PM TUNNEL HEADING SUPERVISOR 07/13/2024 8:02 PM TUNNEL HEADING SUPERVISOR Narrative [facility] - 07/13/2024 8:47 PM TUNNEL HEADING SUPERVISOR Fax results to Dr Alison Diaz [phone] Alison Diaz SPACE TECHNOLOGIST LAB BLOOD ORDERABLES Final R esult Performing Organization Address [facility] Co de Phone Number [place] [address] [facility] [address] * Folate (07/13/2024 12:43 PM TUNNEL HEADING SUPERVISOR) Folic acid >20.0 >=5.0 ng/mL Comment:Hemolysis present. R esults may be affected. Blood 07/13/2024 12:4 3 PM TUNNEL HEADING SUPERVISOR 07/13/2024 8:02 PM TUNNEL HEADING SUPERVISOR Narrative LEE - 07/13/2024 9:08 PM TUNNEL HEADING SUPERVISOR Fax results to Dr Alison Diaz [phone] Alison Diaz SPACE TECHNOLOGIST LAB BLOOD ORDERABLES Final R esult Performing Organization Address [facility] Co de Phone Number [facility] [place] [address] [facility] [place] [address] * Vitamin B12 (07/13/2024 12:43 PM TUNNEL HEADING SUPERVISOR) Pathologist [facility] Vitamin B12 768 230 - 1,250 pg/mL Blood (Blood, Venous) 07/13/2024 12:43 PM TUNNEL HEADING SUPERVISOR 07/13/2024 8:02 PM TUNNEL HEADING SUPERVISOR Narrative [facility] - 07/13/2024 9:08 PM TUNNEL HEADING SUPERVISOR Fax results to Dr Alison Diaz [phone] Alison Diaz SPACE TECHNOLOGIST LAB BLOOD ORDERABLES Final R esult Performing Organization Address City/[facility]/ZIP Co de Phone Number [place] [place] [address] [facility] [place] [address] * Lipid panel (07/13/2024 12:43 PM TUNNEL HEADING SUPERVISOR) [employer] Signature Cholesterol 176 30 - 199 mg/dL [...] CH Blood (Blood, Venous) 07/13/2024 12:43 PM TUNNEL HEADING SUPERVISOR 07/13/2024 8:02 PM TUNNEL HEADING SUPERVISOR Narrative [facility] - 07/13/2024 9:08 PM TUNNEL HEADING SUPERVISOR Fax results to Dr Alison Diaz [phone] Alison Diaz SPACE TECHNOLOGIST LAB BLOOD ORDERABLES Final R esult [facility] [address] [address] Department [place] [address] * (ABNORMAL) Comprehensive metabolic panel (07/13/2024 12:43 PM TUNNEL HEADING SUPERVISOR) Sodium 140 135 - 145 mmol/L Potassium, [...] CH Blood (Blood, Venous) 07/13/2024 12:43 PM TUNNEL HEADING SUPERVISOR 07/13/2024 8:02 PM TUNNEL HEADING SUPERVISOR Narrative [facility] - 07/13/2024 9:08 PM TUNNEL HEADING SUPERVISOR Fax results to Dr Alison Diaz [phone] Alison Diaz SPACE TECHNOLOGIST LAB BLOOD ORDERABLES Final R esult [facility] [address] [address] Department [place] [address] from Last 3 Months Insurance MEDICARE [facility] MEDICARE O Care Teams Crystal Flat Grinder Relationship Specialty Start Date End Date Glen Heart MD [address] [place] [address] PCP - General 04/23/17
--- OUTSIDE RECORDS SUMMARY | 2024-09-07 17:52 | XMS_ITS | Encounter Summary ---
Author Organization [facility] Healthcare Address [address] [place] [address] Care Team Providers Care Hotel Or Motel Manager Name Role Phone Glen Heart MD Primary Care Provider [phone] Encounter Details Date Type Department Care Team (Late st Contact Info) Description 08/29/2024 Telephone [facility] Home Care Services [address] [place] [address] Referring, MD Ronak Social History [...] CST I SPOKE TO KAMILA FROM [facility] , UNABLE TO SEE PATIENT IN A SAFE AND TIMELY MANNER DUE TO LIMITED STAFFING AND CAPACITY. DECLINED ANION documented in this encounter Plan of Treatment Not on file documented as of this encounter Visit Diagnoses Not on filedocumented in this encounter Care Teams Hotel Or Motel Manager Relationship Specialty Start Date End Date Glen Heart MD [address] [place] [address] PCP - General 04/23/17 documented as of this encounter
--- OUTSIDE RECORDS SUMMARY | 2024-09-07 17:52 | XMS_ITS | Encounter Summary ---
Author Organization [facility] Medical Group Address [address] [facility] [address] [place] [address] Care Team Providers Care Manager Database Name Role Phone Glen Heart MD Primary Care Provider [phone] Encounter Details Date Type Department Care Team (Late st Contact Info) Description 04/16/2020 Orders Only [facility] Cardiology [address] [address] [address] [place] [address] James Chen MD [address] [place] [address] Social History Tobacco Use Types Packs/Day Years [...] on filedocumented in this encounter Care Teams Manager Database Relationship Specialty Start Date End Date Glen Heart MD [facility] [place] [address] PCP - General 8/24/17 documented as of this encounter
--- OUTSIDE RECORDS SUMMARY | 2024-09-07 17:52 | XMS_ITS | Encounter Summary ---
Author Organization [facility] Healthcare Address [address] [place] [address] Care Team Providers Care Drafter Automotive Design Name Role Phone Stephanie Heart MD Primary Care Provider [phone] Encounter Details Date Type Department Care Team (Late st Contact Info) Description 04/23/2017 11:59 AM CDT - 04/23/2017 11:59 PM CDT Hospital Encounter [facility] INTERIM Mickey Bond MD [address] [facility] [address] [address] Discharge Disposition: Discharge to home or self [...] 5:[address] IVP Urogram W/WO [id number] ??Acc#: ??[id number] DATE OF EXAM: ??Apr 23 2017 ?? CT IVP Urogram W/WO [id number] HISTORY: gross hematuria. TECHNIQUE: Serial axial images [...] BOND Requesting: ??DR MICKEY BOND Requesting Fax: ??[phone] Attending Fax: ??[phone] Attending ID: ??[id number] Requesting ID: ??[id number] Report To 1 ID: ??[id number] Report To 1 Name: ??DR MICKEY BOND Report To 1 FAX: ??[phone] NextGen Order #: ?? Procedure Note Miscellaneous, Not In File / Provider, MD Norma - 05/15/2017 CT IVP Urogram W/WO [id number] Acc#: [id number] DATE OF EXAM: Apr [address] IVP Urogram W/WO [id number] HISTORY: gross hematuria. TECHNIQUE: Serial axial images [...] on: Apr 24 2017 12:47A Transcribed by: [facility] On: Apr 24 2017 12:45A Approved Electronically by: STEPHANIE KISER M.D. on: Apr 24 2017 12:45A Ordering DR: DR MICKEY BOND Attending DR: DR MICKEY BOND Attending: DR MICKEY BOND Requesting: DR MICKEY BOND Requesting Attending Attending ID: [id number] Requesting ID: [id number] Report To 1 ID: [id number] Report To 1 Name: DR MICKEY BOND Report To 1 FAX: [phone] NextGen Order #: Mickey Bond MD IMG FLUOROSCOPY PROCED URES Edited Result - Final * Creatinine, whole blood (04/23/2017 12:10 PM CDT) Creatinine, bld 1.18 0.60 - 1.30 mg/dL [facility] (MOLLY) Blood specimen (specimen) 04/23/2017 12:10 PM CDT 04/23/2017 12:16 PM CDT Mickey Bond MD LAB BLOOD ORDERABLES F inal Result [facility]EE [facility] (MOLLY) [address] [facility] Department [place] [address] documented in this encounter Visit Diagnoses Not on filedocumented in this encounter Care Teams Drafter Automotive Design Relationship Specialty Start Date End Date Stephanie Heart MD [address] [place] [address] PCP - General 04/23/17 documented as of this encounter
--- OUTSIDE RECORDS SUMMARY | 2024-09-07 17:52 | XMS_ITS | Encounter Summary ---
Author Organization [facility] Healthcare Address [address] [place] [address] Care Team Providers Care Rn Surgical Pcu Name Role Phone Glen Heart MD Primary Care Provider [phone] Encounter Details Date Type Department Care Team (Late st Contact Info) Description 07/13/2024 12:30 PM SILVERWARE CLEANER Lab [facility] Medical Group Outpatient Lab at [address] [address] Alzheimer's disease (HCC) (Primary Dx); [...] Results * Hemoglobin A1c (07/13/2024 12:43 PM SILVERWARE CLEANER) Hgb A1C 5.6 4.0 - 5.6 % Estimated Average Glucose 114 mg/dL LEE ROACH Comment: The ADA recommends reporting an estimated Average Glucose (eAG) with all Hemoglobin A1c results using the equation derived from a study of 507 normal and diabetic adults. ??Minority populations were underrepresented and children were not included. ?? (Diabetes Care 31:6490-8218, 2007). ??The eAG is not equivalent to a fasting glucose. Blood (Blood, Venous) 07/13/2024 12:43 PM SILVERWARE CLEANER 07/13/2024 8:02 PM SILVERWARE CLEANER Narrative [facility] - 07/13/2024 8:47 PM SILVERWARE CLEANER Fax results to Dr Alison Diaz [phone] Alison Diaz ORCHESTRA CONDUCTOR LAB BLOOD ORDERABLES Final R esult Performing Organization Address [facility] Co de Phone Number LEE ROACH [address] [address] [facility] [place] [address] * (ABNORMAL) Iron profile w/ IBC (07/13/2024 12:43 PM SILVERWARE CLEANER) [facility] Iron 72 50 - 150 mcg/dl TIBC 198(L) 250 - 400 mcg/dL [facility] Transferrin saturation 36 20 - 50 % [facility] Blood 07/13/2024 12:4 3 PM SILVERWARE CLEANER 07/13/2024 8:02 PM SILVERWARE CLEANER Narrative [facility] - 07/13/2024 9:08 PM SILVERWARE CLEANER Fax results to Dr Alison Diaz [phone] Alison Diaz ORCHESTRA CONDUCTOR LAB BLOOD ORDERABLES Final R esult Performing Organization Address [facility] de Phone Number LEE ROACH [address] [address] [facility] [place] [address] * Vitamin D 25 hydroxy (07/13/2024 12:43 PM SILVERWARE CLEANER) [facility] Vitamin D 25-OH 56 30 - 80 ng/mL Blood 07/13/2024 12:4 3 PM SILVERWARE CLEANER 07/13/2024 8:02 PM SILVERWARE CLEANER Narrative [facility] - 07/13/2024 8:56 PM SILVERWARE CLEANER Fax results to Dr Alison Diaz [phone] Alison Diaz NP LAB BLOOD ORDERABLES Final R esult Performing Organization Address [facility] Co de Phone Number LEE ROACH [address] [address] [facility] [place] [address] * Folate (07/13/2024 12:43 PM SILVERWARE CLEANER) Pathologist [facility] Folic acid >20.0 >=5.0 ng/mL Comment:Hemolysis present. R esults may be affected. Blood 07/13/2024 12:4 3 PM SILVERWARE CLEANER 07/13/2024 8:02 PM SILVERWARE CLEANER Narrative [facility] - 07/13/2024 9:08 PM SILVERWARE CLEANER Fax results to Dr Alison Diaz [phone] Alison Diaz ORCHESTRA CONDUCTOR LAB BLOOD ORDERABLES Final R esult Performing Organization Address [facility] Co de Phone Number LEE [address] [address] [facility] [employer] [place], [place] [address] * Vitamin B12 (07/13/2024 12:43 PM SILVERWARE CLEANER) [facility] Vitamin B12 768 230 - 1,250 pg/mL Blood (Blood, Venous) 07/13/2024 12:43 PM SILVERWARE CLEANER 07/13/2024 8:02 PM SILVERWARE CLEANER Narrative [facility] 07/13/2024 9:08 PM SILVERWARE CLEANER Fax results to Dr Alison Diaz [phone] Alison Diaz ORCHESTRA CONDUCTOR LAB BLOOD ORDERABLES Final R esult Performing Organization Address [facility] de Phone Number [facility] [address] [address] [facility] [employer] [place], [place] [id number] * PSA diagnostic (07/13/2024 12:43 PM SILVERWARE CLEANER) Pathologist [facility] PSA-Total 1.14 <=6.20 [...] 22. Blood (Blood, Venous) 07/13/2024 12:43 PM SILVERWARE CLEANER 07/13/2024 8:02 PM SILVERWARE CLEANER Narrative [facility] - 07/13/2024 9:08 PM SILVERWARE CLEANER Fax results to Dr Alison Diaz [phone] Alison Diaz ORCHESTRA CONDUCTOR LAB BLOOD ORDERABLES Final R esult [facility] [address] [address] Department [place] [address] * (ABNORMAL) Urinalysis reflex to microscopic and culture Urine, clean voided (07/13/2024 12:43 PM SILVERWARE CLEANER) Color, ur Yellow Yellow Clarity, ur Turbid(A) [...] acid stone formation. Source: [facility] Current Interpretive Data was last revised on [...] CH Urine, clean voided 07/13/2024 12:43 PM SILVERWARE CLEANER 07/13/2024 8:02 PM SILVERWARE CLEANER Narrative [facility] - 07/13/2024 9:17 PM SILVERWARE CLEANER Fax results to Dr Alison Diaz [phone] Alison Diaz NP LAB MICROBIOLOGY - GENERAL O RDERABLES Final Result Performing Organization Address [facility] de Phone Number LEE [address] [address] Department of [employer] [place], [place] [id number] * TSH (07/13/2024 12:43 PM SILVERWARE CLEANER) Thyroid Stimulating Hormone 3.07 0.30 - 4.20 mcIUnit/mL Blood (Blood, Venous) 07/13/2024 12:43 PM SILVERWARE CLEANER 07/13/2024 8:02 PM SILVERWARE CLEANER Narrative [facility] - 07/13/2024 9:08 PM SILVERWARE CLEANER Fax results to Dr Alison Diaz [phone] Alison Diaz NP LAB BLOOD ORDERABLES Final R esult Performing Organization Address [facility] de Phone Number [facility] [address] [address] Department of [employer] [place], [place] [id number] * Lipid panel (07/13/2024 12:43 PM SILVERWARE CLEANER) Cholesterol 176 30 - 199 mg/dL Comment: [...] LEE Blood (Blood, Venous) 07/13/2024 12:43 PM SILVERWARE CLEANER 07/13/2024 8:02 PM SILVERWARE CLEANER Narrative [facility] - 07/13/2024 9:08 PM SILVERWARE CLEANER Fax results to Dr Alison Diaz [phone] Alison Diaz ORCHESTRA CONDUCTOR LAB BLOOD ORDERABLES Final R esult Performing Organization Address City/[facility]/ZIP Co de Phone Number LEE ROACH [address] [place] [address] * (ABNORMAL) CBC with auto differential (07/13/2024 12:43 PM SILVERWARE CLEANER) WBC 3.8 3.8 - 9.9 K/cumm Hgb 12.7(L) 13.0 - 17.5 g/dL [facility] Hct 37.6(L) 38.9 - 50.3 % [facility] Plt 245 150 - 400 K/cumm [facility] MPV 10.2 9.1 - 12.3 fL [facility] RBC 4.60 4.30 - 5.80 M/cumm [facility] MCV 81.7 81.3 - 96.4 fL [facility] MCH 27.6 27.1 - 33.3 pg [facility] MCHC 33.8 32.3 - 35.7 g/dL [facility] RDW CV 15.9(H) 11.1 - 14.9 % [facility] RDW SD 47.5 35.7 - 48.1 fL [facility] CH NRBC abs 0.00 0.00 - 0.01 K/cumm [facility] Blood 07/13/2024 12:4 3 PM SILVERWARE CLEANER 07/13/2024 8:02 PM SILVERWARE CLEANER Narrative [facility] - 07/13/2024 8:28 PM SILVERWARE CLEANER Fax results to Dr Alison Diaz [phone] Alison Diaz ORCHESTRA CONDUCTOR LAB BLOOD ORDERABLES Final R esult [facility] ROACH [address] [place] [address] * (ABNORMAL) Comprehensive metabolic panel (07/13/2024 12:43 PM SILVERWARE CLEANER) Sodium 140 135 - 145 mmol/L Potassium, [...] CH Blood (Blood, Venous) 07/13/2024 12:43 PM SILVERWARE CLEANER 07/13/2024 8:02 PM SILVERWARE CLEANER Narrative [facility] - 07/13/2024 9:08 PM SILVERWARE CLEANER Fax results to Dr Alison Diaz [phone] Alison Diaz NP LAB BLOOD ORDERABLES Final R esult [facility]EE ROACH [address] [address] Department [place] [address] documented in this encounter Visit Diagnoses Diagnosis [...] deficiency documented in this encounter Care Teams Rn Surgical Pcu Relationship Specialty Start Date End Date Glen Heart MD [facility] [place] [address] PCP - General 04/23/17 documented as of this encounter
--- OUTSIDE RECORDS SUMMARY | 2024-09-07 17:52 | XMS_ITS | Encounter Summary ---
Author Organization [facility] Medical Group Address [address] [place] [address] Care Team Providers Care Oil Truck Driver Name Role Phone Glen Heart MD Primary Care Provider [phone] Encounter Details Date Type Department Care Team (Late st Contact Info) Description 04/15/2020 Orders Only [facility] Cardiology [address] [address] [address] [place] [address] James Chen MD [address] [place] [address] Social History Tobacco Use Types Packs/Day Years [...] on filedocumented in this encounter Care Teams Oil Truck Driver Relationship Specialty Start Date End Date Glen Heart MD [facility] [place] [address] PCP - General 8/24/17 documented as of this encounter
--- OUTSIDE RECORDS SUMMARY | 2024-09-07 17:52 | XMS_ITS | Encounter Summary ---
Author Organization [facility] Healthcare Address [address] [place] [address] Care Team Providers Care Advertising Manager Name Role Phone Glen Heart MD Primary Care Provider [phone] Encounter Details Date Type Department Care Team (Late st Contact Info) Description 08/26/2024 Telephone [facility] Home Care Services [address] [place] [address] Ana Jovel Social History Tobacco [...] Jovel - 08/26/2024 9:47 AM CST [facility]ax[facility] #[phone] declined due to inability to staff patient for services in a safe and timely manner. I spoke with [place] at [facility] to inform of the decline. ER [facility] documented in this encounter Plan of Treatment Not on file documented as of this encounter Visit Diagnoses Not on filedocumented in this encounter Care Teams Advertising Manager Relationship Specialty Start Date End Date Glen Heart MD [address] [place] [address] PCP - General 04/23/17 documented as of this encounter
== END 2024-08-31 23:15 | disposition home or self-care (01) ==
PROVIDERS: Emergency Medicine; Emergency Provider Physician Assistant; PCP Family Medicine Sports Medicine
DX: E86.0 Dehydration (principal); R26.9 Unspecified abnormalities of gait and mobility; Z20.822 Contact with and (suspected) exposure to COVID-19; I10 Essential (primary) hypertension; K21.9 Gastro-esophageal reflux disease without esophagitis; Z87.891 Personal history of nicotine dependence; Z79.82 Long term (current) use of aspirin
CPT/HCPCS: 36415; 70450; 71046; 72125; 80053; 81001; 85025; 87637; 93005; 96360; 99284; J7040

== ENCOUNTER 2024-10-19 14:41 | Emergency (ER) | payer OTHER, SELFPAY ==
[2024-10-19] VITALS (62 sets, daily range): BP systolic 96–178; BP diastolic 61–95; PULSE 50–111; RESP 10–27; TEMP 36.6; O2SAT 81–100
--- NOTE | ~2024-10-19 | CT_ITS ---
EXAMINATION: CT brain wo con DATE: 10/19/2024 15:10 INDICATION: Syncope. TECHNIQUE: Computed tomography (CT) of the head was performed without intravenous contrast. The mA wa s adjusted according to patient size. Iterative reconstruction technique was employed. The dose-lengt h product was 605.33 mGy-cm. COMPARISON: Head CT 08/31/2024 FINDINGS: There are scattered areas of low attenuation in the cerebral white matter, which is within normal limits for the patient's age. There is no intracranial hemorrhage, acute infarction, or abnorm al intracranial mass lesion. The ventricles are normal in size. The orbits are normal. There is mild mucosal thickening in the paranasal sinuses. The mastoid air cells are normal. IMPRESSION: 1. Normal aging brain. Reviewed, dictated and finalized at location A. GING CAR OPERATOR IMPRESSION: 1. Normal aging brain.
--- NOTE | ~2024-10-19 | XR_ITS ---
EXAMINATION: XR chest 2V DATE: 10/19/2024 15:14 INDICATION: Syncope TECHNIQUE: frontal and lateral views of the chest were obtained. COMPARISON: Chest radiograph dated 08/31/2024 FINDINGS: Hyperexpansion of lungs with increased retrosternal clear space suggestive but not diagnostic of COPD . Mild reticular opacities at the bilateral lung bases. No pleural effusion or pneumothorax. The card iomediastinal silhouette is normal. Mild thoracolumbar dextrocurvature with mild spondylosis. Moderat e spondylosis and more cephalad thoracic spine. IMPRESSION: 1. Hyperexpansion of lungs suggestive but not diagnostic of COPD. 2. Mild reticular opacities at the lung bases which could represent atelectasis, chronic interstitial lung disease or less likely mild pulmonary edema Reviewed, dictated and finalized at location A. . PRICING ANALYST IMPRESSION: 1. Hyperexpansion of lungs suggestive but not diagnostic of COPD. 2. Mild reticular opacities at the lung bases which could represent atelectasis , chronic interstitial lung disease or less likely mild pulmonary edema
--- NOTE | ~2024-10-19 | CT_ITS ---
EXAMINATION: CT abdomen pelvis wo con DATE: 10/19/2024 22:13 INDICATION: Hematuria. TECHNIQUE: Computed tomography (CT) of the abdomen and pelvis was performed without intravenous contr ast. Automated exposure control and iterative reconstruction technique were employed. The dose-length product was 199.51 mGy-cm. COMPARISON: None. FINDINGS: The visualized portions of the lung bases demonstrate emphysema and mild atelectasis. No pl eural effusion. The heart size is normal. No pericardial effusion. The liver, gallbladder, spleen, pa ncreas, and adrenal glands are normal. There are cysts in the kidneys measuring up to 4.1 cm on the r ight. There are 4 stones in right kidney measuring up to 4 mm. There is a 2 mm stone in left kidney. There are diverticula of the bladder on the right. There is diffuse bladder wall thickening, likely s econdary to chronic outlet obstruction. The prostate is moderately enlarged. There is a mass at the p osterior aspect of the bladder. There are no dilated loops of bowel. There are no pathologically enla rged lymph nodes. There is no free intraperitoneal fluid. There is mild lumbar spondylosis. IMPRESSION: 1. Mass at the posterior aspect of the bladder, which may be part of the moderately enlarged prostate or may be urothelial carcinoma. 2. Bilateral nonobstructing kidney stones. Reviewed, dictated and finalized at location A. NER MANAGEMENT CONSULTANT IMPRESSION: 1. Mass at the posterior aspect of the bladder, which may be part of the modera tely enlarged prostate or may be urothelial carcinoma. 2. Bilateral nonobstructing kidney stones.
--- OUTSIDE RECORDS SUMMARY | 2024-10-19 14:43 | XMS_ITS | Clinical Summary ---
Author Organization [facility] Address [address] [place] [address] Care Team Providers Care Vulcanizing Machine Operator Name Role Phone Stephanie Heart MD Primary Care Provider [phone] Encounters Date Type Department Care Team Description 10/05/2024 10:30 AM LOCAL COMPANY REFRIGERATED TRUCK DRIVER Lab [facility] Medical Group Outpatient Lab at [address] [address] Anemia, unspecified (Primary Dx) 10/05/2024 10:29 AM LOCAL COMPANY REFRIGERATED TRUCK DRIVER - 10/05/2024 11:59 PM LOCAL COMPANY REFRIGERATED TRUCK DRIVER Hospital Encounter [address] [address] Anemia, unspecified Discharge Disposition: Discharge to home or self care 08/29/2024 Telephone [facility] Home Care Services [address] [place] [address] Ronak Harding MD 08/26/2024 Telephone [facility] Home Care Services [address] [place] [address] Ana Jovel 08/25/2024 Telephone [facility] Home Care Services [address] [place] [phone] Unknown, Notinfile from Last 3 Months Social History Tobacco [...] - Tdap) 1959 Hepatitis B Screening 1966 Pneumococcal vaccine 65+ (1 of 1 - PCV) 1998 Zoster Vaccine (1 of 2) 1998 Well Visit 65+ 2013 Covid-19 Vaccine (4 - 2023-2 5 season) 2024 12/11/2021, 04/05/2021, 03/15/2021 Influenza Vaccine (#1) 2024 Prostate Cancer Screening-PSA Discontinued 07/13/2024 Procedures Procedure Name Priority Date/Time Associated Diagnosis Comments DIFFERENTIAL AUTO Routine 10/05/2024 10: 29 AM LOCAL COMPANY REFRIGERATED TRUCK DRIVER Anemia, unspecified CBC WITH AUTO DIFFERENTIAL Routine 10/05/2024 10:29 AM LOCAL COMPANY REFRIGERATED TRUCK DRIVER Anemia, unspecified PSA DIAGNOSTIC Routine 07/13/2024 12:43 PM LOCAL COMPANY REFRIGERATED TRUCK DRIVER Alzheimer's disease (HCC) Anemia, unspecified Hyperlipemia Senile dementia, uncomplicated (HCC) Essential hypertension, malignant Debility Screening for malnutrition Family history of diabetes mellitus Special screening for malignant neoplasm of prostate Avitaminosis D from Last 3 Months or Most Recently Relevant to Health Maintenance Results * Differential, auto (10/05/2024 10:29 AM LOCAL COMPANY REFRIGERATED TRUCK DRIVER) Neutrophil abs 2.1 1.5 - 6.5 K/cumm Imm gran abs 0.0 0.0 - 0.1 K/cumm [facility] Lymphocyte abs 1.4 0.8 - 3.3 K/cumm [facility] Monocyte abs 0.4 0.2 - 0.8 K/cumm [facility] Eosinophil abs 0.0 0.0 - 0.5 K/cumm [facility] Basophil abs 0.0 0.0 - 0.1 K/cumm [facility] Neutrophil pct 53.2 % [facility] Comment: Interpretive Data Percent cell count reference ranges are not reported, since discordance with absolute values may lead to misinterpretation of CBC data. Current Interpretive Data was last revised on 2017. Imm gran pct 0.2 % [facility] Comment: Interpretive Data Percent cell count reference ranges are not reported, since discordance with absolute values may lead to misinterpretation of CBC data. Current Interpretive Data was last revised on 2017. Lymphocyte pct 34.2 % [facility] Comment: Interpretive Data Percent cell count reference ranges are not reported, since discordance with absolute values may lead to misinterpretation of CBC data. Current Interpretive Data was last revised on 2017. Monocyte pct 10.9 % [facility] Comment: Interpretive Data Percent cell count reference ranges are not reported, since discordance with absolute values may lead to misinterpretation of CBC data. Current Interpretive Data was last revised on 2017. Eosinophil pct 1.0 % [facility] Comment: Interpretive Data Percent cell count reference ranges are not reported, since discordance with absolute values may lead to misinterpretation of CBC data. Current Interpretive Data was last revised on 2017. Basophil pct 0.5 % [facility] Comment: Interpretive Data Percent cell count reference ranges are not reported, since discordance with absolute values may lead to misinterpretation of CBC data. Current Interpretive Data was last revised on 2017. Blood 10/05/2024 10:2 9 AM LOCAL COMPANY REFRIGERATED TRUCK DRIVER 10/05/2024 7:49 PM LOCAL COMPANY REFRIGERATED TRUCK DRIVER us Stephanie Heart MD LAB BLOOD ORDERABLES Final Res ult [facility] [address] [address] Department of Laboratories [place], [place] [id number] * (ABNORMAL) CBC with auto differential (10/05/2024 10:29 AM LOCAL COMPANY REFRIGERATED TRUCK DRIVER) WBC 4.0 3.8 - 9.9 K/cumm Hgb 10.6(L) 13.0 - 17.5 g/dL [facility] Hct 30.2(L) 38.9 - 50.3 % [facility] Plt 227 150 - 400 K/cumm [facility] MPV 10.5 9.1 - 12.3 fL [facility] RBC 3.49(L) 4.30 - 5.80 M/cumm [facility] MCV 86.5 81.3 - 96.4 fL [facility] MCH 30.4 27.1 - 33.3 pg [facility] MCHC 35.1 32.3 - 35.7 g/dL [facility] RDW CV 15.6(H) 11.1 - 14.9 % [facility] RDW SD 49.1(H) 35.7 - 48.1 fL [facility] NRBC abs 0.00 0.00 - 0.01 K/cumm [facility] Blood 10/05/2024 10:2 9 AM LOCAL COMPANY REFRIGERATED TRUCK DRIVER 10/05/2024 7:49 PM LOCAL COMPANY REFRIGERATED TRUCK DRIVER Narrative [facility] - 10/05/2024 9:32 PM LOCAL COMPANY REFRIGERATED TRUCK DRIVER FAX RESULTS TO [phone] STEPHANIE HEART Stephanie Heart MD LAB BLOOD ORDERABLES Final Res ult Performing Organization Address [facility] Co de Phone Number LEE ROACH [address] [address] [place] [address] * PSA diagnostic (07/13/2024 12:43 PM LOCAL COMPANY REFRIGERATED TRUCK DRIVER) PSA-Total 1.14 <=6.20 ng/mL Comment: Interpretive Data AGE SEX REFERENCE INTERVAL 0 minutes-150 years Female None 0 minutes-49 years Male None 50-59 years Male 0-3.90 60-69 years Male 0-5.40 70-79 years Male 0-6.20 80-150 years Male 0-6.20 The Deja PSA Total assay procedure was used. Results from different manufacturers or methods may not be comparable. Serial testing should be performed using the same method. Current interpretive data last revised 22. Blood (Blood, Venous) 07/13/2024 12:43 PM LOCAL COMPANY REFRIGERATED TRUCK DRIVER 07/13/2024 8:02 PM LOCAL COMPANY REFRIGERATED TRUCK DRIVER Narrative [facility]EE - 07/13/2024 9:08 PM LOCAL COMPANY REFRIGERATED TRUCK DRIVER Fax results to Dr Alison Diaz [phone] Alison Diaz NP LAB BLOOD ORDERABLES Final R esult Performing Organization Address [facility] Co de Phone Number LEE [address] [address] Department [employer] [place] [address] from Last 3 Months or Most Recently Relevant to Health Maintenance Insurance MEDICARE [facility] MEDICARE HMO Care Teams Vulcanizing Machine Operator Relationship Specialty Start Date End Date Stephanie Heart MD [address] [place] [address] PCP - General 04/23/17
--- OUTSIDE RECORDS SUMMARY | 2024-10-19 14:43 | XMS_ITS | Referral Summary ---
Author Organization [facility] Address [address] [place] [address] Care Team Providers Care Director Advertising Name Role Phone Stephanie Heart MD Primary Care Provider [phone] Encounters Date Type Department Care Team Description 10/05/2024 10:29 AM ELECTRIC OPERATOR - 10/05/2024 11:59 PM ELECTRIC OPERATOR Hospital Encounter [address] [address] Anemia, unspecified Discharge Disposition: Discharge to home or self care 10/05/2024 10:30 AM ELECTRIC OPERATOR Lab [facility] Medical Group Outpatient Lab at [address] [address] Anemia, unspecified (Primary Dx) 08/29/2024 Telephone [facility] Home Care Services [address] [place] [address] Meaghan, MD Ronak 08/26/2024 Telephone [facility] Home Care Services [address] [place] [address] Ana Jovel 08/25/2024 Telephone [facility] Home Care Services [address] [place] [phone] Unknown, Notinfile from Last 3 Months Social [...] DIFFERENTIAL AUTO Routine 10/05/2024 10: 29 AM ELECTRIC OPERATOR Anemia, unspecified CBC WITH AUTO DIFFERENTIAL Routine 10/05/2024 10:29 AM ELECTRIC OPERATOR Anemia, unspecified PSA DIAGNOSTIC Routine 07/13/2024 12:43 PM ELECTRIC OPERATOR Alzheimer's disease (HCC) Anemia, unspecified Hyperlipemia Senile dementia, uncomplicated (HCC) Essential hypertension, malignant Debility Screening for malnutrition Family history of diabetes mellitus Special screening for malignant neoplasm of prostate Avitaminosis D from Last 3 Months or Most Recently Relevant to Health Maintenance Results * Differential, auto (10/05/2024 10:29 AM ELECTRIC OPERATOR) Neutrophil abs 2.1 1.5 - 6.5 K/cumm [...] on 2017. Imm gran pct 0.2 % [facility] Comment: Interpretive Data Percent cell count reference ranges are not reported, since discordance with absolute values may lead to misinterpretation of CBC data. Current Interpretive Data was last revised on 2017. Lymphocyte pct 34.2 % [facility] Comment: Interpretive Data Percent cell count reference ranges are not reported, since discordance with absolute values may lead to misinterpretation of CBC data. Current Interpretive Data was last revised on 2017. Monocyte pct 10.9 % [facility] Comment: Interpretive Data Percent cell count reference ranges are not reported, since discordance with absolute values may lead to misinterpretation of CBC data. Current Interpretive Data was last revised on 2017. Eosinophil pct 1.0 % [facility] Comment: Interpretive Data Percent cell count reference ranges are not reported, since discordance with absolute values may lead to misinterpretation of CBC data. Current Interpretive Data was last revised on 2017. Basophil pct 0.5 % [facility] Comment: Interpretive Data Percent cell count reference ranges are not reported, since discordance with absolute values may lead to misinterpretation of CBC data. Current Interpretive Data was last revised on 2017. Blood 10/05/2024 10:2 9 AM ELECTRIC OPERATOR 10/05/2024 7:49 PM ELECTRIC OPERATOR us Stephanie Heart MD LAB BLOOD ORDERABLES Final Res ult [facility] [address] [address] Department [place] [address] * (ABNORMAL) CBC with auto differential (10/05/2024 10:29 AM ELECTRIC OPERATOR) WBC 4.0 3.8 - 9.9 K/cumm Hgb 10.6(L) 13.0 - 17.5 g/dL [facility] Hct 30.2(L) 38.9 - 50.3 % [facility] Plt 227 150 - 400 K/cumm [facility] MPV 10.5 9.1 - 12.3 fL [facility] RBC 3.49(L) 4.30 - 5.80 M/cumm [facility] MCV 86.5 81.3 - 96.4 fL [facility] MCH 30.4 27.1 - 33.3 pg [facility] MCHC 35.1 32.3 - 35.7 g/dL [facility] RDW CV 15.6(H) 11.1 - 14.9 % [facility] RDW SD 49.1(H) 35.7 - 48.1 fL [facility] NRBC abs 0.00 0.00 - 0.01 K/cumm [facility] Blood 10/05/2024 10:2 9 AM ELECTRIC OPERATOR 10/05/2024 7:49 PM ELECTRIC OPERATOR Narrative [facility] - 10/05/2024 9:32 PM ELECTRIC OPERATOR FAX RESULTS TO [phone] STEPHANIE HEART Stephanie Heart MD LAB BLOOD ORDERABLES Final Res ult Performing Organization Address [facility] Co de Phone Number LEE [address] [address] [facility] [place] [address] * PSA diagnostic (07/13/2024 12:43 PM ELECTRIC OPERATOR) PSA-Total 1.14 <=6.20 ng/mL Comment: Interpretive Data [...] 22. Blood (Blood, Venous) 07/13/2024 12:43 PM ELECTRIC OPERATOR 07/13/2024 8:02 PM ELECTRIC OPERATOR Narrative LEE - 07/13/2024 9:08 PM ELECTRIC OPERATOR Fax results to Dr Alison Diaz [phone] Alison Diaz NP LAB BLOOD ORDERABLES Final R esult Performing Organization Address [facility] Co de Phone Number LEE ROACH [address] [address] Department [place] [address] from Last 3 Months or Most Recently Relevant to Health Maintenance Insurance MEDICARE [employer] MEDICARE HMO Care Teams Director Advertising Relationship Specialty Start Date End Date Stephanie Heart MD [address] [place] [address] PCP - General 04/23/17
--- OUTSIDE RECORDS SUMMARY | 2024-10-19 14:44 | XMS_ITS | Referral Summary ---
Author Organization [facility] Address [address] [place] [address] Care Team Providers Care Adjunct Instructor Name Role Phone Manish Teran MD Primary Care Provider [phone] Source Comments [facility],non-[facility] Affiliates and Associated Physician Practices is amultiple site organization consisting of ambulatory clinics and hospital sitesin [place], [place], [place] and [place]. This disclosure is being madepursuant to the Care Everywhere program and may not contain all information available regarding this patient. Last updated 18.[facility] Encounters Date Type Department Care Team Description 09/28/2024 Refill [facility] [address] [facility] [facility] [place] [address] Misbah Israel MD Refill Request 09/23/2024 Refill [facility] [address] [facility] [place] [address] Misbah Israel MD Refill Request from Last 3 Months Allergies No known active allergies Medications * [...] mouth once daily 30 tablet 03/12/2023 Active amLODIPine (Norvasc) 10 MG tablet Take 1 (one) tablet by mouth once daily 90 tablet 4 05/16/2024 Active carbidopa-levodo pa (Sinemet) 25-100 MG tablet TAKE 1 TABLET BY MOUTH THREE TIMES DAILY 270 tablet 3 09/26/2024 Active donepezil (Aricept) 23 MG tablet Take 1 (one) tablet by mouth once daily 90 tablet 3 09/28/2024 Active donepezil (Aricept) 23 MG tablet TAKE 1 TABLET BY MOUTH EVERY DAY 90 tablet 3 09/24/2023 5 Discontinued(Reor eugenie) carbidopa-levodo pa (Sinemet) 25-100 MG tablet Take 1 (one) tablet by mouth 3 times daily 90 tablet 2 05/16/2024 5 Discontinued Social History Tobacco Use Types Packs/Day Years [...] 70 05/16/2024 2:54 PM CDT Temperature 36.8 C (98.2 F) 04/07/2024 2:49 PM CDT Respiratory Rate - - Oxygen Saturation 99% 04/07/2024 2:49 PM CDT Inhaled Oxygen Concentration - - Weight 56.7 kg (125 lb) 05/16/2024 2:54 PM CDT Height 182.9 cm (6') 05/16/2024 2:54 PM CDT Body Mass Index 16.95 05/16/2024 2:54 PM CDT Plan of Treatment Upcoming Encounters Date Type Department Care Team (Late st Contact Info) Description 11/28/2024 10:20 AM CDT Office Visit [facility] [address] [facility] [address] [place] [address] Misbah Israel MD [address] [place] [address] Care Teams Adjunct Instructor Relationship Specialty Start Date End Date Manish Teran MD [address] [place] [address] PCP - General Family Medicine 12/18/20
--- OUTSIDE RECORDS SUMMARY | 2024-10-19 14:44 | XMS_ITS | Patient Health Summary ---
Author Organization [facility] Address [address] [place] [address] Care Team Providers Care Swimming Pool Attendant Name Role Phone Manish Teran MD Primary Care Provider [phone] Note from [facility],non-owned Affiliates and Associated Physician Practices is amultiple site organization consisting of ambulatory clinics and hospital sitesin [place], [place], [place] and [place]. This disclosure is being madepursuant to the Care Everywhere program and may not contain all information available regarding this patient. Last updated 18.[facility] Allergies No known active allergies Medications * [...] (one) tablet by mouth once daily * amLODIPine (Norvasc) 10 MG tablet(Started 05/16/2024) Take 1 (one) tablet by mouth once daily 4 refills by 05/16/2025 * carbidopa-levodopa (Sinemet) 25-100 MG tablet(Started 09/26/2024) TAKE 1 TABLET BY MOUTH THREE TIMES DAILY 3 refills by 09/26/2025 * donepezil (Aricept) 23 MG tablet(Started 09/28/2024) Take 1 (one) tablet by mouth once daily 3 refills by 09/28/2025 Ended Medications* donepezil (Aricept) 23 MG tablet(Started 09/24/2023) (Discontinued) TAKE 1 TABLET BY MOUTH EVERY DAY 3 refills by 09/23/2024 * carbidopa-levodopa (Sinemet) 25-100 MG tablet(Started 05/16/2024)(Discontinued) Take 1 (one) tablet by mouth 3 times daily 2 refills by 05/16/2025 Social History Tobacco Use [...] this study. > Dictated by Michael Varela (Assayer) 04/16/2023 2:36 PM I, Santino Irvin MD have personally reviewed and interpreted this examination/study. > Interpreting Provider: Santino Irvin MD on 04/17/2023 8:41 AM Narrative 04/17/2023 8:41 AM CDT PROCEDURE: PET CT BRAIN ALZHEIMER EVAL DATE/TIME [...] this study. > Dictated by Michael Varela (Assayer) 04/16/2023 2:36 PM I, Santino Irvin MD have personally reviewed and interpreted this examination/study. > Interpreting Provider: Santino Irvin MD on 04/17/2023 8:41 AM Misbah Israel MD NM ORDERABLES * VAS CAROTID DUPLEX BILATERAL (03/06/2021 9:30 AM CDT) Anatomical Region Laterality Modality Neck Echo 03/06/2021 8:37 AM CDT Narrative Procedure Note Dawood Lynch MD - 03/22/2021 [facility] [place] [facility] [facility] [place] [address] [facility].Lomography/heart Carotid Ultrasound Report Pat.Name: KATTY FREDERICKBoss.ID: [id number] St.Date: 03/06/2021 Exam Time: 8:37:00 AM Study Type:Carotid Age: 8 1950,70Y Sex: MALE Sonogrphr: Phyllis Boyer RDCS, RVT CPT - 4: 21976 Reason for Study: small vessel stroke History / Clinical: forgetfulness Procedures: Carotid Duplex - Bilateral Visit ID: [id number] ++++++++++++++++++++++++++++++++++++ SUMMARY: ++++++++++++++++++++++++++++++++++++ No evidence of hemodynamically [...] * LIPID PROFILE (02/15/2021 9:20 AM CDT) [facility] Signature Cholesterol 141 <200 mg/dL [facility] INSURANCE BILL Triglycerides 60 <150 mg/dL [facility] INSURANCE BILL HDL Cholesterol 49 >40 mg/dL [facility] INSURANCE BILL VLDL Calculated 12 <=30 mg/dL [facility] INSURANCE BILL LDL Calculated 80 <130 mg/dL [facility] INSURANCE BILL Blood BLOOD SPECIMEN / Unknown 02/15/2021 9:20 AM CDT 02/15/2021 Narrative Resulting Agency Comment Lab Testing performed at: [facility] [address] [facility] [phone] Misbah Israel MD LAB - CHEMISTRY TIRSO HAZEL [facility] INSURANCE BILL [address] [place] [address] * EEG (02/06/2021 11:59 PM CDT) Narrative [facility] - 02/06/2021 11:59 PM CDT Misbah Israel MD 02/07/2021 5:16 PM [facility] EMG/EEG [address] [facility] [address] Electroencephalogram Frederick Flores Routine EEG with Video EEG was recorded in standard multichannel format. Electrode placement was as per the 10/20 system of Electrode placement. The record was reviewed in its entirety, utilizing both bipolar and referential montages. The quality of the recording is good. Indication: forgetfulness Current Outpatient Medications Medication ASPIRIN LOW DOSE 81 MG tablet donepezil (ARICEPT) 5 MG tablet meloxicam (MOBIC) 15 MG tablet metoprolol succinate XL 24hr (TOPROL XL) 25 [...] specific. EEG diagnosis Mild Encephalopathy. Misbah PITTS,,DM,FAAN,FAHS,FAANEM [facility], [facility] T [phone] Misbah Israel MD NEUROLOGY ORDERABLES [facility] * MRI BRAIN WO CONTRAST (02/06/2021 [...] Resulting Agency Comment Lab Testing performed at: [facility] [address] [facility] [phone] Misbah Israel MD LAB - CHEMISTRY [facility] Organization Address City/State/ZIP Co de Phone Number [facility] INSURANCE BILL [address] [place] [address] * METHYLMALONIC ACID BLOOD (12/31/2020 4:20 PM CDT) Pathologist [facility] Methylmalonic Acid 156 0 - 378 nmol/L [facility] INSURANCE BILL Disclaimer [facility] INSURANCE BILL Comment: This test was developed and its performance characteristics determined by [facility]. It has not been cleared or approved by the Food and Drug Administration. FASTING Blood BLOOD SPECIMEN / Unknown 12/31/2020 4:20 PM CDT 12/31/2020 Narrative Resulting Agency Comment Lab Testing performed at: [facility] [phone] Misbah Israel MD LAB - CHEMISTRY TIRSO HAZEL Performing Organization Address City/[facility]/ZIP Co de Phone Number [facility] INSURANCE BILL [address] [place] [address] * VITAMIN B12 (12/31/2020 4:20 PM CDT) Vitamin B12 314 213 - 816 pg/mL [facility] INSURANCE BILL Comment: FASTING Blood BLOOD SPECIMEN / Unknown 12/31/2020 4:20 PM CDT 12/31/2020 Narrative Resulting Agency Comment Lab Testing performed at: [facility] [address] [facility] [phone] Misbah Israel MD LAB - CHEMISTRY TIRSO HAZEL Performing Organization Address [facility] Co de Phone Number [facility] INSURANCE BILL [address] [place] [address] * TSH (12/31/2020 4:20 PM CDT) TSH 2.1843 0.35 - 4.94 uIU/mL [facility] INSURANCE BILL Comment: FASTING Blood BLOOD SPECIMEN / Unknown 12/31/2020 4:20 PM CDT 12/31/2020 Narrative Resulting Agency Comment Lab Testing performed at: [facility] [address] [facility] [phone] Misbah Israel MD LAB - CHEMISTRY TIRSO HAZEL Performing Organization Address City/[facility]/ZIP Co de Phone Number [facility] INSURANCE BILL [address] [place] [address] Care Teams Swimming Pool Attendant Relationship Specialty Start Date End Date Manish Teran MD [address] [place] [address] PCP - General Family Medicine 12/18/20
--- OUTSIDE RECORDS SUMMARY | 2024-10-19 14:44 | XMS_ITS | Continuity of Care Document ---
Author Name [facility] Organization [facility] Care Team Providers Care Parking Meter Mechanic Name Role Phone [facility] Unavailable Unavailable Social History Combined list of available smoking, tobacco, and other social history from Department of Defense and Veterans Affairs facilities. Social History Type Response Date Comment Sourc e This section is an empty social history section. [facility]
--- OUTSIDE RECORDS SUMMARY | 2024-10-19 14:44 | XMS_ITS | Clinical Summary ---
Author Organization [facility] Address [address] [place] [address] Care Team Providers Care Burr Bench Hand Name Role Phone Manish Teran MD Primary Care Provider [phone] Source Comments [facility],non-owned Affiliates and Associated Physician Practices is amultiple site organization consisting of ambulatory clinics and hospital sitesin [place], [place], [place] and [place]. This disclosure is being madepursuant to the Care Everywhere program and may not contain all information available regarding this patient. Last updated 18.[facility] Allergies No known active allergies Medications * [...] daily 90 tablet 2 05/16/2024 5 Discontinued Encounters Date Type Department Care Team Description 09/28/2024 Refill [facility] [address] [place] [address] Misbah Israel MD Refill Request 09/23/2024 Refill [facility] [address] [place] [address] Misbah Israel MD Refill Request from Last 3 Months Social History Tobacco [...] Description 11/28/2024 10:20 AM CDT Office Visit [facility] [address] [facility] [address] [place] [address] Misbah Israel MD [address] [facility] [address] [place] [address] Health Maintenance Due Date Last Done Comments HEPATITIS C SCREENING 04/10/1966 DTAP/TDAP/TD VACCINES (1 - Tdap) 1967 PNEUMOCOCCAL VACCINE 50+ (1 of 1 - PCV) 1998 ZOSTER VACCINE (1 of 2) 1998 Respiratory Syncytial Virus (RSV) Vaccine Pt: or over 60 yrs (1 - 1-dose 75+ series) 2023 COVID-19 VACCINE ( - 2023-2 5 season) 2024 INFLUENZA VACCINE (#1) 2024 DEPRESSION SCREENING 08/31/2024 MEDICARE AWV CALENDAR YEAR 2024 HEPATITIS B VACCINE Aged Out No longe r eligible based on patient's age to complete this topic HIB VACCINE Aged Out No longer eligi ble based on patient's age to complete this topic HPV VACCINE Aged Out No longer eligi ble based on patient's age to complete this topic MENINGOCOCCAL (Group B) VACCINE Aged Out No longer eligible based on patient's age to complete this topic MENINGOCOCCAL VACCINE Aged Out No justin mary eligible based on patient's age to complete this topic Care Teams Burr Bench Hand Relationship Specialty Start Date End Date Manish Teran MD [address] [place] [address] PCP - General Family Medicine 12/18/20
--- NOTE | 2024-10-19 14:45 | ECG_ITS ---
Test Date: 2024-10-19 14:50:59 Measurements Intervals [place] Rate: 93 P: 80 MS: 163 QRS: 44 QRSD: 87 T: 62 QT: 356 QTc: 443 Interpretive Statements SINUS RHYTHM MINIMAL Q WAVES- ANTEROLATERAL LEADS BASELINE ARTIFACT- I, II, III, AVR, AVL, AVF, V1-V6 BORDERLINE ECG Compared to ECG 08/31/2024 20:23:35 NO SIGNIFICANT CHANGE Electronically Signed On 10-19-2024 15:35:44 RESEARCH PROJECT COORDINATOR by Omari Murphy D.O.
--- NOTE | 2024-10-19 14:46 | ED_ITS ---
HPI - Syncope General Chief Complaint: Syncope <Laquita Amador PA-C - Last Filed: 10/20/24 09:05> Stated Complaint: syncopy <Laquita Amador PA-C - Last Filed: 10/20/24 09:05> Time Seen by Provider: 10/19/24 14:46 <Laquita Amador PA-C - Last Filed: 10/20/24 09:05> Focused HPI: This is a 74 year old male that presents to the ER for dizziness. Reportedly patient had a syncopal episode at home. Was able to be lowered to the floor. Reports he gets dizzy when he stands up too fast. Denies any symptoms currently. GENERAL: Elderly, well-nourished, and in no acute distress. HEAD: Normocephalic, atraumatic. CHEST: Clear to auscultation. ?No respiratory distress. HEART: Regular rate and rhythm.? NEURO: ?Alert and oriented x3. Patient screened in triage and initial orders placed.? ?Additional care and disposition to be based upon?diagnostic testing and treatment. <Laquita Amador PA-C - Last Filed: 10/20/24 09:05> History of Present Illness HPI narrative: Agree with HPI. A syncope x2. Mild shaking after syncope and improves when lying down. 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 < Chase Whitney MD - Last Filed: 10/19/24 19:24> Related Data Home Medications: Home Medications ?Medication ?Instructions ?Recorded ?Confirmed ?Last Taken ?Type No Home Medications 04/14/20 04/14/20 Unknown History <Laquita Amador PA-C - Last Filed: 10/20/24 09:05> Allergies/Adverse Reactions: Allergies Allergy/AdvReac Type Severity Reaction Status Date / Time No Known Allergies Allergy Verified 04/14/20 23:53 <Laquita Amador PA-C - Last Filed: 10/20/24 09:05> Review of Systems 2 Review of Systems: All systems reviewed & are unremarkable except as noted in HPI and below <Chase Whitney MD - Last Filed: 10/19/24 19:24> Constitutional: Constitutional: Reports no additional constitutional complaints <Chase Whitney MD - Last Filed: 10/19/24 19:24> ENT: Reports system reviewed and no additional complaints, except as documented <Chase Whitney MD - Last Filed: 10/19/24 19:24> Cardiovascular: Cardiovascular: Reports no additional cardiovascular complaints <Chase Whitney MD - Last Filed: 10/19/24 19:24> Respiratory: Respiratory: Reports no additional respiratory complaints < Chase Whitney MD - Last Filed: 10/19/24 19:24> Neurologic: Reports system reviewed and no additional complaints, except as documented, Reports syncope and Denies headache(s) <Chase Whitney MD - Last Filed: 10/19/24 19:24> PMFSH Past Medical History Medical History: Medical History (Updated 10/20/24 @ 09:05 by Laquita Amador PA-C) Amputation finger Hematuria Carpal tunnel syndrome Tendinitis GERD (gastroesophageal reflux disease) High blood pressure <Laquita Amador PA-C - Last Filed: 10/20/24 09:05> Surgical History Surgical History: Surgical History (Updated 04/14/20 @ 22:12 by Manish SchmidtMD) Hx of carpal tunnel repair <Laquita Amador PA-C - Last Filed: 10/20/24 09:05> Family History Family History: Family History (Updated 04/14/20 @ 23:22 by Laquita Xiao RN) Mother Alzheimer disease Sibling Heart disease <Laquita Amador PA-C - Last Filed: 10/20/24 09:05> Social History Social History: Social History Years smoked: 5 Smoking status: Former smoker Tobacco type: cigarettes Second hand tobacco smoke exposure: No Alcohol intake: former Substance use: never Substance use type: does not use Gender identity (if verbalized by the patient): Male Spiritual care concerns: No <Laquita Amador PA-C - Last Filed: 10/20/24 09:05> Exam 2 Narrative: GENERAL: Well-appearing, well-nourished, and in no acute distress. HEAD: Normocephalic, atraumatic. ENT: Mucous membranes moist. CHEST: Clear to auscultation. No respiratory distress. HEART: Regular rate and rhythm. Normal peripheral pulses. ABDOMEN: Soft, nontender, nondistended. EXTREMITIES: Normal range of motion. No edema. SKIN: Warm, dry, no rash. NEURO: Alert and oriented x2-3. <Chase Whitney MD - Last Filed: 10/19/24 19:24> Course Course Emergency Course: 1905: After 1L IVF, orthostatic BP with laying 153/85 with hr 103. Sitting 155/83 with hr 99. Standing 113 hr with bp 114/68. Will give additional liter of fluid. KARY to Dr. Smart. <Chase Whitney MD - Last Filed: 10/19/24 19:24> 1906: After 1L IVF, orthostatic BP with laying 153/85 with hr 103. Sitting 155/83 with hr 99. Standing 113 hr with bp 114/68. Will give additional liter of fluid. KARY to Dr. Smart. 5: Patient signed out to me pending fluid rehydration and an ambulatory test. Was notified by nursing staff that the patient bloody urine. UA showed positive RBCs without signs of infection. CT abdomen pelvis showed a bladder mass versus enlarged prostate. No urinary retention. This can be followed on an outpatient basis in the being referral for Urology. Patient was able ambulate with a steady gait. It appears the fluids have resolved his dizziness. I discussed admission versus discharge with patient's daughter. Using shared decision-making we've decided to discharge him home. and will return if his condition is to worsen. <Juan M Smart MD - Last Filed: 10/19/24 22:52> Vital Signs Vital signs: Vital Signs Temperature 97.8 F 10/19/24 14:41 Respiratory Rate 14 10/19/24 14:41 Blood Pressure 110/66 10/19/24 14:41 Pulse Oximetry 97 10/19/24 14:41 Temperature 97.8 F 10/19/24 14:41 Pulse Rate 53 L 10/19/24 22:31 Respiratory Rate 12 10/19/24 22:31 Blood Pressure 138/76 10/19/24 22:31 Pulse Oximetry 100 10/19/24 22:31 Oxygen Delivery Room Air 10/19/24 16:53 <Laquita Amador PA-C - Last Filed: 10/20/24 09:05> Vital Signs Temperature 97.8 F 10/19/24 14:41 Respiratory Rate 14 10/19/24 14:41 Blood Pressure 110/66 10/19/24 14:41 Pulse Oximetry 97 10/19/24 14:41 Temperature 97.8 F 10/19/24 14:41 Pulse Rate 53 L 10/19/24 22:31 Respiratory Rate 12 10/19/24 22:31 Blood Pressure 138/76 10/19/24 22:31 Pulse Oximetry 100 10/19/24 22:31 Oxygen Delivery Room Air 10/19/24 16:53 <Chase Whitney MD - Last Filed: 10/19/24 19:24> Vital Signs Temperature 97.8 F 10/19/24 14:41 Respiratory Rate 14 10/19/24 14:41 Blood Pressure 110/66 10/19/24 14:41 Pulse Oximetry 97 10/19/24 14:41 Temperature 97.8 F 10/19/24 14:41 Pulse Rate 53 L 10/19/24 22:31 Respiratory Rate 12 10/19/24 22:31 Blood Pressure 138/76 10/19/24 22:31 Pulse Oximetry 100 10/19/24 22:31 Oxygen Delivery Room Air 10/19/24 16:53 <Juan M Smart MD - Last Filed: 10/19/24 22:52> MDM - Syncope Lab Data Result diagrams: 10/19/24 16:57 10/19/24 16:57 <Laquita Amador PA-C - Last Filed: 10/20/24 09:05> Labs: Lab Results 10/19/24 10/19/24 Range/Units 16:57 20:37 WBC 5.9 (4.5-10.0) K/mm3 RBC 4.07 L (4.6-6.20) M/mm3 Hgb 11.8 L (14.0-18.0) g/dL Hct 34.2 L (42.0-52.0) % MCV 84.0 (80-100) fl MCH 29.0 (26-34) pg MCHC 34.5 (32-36) g/dl RDW 14.9 H (11.5-14.5) % Plt Count 277 (150-375) k/mm3 MPV 9.3 (7.4-10.4) fl Immature Gran % (Auto) 0.5 (0-0.5) % Neut % (Auto) 68.8 (45.5-73.1) % Lymph % (Auto) 20.6 (18.3-44.2) % [place] % (Auto) 9.6 H (2.6-8.5) % Eos % (Auto) 0.2 (0-4.4) % Baso % (Auto) 0.3 (0.2-1.2) % Lymph # (Auto) 1.22 (0.9-3.2) K/mm3 [place] # (Auto) 0.6 (0.1-0.6) K/mm3 Eos # (Auto) 0.0 (0-0.3) K/mm3 Baso # (Auto) 0.0 (0.0-0.1) K/mm3 Abs Immat Gran (auto) 0.03 (0.00-0.031) K/mm3 Absolute Neuts (auto) 4.1 (1.3-6.7) K/mm3 Absolute Nucleated RBC 0.000 (0.0-0.012) K/mm3 Nucleated RBC % 0.0 (0.0-0.2) % PT 13.3 (11.1-14.7) Seconds INR 1.0 APTT 24.7 (22.3-36.8) Seconds Sodium 141 (137-145) mmol/L Potassium 4.4 (3.4-5.0) mmol/L Chloride 101 (98-107) mmol/L Carbon Dioxide 30 (22-30) mmol/L Anion Gap 10 (4-12) mmol/L BUN 28 H (9-20) mg/dL Creatinine 1.59 H (0.7-1.3) mg/dL Estim Creat Clear Calc 28 ml/min Estimated GFR 43 L (59 - ) Glucose 87 (65-110) mg/dL Calcium 9.8 (8.4-10.2) mg/dL Total Bilirubin 0.7 (0.2-1.3) mg/dL AST 47 (17-59) U/L ALT 25 (6-50) U/L Alkaline Phosphatase 76 (38-126) U/L Troponin I 0.023 (0.000-0.034) ng/mL Total Protein 9.0 H (6.3-8.2) g/dL Albumin 4.4 (3.5-5.1) g/dL Urine Color Yellow (Yellow) Urine Appearance Clear (Clear) Urine pH 7.0 (5.0-9.0) Ur Specific [place] 1.005 (1.001-1.035) Urine Protein Negative (Negative) mg/dL Urine Glucose (UA) Negative (Negative) mg/dL Urine Ketones Negative (Negative) mg/dL Ur Blood (Man) 3+ H (Negative) Urine Nitrate Negative (Negative) Urine Bilirubin Negative (Negative) Urine Urobilinogen 0.2 (<2.0) mg/dL Leukocyte Esterase Rfl Trace H (Negative) ASHLEY/UL Urine RBC >100 H (0-2) /hpf Urine WBC 0-5 (0-3) /hpf Ur Squamous Epith Cells None seen (Few) /hpf Urine Bacteria None seen /hpf Urine Casts 0-2 <Laquita Amador PA-C - Last Filed: 10/20/24 09:05> Lab Results 10/19/24 10/19/24 Range/Units 16:57 20:37 WBC 5.9 (4.5-10.0) K/mm3 RBC 4.07 L (4.6-6.20) M/mm3 Hgb 11.8 L (14.0-18.0) g/dL Hct 34.2 L (42.0-52.0) % MCV 84.0 (80-100) fl MCH 29.0 (26-34) pg MCHC 34.5 (32-36) g/dl RDW 14.9 H (11.5-14.5) % Plt Count 277 (150-375) k/mm3 MPV 9.3 (7.4-10.4) fl Immature Gran % (Auto) 0.5 (0-0.5) % Neut % (Auto) 68.8 (45.5-73.1) % Lymph % (Auto) 20.6 (18.3-44.2) % [place] % (Auto) 9.6 H (2.6-8.5) % Eos % (Auto) 0.2 (0-4.4) % Baso % (Auto) 0.3 (0.2-1.2) % Lymph # (Auto) 1.22 (0.9-3.2) K/mm3 [place] # (Auto) 0.6 (0.1-0.6) K/mm3 Eos # (Auto) 0.0 (0-0.3) K/mm3 Baso # (Auto) 0.0 (0.0-0.1) K/mm3 Abs Immat Gran (auto) 0.03 (0.00-0.031) K/mm3 Absolute Neuts (auto) 4.1 (1.3-6.7) K/mm3 Absolute Nucleated RBC 0.000 (0.0-0.012) K/mm3 Nucleated RBC % 0.0 (0.0-0.2) % PT 13.3 (11.1-14.7) Seconds INR 1.0 APTT 24.7 (22.3-36.8) Seconds Sodium 141 (137-145) mmol/L Potassium 4.4 (3.4-5.0) mmol/L Chloride 101 (98-107) mmol/L Carbon Dioxide 30 (22-30) mmol/L Anion Gap 10 (4-12) mmol/L BUN 28 H (9-20) mg/dL Creatinine 1.59 H (0.7-1.3) mg/dL Estim Creat Clear Calc 28 ml/min Estimated GFR 43 L (59 - ) Glucose 87 (65-110) mg/dL Calcium 9.8 (8.4-10.2) mg/dL Total Bilirubin 0.7 (0.2-1.3) mg/dL AST 47 (17-59) U/L ALT 25 (6-50) U/L Alkaline Phosphatase 76 (38-126) U/L Troponin I 0.023 (0.000-0.034) ng/mL Total Protein 9.0 H (6.3-8.2) g/dL Albumin 4.4 (3.5-5.1) g/dL Urine Color Yellow (Yellow) Urine Appearance Clear (Clear) Urine pH 7.0 (5.0-9.0) Ur Specific [place] 1.005 (1.001-1.035) Urine Protein Negative (Negative) mg/dL Urine Glucose (UA) Negative (Negative) mg/dL Urine Ketones Negative (Negative) mg/dL Ur Blood (Man) 3+ H (Negative) Urine Nitrate Negative (Negative) Urine Bilirubin Negative (Negative) Urine Urobilinogen 0.2 (<2.0) mg/dL Leukocyte Esterase Rfl Trace H (Negative) ASHLEY/UL Urine RBC >100 H (0-2) /hpf Urine WBC 0-5 (0-3) /hpf Ur Squamous Epith Cells None seen (Few) /hpf Urine Bacteria None seen /hpf Urine Casts 0-2 <Chase Whitney MD - Last Filed: 10/19/24 19:24> Lab Results 10/19/24 10/19/24 Range/Units 16:57 20:37 WBC 5.9 (4.5-10.0) K/mm3 RBC 4.07 L (4.6-6.20) M/mm3 Hgb 11.8 L (14.0-18.0) g/dL Hct 34.2 L (42.0-52.0) % MCV 84.0 (80-100) fl MCH 29.0 (26-34) pg MCHC 34.5 (32-36) g/dl RDW 14.9 H (11.5-14.5) % Plt Count 277 (150-375) k/mm3 MPV 9.3 (7.4-10.4) fl Immature Gran % (Auto) 0.5 (0-0.5) % Neut % (Auto) 68.8 (45.5-73.1) % Lymph % (Auto) 20.6 (18.3-44.2) % [place] % (Auto) 9.6 H (2.6-8.5) % Eos % (Auto) 0.2 (0-4.4) % Baso % (Auto) 0.3 (0.2-1.2) % Lymph # (Auto) 1.22 (0.9-3.2) K/mm3 [place] # (Auto) 0.6 (0.1-0.6) K/mm3 Eos # (Auto) 0.0 (0-0.3) K/mm3 Baso # (Auto) 0.0 (0.0-0.1) K/mm3 Abs Immat Gran (auto) 0.03 (0.00-0.031) K/mm3 Absolute Neuts (auto) 4.1 (1.3-6.7) K/mm3 Absolute Nucleated RBC 0.000 (0.0-0.012) K/mm3 Nucleated RBC % 0.0 (0.0-0.2) % PT 13.3 (11.1-14.7) Seconds INR 1.0 APTT 24.7 (22.3-36.8) Seconds Sodium 141 (137-145) mmol/L Potassium 4.4 (3.4-5.0) mmol/L Chloride 101 (98-107) mmol/L Carbon Dioxide 30 (22-30) mmol/L Anion Gap 10 (4-12) mmol/L BUN 28 H (9-20) mg/dL Creatinine 1.59 H (0.7-1.3) mg/dL Estim Creat Clear Calc 28 ml/min Estimated GFR 43 L (59 - ) Glucose 87 (65-110) mg/dL Calcium 9.8 (8.4-10.2) mg/dL Total Bilirubin 0.7 (0.2-1.3) mg/dL AST 47 (17-59) U/L ALT 25 (6-50) U/L Alkaline Phosphatase 76 (38-126) U/L Troponin I 0.023 (0.000-0.034) ng/mL Total Protein 9.0 H (6.3-8.2) g/dL Albumin 4.4 (3.5-5.1) g/dL Urine Color Yellow (Yellow) Urine Appearance Clear (Clear) Urine pH 7.0 (5.0-9.0) Ur Specific [place] 1.005 (1.001-1.035) Urine Protein Negative (Negative) mg/dL Urine Glucose (UA) Negative (Negative) mg/dL Urine Ketones Negative (Negative) mg/dL Ur Blood (Man) 3+ H (Negative) Urine Nitrate Negative (Negative) Urine Bilirubin Negative (Negative) Urine Urobilinogen 0.2 (<2.0) mg/dL Leukocyte Esterase Rfl Trace H (Negative) ASHLEY/UL Urine RBC >100 H (0-2) /hpf Urine WBC 0-5 (0-3) /hpf Ur Squamous Epith Cells None seen (Few) /hpf Urine Bacteria None seen /hpf Urine Casts 0-2 <Juan M Smart MD - Last Filed: 10/19/24 22:52> Imaging Data Radiologist's impression: ITS Impressions Head CT 10/19/24 15:11 IMPRESSION: 1. Normal aging brain. Chest X-Ray 10/19/24 15:16 IMPRESSION: 1. Hyperexpansion of lungs suggestive but not diagnostic of COPD. 2. Mild reticular opacities at the lung bases which could represent atelectasis, chronic interstitial lung disease or less likely mild pulmonary edema Abdomen/Pelvis CT 10/19/24 22:14 IMPRESSION: 1. Mass at the posterior aspect of the bladder, which may be part of the moderately enlarged prostate or may be urothelial carcinoma. 2. Bilateral nonobstructing kidney stones. <Laquita Amador PA-C - Last Filed: 10/20/24 09:05> Critical Care Time Critical Care Time Critical Care Time: No <Laquita Amador PA-C - Last Filed: 10/20/24 09:05> Discharge Plan Discharge Clinical Impression: Orthostasis, Bladder mass Syncope Qualifiers: Syncope type: unspecified Qualified Code(s): R55 - Syncope and collapse <Laquita Amador PA-C - Last Filed: 10/20/24 09:05> Patient Disposition: Home, Self-Care <Laquita Amador PA-C - Last Filed: 10/20/24 09:05> Condition: Stable <Laquita Amador PA-C - Last Filed: 10/20/24 09:05> Instructions: Antibiotic Form, Dehydration (DC), Hematuria (ED) <Laquita Amador PA-C - Last Filed: 10/20/24 09:05> Additional Instructions: Frederick was seen in the ED after fainting. We believe this is due to dehydration. Please make sure he is drinking plenty of fluids. He did have some blood in his urine and may have a bladder mass. Please follow-up with the urologist listed below for further workup. Please return to the ED if he develops any new or worsening symptoms. <Laquita Amador PA-C - Last Filed: 10/20/24 09:05> Patient Language: Yi <Laquita Amador PA-C - Last Filed: 10/20/24 09:05> Prescriptions: No Action No Home Medications aspirin 81 mg Tablet,Delayed Release (Dr/Ec) 81 mg PO QAM Qty: 30 0RF metoprolol succinate [Toprol XL] 25 mg tablet extended release 24 hr 25 mg PO HS Qty: 30 0RF <Laquita Amador PA-C - Last Filed: 10/20/24 09:05> Follow-up/Referrals: Jeffry,Manish Schmid MD [Non-Staff] - 1 Week (Syncope ) Cam Aguilar MD [Physician] - 1 Week (Bladder mass ) <Laquita Amador PA-C - Last Filed: 10/20/24 09:05>
--- OUTSIDE RECORDS SUMMARY | 2024-10-19 16:08 | XMS_ITS | Referral Summary ---
Author Organization [facility] Address [address] [place] [address] Care Team Providers Care Clay Dry Press Operator Name Role Phone Manish Teran MD Primary Care Provider [phone] Source Comments [facility],non-[facility] Affiliates and Associated Physician Practices is amultiple site organization consisting of ambulatory clinics and hospital sitesin [place], [place], [place] and [place]. This disclosure is being madepursuant to the Care Everywhere program and may not contain all information available regarding this patient. Last updated 18.[facility] Encounters Date Type Department Care Team Description 09/28/2024 Refill [facility] [address] [place] [address] Misbah Israel MD Refill Request 09/23/2024 Refill [facility] [employer] [facility] [address] [place] [address] Misbah Israel MD Refill Request from Last [...] [facility] Health [facility] [address] [place] [address] Misbah Israel MD [address] [place] [address] Care Teams Clay Dry Press Operator Relationship Specialty Start Date End Date Manish Teran MD [address] [place] [address] PCP - General Family Medicine 12/18/20
--- OUTSIDE RECORDS SUMMARY | 2024-10-19 16:08 | XMS_ITS | Patient Health Summary ---
Author Organization [facility] Address [address] [place] [address] Care Team Providers Care Wrap Turner Name Role Phone Manish Teran MD Primary Care Provider [phone] Note from [facility],non-owned Affiliates and Associated Physician Practices is amultiple site organization consisting of ambulatory clinics and hospital sitesin [place], [place], [place] and [place]. This disclosure is being madepursuant to the Care Everywhere program and may not contain all information available regarding this patient. Last updated 18.[facility] Allergies No known active allergies Medications * [...] this study. > Dictated by Michael Varela (Safety Patrol Officer) 04/16/2023 2:36 PM I, Santino Irvin MD [...] this study. > Dictated by Michael Varela (Safety Patrol Officer) 04/16/2023 2:36 PM I, Santino Irvin MD have personally reviewed and interpreted this examination/study. > Interpreting Provider: Santino Irvin MD on 04/17/2023 8:41 AM Misbah Israel MD NM ORDERABLES * VAS CAROTID DUPLEX BILATERAL (03/06/2021 9:30 AM CDT) Anatomical Region Laterality Modality Neck Echo 03/06/2021 8:37 AM CDT Narrative Procedure Note Dawood Lynch MD - 03/22/2021 Heart [place] [facility] [facility] [place] [address] [facility]/heart Carotid Ultrasound Report Pat.Name: KATTY FREDERICKBoss.ID: [id number] St.Date: 03/06/2021 Exam Time: 8:37:00 AM Study Type:Carotid Age: 8 1950,70Y Sex: MALE Sonogrphr: Phyllis Boyer RDCS, RVT CPT - 4: 00049 Reason for Study: small vessel stroke History / Clinical: forgetfulness Procedures: Carotid Duplex - Bilateral Visit ID: [id number] ++++++++++++++++++++++++++++++++++++ SUMMARY: ++++++++++++++++++++++++++++++++++++ No evidence of hemodynamically [...] * LIPID PROFILE (02/15/2021 9:20 AM CDT) [facility] Signature Cholesterol 141 <200 mg/dL [facility] INSURANCE BILL Triglycerides 60 <150 mg/dL [facility] INSURANCE BILL HDL Cholesterol 49 >40 mg/dL [facility] INSURANCE BILL VLDL Calculated 12 <=30 mg/dL [facility] INSURANCE BILL LDL Calculated 80 <130 mg/dL [facility] INSURANCE BILL Blood BLOOD SPECIMEN / Unknown 02/15/2021 9:20 AM CDT 02/15/2021 Narrative Resulting Agency Comment Lab Testing performed at: [facility] [address] [facility] [address] [facility] [phone] Misbah Israel MD LAB - CHEMISTRY TIRSO HAZEL [facility] INSURANCE BILL [address] [place] [address] * EEG (02/06/2021 11:59 PM CDT) Narrative [facility] - 02/06/2021 11:59 PM CDT Misbah Israel MD 02/07/2021 5:16 PM [facility] EMG/EEG [address] [facility] [address] Electroencephalogram Frederick Flores Routine EEG with Video [...] specific. EEG diagnosis Mild Encephalopathy. Misbah PITTS,,DM,FAAN,FAHS,[facility], [facility] T [phone] Misbah Israel MD NEUROLOGY ORDERABLES [facility] [...] Resulting Agency Comment Lab Testing performed at: [facility] [address] [facility] [phone] Misbah Israel MD LAB - [facility]Y [facility] Organization Address City/State/ZIP Co de Phone Number [facility] INSURANCE BILL [address] [place] [address] * METHYLMALONIC ACID BLOOD (12/31/2020 4:20 PM CDT) Pathologist [facility] [place] Methylmalonic Acid 156 0 - 378 nmol/L [facility] INSURANCE BILL Disclaimer [facility] INSURANCE BILL Comment: This test was developed and its performance characteristics determined by [facility]. It has not been cleared or approved by the Food and Drug Administration. FASTING Blood BLOOD SPECIMEN / Unknown 12/31/2020 4:20 PM CDT 12/31/2020 Narrative Resulting Agency Comment Lab Testing performed at: [facility] [id number] Misbah Israel MD LAB - CHEMISTRY TIRSO HAZEL Performing Organization Address City/[facility]/ZIP Co de Phone Number [facility] INSURANCE BILL [address] [place] [address] * VITAMIN B12 (12/31/2020 4:20 PM CDT) Vitamin B12 314 213 - 816 pg/mL [facility] INSURANCE BILL Comment: FASTING Blood BLOOD SPECIMEN / Unknown 12/31/2020 4:20 PM CDT 12/31/2020 Narrative Resulting Agency Comment Lab Testing performed at: [facility] [address] [facility] [phone] Misbah Israel MD LAB - CHEMISTRY TIRSO HAZEL Performing Organization Address [facility] Co de Phone Number [facility] INSURANCE BILL [address] [place] [address] * TSH (12/31/2020 4:20 PM CDT) TSH 2.1843 0.35 - 4.94 uIU/mL [facility] INSURANCE BILL Comment: FASTING Blood BLOOD SPECIMEN / Unknown 12/31/2020 4:20 PM CDT 12/31/2020 Narrative Resulting Agency Comment Lab Testing performed at: [facility] [address] [facility] [phone] Misbah Israel MD LAB - CHEMISTRY TIRSO HAZEL Performing Organization Address City/[facility]/ZIP Co de Phone Number [facility] INSURANCE BILL [address] [place] [address] Care Teams Wrap Turner Relationship Specialty Start Date End Date Manish Teran MD [address] [place] [address] PCP - General Family Medicine 12/18/20
--- OUTSIDE RECORDS SUMMARY | 2024-10-19 16:08 | XMS_ITS | Clinical Summary ---
Author Organization [facility] Address [address] [place] [address] Care Team Providers Care Nursery Manager Name Role Phone Manish Teran MD Primary Care Provider [phone] Source Comments [facility],non-owned Affiliates and Associated Physician Practices is amultiple site organization consisting of ambulatory clinics and hospital sitesin [place], [place], [place] and [place]. This disclosure is being madepursuant to the Care Everywhere program and may not contain all information available regarding this patient. Last updated 18.[facility] [email or web address] Allergies No known active allergies Medications * [...] Type Department Care Team Description 09/28/2024 Refill [facility] [address] [place] [address] Misbah Israel MD Refill Request 09/23/2024 Refill [facility] [address] [place] [address] Misbah Israel MD Refill Request from Last [...] Description 11/28/2024 10:20 AM CDT Office Visit [facility] Health [facility] [address] [place] [address] Misbah Israel MD [address] [place] [address] Health Maintenance Due Date Last Done Comments [...] age to complete this topic Care Teams Nursery Manager Relationship Specialty Start Date End Date Manish Teran MD [address] [place] [address] PCP - General Family Medicine 12/18/20
--- OUTSIDE RECORDS SUMMARY | 2024-10-19 16:08 | XMS_ITS | Continuity of Care Document ---
Author Name [facility] Organization [facility] Care Team Providers Care Order Administrator Name Role Phone [facility] Unavailable Unavailable Social History Combined list of available smoking, tobacco, and other social history from Department of Defense and Veterans Affairs facilities. Social History Type Response Date Comment Sourc e This section is an empty social history section. [facility]
[2024-10-19 17:02] LABS: Basophils Percent Auto 0.3 % (0.2-1.2); Eosinophils Percent Auto 0.2 % (0-4.4); Hematocrit 34.2 % (42.0-52.0); Hemoglobin 11.8 g/dL (14.0-18.0); Immature Granulocyte Absolute 0.03 K/mm3 (0.00-0.031); Immature Granulocyte Percent A 0.5 % (0-0.5); Lymphocytes Absolute Auto 1.22 K/mm3 (0.9-3.2); Lymphocytes Percent Auto 20.6 % (18.3-44.2); Mean Corpuscular HGB Conc 34.5 g/dl (32-36); Mean Platelet Volume 9.3 fl (7.4-10.4); Monocytes Absolute Auto 0.6 K/mm3 (0.1-0.6); Monocytes Percent Auto 9.6 % (2.6-8.5); Neutrophils Absolute Auto 4.1 K/mm3 (1.3-6.7); Neutrophils Percent Auto 68.8 % (45.5-73.1); Platelet Count Result 277 k/mm3 (150-375); Red Blood Count 4.07 M/mm3 (4.6-6.20); Red Cell Distribution Width 14.9 % (11.5-14.5); White Blood Count 5.9 K/mm3 (4.5-10.0)
[2024-10-19 17:16] LABS: Partial Thromboplastin Time 24.7 Seconds (22.3-36.8); Prothrombin Time 13.3 Seconds (11.1-14.7)
[2024-10-19 17:30] LABS: Alanine Aminotransferase 25 U/L (6-50); Albumin Level 4.4 g/dL (3.5-5.1); Alkaline Phosphatase 76 U/L (38-126); Anion Gap 10 mmol/L (4-12); Aspartate Amino Transferase 47 U/L (17-59); Bilirubin,Total 0.7 mg/dL (0.2-1.3); Blood Urea Nitrogen 28 mg/dL (9-20); Calcium 9.8 mg/dL (8.4-10.2); Carbon Dioxide 30 mmol/L (22-30); Chloride 101 mmol/L (98-107); Estimated CRCL calculation 28 ml/min; Estimated Glomerular Filt Rate 43; Glucose 87 mg/dL (65-110); Potassium 4.4 mmol/L (3.4-5.0); Sodium 141 mmol/L (137-145)
[2024-10-19 17:41] LABS: Troponin I 0.023 ng/mL (0.000-0.034)
[2024-10-19] MEDS: SODIUM CHLORIDE 0.9% IV 1,000 ML 999 ML IV CONT (18:02)
[2024-10-19] MEDS: LACTATED RINGERS 1,000 ML 999 ML IV CONT (19:09)
[2024-10-19 20:56] LABS: Add Urine Microscopic? YES; Appearance Urine Clear (Clear); Bacteria Urine None Seen /hpf; Bilirubin Urine Negative (Negative); Blood Urine 3+ (Negative); Color Urine Yellow (Yellow); Glucose Urine UA Negative (Negative); Ketones Urine Negative (Negative); Leukocyte Esterase Ur Trace LEU/UL (Negative); Nitrate Urine Negative (Negative); Non Pathogenic Casts 0-2; Protein Urine Negative (Negative); RBC Urine >100 /hpf (0-2); Specific Grav Ur 1.005 (1.001-1.035); Squamous Epithelial Cell Urine None Seen /hpf (Few); Urobilinogen Urine 0.2 mg/dL (<2.0); WBC Urine 0-5 /hpf (0-3)
== END 2024-10-19 23:15 | disposition home or self-care (01) ==
PROVIDERS: Emergency Medicine; Physician Assistant; Emergency Provider Emergency Medicine; PCP Family Medicine
DX: I95.1 Orthostatic hypotension (principal); N32.9 Bladder disorder, unspecified; I10 Essential (primary) hypertension; K21.9 Gastro-esophageal reflux disease without esophagitis; Z89.029 Acquired absence of unspecified finger(s); Z87.891 Personal history of nicotine dependence; R91.8 Other nonspecific abnormal finding of lung field; N20.0 Calculus of kidney
CPT/HCPCS: 36415; 70450; 71046; 74176; 80053; 81001; 84484; 85025; 85610; 85730; 93005; 96360; 96361; 99284; J7030; J7120